=== PATIENT | female | born 1930 | race Caucasian/White ===

== ENCOUNTER 2016-05-26 11:34 | Inpatient (IN) | payer MEDICARE, BC ==
--- NOTE | 2016-05-26 12:34 | ED PDOC ---
HPI: Headache Time Seen by Provider: 05/26/16 12:11 Chief Complaint (Nursing): Palpitations Chief Complaint (Provider): Palpitations History Per: Patient History/Exam Limitations: no limitations Onset/Duration Of Symptoms: Days Current Symptoms Are (Timing): Still Present Severity: Mild Quality: "Pain" Preceeding Symptoms: None Associated Symptoms: Blurred Vision Additional Complaint(s): Patient is a 86 year old female who presents to ED for evaluation of dizziness with blurred vision and headache worsening for 2 days. Patient denies nausea, vomiting, chest pain, palpations, loss of appetite, diarrhea or head injury . Past Medical History Reviewed: Historical Data, Nursing Documentation, Vital Signs Vital Signs: Last Vital Signs Temp 97.2 F L 05/26/16 12:06 Pulse 70 05/26/16 12:06 Resp 18 05/26/16 12:06 BP 120/75 05/26/16 12:06 Pulse Ox 98 05/26/16 12:06 - Medical History PMH: Anxiety, Arthritis, Atrial Fibrillation, Cardia Arrhythmia, Depression, Diabetes, Diverticulitis, HTN, Hypercholesterolemia Denies: Chronic Kidney Disease - Surgical History Surgical History: Hernia Repair - Family History Family History: States: No Known Family Hx - Living Arrangements Living Arrangements: With Family - Home Medications Home Medications: Ambulatory Orders Medication Instructions Recorded Dabigatran [Pradaxa] 150 mg PO 05/03/14 Escitalopram Oxalate 10 mg PO DAILY 05/03/14 Famotidine [Pepcid] 20 mg PO BID #0 tab 05/03/14 Metformin Hydrochloride [Metformin] 500 mg PO BID 05/03/14 Ondansetron [Zofran] 4 mg PO Q8H #0 tab 05/03/14 Zolpidem Tartrate [Ambien] 5 mg PO HS 05/03/14 Aspirin [Aspirin Chewable] 81 mg PO DAILY 05/09/14 Atorvastatin [Lipitor] 40 mg PO DAILY 05/09/14 Dabigatran [Pradaxa] 150 mg PO BID 05/09/14 Escitalopram [Lexapro] 10 mg PO DAILY 05/09/14 Metformin Hydrochloride [Metformin] 500 mg PO DAILY 05/09/14 Metoprolol Succinate 100 mg PO DAILY 05/09/14 Pantoprazole [Protonix EC Tab] 40 mg PO DAILY 05/09/14 aMILoride [aMILoride 5 mg Tab] 5 mg PO DAILY 05/09/14 Ciprofloxacin HCl [Cipro] 250 mg PO BID #8 tab 05/15/14 - Allergies Allergies/Adverse Reactions: Allergies Allergy/AdvReac Type Severity Reaction Status Date / Time No Known Allergies Allergy Verified 05/09/14 14:25 Review of Systems ROS Statement: Except As Marked, All Systems Reviewed And Found Negative Constitutional: Negative for: Fever, Weakness Eyes: Positive for: Vision Change Cardiovascular: Negative for: Chest Pain, Palpitations Respiratory: Negative for: Shortness of Breath Gastrointestinal: Negative for: Nausea, Vomiting, Abdominal Pain Musculoskeletal: Negative for: Neck Pain Skin: Negative for: Rash Neurological: Positive for: Headache, Dizziness. Negative for: Weakness, Numbness, Altered Mental Status Physical Exam - Reviewed Nursing Documentation Reviewed: Yes Vital Signs Reviewed: Yes - Physical Exam Appears: Positive for: Non-toxic, No Acute Distress Head Exam: Positive for: ATRAUMATIC, NORMAL INSPECTION Skin: Positive for: Normal Color, Warm Eye Exam: Positive for: Normal appearance, EOMI, PERRL Neck: Positive for: Normal, Painless ROM Cardiovascular/Chest: Positive for: Regular Rate, Rhythm, Chest Non Tender. Negative for: Murmur Respiratory: Positive for: Normal Breath Sounds. Negative for: Respiratory Distress Extremity: Positive for: Normal ROM. Negative for: Pedal Edema, Calf Tenderness Neurologic/Psych: Positive for: Alert, Oriented. Negative for: Motor/Sensory Deficits - Laboratory Results Result Diagrams: 05/26/16 12:30 05/26/16 12:30 - ECG O2 Sat by Pulse Oximetry: 98 (RA) Pulse Ox Interpretation: Normal Medical Decision Making Medical Decision Making: Time: 1220 Initial impression: Head with dizziness Initial plan: -- CT-head -- EKG -- CMP -- Urine dip -- CBC Medically stable for psychiatric admission Scribe Attestation: Documented by Allie Garcia acting as a scribe for Jose Steve MD MD Scribe Attestation: All medical record entries made by the Scribe were at my direction and personally dictated by me. I have reviewed the chart and agree that the record accurately reflects my personal performance of the history, physical exam, medical decision making, and the department course for this patient. I have also personally directed, reviewed, and agree with the discharge instructions and disposition. Disposition - Clinical Impression Clinical Impression: Depression - Patient ED Disposition Is Patient to be Admitted: Transfer of Care - Disposition Referrals: Mehdi Isidro MD [Primary Care Provider] - Disposition: Transfer of Care Disposition Time: 16:52 Condition: FAIR - Pt Status Changed To: Hospital Disposition Of: Observation - POA Present On Arrival: None
[2016-05-26 13:14] LABS: BASO % 0.5 % (0.0-2.0); EOS # 0.2 K/uL (0.0-0.7); EOS % 2.5 % (0.0-4.0); HEMATOCRIT 38.6 % (34.0-47.0); LYMPH # 1.5 K/uL (1.0-4.3); LYMPH % 20.5 % (20.0-40.0); MEAN CELL VOLUME 94.9 fl (81.0-99.0); MEAN CORPUSCULAR HEMOGLOBIN 31.6 pg (27.0-31.0); MEAN CORPUSCULAR HGB CONC 33.3 g/dL (33.0-37.0); MEAN PLATELET VOLUME 7.9 fl (7.2-11.7); MONO # 0.7 K/uL (0.0-0.8); MONO % 9.1 % (0.0-10.0); NEUT # 4.9 K/uL (1.8-7.0); NEUT % 67.4 % (50.0-75.0); RED CELL DISTRIBUTION WIDTH 13.9 % (11.5-14.5); WHITE BLOOD COUNT 7.3 K/uL (4.8-10.8)
[2016-05-26 13:23] LABS: ALB/GLOB RATIO 1.1 (1.0-2.1); ALKALINE PHOSPHATASE 87 U/L (38-126); ALT/SGPT 14 U/L (9-52); AST/SGOT 34 U/L (14-36); BILIRUBIN,TOTAL 0.7 mg/dl (0.2-1.3); BLOOD UREA NITROGEN 23 mg/dl (7-17); CALCIUM 9.4 mg/dL (8.4-10.2); CARBON DIOXIDE 23 mmol/L (22-30); CHLORIDE 105 mmol/L (98-107); GFR AFRICAN-AMERICAN > 60; GLUCOSE,RANDOM 117 mg/dL (65-105); POTASSIUM 4.4 MMOL/L (3.6-5.0); SODIUM 142 mmol/l (132-148); TOTAL PROTEIN 7.4 G/DL (6.3-8.2)
--- NOTE | 2016-05-26 14:36 | CT ---
PROCEDURE: CT HEAD WITHOUT CONTRAST. HISTORY: Double vision. Rule out intracranial hemorrhage COMPARISON: Comparison made with CT scan of the brain 07/03/2010. TECHNIQUE: Axial computed tomography images were obtained through the head/brain without intravenous contrast. Radiation dose: Total exam DLP = 838.59 mGy-cm. This CT exam was performed using one or more of the following dose reduction techniques: Automated exposure control, adjustment of the mA and/or kV according to patient size, and/or use of iterative reconstruction technique. FINDINGS: HEMORRHAGE: No acute parenchymal, subarachnoid nor extra-axial hemorrhage. BRAIN: Moderate to significant diffuse/confluent chronic white matter ischemic changes seen extending peripherally into the deep and subcortical white matter of both cerebral hemispheres. In addition, there is some extension of these changes into the white matter tracts of both basal nuclei. VENTRICLES: Moderate generalized volume loss CALVARIUM: No acute calvarial fractures. PARANASAL SINUSES: Frontal sinuses remain underpneumatized/hypoplastic. MASTOID AIR CELLS: Unremarkable as visualized. No inflammatory changes. OTHER FINDINGS: None. IMPRESSION: No acute intracranial hemorrhage. Moderate to significant chronic white matter ischemic changes with extension into the white matter tracts of both basal nuclei as described. Moderate generalized volume loss.
--- NOTE | 2016-05-26 17:31 | ED PDOC ---
- Laboratory Results Result Diagrams: 05/26/16 12:30 05/26/16 12:30 - ECG O2 Sat by Pulse Oximetry: 98 (RA) Medical Decision Making Medical Decision Making: Time: 1700 Patient signed out by Dr. Steve pending Crisis Scribe Attestation: Documented by Allie Garcia acting as a scribe for Leroy Redmond MD. Scribe Attestation: All medical record entries made by the Scribe were at my direction and personally dictated by me. I have reviewed the chart and agree that the record accurately reflects my personal performance of the history, physical exam, medical decision making, and the department course for this patient. I have also personally directed, reviewed, and agree with the discharge instructions and disposition. Disposition - Clinical Impression Clinical Impression: Depression - POA Present On Arrival: None - Disposition Disposition: Admitted as In-Patient Disposition Time: 21:30 Condition: FAIR
[2016-05-27] MEDS ORDERED: Alum-Mag Hydrox-Simethicone Susp (30 mL) PO PRN (00:09)
[2016-05-27] MEDS ORDERED: Bismuth Subsalicylate 262 mg/15 ml Sus (240 ml) PO PRN (00:09)
[2016-05-27] MEDS ORDERED: Magnesium Hydroxide Susp 30 ml UD PO PRN (00:09)
[2016-05-27 07:07] LABS: IRON 56 ug/dL (37-170)
--- NOTE | 2016-05-27 07:08 | CP.PCM.HP ---
History of Present Illness - History of Present Illness History of Present Illness: pt admitted to [facility] for feeling depressed. pthad verbalized to er sI but denies to this provider. feels depressed. no f/c, n/v/d. no cp dyspnea. feels overwhelmed after daughter and son in law EMR from office reviewed, bw nad cxr reviewed Present on Admission - Present on Admission Any Indicators Present on Admission: No Review of Systems - Cardiovascular Cardiovascular: As Per HPI, Irregular Heart Rhythm - Psychiatric Psychiatric: As Per HPI, Depression Past Patient History - Infectious Disease Hx of Infectious Diseases: None - Past Medical History & Family History Past Medical History?: Yes - Past Social History Smoking Status: Never Smoked - CARDIAC Hx Cardiac Disorders: Yes Hx Atrial Fibrillation: Yes Hx Hypertension: Yes - PULMONARY Hx Respiratory Disorders: No - NEUROLOGICAL Hx Neurological Disorder: No - HEENT Hx HEENT Problems: No Hx Cataracts: Yes (left eye) - RENAL Hx Chronic Kidney Disease: No - ENDOCRINE/METABOLIC Hx Endocrine Disorders: Yes Hx Diabetes Mellitus Type 2: Yes - HEMATOLOGICAL/ONCOLOGICAL Hx Blood Disorders: No - INTEGUMENTARY Hx Dermatological Problems: No - MUSCULOSKELETAL/RHEUMATOLOGICAL Hx Arthritis: Yes Hx Falls: Yes - GASTROINTESTINAL Other/Comment: Hx 2 hernias - GENITOURINARY/GYNECOLOGICAL Hx Genitourinary Disorders: No - PSYCHIATRIC Hx Substance Use: No - SURGICAL HISTORY Hx Surgeries: Yes Hx Herniorrhaphy: Yes (x 2) - ANESTHESIA Hx Anesthesia: Yes Hx Anesthesia Reactions: No Hx Malignant Hyperthermia: No Meds Allergies/Adverse Reactions: Allergies Allergy/AdvReac Type Severity Reaction Status Date / Time No Known Allergies Allergy Verified 05/09/14 14:25 Physical Exam - Constitutional Appears: Well, Non-toxic - Head Exam Head Exam: ATRAUMATIC, NORMAL INSPECTION, NORMOCEPHALIC - Eye Exam Eye Exam: EOMI, Normal appearance, PERRL Pupil Exam: NORMAL ACCOMODATION, PERRL - ENT Exam ENT Exam: Mucous Membranes Moist, Normal Exam - Neck Exam Neck exam: Positive for: Normal Inspection - Respiratory Exam Respiratory Exam: Clear to Auscultation Bilateral, NORMAL BREATHING PATTERN - Cardiovascular Exam Cardiovascular Exam: Irregular Rhythm, +S1, +S2 - GI/Abdominal Exam GI & Abdominal Exam: Normal Bowel Sounds, Soft. absent: Tenderness - Extremities Exam Extremities exam: Positive for: full ROM, normal capillary refill, normal inspection, pedal pulses present - Back Exam Back exam: FULL ROM, NORMAL INSPECTION - Neurological Exam Neurological exam: Alert, CN II-XII Intact, Normal Gait, Oriented x3, Reflexes Normal - Psychiatric Exam Psychiatric exam: Normal Affect, Normal Mood - Skin Skin Exam: Dry, Intact, Normal Color, Warm Results - Vital Signs Recent Vital Signs: Last Vital Signs Temp 97 F L 05/27/16 05:54 Pulse 86 05/27/16 05:54 Resp 19 05/27/16 05:54 BP 105/58 L 05/27/16 05:54 Pulse Ox 98 05/26/16 17:31 - Labs Result Diagrams: 05/26/16 12:30 05/26/16 12:30 Labs: Laboratory Results - last 24 hr 05/27/16 05:30 POC Glucose (mg/dL) 124 H Assessment & Plan (1) Depression Assessment and Plan: [facility] admission psych meds, interventions, therapies Status: Acute (2) Afib Assessment and Plan: pradaxa Status: Acute (3) DVT prophylaxis Assessment and Plan: scd nad ae hose pradaxa Status: Acute (4) Diabetes type 2, controlled Assessment and Plan: fsbg, dietary home meds Status: Acute Decision To Admit - Pt Status Changed To: Hospital Disposition Of: Inpatient - Admit Certification Admit to Inpatient:: After my assessment, the patient will require hospitalization for at least two midnights. This is because of the severity of symptoms shown, intensity of services needed, and/or the medical risk in this patient being treated as an outpatient. - . Bed Request Type: [facility] Admitting Physician: Liseth Brush
[2016-05-27 07:19] LABS: T4 6.74 ug/dl (5.5-11.0)
[2016-05-27 07:33] LABS: THYROID STIMULATING HORMONE 1.49 mIU/ML (0.46-4.68)
[2016-05-27] MEDS: Pantoprazole 40 mg EC Tab PO SCH (08:22)
--- NOTE | 2016-05-27 08:55 | PCM.PSYCH ---
Initial Psychiatric Evaluation - Initial Psychiatric Evaluation Type of Admission: Voluntary Legal Status: Capacity Chief Complaint (in patient's own words): "I have been feeling depressed." Patient's Reaction to Hospitalization: HPI: 86 yr/o female w/ history of depression, self-referred to this ED for worsening depression, feeling shaky and off balance. Pt states that she has been on medication for depression the past three years. The medication was prescribed by her medical doctor Dr. Isidro. About 3 weeks ago she stopped taking it and reports a decline in mood since that time. She reports worsening feelings of depression/anxiety/worthlessness/insomnia/poor appetite and hopelessness. No passive or active suicidal ideation. She has been isolating and not leaving her house often. Pt reports having a loss of energy, not wanting to leave the house because she does not want to get dressed. Also not wanting to receive visitors. ROS: No paranoia, no current AH/VH/quinn/obsessions/compulsions PPHx: H/o treatment with Lexapro. History of one psychiatric admission for depression. No h/o suicide attempts. PMHx: Anxiety, Arthritis, Atrial Fibrillation, Cardia Arrhythmia, Depression, Diabetes, Diverticulitis, HTN, Hypercholesterolemia FHx: No known family hx of mental illness All: NKDA SHx: , unemployed, lives in a 2 family home, daughter lives above her. No drugs/etoh/cig. From [place]. Current Medications: Active Medications Generic Name Dose Route Start Last Admin Trade Name Freq PRN Reason Stop Dose Admin Acetaminophen 650 mg 05/27/16 00:09 Tylenol 325mg Tab PO Q4 PRN Pain, moderate (4-7) Al Hydrox/Mg Hydrox/Simethicone 30 ml 05/27/16 00:09 Maalox Plus 30 Ml PO Q4 PRN Dyspepsia Aspirin 81 mg 05/27/16 09:00 05/27/16 08:22 Aspirin Chewable PO 81 mg DAILY ON LICENSE OF [facility] Administration Atorvastatin Calcium 40 mg 05/27/16 09:00 Lipitor PO DAILY ON LICENSE OF [facility] Bismuth Subsalicylate 524 mg 05/27/16 00:09 Pepto-Bismol PO Q4 PRN Diarrhea Dabigatran 150 mg 05/27/16 09:00 Pradaxa PO BID ON LICENSE OF [facility] Protocol Escitalopram Oxalate 10 mg 05/27/16 09:00 05/27/16 08:22 Lexapro PO 10 mg DAILY [facility] Administration Lorazepam 0.5 mg 05/27/16 00:09 05/27/16 01:39 Ativan PO 06/10/16 00:10 0.5 mg HS PRN Administration Insomnia Lorazepam 0.5 mg 05/27/16 00:09 Ativan PO 06/10/16 00:10 Q6 PRN Anixety/Agitation Magnesium Hydroxide 30 ml 05/27/16 00:09 Milk Of Magnesia PO HS PRN Constipation Metformin HCl 500 mg 05/27/16 09:00 Glucophage PO BID [facility] Metoprolol Succinate 100 mg 05/27/16 09:00 Toprol Xl PO DAILY [facility] Nitrofurantoin Macrocrystals 100 mg 05/27/16 09:00 05/27/16 08:22 Macrobid PO 100 mg Q12 [facility] Administration Pantoprazole Sodium 40 mg 05/27/16 09:00 05/27/16 08:22 Protonix Ec Tab PO 40 mg DAILY [facility] Administration Zolpidem Tartrate 5 mg 05/27/16 22:00 Ambien PO HS [facility] FRANCISCO Past Psychiatric History - Past Psychiatric History Previous Treatment History: Inpatient Pertinent Medical Hx (Current Medical&Sleep Prob, Allergies): Allergies Allergy/AdvReac Type Severity Reaction Status Date / Time No Known Allergies Allergy Verified 05/09/14 14:25 Dabigatran [Pradaxa] 150 mg PO DAILY 05/03/14 Escitalopram Oxalate 10 mg PO DAILY 05/03/14 Famotidine [Pepcid] 20 mg PO BID #0 tab 05/03/14 Metformin Hydrochloride [Metformin] 500 mg PO BID 05/03/14 Zolpidem Tartrate [Ambien] 5 mg PO HS 05/03/14 Aspirin [Aspirin Chewable] 81 mg PO DAILY 05/09/14 Atorvastatin [Lipitor] 40 mg PO DAILY 05/09/14 Escitalopram [Lexapro] 10 mg PO DAILY 05/09/14 Metformin Hydrochloride [Metformin] 500 mg PO DAILY 05/09/14 Metoprolol Succinate 100 mg PO DAILY 05/09/14 Pantoprazole [Protonix EC Tab] 40 mg PO DAILY 05/09/14 Review of Systems - Review of Systems All systems: reviewed and no additional remarkable complaints except - Psychiatric Psychiatric: Abnormal Sleep Pattern, Anhedonia, Anxiety, Auditory Hallucinations , Behavioral Changes, Change in Appetite, Depression, Difficulty Concentrating, Hopelessness, Irritability, Mood Swings Mental Status Examination - Personal Presentation Personal Presentation: Looks stated age - Affect Affect: Depressed - Motor Activity Motor Activity: Calm - Reliability in Providing Information Reliability in Providing Information: Good - Speech Speech: Organized - Mood Mood: Depressed - Formal Thought Process Formal Thought Process: No Impairment - Obsessions/Compulsions Obsessions: No Compulsions: No - Cognitive Functions Orientation: Person, Place, Situation, Time Sensorium: Alert Attention/Concentration: Attentive Judgement: Intact, as evidence by: Good judgement, Intact, as evidence by: Insight regarding need for hospitalization Memory: Recent intact, as evidence by: Ability to recall events of the day, Remote intact, as evidenced by: Abilit to recall sig. life events, Remote intact , as evidenced by: Ability to recall historical events - Risk Risk: Diminished functioning - Strength & Assets Inventory Strength & Assets Inventory: Intelligence, Family support, Cooperative - Limitations Limitations: Living alone DSM 5 DX - DSM 5 DSM 5 Diagnosis: Major Depressive Disorder - Recommended/Plan of Treatment Treatment Recommendations and Plan of Treatment: 86 yo female w/ h/o MDD, presents with worsening depression in the context of non-compliance with medications. -Admit to [facility] -Restart Lexapro 10 mg PO Daily -Lower outpatient Ambien to 5 mg PO HS PRN insomnia -Individual, group and milieu tx -Medicine consult appreciated -PT evaluation -No 1:1 indicated, patient can contract for safety Projected ELOS: 4-7 days Discharge Plan and Discharge Criteria: Discharge patient when she is psychiatrically stable Patient evaluated, chart reviewed, case discussed with team, 70 min - Smoking Cessation Smoking Cessation Initiated: No Reason for not providing: Not indicated
[2016-05-27] MEDS ORDERED: ESCITALOPRAM OXALATE 10 MG PO SCH (09:00)
--- NOTE | 2016-05-27 10:45 | RAD ---
HISTORY: new admit COMPARISON: 05/12/2014 FINDINGS: LUNGS: No active pulmonary disease. PLEURA: No significant pleural effusion identified, no pneumothorax apparent. CARDIOVASCULAR: Normal. OSSEOUS STRUCTURES: Bilateral glenohumeral osteoarthritis. VISUALIZED UPPER ABDOMEN: Normal. OTHER FINDINGS: None. IMPRESSION: No active disease.
[2016-05-27] MEDS: Metoprolol Succinate 100 mg XL Tab PO SCH (13:51)
--- NOTE | 2016-05-27 20:29 | CARD ---
APPROVED REPORT EKG Measurement Heart [id number] <Conclusion> Atrial fibrillation Abnormal ECG
[2016-05-28] MEDS: Metoprolol Succinate 100 mg XL Tab PO SCH (08:31)
[2016-05-28] MEDS: Pantoprazole 40 mg EC Tab PO SCH (08:31)
--- NOTE | 2016-05-28 10:13 | PCM.PYCHPN ---
Psychiatric Progress Note - Psychiatric Progress Note Patient seen today, length of contact: Patient evaluated, case discussed with team, chart reviewed Patient Chief Complaint: "I 'm feeling okay" Problems Identified/Issues Discussed: Patient reports that she is starting to feel slightly better. She is goal oriented and discussed her desire to spend Easter with her family. No AH/VH/ paranoia. She has been eating well. She discussed her family. Medication Change: No Medical Record Reviewed: Yes Mental Status Examination - Cognitive Function Orientation: Person, Place, Situation, Time Memory: Intact Attention: WNL Association: [facility] Fund of Knowledge: [facility] Decription of patient's judgement and insights: Good I/J - Mood Mood: Depressed - Affect Affect: Depressed - Speech Speech: Appropriate - Formal Thought Process Formal Thought Process: No Impairment Psychotic Thoughts and Behaviors: NO AH/VH/paranoia - Suicidal Ideation Suicidal Ideation: No - Homicidal Ideation Homicidal Ideation: No Goal/Treatment Plan - Goal/Treatment Plan Need for Continued Stay: Remain at risks for inpatient hospitalization, Severe depression anxiety Progress Toward Problem(s) and Goals/Treatment Plan: 86 yo female w/ h/o MDD, presents with worsening depression in the context of non-compliance with medications. -Continue Lexapro 10 mg PO Daily -Lower outpatient Ambien to 5 mg PO HS PRN insomnia -Individual, group and milieu tx -Medicine consult appreciated -PT evaluation Estimated Date of D/C: 05/31/16 - Smoking Cessation Smoking Cessation Initiated: No Reason for not providing: Not indicated
[2016-05-28 11:56] LABS: BASO % 0.2 % (0.0-2.0); EOS # 0.1 K/uL (0.0-0.7); EOS % 1.7 % (0.0-4.0); HEMATOCRIT 34.7 % (34.0-47.0); LYMPH # 0.9 K/uL (1.0-4.3); LYMPH % 11.2 % (20.0-40.0); MEAN CELL VOLUME 93.9 fl (81.0-99.0); MEAN CORPUSCULAR HEMOGLOBIN 31.4 pg (27.0-31.0); MEAN CORPUSCULAR HGB CONC 33.5 g/dL (33.0-37.0); MEAN PLATELET VOLUME 7.5 fl (7.2-11.7); MONO # 0.7 K/uL (0.0-0.8); MONO % 8.9 % (0.0-10.0); NEUT # 6.5 K/uL (1.8-7.0); RED CELL DISTRIBUTION WIDTH 13.5 % (11.5-14.5); WHITE BLOOD COUNT 8.3 K/uL (4.8-10.8)
[2016-05-28 12:06] LABS: ALKALINE PHOSPHATASE 77 U/L (38-126); ALT/SGPT 17 U/L (9-52); AST/SGOT 27 U/L (14-36); BILIRUBIN,TOTAL 0.6 mg/dl (0.2-1.3); BLOOD UREA NITROGEN 15 mg/dl (7-17); CARBON DIOXIDE 25 mmol/L (22-30); CHLORIDE 104 mmol/L (98-107); GFR AFRICAN-AMERICAN > 60; GLUCOSE,RANDOM 117 mg/dL (65-105); SODIUM 140 mmol/l (132-148); TOTAL PROTEIN 6.4 G/DL (6.3-8.2)
[2016-05-28 12:19] LABS: ALB/GLOB RATIO 1.1 (1.0-2.1)
[2016-05-28 20:52] LABS: RBC URINE 10 /hpf (0-3); URINE BACTERIA RARE (<OCC); URINE BILIRUBIN NEGATIVE (NEGATIVE); URINE BLOOD MODERATE (NEGATIVE); URINE COLOR YELLOW (YELLOW); URINE GLUCOSE (UA) NEG (Normal); URINE KETONE NEGATIVE (NEGATIVE); URINE LEUKOCYTE ESTERASE TRACE Leu/uL (Negative); URINE PROTEIN NEGATIVE (NEGATIVE); URINE UROBILINOGEN 0.2-1.0 mg/dL (0.2-1.0); WBC URINE 4 /hpf (0-5)
--- NOTE | 2016-05-28 21:21 | CARD ---
APPROVED REPORT EKG Measurement Heart [id number] <Conclusion> Atrial fibrillation Abnormal ECG
--- NOTE | 2016-05-29 07:26 | CP.PCM.PN ---
Subjective - Date & Time of Evaluation Date of Evaluation: 05/29/16 Time of Evaluation: 07:26 - Subjective Subjective: pt had chest discomfort w/ pt yesterday described as 1 lightning bolt in chest then dissipated. no furthe rocmplaitns. had some dizziness as well but none at [employer]. bw and trop negative. ekg afib w/ost changes in 70s. r carissa for cardio. pt offers no other complaints at present apperas in better spirits. Objective - Vital Signs/Intake and Output Vital Signs (last 24 hours): Temp Pulse Resp BP Pulse Ox 97.1 F L 75 18 121/65 98 05/29/16 06:00 05/29/16 06:00 05/29/16 06:00 05/29/16 06:00 05/28/16 07:20 - Medications Medications: Current Medications Acetaminophen (Tylenol 325mg Tab) 650 mg PO Q4 PRN PRN Reason: Pain, moderate (4-7) Al Hydrox/Mg Hydrox/Simethicone (Maalox Plus 30 Ml) 30 ml PO Q4 PRN PRN Reason: Dyspepsia Aspirin (Aspirin Chewable) 81 mg PO DAILY [facility] Last Admin: 05/28/16 08:30 Dose: 81 mg Atorvastatin Calcium (Lipitor) 40 mg PO DAILY [facility] Last Admin: 05/28/16 08:31 Dose: 40 mg Bismuth Subsalicylate (Pepto-Bismol) 524 mg PO Q4 PRN PRN Reason: Diarrhea Cyanocobalamin (Vitamin B12 1000 Mcg/Ml Inj) 1,000 mcg IM DAILY [facility] Last Admin: 05/28/16 08:32 Dose: 1,000 mcg Dabigatran (Pradaxa) 150 mg PO BID [facility] PRN Reason: Protocol Last Admin: 05/28/16 17:42 Dose: 150 mg Escitalopram Oxalate (Lexapro) 10 mg PO DAILY [facility] Last Admin: 05/28/16 08:31 Dose: 10 mg Lorazepam (Ativan) 0.5 mg PO HS PRN PRN Reason: Insomnia Stop: 06/10/16 00:10 Last Admin: 05/27/16 01:39 Dose: 0.5 mg Lorazepam (Ativan) 0.5 mg PO Q6 PRN PRN Reason: Anixety/Agitation Stop: 06/10/16 00:10 Magnesium Hydroxide (Milk Of Magnesia) 30 ml PO HS PRN PRN Reason: Constipation Metformin HCl (Glucophage) 500 mg PO BID [facility] Last Admin: 05/28/16 17:53 Dose: 500 mg Metoprolol Succinate (Toprol Xl) 100 mg PO DAILY [facility] Last Admin: 05/28/16 08:31 Dose: 100 mg Nitrofurantoin Macrocrystals (Macrobid) 100 mg PO Q12 [facility] Last Admin: 05/28/16 21:20 Dose: 100 mg Pantoprazole Sodium (Protonix Ec Tab) 40 mg PO DAILY [facility] Last Admin: 05/28/16 08:31 Dose: 40 mg Zolpidem Tartrate (Ambien) 5 mg PO HS PRN PRN Reason: Insomnia Last Admin: 05/28/16 21:20 Dose: 5 mg - Labs Labs: 05/28/16 11:42 05/28/16 11:42 PT 11.8 SECONDS (9.6-11.2) H 05/27/16 06:39 INR 1.13 (0.92-1.08) H 05/27/16 06:39 - Constitutional Appears: Well, Non-toxic, No Acute Distress - Head Exam Head Exam: ATRAUMATIC, NORMAL INSPECTION, NORMOCEPHALIC - Eye Exam Eye Exam: EOMI, Normal appearance, PERRL Pupil Exam: NORMAL ACCOMODATION, PERRL - ENT Exam ENT Exam: Mucous Membranes Moist, Normal Exam - Neck Exam Neck Exam: Full ROM, Normal Inspection. absent: Lymphadenopathy - Respiratory Exam Respiratory Exam: Clear to Ausculation Bilateral, NORMAL BREATHING PATTERN - Cardiovascular Exam Cardiovascular Exam: Irregular Rhythm, +S1, +S2. absent: Murmur - GI/Abdominal Exam GI & Abdominal Exam: Soft, Normal Bowel Sounds. absent: Tenderness - Extremities Exam Extremities Exam: Full ROM, Normal Capillary Refill, Normal Inspection. absent : Joint Swelling, Pedal Edema - Back Exam Back Exam: NORMAL INSPECTION - Neurological Exam Neurological Exam: Alert, Awake, CN II-XII Intact, Normal Gait, Oriented x3 - Psychiatric Exam Psychiatric exam: Normal Affect, Normal Mood - Skin Skin Exam: Dry, Intact, Normal Color, Warm Assessment and Plan (1) Depression Assessment & Plan: cont psych med interventions, therpies Status: Acute (2) Afib Assessment & Plan: pradaxa, rate control, cardio Status: Acute (3) DVT prophylaxis Assessment & Plan: scd w[facility] ehose pradaxa Status: Acute (4) Diabetes type 2, controlled Assessment & Plan: hoem meds, fsbg, diet Status: Acute (5) Chest discomfort Assessment & Plan: likely noncardiac, trop negative, ekg wnl,c ardio Status: Acute
[2016-05-29] MEDS: Pantoprazole 40 mg EC Tab PO SCH (08:54)
[2016-05-29] MEDS: Metoprolol Succinate 100 mg XL Tab PO SCH (08:55)
--- NOTE | 2016-05-29 09:43 | PCM.PYCHPN ---
Psychiatric Progress Note - Psychiatric Progress Note Patient seen today, length of contact: Patient evaluated, case discussed with team, chart reviewed Patient Chief Complaint: "I 'm feeling okay" Problems Identified/Issues Discussed: Patient reports that she is feeling better. She had an episode of chest pain now resolved and was evaluated by medicine. Patient in no acute distress and no acute medical complaints today. She reports that her depression is improving and is looking forward to being discharged. She is goal oriented and discussed her desire to spend Easter with her family. No AH/VH/paranoia. She has been eating well. Medication Change: No Medical Record Reviewed: Yes Mental Status Examination - Cognitive Function Orientation: Person, Place, Situation, Time Memory: Intact Attention: WNL Association: WNL Fund of Knowledge: [facility] Decription of patient's judgement and insights: Good I/J - Mood Mood: Depressed - Affect Affect: Broad - Speech Speech: Appropriate - Formal Thought Process Formal Thought Process: No Impairment Psychotic Thoughts and Behaviors: NO AH/VH/paranoia - Suicidal Ideation Suicidal Ideation: No - Homicidal Ideation Homicidal Ideation: No Goal/Treatment Plan - Goal/Treatment Plan Need for Continued Stay: Severe depression anxiety Progress Toward Problem(s) and Goals/Treatment Plan: 86 yo female w/ h/o MDD, presented with worsening depression in the context of non-compliance with medications, now improving. -Continue Lexapro 10 mg PO Daily -Individual, group and milieu tx -Medicine consult appreciated -Discharge to home tomorrow with outpatient follow-up Estimated Date of D/C: 05/30/16 - Smoking Cessation Smoking Cessation Initiated: No Reason for not providing: Not indicated
--- NOTE | 2016-05-29 17:34 | CP.PCM.CON ---
History of Present Illness - History of Present Illness History of Present Illness: I was asked to see patient by Suresh Boone APN. Patient is a 86 year old female with PMH HTN, atrial fibrillation admitted for depression. She complained of a sensation of palpitaitons. The patient has a history of atrial fibrillation. She is maintained on Pradaxa. She denies chest pain. Review of Systems - Constitutional Constitutional: absent: As Per HPI, Anorexia, Chills, Daytime Sleepiness, Excessive Sweating, Fatigue, Fever, Frequent Falls, Headache, Increased Appetite , Lethargy, Malaise, Night Sweats, Snoring, Sleep Apnea, Weight Gain, Weight Loss, Weakness, Other - EENT Eyes: absent: As Per HPI, Blind Spots, Blurred Vision, Change in Vision, Decreased Night Vision, Diplopia, Discharge, Dry Eye, Exophthalmos, Floaters, Irritation, Itchy Eyes, Loss of Peripheral Vision, Pain, Photophobia, Requires Corrective Lenses, Sees Flashes, Spots in Vision, Tunnel Vision, Other Visual Disturbances, Loss of Vision, Other Ears: absent: As Per HPI, Decreased Hearing, Ear Discharge, Ear Pain, Tinnitus, Abnormal Hearing, Disequilibrium, Dizziness, Other Nose/Mouth/Throat: absent: As Per HPI, Epistaxis, Nasal Congestion, Nasal Discharge, Nasal Obstruction, Nasal Trauma, Nose Pain, Post Nasal Drip, Sinus Pain, Sinus Pressure, Bleeding Gums, Change in Voice, Dental Pain, Dry Mouth, Dysphagia, Halitosis, Hoarsness, Lip Swelling, Mouth Lesions, Mouth Pain, Odynophagia, Sore Throat, Throat Swelling, Tongue Swelling, Facial Pain, Neck Pain, Neck Mass, Other - Cardiovascular Cardiovascular: Palpitations - Respiratory Respiratory: absent: As Per HPI, Cough, Dyspnea, Hemoptysis, Dyspnea on Exertion , Wheezing, Snoring, Stridor, Pain on Inspiration, Chest Congestion, Excessive Mucous Production, Change in Mucous Color, Pain with Coughing, Other - Gastrointestinal Gastrointestinal: absent: As Per HPI, Abdominal Pain, Belching, Bloating, Change in Bowel Habits, Change in Stool Character, Coffee Ground Emesis, Constipation, Cramping, Diarrhea, Dyspepsia, Dysphagia, Early Satiety, Excessive Flatus, Fecal Incontinence, Heartburn, Hematemesis, Hematochezia, Loose Stools, Melena, Nausea, Odynophagia, Temesmus, Vomiting, Other - Genitourinary Genitourinary: absent: As Per HPI, Change in Urinary Stream, Difficulty Urinating, Dysuria, Flank Pain, Hematuria, Pyuria, Nocturia, Urinary Incontinence, Urinary Frequency, Urinary Hesitance, Urinary Urgency, Voiding Freq/Small Amts, Freq UTI, Hx Renal/Bladder Calculi, Hx /Renal Surgery, Bladder Distension, Other - Musculoskeletal Musculoskeletal: absent: As Per HPI, Abnormal Gait, Arthralgias, Atrophy, Back Pain, Deformity, Joint Swelling, Limited Range of Motion, Loss of Height, Muscle Cramps, Muscle Weakness, Myalgias, Neck Pain, Numbness, Radiating Pain into Limb, Stiffness, Tingling, Other - Integumentary Integumentary: absent: As Per HPI, Acne, Alopecia, Bleeding Lesions, Change in Hair, Change in Nails, Change in Pigmentation, Changing Lesions, Dry Skin, Erythema, Furuncle, Hirsutism, Lesions, New Lesions, Non-Healing Lesions, Photosensitivity, Pruritus, Rash, Skin Pain, Skin Ulcer, Sores, Striae, Swelling , Unusual Bruising, Wounds, Jaundice, Other - Neurological Neurological: absent: As Per HPI, Abnormal Gait, Abnormal Hearing, Abnormal Movements, Abnormal Speech, Behavioral Changes, Burning Sensations, Confusion, Convulsions, Disequilibrium, Dizziness, Numbness, Focal Weakness, Frequent Falls , Headaches, Lack of Coordination, Loss of Vision, Memory Loss, Paresthesias, Radicular Pain, Restless Legs, Sensory Deficit, Syncope, Tingling, Tremor, Vertigo, Weakness, Other Visual Disturbances, Other - Psychiatric Psychiatric: Depression - Endocrine Endocrine: absent: As Per HPI, Change in Body Appearance, Change in Libido, Cold Intolorance, Deepening of Voice, Excessive Sweating, Fatigue, Flushing, Heat Intolorance, Increase in Ring/Shoe/Hat Size, Palpitations, Polydipsia, Polyphagia, Polyuria, Other - Hematologic/Lymphatic Hematologic: absent: As Per HPI, Easy Bleeding, Easy Bruising, Lymphadenopathy, Other Past Patient History - Infectious Disease Hx of Infectious Diseases: None - Past Medical History & Family History Past Medical History?: Yes - Past Social History Smoking Status: Never Smoked - CARDIAC Hx Cardiac Disorders: Yes Hx Atrial Fibrillation: Yes Hx Hypertension: Yes - PULMONARY Hx Respiratory Disorders: No - NEUROLOGICAL Hx Neurological Disorder: No - HEENT Hx HEENT Problems: No Hx Cataracts: Yes (left eye) - RENAL Hx Chronic Kidney Disease: No - ENDOCRINE/METABOLIC Hx Endocrine Disorders: Yes Hx Diabetes Mellitus Type 2: Yes - HEMATOLOGICAL/ONCOLOGICAL Hx Blood Disorders: No - INTEGUMENTARY Hx Dermatological Problems: No - MUSCULOSKELETAL/RHEUMATOLOGICAL Hx Arthritis: Yes Hx Falls: Yes - GASTROINTESTINAL Other/Comment: Hx 2 hernias - GENITOURINARY/GYNECOLOGICAL Hx Genitourinary Disorders: No - PSYCHIATRIC Hx Substance Use: No - SURGICAL HISTORY Hx Surgeries: Yes Hx Herniorrhaphy: Yes (x 2) - ANESTHESIA Hx Anesthesia: Yes Hx Anesthesia Reactions: No Hx Malignant Hyperthermia: No Meds Allergies/Adverse Reactions: Allergies Allergy/AdvReac Type Severity Reaction Status Date / Time No Known Allergies Allergy Verified 05/09/14 14:25 - Medications Medications: Current Medications Acetaminophen (Tylenol 325mg Tab) 650 mg PO Q4 PRN PRN Reason: Pain, moderate (4-7) Al Hydrox/Mg Hydrox/Simethicone (Maalox Plus 30 Ml) 30 ml PO Q4 PRN PRN Reason: Dyspepsia Aspirin (Aspirin Chewable) 81 mg PO DAILY [facility] Last Admin: 05/29/16 08:55 Dose: 81 mg Atorvastatin Calcium (Lipitor) 40 mg PO DAILY [facility] Last Admin: 05/29/16 08:54 Dose: 40 mg Bismuth Subsalicylate (Pepto-Bismol) 524 mg PO Q4 PRN PRN Reason: Diarrhea Cyanocobalamin (Vitamin B12 1000 Mcg/Ml Inj) 1,000 mcg IM DAILY [facility] Last Admin: 05/29/16 08:58 Dose: 1,000 mcg Dabigatran (Pradaxa) 150 mg PO BID [facility] PRN Reason: Protocol Last Admin: 05/29/16 17:13 Dose: 150 mg Escitalopram Oxalate (Lexapro) 10 mg PO DAILY [facility] Last Admin: 05/29/16 08:54 Dose: 10 mg Ibuprofen (Motrin Tab) 600 mg PO Q8 PRN PRN Reason: pain Lorazepam (Ativan) 0.5 mg PO HS PRN PRN Reason: Insomnia Stop: 06/10/16 00:10 Last Admin: 05/27/16 01:39 Dose: 0.5 mg Lorazepam (Ativan) 0.5 mg PO Q6 PRN PRN Reason: Anixety/Agitation Stop: 06/10/16 00:10 Magnesium Hydroxide (Milk Of Magnesia) 30 ml PO HS PRN PRN Reason: Constipation Metformin HCl (Glucophage) 500 mg PO BID [facility] Last Admin: 05/29/16 17:13 Dose: 500 mg Metoprolol Succinate (Toprol Xl) 100 mg PO DAILY [facility] Last Admin: 05/29/16 08:55 Dose: 100 mg Nitrofurantoin Macrocrystals (Macrobid) 100 mg PO Q12 [facility] Last Admin: 05/29/16 08:55 Dose: 100 mg Pantoprazole Sodium (Protonix Ec Tab) 40 mg PO DAILY [facility] Last Admin: 05/29/16 08:54 Dose: 40 mg Zolpidem Tartrate (Ambien) 5 mg PO HS PRN PRN Reason: Insomnia Last Admin: 05/28/16 21:20 Dose: 5 mg Physical Exam - Constitutional Appears: Non-toxic - Head Exam Head Exam: NORMAL INSPECTION - Eye Exam Eye Exam: Normal appearance - ENT Exam ENT Exam: Mucous Membranes Moist - Neck Exam Neck exam: Positive for: Full Rom - Respiratory Exam Respiratory Exam: Decreased Breath Sounds - Cardiovascular Exam Cardiovascular Exam: Irregular Rhythm - GI/Abdominal Exam GI & Abdominal Exam: Normal Bowel Sounds - Rectal Exam Rectal Exam: Deferred - Extremities Exam Extremities exam: Negative for: pedal edema - Back Exam Back exam: NORMAL INSPECTION - Neurological Exam Neurological exam: Alert, Oriented x3 - Psychiatric Exam Psychiatric exam: Normal Affect - Skin Skin Exam: Normal Color Results - Vital Signs Recent Vital Signs: Last Vital Signs Temp 97.7 F 05/29/16 16:17 Pulse 88 05/29/16 16:17 Resp 18 05/29/16 16:17 BP 127/87 05/29/16 16:17 Pulse Ox 98 05/28/16 07:20 - Labs Result Diagrams: 05/28/16 11:42 05/28/16 11:42 Labs: Laboratory Results - last 24 hr 05/28/16 05/28/16 05/29/16 19:27 20:28 06:15 POC Glucose (mg/dL) 120 H 110 Urine Color Yellow Urine Clarity Clear Urine pH 6.0 Ur Specific [place] 1.008 Urine Protein Negative Urine Glucose (UA) Neg Urine Ketones Negative Urine Blood Moderate Urine Nitrate Negative Urine Bilirubin Negative Urine Urobilinogen 0.2-1.0 Ur Leukocyte Esterase Trace Urine RBC (Auto) 10 H Urine Microscopic WBC 4 Ur Squamous Epith Cells 2 Urine Bacteria Rare 05/29/16 05/29/16 11:13 15:52 POC Glucose (mg/dL) 106 98 Urine Color Urine Clarity Urine pH Ur Specific [place] Urine Protein Urine Glucose (UA) Urine Ketones Urine Blood Urine Nitrate Urine Bilirubin Urine Urobilinogen Ur Leukocyte Esterase Urine RBC (Auto) Urine Microscopic WBC Ur Squamous Epith Cells Urine Bacteria - EKG Data EKG Interpreted by: Myself Assessment & Plan (1) Chronic atrial fibrillation Assessment and Plan: patient has known atrial fibrillation. she is currenty rate controlled. will continue current medications Status: Acute (2) Diabetes type 2, controlled Assessment and Plan: continue medical therapy Status: Acute
[2016-05-30 07:06] VITALS: RESP 20
[2016-05-30] MEDS ORDERED: Alum-Mag Hydrox-Simethicone Susp (30 mL) PO PRN (08:09)
[2016-05-30] MEDS ORDERED: Magnesium Hydroxide Susp 30 ml UD PO PRN (08:09)
[2016-05-30] MEDS: Pantoprazole 40 mg EC Tab PO SCH (08:53)
[2016-05-30] MEDS: Metoprolol Succinate 100 mg XL Tab PO SCH (08:53)
[2016-05-30 10:44] LABS: CHOLESTEROL 186 mg/dL (0-199)
--- NOTE | 2016-05-30 11:45 | PCM.PYCHPN ---
Psychiatric Progress Note - Psychiatric Progress Note Patient seen today, length of contact: Patient evaluated, case discussed with team, chart reviewed Patient Chief Complaint: "I 'm feeling worse Problems Identified/Issues Discussed: Patient reports that she is feeling more depressed and anxious today and does not feel she is emotionally ready for discharge. She denies ideation to harm herself. She reports that she feels nauseous at this time. She denies recent episodes of chest pain. Staff reports that she has not been eating well. She became more confused after taking Ambien last night as per staff, although the patient does to believe this is true. Will d/c Ambien at this time. No AH/VH/ paranoia. Medication Change: Yes (Discontinue Ambien) Medical Record Reviewed: Yes Mental Status Examination - Cognitive Function Orientation: Person, Place, Situation, Time Memory: Intact Attention: WNL Association: WNL Fund of Knowledge: [facility] Decription of patient's judgement and insights: Fair I/J - Mood Mood: Depressed - Affect Affect: Constricted, Depressed - Speech Speech: Appropriate - Formal Thought Process Formal Thought Process: No Impairment Psychotic Thoughts and Behaviors: NO AH/VH/paranoia - Suicidal Ideation Suicidal Ideation: No - Homicidal Ideation Homicidal Ideation: No Goal/Treatment Plan - Goal/Treatment Plan Need for Continued Stay: Severe depression anxiety Progress Toward Problem(s) and Goals/Treatment Plan: 86 yo female w/ h/o MDD, presented with worsening depression in the context of non-compliance with medications, continues to report significant depression and has not been eating well despite staff encouragement. Patient needs continued admission for treatment and stabilization. -Continue Lexapro 10 mg PO Daily -Stop Ambien due to period of confusion -Individual, group and milieu tx -Medicine consult appreciated Estimated Date of D/C: 06/02/16 - Smoking Cessation Smoking Cessation Initiated: No Reason for not providing: Not indicated
[2016-05-31 06:14] VITALS: BP 131/58; PULSE 92; TEMP 96.8; O2SAT 18
--- NOTE | 2016-05-31 08:06 | CP.PCM.PN ---
Subjective - Date & Time of Evaluation Date of Evaluation: 05/31/16 Time of Evaluation: 08:06 - Subjective Subjective: see dictated note [id number] no complaints/distress medically cleared for dc Objective - Vital Signs/Intake and Output Vital Signs (last 24 hours): Temp Pulse Resp BP Pulse Ox 96.8 F L 92 H 20 131/58 L 18 L 05/31/16 06:00 05/31/16 06:00 05/30/16 18:00 05/31/16 06:00 05/31/16 06:00 - Medications Medications: Current Medications Acetaminophen (Tylenol 325mg Tab) 650 mg PO Q4 PRN PRN Reason: Pain, moderate (4-7) Al Hydrox/Mg Hydrox/Simethicone (Maalox Plus 30 Ml) 30 ml PO Q4 PRN PRN Reason: Dyspepsia Aspirin (Aspirin Chewable) 81 mg PO DAILY [facility] Last Admin: 05/30/16 08:53 Dose: 81 mg Atorvastatin Calcium (Lipitor) 40 mg PO DAILY [facility] Last Admin: 05/30/16 08:53 Dose: 40 mg Cyanocobalamin (Vitamin B12 1000 Mcg/Ml Inj) 1,000 mcg IM DAILY [facility] Last Admin: 05/30/16 08:54 Dose: 1,000 mcg Dabigatran (Pradaxa) 150 mg PO BID [facility] PRN Reason: Protocol Last Admin: 05/30/16 17:28 Dose: 150 mg Diphenhydramine HCl (Benadryl) 50 mg PO HS PRN PRN Reason: Sleep Escitalopram Oxalate (Lexapro) 10 mg PO DAILY [facility] Last Admin: 05/30/16 08:54 Dose: 10 mg Ibuprofen (Motrin Tab) 600 mg PO Q8 PRN PRN Reason: pain Last Admin: 05/30/16 17:28 Dose: 600 mg Lorazepam (Ativan) 0.5 mg PO BID PRN PRN Reason: Anxiety Lorazepam (Ativan) 0.5 mg IM Q12 PRN PRN Reason: Agitation Magnesium Hydroxide (Milk Of Magnesia) 30 ml PO HS PRN PRN Reason: Constipation Metformin HCl (Glucophage) 500 mg PO BID [facility] Last Admin: 05/30/16 17:29 Dose: 500 mg Metoprolol Succinate (Toprol Xl) 100 mg PO DAILY [facility] Last Admin: 05/30/16 08:53 Dose: 100 mg Nitrofurantoin Macrocrystals (Macrobid) 100 mg PO Q12 [facility] Last Admin: 05/30/16 21:11 Dose: 100 mg Pantoprazole Sodium (Protonix Ec Tab) 40 mg PO DAILY [facility] Last Admin: 05/30/16 08:53 Dose: 40 mg - Labs Labs: 05/28/16 11:42 05/28/16 11:42 PT 11.8 SECONDS (9.6-11.2) H 05/27/16 06:39 INR 1.13 (0.92-1.08) H 05/27/16 06:39 Assessment and Plan (1) Depression Status: Acute (2) Afib Status: Acute (3) DVT prophylaxis Status: Acute (4) Diabetes type 2, controlled Status: Acute (5) Chest discomfort Status: Acute
--- NOTE | 2016-05-31 08:13 | PN ---
DATE: 05/31/2016 pt offers no complaints, states that she is ready to go home. pt was to be discharged yesterday and stated that she was not ready to go home. Now discharge date has been tentatively held until Thursday. Yesterday, the patient felt weak and did not have an appetite. This is possibly related to receiving Ambien the night before; however, patient has been on Ambien at home without any reported side effects. No complaints of chest pain, shortness of breath, weakness, dizziness or anything else noted at this time. REVIEW OF SYSTEMS: Negative. PHYSICAL EXAMINATION: GENERAL: Alert and oriented to her baseline. HEART: Irregular rate. Has a history of A-fib. No murmurs, rubs, or gallops. LUNGS: Clear in all gibbs bilaterally. ABDOMEN: Soft, nontender. Bowel sounds x 4. EXTREMITIES: Distal pulses, motor sensation intact. Cap refill is brisk. DIAGNOSES AND PLAN: 1. Depression. Continue psychiatric medications, intervention, therapies. Discharge as per psychiatrist. 2. Dizziness with history of atrial fibrillation. Cardiology consult is appreciated. No current side effects of condition at this time. Continue Pradaxa for anticoagulation, metoprolol for rate control. Continue to monitor vital signs. 3. Deep venous thrombosis prophylaxis, sequential compression devices and anti- embolism hose. The patient is medically cleared for discharge by psychiatry. We will continue to follow up the patient in house. Suresh SALAZAR cc: [id number] TT: 05/31/2016 08:13:05 Confirmation # [id number] Dictation # [id number] tn MTDD
[2016-05-31] MEDS: Pantoprazole 40 mg EC Tab PO SCH (09:03)
[2016-05-31] MEDS: Metoprolol Succinate 100 mg XL Tab PO SCH (09:03)
--- NOTE | 2016-05-31 12:22 | PCM.PYCHDC ---
Mental Status Examination - Mental Status Examination Orientation: Person, Place, Situation, Time Memory: Intact Mood: Neutral Affect: Broad Speech: Appropriate Attention: WNL Concentration: WNL Association: WNL Fund of Knowledge: WNL Formal Thought Process: No Impairment Description of patient's judgement and insight: Fair I/J Psychotic Thoughts and Behaviors: NO AH/VH/paranoia Suicidal Ideation: No Current Homicidal Ideation?: No Discharge Summary - Discharge Note Reason for Hospitalization: HPI: 86 yr/o female w/ history of depression, self-referred to this ED for worsening depression, feeling shaky and off balance. Pt states that she has been on medication for depression the past three years. The medication was prescribed by her medical doctor Dr. Isidro. About 3 weeks ago she stopped taking it and reports a decline in mood since that time. She reports worsening feelings of depression/anxiety/worthlessness/insomnia/poor appetite and hopelessness. No passive or active suicidal ideation. She has been isolating and not leaving her house often. Pt reports having a loss of energy, not wanting to leave the house because she does not want to get dressed. Also not wanting to receive visitors. ROS: No paranoia, no current AH/VH/quinn/obsessions/compulsions PPHx: H/o treatment with Lexapro. History of one psychiatric admission for depression. No h/o suicide attempts. PMHx: Anxiety, Arthritis, Atrial Fibrillation, Cardia Arrhythmia, Depression, Diabetes, Diverticulitis, HTN, Hypercholesterolemia FHx: No known family hx of mental illness All: NKDA SHx: , unemployed, lives in a 2 family home, daughter lives above her. No drugs/etoh/cig. From [place]. Laboratory Data: Abnormal Lab Results 05/30/16 05/30/16 05/30/16 10:27 16:00 20:55 POC Glucose (mg/dL) 104 113 H Hemoglobin A1c 6.0 05/31/16 05/31/16 05:49 12:08 POC Glucose (mg/dL) 110 96 Hemoglobin A1c Consultations:: List each consultation separately and include: 1. Reason for request. 2. Findings. 3. Follow-up Consultations: Medicine consult- treated for a UTI Summary of Hospital Course include:: 1. Description of specific treatment plan utilized for patients during their course of treatmen. 2. Summarize the time- course for resolution of acute symptoms and/or regressed behaviors. 3. Describe issues identified and worked on during hospitalization. 4. Describe medication utilized. 5. Describe medical problems identified and treated. 6. Reassessment of suicide risk Summary of Hospital Course: Patient admitted to the hospital and restabilized on Lexapro 10 mg PO Daily. She participated in individual and group therapy. She denies current adverse effects to medication. She reports that she is feeling stable, no longer depressed and is requesting to be discharged today. Patient is psychiatrically stable for discharge and would benefit from continued outpatient follow-up. - Final Diagnosis (DSM 5) Condition upon Discharge: FAIR DSM 5: Major Depressive Disorder Disposition: HOME/ ROUTINE Follow-up Treatment Plan: 86 yo female w/ h/o MDD, presented with worsening depression in the context of non-compliance with medications, continues to report significant depression and has not been eating well despite staff encouragement. Patient needs continued admission for treatment and stabilization. -Continue Lexapro 10 mg PO Daily -Stop Ambien due to period of confusion -Individual, group and milieu tx -Medicine consult appreciated Prescriptions/Medication Reconciliation: Escitalopram [Lexapro] 10 mg PO DAILY #30 tab - Smoking Cessation Smoking Cessation Medication prescribed: No Reason for not providing: Not indicated - Antipsychotic Medications Pt discharged on 2 or more routine antipsychotic medications: No
== END 2016-05-31 14:35 | disposition home or self-care (01) | DRG 881 ==
LOC: SUPCPDRO 11:34 → H.ER 11:34 → H.ERHOLD 21:47 → H.STEP 05-27 00:05
PROVIDERS: ADMIT Psychiatry & Neurology Psychiatry; ATTEND Psychiatry & Neurology Psychiatry
PROC: GZ51ZZZ Individual Psychotherapy, Behavioral (ICD-10-PCS; 2016-05-26)
PROC: GZHZZZZ Group Psychotherapy (ICD-10-PCS; principal; 2016-05-30)
DX: F32.9 Major depressive disorder, single episode, unspecified (principal); I48.2 Chronic atrial fibrillation; N39.0 Urinary tract infection, site not specified; E11.9 Type 2 diabetes mellitus without complications; I10 Essential (primary) hypertension; F41.9 Anxiety disorder, unspecified; E78.00 Pure hypercholesterolemia, unspecified; G47.00 Insomnia, unspecified; Z79.01 Long term (current) use of anticoagulants; Z91.14 Patient's other noncompliance with medication regimen

== ENCOUNTER 2017-04-05 17:18 | Inpatient (IN) | payer MEDICARE, BC ==
--- NOTE | 2017-04-05 18:17 | ED PDOC ---
HPI: General Adult Chief Complaint (Provider): "not feeling well" <Molly Duron - Last Filed: 04/05/17 19:40> <Elena Francisco - Last Filed: 04/06/17 15:45> Time Seen by Provider: 04/05/17 17:43 Chief Complaint (Nursing): Lower Extremity Problem/Injury Additional Complaint(s): 87 yo female with history of HTN, AFib, high cholesterol and DM brought in by daughter for evaluation of recent fall. PT fell this monring and states she does not know what happened. Pt states she is just not feeling well. Pt reports nausea and intermittent generalized discomfort. Pt has right knee pain from fall earlier today. PT denies headache. (Molly Duron) Past Medical History Reviewed: Historical Data, Nursing Documentation, Vital Signs - Medical History PMH: Anxiety, Arthritis, Atrial Fibrillation, Cardia Arrhythmia, Depression, Diabetes, Diverticulitis, HTN, Hypercholesterolemia Denies: Chronic Kidney Disease - Surgical History Surgical History: Hernia Repair - Family History Family History: States: Other - Social History Current smoker - smoking cessation education provided: No <Molly Durno - Last Filed: 04/05/17 19:40> <Elena Francisco - Last Filed: 04/06/17 15:45> Vital Signs: Last Vital Signs Temp 97.8 F 04/06/17 12:00 Pulse 108 H 04/06/17 14:00 Resp 22 04/06/17 14:00 BP 109/71 04/06/17 14:00 Pulse Ox 98 04/06/17 14:00 - Home Medications Home Medications: Ambulatory Orders Medication Instructions Recorded Metformin Hydrochloride [Metformin] 500 mg PO BID 05/03/14 Aspirin [Aspirin Chewable] 81 mg PO DAILY 05/09/14 Escitalopram [Lexapro] 10 mg PO DAILY #30 tab 05/31/16 Nitrofurantoin Macrocrystals 100 mg PO Q12 cap 05/31/16 [Macrobid] Esomeprazole Magnesium [Nexium 20 mg PO DAILY 04/06/17 24Hr] Pregabalin [Lyrica] 50 mg PO DAILY 04/06/17 aMILoride [aMILoride 5 mg Tab] 5 mg PO DAILY 04/06/17 - Allergies Allergies/Adverse Reactions: Allergies Allergy/AdvReac Type Severity Reaction Status Date / Time No Known Allergies Allergy Verified 05/09/14 14:25 Review of Systems ROS Statement: Except As Marked, All Systems Reviewed And Found Negative Constitutional: Positive for: Weakness, Malaise. Negative for: Fever, Chills Cardiovascular: Positive for: Palpitations. Negative for: Chest Pain, Light Headedness Gastrointestinal: Positive for: Nausea. Negative for: Vomiting, Abdominal Pain Musculoskeletal: Positive for: Other (Right knee pain ) <Molly Duron - Last Filed: 04/05/17 19:40> Physical Exam - Reviewed Nursing Documentation Reviewed: Yes Vital Signs Reviewed: Yes - Physical Exam Appears: Positive for: Well, Non-toxic, Uncomfortable Head Exam: Positive for: ATRAUMATIC, NORMAL INSPECTION, NORMOCEPHALIC Skin: Positive for: Normal Color, Warm, DRY Eye Exam: Positive for: EOMI, Normal appearance, PERRL ENT: Positive for: Normal ENT Inspection Neck: Positive for: Normal, Painless ROM Cardiovascular/Chest: Positive for: Irregularly Irregular. Negative for: Regular Rate, Rhythm Respiratory: Positive for: CNT, Normal Breath Sounds Gastrointestinal/Abdominal: Positive for: Normal Exam, Bowel Sounds, Soft. Negative for: Tenderness Back: Positive for: Normal Inspection Extremity: Positive for: Normal ROM Neurologic/Psych: Positive for: Alert, Oriented <Molly Duron - Last Filed: 04/05/17 19:40> - Physical Exam Skin: Positive for: Pallor Cardiovascular/Chest: Positive for: Tachycardia, Irregularly Irregular Extremity: Positive for: Pedal Edema (doughy bilateral lower leg edema), Swelling, Other (RIGHT knee: diffuse swelling and tenderness to palpation and exquisite pain illicited with PROM) Lymphatic: Negative for: Adenopathy <Elena Francisco J - Last Filed: 04/06/17 15:45> - Laboratory Results Result Diagrams: 04/05/17 18:30 04/05/17 18:30 - ECG O2 Sat by Pulse Oximetry: 97 <Molly Duron - Last Filed: 04/05/17 19:40> - Laboratory Results Result Diagrams: 04/06/17 14:00 04/06/17 14:00 - Critical Care Total Time (In Min): 45 Documented Critical Care: Time excludes all time spent performint seperately billable procedures <Elena Francisco - Last Filed: 04/06/17 15:45> Medical Decision Making <Molly Duron - Last Filed: 04/05/17 19:40> <Elena Francisco - Last Filed: 04/06/17 15:45> Medical Decision Making: Rapid A.Fib on EKG. (Molly Duron) Diltiazem initially considered for rapid atrial fibrillation. However pt with marked anemia. Tachycardia most likely due to anemia, so diltiazem held. Pt is on pradaxa for atrial fibrillation. On questioning, pt denies any black or bloody stools or epigastric or any abdominal pain. But on rectal exam, pt had pete melena. In addition, pt has femur fracture. Pt's severe anemia with GI bleeding and now acute long bone fracture, pt needs blood transfusion and emergent reversal of pradaxa. ZOILA Boone [employer]ICE for PMD, Dr Franco for ICU placement, Dr Krause for GI bleed, and Dr Jasso Hem/onc. (Elena Francisco) Disposition - Disposition Disposition Time: 19:42 <Molly Duron - Last Filed: 04/05/17 19:40> Counseled Patient/Family Regarding: Studies Performed, Diagnosis - Pt Status Changed To: Hospital Disposition Of: Inpatient - Admit Certification Admit to Inpatient:: After my assessment, the patient will require hospitalization for at least two midnights. This is because of the severity of symptoms shown, intensity of services needed, and/or the medical risk in this patient being treated as an outpatient. - POA Present On Arrival: Falls Or Trauma <Elena Francisco - Last Filed: 04/06/17 15:45> - Clinical Impression Clinical Impression: Anemia, Rapid atrial fibrillation, GI bleed, Femur fracture, right - Disposition Condition: CRITICAL
[2017-04-05 18:40] LABS: BASO # 0.1 K/uL (0.0-0.2); BASO % 0.4 % (0.0-2.0); EOS % 0.1 % (0.0-4.0); HEMOGLOBIN 7.7 g/dL (12.0-16.0); LYMPH % 6.6 % (20.0-40.0); MEAN CELL VOLUME 89.5 fl (81.0-99.0); MEAN CORPUSCULAR HEMOGLOBIN 27.7 pg (27.0-31.0); MEAN CORPUSCULAR HGB CONC 30.9 g/dL (33.0-37.0); MEAN PLATELET VOLUME 7.6 fl (7.2-11.7); MONO # 1.2 K/uL (0.0-0.8); MONO % 7.5 % (0.0-10.0); NEUT # 13.3 K/uL (1.8-7.0); NEUT % 85.4 % (50.0-75.0); PLATELET COUNT 219 K/uL (130-400); RBC 2.79 Mil/uL (3.80-5.20); WHITE BLOOD COUNT 15.5 K/uL (4.8-10.8)
[2017-04-05] MEDS ORDERED: Sodium Chloride 0.9% 250 ML IV SCH (18:45)
[2017-04-05 18:51] LABS: ALB/GLOB RATIO 1.3 (1.0-2.1); ALT/SGPT 27 U/L (9-52); AST/SGOT 30 U/L (14-36); BLOOD UREA NITROGEN 35 mg/dl (7-17); CALCIUM 9.3 mg/dL (8.4-10.2); GFR AFRICAN-AMERICAN 57; GFR NON-AFRICAN AMERICAN 47; MAGNESIUM 2.2 MG/DL (1.6-2.3)
[2017-04-05 19:01] LABS: INR 1.3 (0.9-1.2); PARTIAL THROMBOPLASTIN TIME 40.8 Seconds (25.6-37.1)
[2017-04-05 19:02] LABS: B-TYPE NATRIURETIC PEPTIDE 1220 pg/ml (0-900)
--- NOTE | 2017-04-05 19:41 | CT ---
EXAM: CT Head Without Intravenous Contrast CLINICAL HISTORY: 87 years old, female; Injury or trauma; Fall; Additional info: Recent fall, nausea TECHNIQUE: Axial computed tomography images of the head/brain without intravenous contrast. All CT scans at this facility use one or more dose reduction techniques, viz.: automated exposure control; ma/kV adjustment per patient size (including targeted exams where dose is matched to indication; i.e. head); or iterative reconstruction technique. Coronal and sagittal reformatted images were created and reviewed. COMPARISON: CT - HEAD W/O CONTRAST 2016-05-26 13:46 FINDINGS: Brain: Moderate atrophy. No intracranial hemorrhage. 1.1 x 0.6 x 0.8 cm partially calcified mass along left frontal convexity, stable. Several scattered foci of decreased attenuation within periventricular/subcortical white matter. No edema. Ventricles: No hydrocephalus. Bones/joints: No acute fracture. Soft tissues: Unremarkable. Vasculature: Mild atherosclerotic disease of intracranial arteries. Sinuses: No acute sinusitis. Mastoid air cells: No mastoid effusion. Orbits: Unremarkable as visualized. IMPRESSION: 1. No intracranial hemorrhage. 2. Nonspecific white matter changes. 3. Probable meningioma. Consider nonemergent MRI for confirmation. 4. Incidental/non-acute findings are described above.
[2017-04-05 20:02] LABS: BANDS 2 % (0-2); LYMPHOCYTE 8 % (20-50); MONOCYTE 1 % (0-10); NEUTROPHIL 89 % (42-75); PLATELET ESTIMATE NORMAL (NORMAL); TOTAL CELLS COUNTED 100
[2017-04-05 20:03] LABS: ANISOCYTOSIS SLIGHT
[2017-04-05 20:04] LABS: ACANTHOCYTES SLIGHT; HYPOCHROMIC MODERATE
--- NOTE | 2017-04-05 20:58 | RAD ---
EXAM: XR Right Knee, 3 views CLINICAL HISTORY: 87 years old, female; Injury or trauma; Fall; Initial encounter; Blunt trauma; Knee; Right; Additional info: Pain S/P fall TECHNIQUE: Three views of the right knee. COMPARISON: No relevant prior studies available. FINDINGS: Limitations: Osteopenia, limiting evaluation for fracture. Bones/joints: Nondisplaced longitudinal oblique fracture femoral diaphysis/metaphysis, incompletely imaged. Severe osteoarthrosis of lateral compartment. Mild osteoarthrosis of medial compartment. Mild osteoarthrosis of patellofemoral compartment. No dislocation. No significant joint effusion. Soft tissues: Vascular calcifications. IMPRESSION: 1. Right femur fracture. Suggest dedicated femur radiographs. 2. Incidental/non-acute findings are described above.
[2017-04-05] MEDS ORDERED: Lactated Ringer's 500 ML IV STA (21:19)
--- NOTE | 2017-04-05 21:49 | CP.PCM.CON ---
History of Present Illness - History of Present Illness History of Present Illness: Attending: Mehdi Isidro MD Reason for consult: Critical care Management Chief Complaint: Dizziness/Falls/pain at right knee The patient was seen and examined in the ED HPI: This sis an 87 years old female who lives alone on her flat, has Hx of A Fib, C Diff, HTN and DM II, is brought to the ED referring falling on getting off the Bed in the morning, No LOC. She complains of severe right knee pain. For one month she has been having severe dizziness when she get off the bed to attempt to walk. She refers no appetite and nausea when she attempts to eat. On and off palpitation giving her SOB. She was constipated but now has diarrhea. No headache, dysuria nor urinary frequency. PMH: Anxiety, Arthritis, Atrial Fibrillation, Depression, Diabetes, Diverticulitis, HTN, Hypercholesterolemia; C Diff; DM II; left eye cataract; Back pains PSH: Hernia repair X2; Left Cataract Surgery SH; Never smoked; No Alcohol use; No Illegal drug use; Live alone in a flat while the other family live on another floor Allergies: NKDA Medication: Reviewed Review of Systems - Constitutional Constitutional: Anorexia, Chills, Headache, Lethargy. absent: Fever - EENT Eyes: Requires Corrective Lenses. absent: Diplopia, Floaters, Sees Flashes Ears: absent: Decreased Hearing, Ear Discharge, Ear Pain, Tinnitus Nose/Mouth/Throat: absent: Epistaxis, Nasal Congestion, Nasal Discharge, Sinus Pain, Sinus Pressure - Cardiovascular Cardiovascular: Dyspnea, Palpitations, Rapid Heart Rate. absent: Edema - Respiratory Respiratory: Cough, Dyspnea. absent: Wheezing, Stridor - Gastrointestinal Gastrointestinal: Diarrhea, Nausea. absent: Abdominal Pain, Vomiting - Genitourinary Genitourinary: absent: Dysuria, Flank Pain, Hematuria, Urinary Frequency - Musculoskeletal Musculoskeletal: Arthralgias, Back Pain - Integumentary Integumentary: absent: Pruritus, Rash, Sores, Striae, Swelling - Neurological Neurological: Dizziness, Headaches. absent: Confusion, Focal Weakness - Psychiatric Psychiatric: Anxiety, Depression. absent: Panic Attacks - Endocrine Endocrine: absent: Palpitations, Polydipsia, Polyphagia, Polyuria - Hematologic/Lymphatic Hematologic: Easy Bleeding, Easy Bruising Past Patient History - Infectious Disease Hx of Infectious Diseases: None - Past Medical History & Family History Past Medical History?: Yes - Past Social History Smoking Status: Never Smoked Chewing Tobacco Use: No Cigar Use: No Alcohol: None Drugs: Denies Home Situation {Lives}: Alone - CARDIAC Hx Atrial Fibrillation: Yes Hx Cardia Arrhythmia: Yes Hx Hypercholesterolemia: Yes Hx Hypertension: Yes - PULMONARY Hx Respiratory Disorders: No - NEUROLOGICAL Hx Neurological Disorder: No - HEENT Hx HEENT Problems: No Hx Cataracts: Yes (left eye) - RENAL Hx Chronic Kidney Disease: No - ENDOCRINE/METABOLIC Hx Endocrine Disorders: Yes Hx Diabetes Mellitus Type 2: Yes - HEMATOLOGICAL/ONCOLOGICAL Hx Blood Disorders: No - INTEGUMENTARY Hx Dermatological Problems: No - MUSCULOSKELETAL/RHEUMATOLOGICAL Hx Arthritis: Yes Hx Back Pain: Yes - GASTROINTESTINAL Hx Diverticulitis: Yes - GENITOURINARY/GYNECOLOGICAL Hx Genitourinary Disorders: No - PSYCHIATRIC Hx Anxiety: Yes Hx Depression: Yes Hx Substance Use: No - SURGICAL HISTORY Hx Surgeries: Yes Hx Herniorrhaphy: Yes (x 2) - ANESTHESIA Hx Anesthesia: Yes Hx Anesthesia Reactions: No Hx Malignant Hyperthermia: No Meds Allergies/Adverse Reactions: Allergies Allergy/AdvReac Type Severity Reaction Status Date / Time No Known Allergies Allergy Verified 05/09/14 14:25 - Medications Medications: Current Medications Escitalopram Oxalate (Lexapro) 10 mg PO DAILY [facility] Sodium Chloride (Sodium Chloride 0.9%) 250 mls @ 500 mls/hr IV .Q30M JUAN FRANCISCO Stop: 04/06/17 18:39 Diltiazem HCl 125 mg/ Sodium (Chloride) 125 mls @ 5 mls/hr IV .Q24H ONE; 5 MG/ HR PRN Reason: Protocol Stop: 04/06/17 19:23 Lactated Ringer's (Lactated Ringer's) 500 mls @ 500 mls/hr IV .Q1H STA Stop: 04/05/17 22:18 Last Admin: 04/05/17 21:26 Dose: 500 mls/hr Idarucizumab (Praxbind) 5 gm IV BOLUS [facility] Stop: 04/06/17 20:46 Metformin HCl (Glucophage) 500 mg PO BID [facility] Pantoprazole Sodium (Protonix Inj) 40 mg IVP DAILY [facility] Physical Exam - Constitutional Appears: No Acute Distress - Head Exam Head Exam: ATRAUMATIC, NORMAL INSPECTION, NORMOCEPHALIC - Eye Exam Eye Exam: EOMI, Normal appearance Pupil Exam: NORMAL ACCOMODATION, PERRL - ENT Exam ENT Exam: Mucous Membranes Moist, Normal Exam, Normal External Ear Exam - Neck Exam Neck exam: Positive for: Full Rom, Normal Inspection. Negative for: Lymphadenopathy, Tenderness - Respiratory Exam Respiratory Exam: Clear to Auscultation Bilateral. absent: Rales, Rhonchi, Wheezes - Cardiovascular Exam Cardiovascular Exam: Irregular Rhythm, +S1, +S2 - GI/Abdominal Exam GI & Abdominal Exam: Normal Bowel Sounds, Soft. absent: Mass, Organomegaly, Tenderness - Rectal Exam Rectal Exam: Deferred - Extremities Exam Extremities exam: Negative for: pedal edema Additional comments: Right lower extremity in Knee stabilizer - Back Exam Back exam: NORMAL INSPECTION. absent: CVA tenderness (L), CVA tenderness (R) - Neurological Exam Neurological exam: CN II-XII Intact, Oriented x3, Reflexes Normal - Psychiatric Exam Psychiatric exam: Normal Affect, Normal Mood - Skin Skin Exam: Dry, Normal Color, Petechiae, Rash, Warm Results - Vital Signs Recent Vital Signs: Last Vital Signs Temp 98.9 F 04/05/17 17:21 Pulse 110 H 04/05/17 19:59 Resp 21 04/05/17 19:59 BP 138/56 L 04/05/17 19:59 Pulse Ox 96 04/05/17 19:59 - Labs Result Diagrams: 04/05/17 18:30 04/05/17 18:30 Labs: Laboratory Results - last 24 hr 04/05/17 04/05/17 04/05/17 18:30 18:30 18:30 WBC 15.5 H D RBC 2.79 L Hgb 7.7 L D Hct 25.0 L MCV 89.5 D MCH 27.7 MCHC 30.9 L RDW 15.0 H Plt Count 219 MPV 7.6 Neut % (Auto) 85.4 H Lymph % (Auto) 6.6 L Riley % (Auto) 7.5 Eos % (Auto) 0.1 Baso % (Auto) 0.4 Neut # (Auto) 13.3 H Lymph # (Auto) 1.0 Riley # (Auto) 1.2 H Eos # (Auto) 0.0 Baso # (Auto) 0.1 Neutrophils % (Manual) 89 H Band Neutrophils % 2 Lymphocytes % (Manual) 8 L Monocytes % (Manual) 1 Platelet Estimate Normal Hypochromasia (manual) Moderate Anisocytosis (manual) Slight Acanthocytes (Spur) Slight PT 14.0 H INR 1.3 H APTT 40.8 H Sodium 139 Potassium 4.3 Chloride 103 Carbon Dioxide 15 L Anion Gap 25 H BUN 35 H Creatinine 1.1 Est GFR ( Amer) 57 Est GFR (Non-Af Amer) 47 Random Glucose 142 H Calcium 9.3 Phosphorus 4.4 Magnesium 2.2 Total Bilirubin 0.8 AST 30 ALT 27 Alkaline Phosphatase 74 Troponin I < 0.0120 NT-Pro-B Natriuret Pep 1220 H Total Protein 7.0 Albumin 4.0 Globulin 3.0 Albumin/Globulin Ratio 1.3 TSH 3rd Generation 2.73 Stool Occult Blood Influenza Typ A,B (EIA) 04/05/17 04/05/17 18:34 20:30 WBC RBC Hgb Hct MCV MCH MCHC RDW Plt Count MPV Neut % (Auto) Lymph % (Auto) Riley % (Auto) Eos % (Auto) Baso % (Auto) Neut # (Auto) Lymph # (Auto) Riley # (Auto) Eos # (Auto) Baso # (Auto) Neutrophils % (Manual) Band Neutrophils % Lymphocytes % (Manual) Monocytes % (Manual) Platelet Estimate Hypochromasia (manual) Anisocytosis (manual) Acanthocytes (Spur) PT INR APTT Sodium Potassium Chloride Carbon Dioxide Anion Gap BUN Creatinine Est GFR ( Amer) Est GFR (Non-Af Amer) Random Glucose Calcium Phosphorus Magnesium Total Bilirubin AST ALT Alkaline Phosphatase Troponin I NT-Pro-B Natriuret Pep Total Protein Albumin Globulin Albumin/Globulin Ratio TSH 3rd Generation Stool Occult Blood Positive H Influenza Typ A,B (EIA) Negative for flu a/b - Impressions Impression: A Fib with rapid response - Imaging and Cardiology Right Knee Status: Image reviewed by me, Report reviewed by me Additional comment: EXAM: XR Right Knee, 3 views FINDINGS: Limitations: Osteopenia, limiting evaluation for fracture. Bones/joints: Nondisplaced longitudinal oblique fracture femoral diaphysis/ metaphysis, incompletely imaged. Severe osteoarthrosis of lateral compartment. Mild osteoarthrosis of medial compartment. Mild osteoarthrosis of patellofemoral compartment. No dislocation. No significant joint effusion. Soft tissues: Vascular calcifications. IMPRESSION: 1. Right femur fracture. Suggest dedicated femur radiographs. 2. Incidental/non-acute findings are described above. CT scan - head Status: Image reviewed by me, Report reviewed by me Additional comment: EXAM: CT Head Without Intravenous Contrast FINDINGS: Brain: Moderate atrophy. No intracranial hemorrhage. 1.1 x 0.6 x 0.8 cm partially calcified mass along left frontal convexity, stable. Several scattered foci of decreased attenuation within periventricular/subcortical white matter. No edema. Ventricles: No hydrocephalus. Bones/joints: No acute fracture. Soft tissues: Unremarkable. Vasculature: Mild atherosclerotic disease of intracranial arteries. Sinuses: No acute sinusitis. Mastoid air cells: No mastoid effusion. Orbits: Unremarkable as visualized. IMPRESSION: 1. No intracranial hemorrhage. 2. Nonspecific white matter changes. 3. Probable meningioma. Consider nonemergent MRI for confirmation. 4. Incidental/non-acute findings are described above. Chest x-ray Status: Image reviewed by me Additional comment: No Infiltrate Assessment & Plan - Assessment and Plan (Free Text) Assessment: #. Right Femur Fracture #. A Fib With rapid response #. Symptomatic Anemia #. GI Bleed #. DM II with Hyperglycemia #. Diarrhea #. Dehydration #. Anxiety/depressi Plan: 87 years old female who lives alone on her flat, has Hx of A Fib, C Diff, HTN and DM II, is brought to the ED referring falling on getting off the Bed in the morning, No LOC. She complains of severe right knee pain. For one month she has been having severe dizziness when she get off the bed to attempt to walk. #. Right Femur Fracture - Consult Dr Fady Tadeo Orthopedic - Pain management #. A Fib With rapid response - consult Dr Maxwell Cardiology - Cardiac monitoring - Cardizem IV Drip #. Symptomatic Anemia - Iron Panel - Vitamin B12 - folate - transfuse one unit of PRBC #. GI Bleed with melena per rectum -consult Dr Quiroz GI - Pantoprazole - Follow Hb #. DM II with Hyperglycemia - Regular Insulin sliding scale according to Accucheck #. Diarrhea - C Diff - IV fluids #. Dehydration - IV fluids - Follow Renal labs #. Anxiety/depression - Continue medication for Anxiety snd depression #. leukocytosis - Follow WBC #. DVT prophylaxis with SCD #. Code Status: Full - Date & Time Date: 04/05/17 Time: 21:49
[2017-04-05] MEDS ORDERED: Sodium Chloride 0.9% 1,000 ML IV SCH (23:00)
[2017-04-05] MEDS: Pantoprazole 40 MG in Sodium Chloride 0.9% 100 ML IVPB SCH (23:43)
[2017-04-06] MEDS: Pantoprazole 40 MG in Sodium Chloride 0.9% 100 ML IVPB SCH ×3 (05:00→20:17)
--- NOTE | 2017-04-06 07:34 | CP.CCUPN ---
CCU Subjective - Physician Review Events Since Last Encounter (Free Text): 04/06/17 12:21 The patient was Seen and examined by me at the bedside during ICU round, Medical records reviewed and Management issues were discussed and formulated with the house staff. Events reviewed 87 Years old Female with PMHx of Atrial Fibrillation, HTN, Hypercholesterolemia ; C Diff; DM II, left eye cataract; Back pain, Anxiety, Arthritis, Depression and Diverticulitis Who was brought to the Emergency department with complaint of severe right knee pain, and referring falling on getting off the bed. Pt denies headache, LOC Pt reports nausea, and intermittent generalized discomfort. Lab significant for Admitted to the ICU for Right Femur Fracture, A Fib with rapid response and Symptomatic Anemia R/O GI Bleed 04/06/17 16:18 - Imaging and Cardiology Right Knee EXAM: XR Right Knee, 3 views FINDINGS: Limitations: Osteopenia, limiting evaluation for fracture. Bones/joints: Nondisplaced longitudinal oblique fracture femoral diaphysis/ metaphysis, incompletely imaged. Severe osteoarthrosis of lateral compartment. Mild osteoarthrosis of medial compartment. Mild osteoarthrosis of patellofemoral compartment. No dislocation. No significant joint effusion. Soft tissues: Vascular calcifications. IMPRESSION: 1. Right femur fracture. Suggest dedicated femur radiographs. 2. Incidental/non-acute findings are described above. CT scan - head Status: Image reviewed by me, Report reviewed by me Additional comment: EXAM: CT Head Without Intravenous Contrast FINDINGS: Brain: Moderate atrophy. No intracranial hemorrhage. 1.1 x 0.6 x 0.8 cm partially calcified mass along left frontal convexity, stable. Several scattered foci of decreased attenuation within periventricular/subcortical white matter. No edema. Ventricles: No hydrocephalus. Bones/joints: No acute fracture. Soft tissues: Unremarkable. Vasculature: Mild atherosclerotic disease of intracranial arteries. Sinuses: No acute sinusitis. Mastoid air cells: No mastoid effusion. Orbits: Unremarkable as visualized. IMPRESSION: 1. No intracranial hemorrhage. 2. Nonspecific white matter changes. 3. Probable meningioma. Consider nonemergent MRI for confirmation. 4. Incidental/non-acute findings are described above. CCU Objective - Vital Signs / Intake & Output Intake and Output (Last 8hrs): Intake & Output 04/05/17 04/06/17 04/06/17 22:59 06:59 14:59 Intake Total 20 Balance 20 Weight 132 lb Intake: Intake, Piggyback 20 - Physical Exam Physical Exam Limitations: Positive for: Clinical Condition Head: Positive for: Atraumatic, Normocephalic. Negative for: Tenderness, Contusion Pupils: Positive for: PERRL. Negative for: Sluggish, Non-Reactive Extroacular Muscles: Positive for: EOMI Conjunctiva: Positive for: Normal. Negative for: Injected, Icteric Ears: Positive for: Normal Mouth: Positive for: Moist Mucous Membranes. Negative for: Dry Pharnyx: Positive for: Normal. Negative for: ERYTHEMA Neck: Positive for: Normal Range of Motion, Trachea Midline. Negative for: Meningeal Signs, MIDLINE TENDERNESS, Paraspinal Tenderness, JVD, Lymphadenopathy , Bruit, Other Respiratory/Chest: Positive for: Clear to Auscultation, Good Air Exchange. Negative for: Decreased Breath Sounds, Rales, Retracting Cardiovascular: Positive for: Regular Rate and Rhythm, Normal S1, S2, Peripheal Pulses Present. Negative for: Irregular Rhythm Abdomen: Positive for: Normal Bowel Sounds. Negative for: Tenderness, Distention, Peritoneal Signs - Medications Active Medications: Active Medications Generic Name Dose Route Start Last Admin Trade Name Freq PRN Reason Stop Dose Admin Escitalopram Oxalate 10 mg 04/06/17 09:00 Lexapro PO DAILY [facility] Diltiazem HCl 125 mg/ Sodium 125 mls @ 5 mls/hr 04/05/17 19:24 Chloride IV 04/06/17 19:23 .Q24H ONE Protocol 5 MG/HR Pantoprazole Sodium 40 mg/ 100 mls @ 20 mls/hr 04/05/17 22:15 04/06/17 05:00 Sodium Chloride IVPB 20 mls/hr Q5H JUAN FRANCISCO Administration 8 MG/HR Sodium Chloride 1,000 mls @ 100 mls/hr 04/05/17 23:00 Sodium Chloride 0.9% IV 04/06/17 08:59 .Q10H [facility] Idarucizumab 5 gm 04/05/17 20:45 Praxbind IV 04/06/17 20:46 BOLUS [facility] Insulin Human Regular 0 units 04/06/17 07:30 Humulin R SC ACHS JUAN FRANCISCO Protocol Metformin HCl 500 mg 04/06/17 09:00 Glucophage PO BID [facility] Morphine Sulfate 2 mg 04/05/17 22:31 04/05/17 22:57 Morphine IVP 2 mg Q4 PRN Administration Pain, severe (8-10) Morphine Sulfate 1 mg 04/05/17 22:32 Morphine IVP Q4 PRN Pain, moderate (4-7) - Patient Studies Lab Studies: Lab Studies 04/06/17 04/06/17 04/06/17 Range/Units 06:15 02:22 00:16 WBC (4.8-10.8) K/uL RBC (3.80-5.20) Mil/uL Hgb (12.0-16.0) g/dL Hct (34.0-47.0) % MCV (81.0-99.0) fl MCH (27.0-31.0) pg MCHC (33.0-37.0) g/dL RDW (11.5-14.5) % Plt Count (130-400) K/uL MPV (7.2-11.7) fl Neut % (Auto) (50.0-75.0) % Lymph % (Auto) (20.0-40.0) % [place] % (Auto) (0.0-10.0) % Eos % (Auto) (0.0-4.0) % Baso % (Auto) (0.0-2.0) % Neut # (Auto) (1.8-7.0) K/uL Lymph # (Auto) (1.0-4.3) K/uL [place] # (Auto) (0.0-0.8) K/uL Eos # (Auto) (0.0-0.7) K/uL Baso # (Auto) (0.0-0.2) K/uL Neutrophils % (Manual) (42-75) % Band Neutrophils % (0-2) % Lymphocytes % (Manual) (20-50) % Monocytes % (Manual) (0-10) % Platelet Estimate (NORMAL) Hypochromasia (manual) Anisocytosis (manual) Acanthocytes (Spur) PT (9.8-13.1) Seconds INR (0.9-1.2) APTT (25.6-37.1) Seconds Sodium (132-148) mmol/l Potassium (3.6-5.0) MMOL/L Chloride (98-107) mmol/L Carbon Dioxide (22-30) mmol/L Anion Gap (10-20) BUN (7-17) mg/dl Creatinine (0.7-1.2) mg/dl Est GFR ( Amer) Est GFR (Non-Af Amer) POC Glucose (mg/dL) 149 H (65-110) mg/dL Random Glucose (65-105) mg/dL Calcium (8.4-10.2) mg/dL Phosphorus (2.5-4.5) mg/dl Magnesium (1.6-2.3) MG/DL Total Bilirubin (0.2-1.3) mg/dl AST (14-36) U/L ALT (9-52) U/L Alkaline Phosphatase (38-126) U/L Troponin I (0.00-0.120) ng/mL NT-Pro-B Natriuret Pep (0-900) pg/ml Total Protein (6.3-8.2) G/DL Albumin (3.5-5.0) g/dL Globulin (2.2-3.9) gm/dL Albumin/Globulin Ratio (1.0-2.1) TSH 3rd Generation (0.46-4.68) mIU/ML Stool Occult Blood (NEGATIVE) Influenza Typ A,B (EIA) (NEGATIVE) Blood Type O POSITIVE Blood Type Confirm O POSITIVE Antibody Screen Negative Crossmatch IS Only See Detail BBK History Checked No verified bt 04/05/17 04/05/17 04/05/17 Range/Units 20:30 18:34 18:30 WBC (4.8-10.8) K/uL RBC (3.80-5.20) Mil/uL Hgb (12.0-16.0) g/dL Hct (34.0-47.0) % MCV (81.0-99.0) fl MCH (27.0-31.0) pg MCHC (33.0-37.0) g/dL RDW (11.5-14.5) % Plt Count (130-400) K/uL MPV (7.2-11.7) fl Neut % (Auto) (50.0-75.0) % Lymph % (Auto) (20.0-40.0) % [place] % (Auto) (0.0-10.0) % Eos % (Auto) (0.0-4.0) % Baso % (Auto) (0.0-2.0) % Neut # (Auto) (1.8-7.0) K/uL Lymph # (Auto) (1.0-4.3) K/uL [place] # (Auto) (0.0-0.8) K/uL Eos # (Auto) (0.0-0.7) K/uL Baso # (Auto) (0.0-0.2) K/uL Neutrophils % (Manual) (42-75) % Band Neutrophils % (0-2) % Lymphocytes % (Manual) (20-50) % Monocytes % (Manual) (0-10) % Platelet Estimate (NORMAL) Hypochromasia (manual) Anisocytosis (manual) Acanthocytes (Spur) PT 14.0 H (9.8-13.1) Seconds INR 1.3 H (0.9-1.2) APTT 40.8 H (25.6-37.1) Seconds Sodium (132-148) mmol/l Potassium (3.6-5.0) MMOL/L Chloride (98-107) mmol/L Carbon Dioxide (22-30) mmol/L Anion Gap (10-20) BUN (7-17) mg/dl Creatinine (0.7-1.2) mg/dl Est GFR ( Amer) Est GFR (Non-Af Amer) POC Glucose (mg/dL) (65-110) mg/dL Random Glucose (65-105) mg/dL Calcium (8.4-10.2) mg/dL Phosphorus (2.5-4.5) mg/dl Magnesium (1.6-2.3) MG/DL Total Bilirubin (0.2-1.3) mg/dl AST (14-36) U/L ALT (9-52) U/L Alkaline Phosphatase (38-126) U/L Troponin I (0.00-0.120) ng/mL NT-Pro-B Natriuret Pep (0-900) pg/ml Total Protein (6.3-8.2) G/DL Albumin (3.5-5.0) g/dL Globulin (2.2-3.9) gm/dL Albumin/Globulin Ratio (1.0-2.1) TSH 3rd Generation (0.46-4.68) mIU/ML Stool Occult Blood Positive H (NEGATIVE) Influenza Typ A,B (EIA) Negative for flu a/b (NEGATIVE) Blood Type Blood Type Confirm Antibody Screen Crossmatch IS Only BBK History Checked 04/05/17 04/05/17 Range/Units 18:30 18:30 WBC 15.5 H D (4.8-10.8) K/uL RBC 2.79 L (3.80-5.20) Mil/uL Hgb 7.7 L D (12.0-16.0) g/dL Hct 25.0 L (34.0-47.0) % MCV 89.5 D (81.0-99.0) fl MCH 27.7 (27.0-31.0) pg MCHC 30.9 L (33.0-37.0) g/dL RDW 15.0 H (11.5-14.5) % Plt Count 219 (130-400) K/uL MPV 7.6 (7.2-11.7) fl Neut % (Auto) 85.4 H (50.0-75.0) % Lymph % (Auto) 6.6 L (20.0-40.0) % [place] % (Auto) 7.5 (0.0-10.0) % Eos % (Auto) 0.1 (0.0-4.0) % Baso % (Auto) 0.4 (0.0-2.0) % Neut # (Auto) 13.3 H (1.8-7.0) K/uL Lymph # (Auto) 1.0 (1.0-4.3) K/uL [place] # (Auto) 1.2 H (0.0-0.8) K/uL Eos # (Auto) 0.0 (0.0-0.7) K/uL Baso # (Auto) 0.1 (0.0-0.2) K/uL Neutrophils % (Manual) 89 H (42-75) % Band Neutrophils % 2 (0-2) % Lymphocytes % (Manual) 8 L (20-50) % Monocytes % (Manual) 1 (0-10) % Platelet Estimate Normal (NORMAL) Hypochromasia (manual) Moderate Anisocytosis (manual) Slight Acanthocytes (Spur) Slight PT (9.8-13.1) Seconds INR (0.9-1.2) APTT (25.6-37.1) Seconds Sodium 139 (132-148) mmol/l Potassium 4.3 (3.6-5.0) MMOL/L Chloride 103 (98-107) mmol/L Carbon Dioxide 15 L (22-30) mmol/L Anion Gap 25 H (10-20) BUN 35 H (7-17) mg/dl Creatinine 1.1 (0.7-1.2) mg/dl Est GFR ( Amer) 57 Est GFR (Non-Af Amer) 47 POC Glucose (mg/dL) (65-110) mg/dL Random Glucose 142 H (65-105) mg/dL Calcium 9.3 (8.4-10.2) mg/dL Phosphorus 4.4 (2.5-4.5) mg/dl Magnesium 2.2 (1.6-2.3) MG/DL Total Bilirubin 0.8 (0.2-1.3) mg/dl AST 30 (14-36) U/L ALT 27 (9-52) U/L Alkaline Phosphatase 74 (38-126) U/L Troponin I < 0.0120 (0.00-0.120) ng/mL NT-Pro-B Natriuret Pep 1220 H (0-900) pg/ml Total Protein 7.0 (6.3-8.2) G/DL Albumin 4.0 (3.5-5.0) g/dL Globulin 3.0 (2.2-3.9) gm/dL Albumin/Globulin Ratio 1.3 (1.0-2.1) TSH 3rd Generation 2.73 (0.46-4.68) mIU/ML Stool Occult Blood (NEGATIVE) Influenza Typ A,B (EIA) (NEGATIVE) Blood Type Blood Type Confirm Antibody Screen Crossmatch IS Only BBK History Checked Laboratory Results - last 24 hr 04/05/17 04/05/17 04/05/17 18:30 18:30 18:30 WBC 15.5 H D RBC 2.79 L Hgb 7.7 L D Hct 25.0 L MCV 89.5 D MCH 27.7 MCHC 30.9 L RDW 15.0 H Plt Count 219 MPV 7.6 Neut % (Auto) 85.4 H Lymph % (Auto) 6.6 L [place] % (Auto) 7.5 Eos % (Auto) 0.1 Baso % (Auto) 0.4 Neut # (Auto) 13.3 H Lymph # (Auto) 1.0 [place] # (Auto) 1.2 H Eos # (Auto) 0.0 Baso # (Auto) 0.1 Neutrophils % (Manual) 89 H Band Neutrophils % 2 Lymphocytes % (Manual) 8 L Monocytes % (Manual) 1 Platelet Estimate Normal Hypochromasia (manual) Moderate Anisocytosis (manual) Slight Acanthocytes (Spur) Slight PT 14.0 H INR 1.3 H APTT 40.8 H Sodium 139 Potassium 4.3 Chloride 103 Carbon Dioxide 15 L Anion Gap 25 H BUN 35 H Creatinine 1.1 Est GFR ( Amer) 57 Est GFR (Non-Af Amer) 47 POC Glucose (mg/dL) Random Glucose 142 H Calcium 9.3 Phosphorus 4.4 Magnesium 2.2 Total Bilirubin 0.8 AST 30 ALT 27 Alkaline Phosphatase 74 Troponin I < 0.0120 NT-Pro-B Natriuret Pep 1220 H Total Protein 7.0 Albumin 4.0 Globulin 3.0 Albumin/Globulin Ratio 1.3 TSH 3rd Generation 2.73 Stool Occult Blood Influenza Typ A,B (EIA) Blood Type Blood Type Confirm Antibody Screen Crossmatch IS Only BBK History Checked 04/05/17 04/05/17 04/06/17 18:34 20:30 00:16 WBC RBC Hgb Hct MCV MCH MCHC RDW Plt Count MPV Neut % (Auto) Lymph % (Auto) [place] % (Auto) Eos % (Auto) Baso % (Auto) Neut # (Auto) Lymph # (Auto) [place] # (Auto) Eos # (Auto) Baso # (Auto) Neutrophils % (Manual) Band Neutrophils % Lymphocytes % (Manual) Monocytes % (Manual) Platelet Estimate Hypochromasia (manual) Anisocytosis (manual) Acanthocytes (Spur) PT INR APTT Sodium Potassium Chloride Carbon Dioxide Anion Gap BUN Creatinine Est GFR ( Amer) Est GFR (Non-Af Amer) POC Glucose (mg/dL) Random Glucose Calcium Phosphorus Magnesium Total Bilirubin AST ALT Alkaline Phosphatase Troponin I NT-Pro-B Natriuret Pep Total Protein Albumin Globulin Albumin/Globulin Ratio TSH 3rd Generation Stool Occult Blood Positive H Influenza Typ A,B (EIA) Negative for flu a/b Blood Type O POSITIVE Blood Type Confirm Antibody Screen Negative Crossmatch IS Only See Detail BBK History Checked No verified bt 04/06/17 04/06/17 02:22 06:15 WBC RBC Hgb Hct MCV MCH MCHC RDW Plt Count MPV Neut % (Auto) Lymph % (Auto) [place] % (Auto) Eos % (Auto) Baso % (Auto) Neut # (Auto) Lymph # (Auto) [place] # (Auto) Eos # (Auto) Baso # (Auto) Neutrophils % (Manual) Band Neutrophils % Lymphocytes % (Manual) Monocytes % (Manual) Platelet Estimate Hypochromasia (manual) Anisocytosis (manual) Acanthocytes (Spur) PT INR APTT Sodium Potassium Chloride Carbon Dioxide Anion Gap BUN Creatinine Est GFR ( Amer) Est GFR (Non-Af Amer) POC Glucose (mg/dL) 149 H Random Glucose Calcium Phosphorus Magnesium Total Bilirubin AST ALT Alkaline Phosphatase Troponin I NT-Pro-B Natriuret Pep Total Protein Albumin Globulin Albumin/Globulin Ratio TSH 3rd Generation Stool Occult Blood Influenza Typ A,B (EIA) Blood Type Blood Type Confirm O POSITIVE Antibody Screen Crossmatch IS Only BBK History Checked EKG/Cardiology Studies: Cardiology / EKG Studies 04/05/17 18:04 EKG [ELECTROCARDIOGRAM] Stat Comment: Mode Of Transportation: Reason For Exam: A.Fib, not feeling well Review of Systems - Constitutional Constitutional: absent: Fever, Chills, Sweats - Cardiovascular Cardiovascular: absent: Chest Pain, Chest Pain at Rest, Chest Pain with Activity - Respiratory Respiratory: absent: Cough, Dyspnea, Hemoptysis, Dyspnea on Exertion - Gastrointestinal Gastrointestinal: Abdominal Pain, Hematemesis, Melena, Nausea, Vomiting Critical Care Progress Note - Extremities/Vascular Does the Patient have a Central Venous Catheter?: No Does the Patient need a Central Venous Catheter?: No Does the Patient have a Do Catheter?: No Does the Patient need a Do Catheter?: No - Nutrition Nutrition: Nutrition Category Date Time Status Liquid Diet [DIET] Diets 04/06/17 Breakfast Active Assessment/Plan (1) GI bleed Current Visit: Yes Status: Acute Comment: Will transfuse two units of PRBC NPO Pantoprazole drip GI and heme/onc consulted (2) Anemia Current Visit: Yes Status: Acute (3) Femur fracture, right Current Visit: Yes Status: Acute Comment: Ortho Consult Dr Fady Tadeo called Pain controlled (4) Rapid atrial fibrillation Current Visit: Yes Status: Acute Comment: HR controlled now, Off Cardizem IV Drip Cardiology consult (5) Diarrhea Current Visit: Yes Status: Acute Comment: Continue IV fluids R/O C Diff (6) DVT prophylaxis Current Visit: No Status: Acute
[2017-04-06] MEDS: Insulin Regular 100 units/ml SC SCH ×4 (07:41→22:00)
--- NOTE | 2017-04-06 08:11 | CP.PCM.HP ---
History of Present Illness - History of Present Illness History of Present Illness: pt admitted after having frequent falls and diarrhea at home. found to have elev wbc, anemia (7.7), r distal femur fx. no f/c, n/v/d. pt on contact precautions for diarrhea r/o c diff. all labs and imaging noted. Present on Admission - Present on Admission Any Indicators Present on Admission: Yes History of Uncontrolled Diabetes: Yes Past Patient History - Infectious Disease Hx of Infectious Diseases: None - Past Medical History & Family History Past Medical History?: Yes - Past Social History Smoking Status: Never Smoked Chewing Tobacco Use: No Cigar Use: No Alcohol: None Drugs: Denies Home Situation {Lives}: Alone - CARDIAC Hx Atrial Fibrillation: Yes Hx Cardia Arrhythmia: Yes Hx Hypercholesterolemia: Yes Hx Hypertension: Yes - PULMONARY Hx Respiratory Disorders: No - NEUROLOGICAL Hx Neurological Disorder: No - HEENT Hx HEENT Problems: No Hx Cataracts: Yes (left eye) - RENAL Hx Chronic Kidney Disease: No - ENDOCRINE/METABOLIC Hx Endocrine Disorders: Yes Hx Diabetes Mellitus Type 2: Yes - HEMATOLOGICAL/ONCOLOGICAL Hx Blood Disorders: No - INTEGUMENTARY Hx Dermatological Problems: No - MUSCULOSKELETAL/RHEUMATOLOGICAL Hx Arthritis: Yes Hx Back Pain: Yes - GASTROINTESTINAL Hx Diverticulitis: Yes - GENITOURINARY/GYNECOLOGICAL Hx Genitourinary Disorders: No - PSYCHIATRIC Hx Anxiety: Yes Hx Depression: Yes Hx Substance Use: No - SURGICAL HISTORY Hx Surgeries: Yes Hx Herniorrhaphy: Yes (x 2) - ANESTHESIA Hx Anesthesia: Yes Hx Anesthesia Reactions: No Hx Malignant Hyperthermia: No Meds Allergies/Adverse Reactions: Allergies Allergy/AdvReac Type Severity Reaction Status Date / Time No Known Allergies Allergy Verified 05/09/14 14:25 Physical Exam - Constitutional Appears: Well, Non-toxic, No Acute Distress, Chronically Ill - Head Exam Head Exam: ATRAUMATIC, NORMAL INSPECTION, NORMOCEPHALIC - Eye Exam Eye Exam: EOMI, Normal appearance, PERRL Pupil Exam: NORMAL ACCOMODATION, PERRL - ENT Exam ENT Exam: Mucous Membranes Moist, Normal Exam - Neck Exam Neck exam: Positive for: Normal Inspection - Respiratory Exam Respiratory Exam: Clear to Auscultation Bilateral, NORMAL BREATHING PATTERN - Cardiovascular Exam Cardiovascular Exam: Irregular Rhythm, +S1, +S2 - GI/Abdominal Exam GI & Abdominal Exam: Normal Bowel Sounds, Soft. absent: Tenderness - Extremities Exam Extremities exam: Positive for: normal capillary refill, normal inspection, tenderness, pedal pulses present Additional comments: rle in knee immobilizer - Back Exam Back exam: NORMAL INSPECTION - Neurological Exam Neurological exam: Abnormal Gait, Alert, CN II-XII Intact, Oriented x3, Reflexes Normal - Psychiatric Exam Psychiatric exam: Normal Affect, Normal Mood - Skin Skin Exam: Dry, Intact, Normal Color, Warm Results - Vital Signs Recent Vital Signs: Last Vital Signs Temp 98.9 F 04/05/17 17:21 Pulse 104 H 04/06/17 06:00 Resp 21 04/06/17 06:00 BP 123/80 04/06/17 06:00 Pulse Ox 100 04/06/17 06:00 - Labs Result Diagrams: 04/05/17 18:30 04/05/17 18:30 Labs: Laboratory Results - last 24 hr 04/05/17 04/05/17 04/05/17 18:30 18:30 18:30 WBC 15.5 H D RBC 2.79 L Hgb 7.7 L D Hct 25.0 L MCV 89.5 D MCH 27.7 MCHC 30.9 L RDW 15.0 H Plt Count 219 MPV 7.6 Neut % (Auto) 85.4 H Lymph % (Auto) 6.6 L [place] % (Auto) 7.5 Eos % (Auto) 0.1 Baso % (Auto) 0.4 Neut # (Auto) 13.3 H Lymph # (Auto) 1.0 [place] # (Auto) 1.2 H Eos # (Auto) 0.0 Baso # (Auto) 0.1 Neutrophils % (Manual) 89 H Band Neutrophils % 2 Lymphocytes % (Manual) 8 L Monocytes % (Manual) 1 Platelet Estimate Normal Hypochromasia (manual) Moderate Anisocytosis (manual) Slight Acanthocytes (Spur) Slight PT 14.0 H INR 1.3 H APTT 40.8 H Sodium 139 Potassium 4.3 Chloride 103 Carbon Dioxide 15 L Anion Gap 25 H BUN 35 H Creatinine 1.1 Est GFR ( Amer) 57 Est GFR (Non-Af Amer) 47 POC Glucose (mg/dL) Random Glucose 142 H Calcium 9.3 Phosphorus 4.4 Magnesium 2.2 Total Bilirubin 0.8 AST 30 ALT 27 Alkaline Phosphatase 74 Troponin I < 0.0120 NT-Pro-B Natriuret Pep 1220 H Total Protein 7.0 Albumin 4.0 Globulin 3.0 Albumin/Globulin Ratio 1.3 TSH 3rd Generation 2.73 Stool Occult Blood Influenza Typ A,B (EIA) Blood Type Blood Type Confirm Antibody Screen Crossmatch IS Only BBK History Checked 04/05/17 04/05/17 04/06/17 18:34 20:30 00:16 WBC RBC Hgb Hct MCV MCH MCHC RDW Plt Count MPV Neut % (Auto) Lymph % (Auto) [place] % (Auto) Eos % (Auto) Baso % (Auto) Neut # (Auto) Lymph # (Auto) [place] # (Auto) Eos # (Auto) Baso # (Auto) Neutrophils % (Manual) Band Neutrophils % Lymphocytes % (Manual) Monocytes % (Manual) Platelet Estimate Hypochromasia (manual) Anisocytosis (manual) Acanthocytes (Spur) PT INR APTT Sodium Potassium Chloride Carbon Dioxide Anion Gap BUN Creatinine Est GFR ( Amer) Est GFR (Non-Af Amer) POC Glucose (mg/dL) Random Glucose Calcium Phosphorus Magnesium Total Bilirubin AST ALT Alkaline Phosphatase Troponin I NT-Pro-B Natriuret Pep Total Protein Albumin Globulin Albumin/Globulin Ratio TSH 3rd Generation Stool Occult Blood Positive H Influenza Typ A,B (EIA) Negative for flu a/b Blood Type O POSITIVE Blood Type Confirm Antibody Screen Negative Crossmatch IS Only See Detail BBK History Checked No verified bt 04/06/17 04/06/17 02:22 06:15 WBC RBC Hgb Hct MCV MCH MCHC RDW Plt Count MPV Neut % (Auto) Lymph % (Auto) [place] % (Auto) Eos % (Auto) Baso % (Auto) Neut # (Auto) Lymph # (Auto) [place] # (Auto) Eos # (Auto) Baso # (Auto) Neutrophils % (Manual) Band Neutrophils % Lymphocytes % (Manual) Monocytes % (Manual) Platelet Estimate Hypochromasia (manual) Anisocytosis (manual) Acanthocytes (Spur) PT INR APTT Sodium Potassium Chloride Carbon Dioxide Anion Gap BUN Creatinine Est GFR ( Amer) Est GFR (Non-Af Amer) POC Glucose (mg/dL) 149 H Random Glucose Calcium Phosphorus Magnesium Total Bilirubin AST ALT Alkaline Phosphatase Troponin I NT-Pro-B Natriuret Pep Total Protein Albumin Globulin Albumin/Globulin Ratio TSH 3rd Generation Stool Occult Blood Influenza Typ A,B (EIA) Blood Type Blood Type Confirm O POSITIVE Antibody Screen Crossmatch IS Only BBK History Checked Assessment & Plan (1) Femur fracture, right Assessment and Plan: ortho, knee immobilizer pain control souleymane Status: Acute (2) GI bleed Assessment and Plan: protonix gtt icu 2 units prbc gi egd/colonoscopy when stable Status: Acute (3) Anemia Assessment and Plan: 2 units prbc r/t gi bleed heme/onc Status: Acute (4) Rapid atrial fibrillation Assessment and Plan: more controlled now likely r/t gib cardio cardizem given hold pradaxa Status: Acute (5) DVT prophylaxis Assessment and Plan: scd and aehose no anticoag r/t od of pradaxa/gib Status: Acute (6) Diabetes type 2, uncontrolled Assessment and Plan: riss, home meds, fsbg diet control Status: Acute Decision To Admit - Pt Status Changed To: Hospital Disposition Of: Inpatient - Admit Certification Admit to Inpatient:: After my assessment, the patient will require hospitalization for at least two midnights. This is because of the severity of symptoms shown, intensity of services needed, and/or the medical risk in this patient being treated as an outpatient. - . Bed Request Type: Intensive Care Admitting Physician: Mehdi Isidro
--- NOTE | 2017-04-06 09:01 | RAD ---
HISTORY: COMPARISON: 05/27/2016. TECHNIQUE: Chest PA and lateral FINDINGS: LINES AND TUBES: None. LUNG AND PLEURA: The lungs are hyperinflated and there is peribronchial thickening with chronic changes in both lungs. There is linear scarring in both mid lungs. HEART AND MEDIASTINUM: The heart is not enlarged. The hilar and mediastinal contours are within normal limits. SKELETAL STRUCTURES: The bony structures are within normal limits for the patient's age. VISUALIZED UPPER ABDOMEN: Normal. OTHER FINDINGS: None. IMPRESSION: No active pulmonary disease. COPD.
--- NOTE | 2017-04-06 12:47 | RAD ---
PROCEDURE: Radiographs of the right femur HISTORY: right femur fx visable on rt Knee X ray COMPARISON: None TECHNIQUE: AP and lateral radiographs of the right femur were obtained. FINDINGS: There is an acute longitudinal nondisplaced fracture in the medial distal diaphysis and metaphysis of the femur. There is diffuse bone demineralization. Bone alignment is normal. There is moderate degenerative osteoarthrosis in the medial compartment with reduced joint space. Also noted is severe tricompartmental degenerative osteoarthrosis in the knee joint. The periarticular soft tissues are normal. Atherosclerotic vascular calcifications are present. IMPRESSION: Acute longitudinal nondisplaced fracture in the medial distal diaphysis and metaphysis of the femur.
[2017-04-06 14:14] LABS: BASO % 0.1 % (0.0-2.0); HEMOGLOBIN 8.9 g/dL (12.0-16.0); LYMPH # 0.8 K/uL (1.0-4.3); LYMPH % 6.3 % (20.0-40.0); MEAN CORPUSCULAR HEMOGLOBIN 29.3 pg (27.0-31.0); MEAN CORPUSCULAR HGB CONC 32.6 g/dL (33.0-37.0); MEAN PLATELET VOLUME 7.3 fl (7.2-11.7); MONO # 2.2 K/uL (0.0-0.8); MONO % 16.1 % (0.0-10.0); NEUT # 10.3 K/uL (1.8-7.0); NEUT % 77.5 % (50.0-75.0); NRBC % 0.1 % (0.0-0.0); RBC 3.02 Mil/uL (3.80-5.20); WHITE BLOOD COUNT 13.4 K/uL (4.8-10.8)
[2017-04-06 14:30] LABS: ALB/GLOB RATIO 1.2 (1.0-2.1); ALBUMIN 3.4 g/dL (3.5-5.0); ALT/SGPT 29 U/L (9-52); AST/SGOT 32 U/L (14-36); BLOOD UREA NITROGEN 40 mg/dl (7-17); CALCIUM 8.6 mg/dL (8.4-10.2); GFR AFRICAN-AMERICAN > 60; GFR NON-AFRICAN AMERICAN 53
[2017-04-06 15:01] LABS: FERRITIN 26.5 ng/Ml (11.1-264.0)
[2017-04-06 15:06] LABS: IRON 58 ug/dL (37-170)
[2017-04-06 15:16] LABS: % IRON SATURATION 21 % (20-55); TOTAL IRON BINDING CAPACITY 281 ug/dL (250-450)
[2017-04-06] MEDS ORDERED: Digoxin 500 mcg/2ml (0.5 mg/2ml) Inj IVP ONE (17:43)
--- NOTE | 2017-04-06 17:45 | CP.PCM.CON ---
Past Patient History - Infectious Disease Hx of Infectious Diseases: None - Past Medical History & Family History Past Medical History?: Yes - Past Social History Smoking Status: Never Smoked Chewing Tobacco Use: No Cigar Use: No Alcohol: None Drugs: Denies Home Situation {Lives}: Alone - CARDIAC Hx Atrial Fibrillation: Yes Hx Cardia Arrhythmia: Yes Hx Hypercholesterolemia: Yes Hx Hypertension: Yes - PULMONARY Hx Respiratory Disorders: No - NEUROLOGICAL Hx Neurological Disorder: No - HEENT Hx HEENT Problems: No Hx Cataracts: Yes (left eye) - RENAL Hx Chronic Kidney Disease: No - ENDOCRINE/METABOLIC Hx Endocrine Disorders: Yes Hx Diabetes Mellitus Type 2: Yes - HEMATOLOGICAL/ONCOLOGICAL Hx Blood Disorders: No - INTEGUMENTARY Hx Dermatological Problems: No - MUSCULOSKELETAL/RHEUMATOLOGICAL Hx Arthritis: Yes Hx Back Pain: Yes - GASTROINTESTINAL Hx Diverticulitis: Yes - GENITOURINARY/GYNECOLOGICAL Hx Genitourinary Disorders: No - PSYCHIATRIC Hx Anxiety: Yes Hx Depression: Yes Hx Substance Use: No - SURGICAL HISTORY Hx Surgeries: Yes Hx Herniorrhaphy: Yes (x 2) - ANESTHESIA Hx Anesthesia: Yes Hx Anesthesia Reactions: No Hx Malignant Hyperthermia: No Meds Allergies/Adverse Reactions: Allergies Allergy/AdvReac Type Severity Reaction Status Date / Time No Known Allergies Allergy Verified 05/09/14 14:25 - Medications Medications: Current Medications Digoxin (Lanoxin) 0.5 mg IVP ONCE ONE Stop: 04/06/17 17:44 Escitalopram Oxalate (Lexapro) 10 mg PO DAILY [facility] Last Admin: 04/06/17 08:41 Dose: 10 mg Diltiazem HCl 125 mg/ Sodium (Chloride) 125 mls @ 5 mls/hr IV .Q24H ONE; 5 MG/ HR PRN Reason: Protocol Stop: 04/06/17 19:23 Pantoprazole Sodium 40 mg/ (Sodium Chloride) 100 mls @ 20 mls/hr IVPB Q5H [facility] PRN Reason: 8 MG/HR Last Admin: 04/06/17 11:14 Dose: 20 mls/hr Idarucizumab (Praxbind) 5 gm IV BOLUS [facility] Insulin Human Regular (Humulin R) 0 units SC ACHS [facility] PRN Reason: Protocol Last Admin: 04/06/17 12:14 Dose: Not Given Metformin HCl (Glucophage) 500 mg PO BID [facility] Last Admin: 04/06/17 17:40 Dose: 500 mg Morphine Sulfate (Morphine) 2 mg IVP Q4 PRN PRN Reason: Pain, severe (8-10) Last Admin: 04/06/17 15:09 Dose: 2 mg Morphine Sulfate (Morphine) 1 mg IVP Q4 PRN PRN Reason: Pain, moderate (4-7) Results - Vital Signs Recent Vital Signs: Last Vital Signs Temp 98.2 F 04/06/17 16:00 Pulse 93 H 04/06/17 16:00 Resp 20 04/06/17 16:00 BP 102/70 04/06/17 16:00 Pulse Ox 95 04/06/17 16:00 - Labs Result Diagrams: 04/06/17 14:00 04/06/17 14:00 Labs: Laboratory Results - last 24 hr 04/05/17 04/05/17 04/05/17 05:16 18:30 18:30 WBC 15.5 H D RBC 2.79 L Hgb 7.7 L D Hct 25.0 L MCV 89.5 D MCH 27.7 MCHC 30.9 L RDW 15.0 H Plt Count 219 MPV 7.6 Neut % (Auto) 85.4 H Lymph % (Auto) 6.6 L [place] % (Auto) 7.5 Eos % (Auto) 0.1 Baso % (Auto) 0.4 Neut # (Auto) 13.3 H Lymph # (Auto) 1.0 [place] # (Auto) 1.2 H Eos # (Auto) 0.0 Baso # (Auto) 0.1 Neutrophils % (Manual) 89 H Band Neutrophils % 2 Lymphocytes % (Manual) 8 L Monocytes % (Manual) 1 Platelet Estimate Normal Hypochromasia (manual) Moderate Anisocytosis (manual) Slight Acanthocytes (Spur) Slight PT INR APTT Sodium 139 Potassium 4.3 Chloride 103 Carbon Dioxide 15 L Anion Gap 25 H BUN 35 H Creatinine 1.1 Est GFR ( Amer) 57 Est GFR (Non-Af Amer) 47 POC Glucose (mg/dL) Random Glucose 142 H Hemoglobin A1c Calcium 9.3 Phosphorus 4.4 Magnesium 2.2 Iron TIBC % Saturation Ferritin Total Bilirubin 0.8 AST 30 ALT 27 Alkaline Phosphatase 74 Troponin I < 0.0120 NT-Pro-B Natriuret Pep 1220 H Total Protein 7.0 Albumin 4.0 Globulin 3.0 Albumin/Globulin Ratio 1.3 Vitamin B12 TSH 3rd Generation 2.73 Stool Occult Blood C. difficile Ag & Toxin Negative Influenza Typ A,B (EIA) Blood Type Blood Type Confirm Antibody Screen Crossmatch IS Only BBK History Checked 04/05/17 04/05/17 04/05/17 18:30 18:34 20:30 WBC RBC Hgb Hct MCV MCH MCHC RDW Plt Count MPV Neut % (Auto) Lymph % (Auto) [place] % (Auto) Eos % (Auto) Baso % (Auto) Neut # (Auto) Lymph # (Auto) [place] # (Auto) Eos # (Auto) Baso # (Auto) Neutrophils % (Manual) Band Neutrophils % Lymphocytes % (Manual) Monocytes % (Manual) Platelet Estimate Hypochromasia (manual) Anisocytosis (manual) Acanthocytes (Spur) PT 14.0 H INR 1.3 H APTT 40.8 H Sodium Potassium Chloride Carbon Dioxide Anion Gap BUN Creatinine Est GFR ( Amer) Est GFR (Non-Af Amer) POC Glucose (mg/dL) Random Glucose Hemoglobin A1c Calcium Phosphorus Magnesium Iron TIBC % Saturation Ferritin Total Bilirubin AST ALT Alkaline Phosphatase Troponin I NT-Pro-B Natriuret Pep Total Protein Albumin Globulin Albumin/Globulin Ratio Vitamin B12 TSH 3rd Generation Stool Occult Blood Positive H C. difficile Ag & Toxin Influenza Typ A,B (EIA) Negative for flu a/b Blood Type Blood Type Confirm Antibody Screen Crossmatch IS Only BBK History Checked 04/06/17 04/06/17 04/06/17 00:16 02:22 06:15 WBC RBC Hgb Hct MCV MCH MCHC RDW Plt Count MPV Neut % (Auto) Lymph % (Auto) [place] % (Auto) Eos % (Auto) Baso % (Auto) Neut # (Auto) Lymph # (Auto) [place] # (Auto) Eos # (Auto) Baso # (Auto) Neutrophils % (Manual) Band Neutrophils % Lymphocytes % (Manual) Monocytes % (Manual) Platelet Estimate Hypochromasia (manual) Anisocytosis (manual) Acanthocytes (Spur) PT INR APTT Sodium Potassium Chloride Carbon Dioxide Anion Gap BUN Creatinine Est GFR ( Amer) Est GFR (Non-Af Amer) POC Glucose (mg/dL) 149 H Random Glucose Hemoglobin A1c Calcium Phosphorus Magnesium Iron TIBC % Saturation Ferritin Total Bilirubin AST ALT Alkaline Phosphatase Troponin I NT-Pro-B Natriuret Pep Total Protein Albumin Globulin Albumin/Globulin Ratio Vitamin B12 TSH 3rd Generation Stool Occult Blood C. difficile Ag & Toxin Influenza Typ A,B (EIA) Blood Type O POSITIVE Blood Type Confirm O POSITIVE Antibody Screen Negative Crossmatch IS Only See Detail BBK History Checked No verified bt 04/06/17 04/06/17 04/06/17 11:17 14:00 14:00 WBC 13.4 H RBC 3.02 L Hgb 8.9 L Hct 27.2 L MCV 90.0 MCH 29.3 MCHC 32.6 L RDW 15.0 H Plt Count 154 MPV 7.3 Neut % (Auto) 77.5 H Lymph % (Auto) 6.3 L [place] % (Auto) 16.1 H Eos % (Auto) 0.0 Baso % (Auto) 0.1 Neut # (Auto) 10.3 H Lymph # (Auto) 0.8 L [place] # (Auto) 2.2 H Eos # (Auto) 0.0 Baso # (Auto) 0.0 Neutrophils % (Manual) Band Neutrophils % Lymphocytes % (Manual) Monocytes % (Manual) Platelet Estimate Hypochromasia (manual) Anisocytosis (manual) Acanthocytes (Spur) PT INR APTT Sodium 135 Potassium 3.9 Chloride 102 Carbon Dioxide 19 L Anion Gap 18 BUN 40 H Creatinine 1.0 Est GFR ( Amer) > 60 Est GFR (Non-Af Amer) 53 POC Glucose (mg/dL) 120 H Random Glucose 127 H Hemoglobin A1c Calcium 8.6 Phosphorus Magnesium Iron TIBC % Saturation Ferritin 26.5 Total Bilirubin 1.3 AST 32 ALT 29 Alkaline Phosphatase 59 Troponin I NT-Pro-B Natriuret Pep Total Protein 6.2 L Albumin 3.4 L Globulin 2.8 Albumin/Globulin Ratio 1.2 Vitamin B12 206 L TSH 3rd Generation Stool Occult Blood C. difficile Ag & Toxin Influenza Typ A,B (EIA) Blood Type Blood Type Confirm Antibody Screen Crossmatch IS Only BBK History Checked 04/06/17 04/06/17 14:00 14:00 WBC RBC Hgb Hct MCV MCH MCHC RDW Plt Count MPV Neut % (Auto) Lymph % (Auto) [place] % (Auto) Eos % (Auto) Baso % (Auto) Neut # (Auto) Lymph # (Auto) [place] # (Auto) Eos # (Auto) Baso # (Auto) Neutrophils % (Manual) Band Neutrophils % Lymphocytes % (Manual) Monocytes % (Manual) Platelet Estimate Hypochromasia (manual) Anisocytosis (manual) Acanthocytes (Spur) PT INR APTT Sodium Potassium Chloride Carbon Dioxide Anion Gap BUN Creatinine Est GFR ( Amer) Est GFR (Non-Af Amer) POC Glucose (mg/dL) Random Glucose Hemoglobin A1c 5.5 Calcium Phosphorus Magnesium Iron 58 TIBC 281 % Saturation 21 Ferritin Total Bilirubin AST ALT Alkaline Phosphatase Troponin I NT-Pro-B Natriuret Pep Total Protein Albumin Globulin Albumin/Globulin Ratio Vitamin B12 TSH 3rd Generation Stool Occult Blood C. difficile Ag & Toxin Influenza Typ A,B (EIA) Blood Type Blood Type Confirm Antibody Screen Crossmatch IS Only BBK History Checked
--- NOTE | 2017-04-06 17:45 | CP.PCM.CON ---
History of Present Illness - History of Present Illness History of Present Illness: patient seen/examined. consult to follow. previous history of atrial fibrillation on Pradaxa, presents with fall. Patient was found to be anemic and in atrial fibrillation with rapid ventricular response. currently in ICU. s/p transfusion. will hold anticoagulation. Will give a dose of digoxin. Past Patient History - Infectious Disease Hx of Infectious Diseases: None - Past Medical History & Family History Past Medical History?: Yes - Past Social History Smoking Status: Never Smoked Chewing Tobacco Use: No Cigar Use: No Alcohol: None Drugs: Denies Home Situation {Lives}: Alone - CARDIAC Hx Atrial Fibrillation: Yes Hx Cardia Arrhythmia: Yes Hx Hypercholesterolemia: Yes Hx Hypertension: Yes - PULMONARY Hx Respiratory Disorders: No - NEUROLOGICAL Hx Neurological Disorder: No - HEENT Hx HEENT Problems: No Hx Cataracts: Yes (left eye) - RENAL Hx Chronic Kidney Disease: No - ENDOCRINE/METABOLIC Hx Endocrine Disorders: Yes Hx Diabetes Mellitus Type 2: Yes - HEMATOLOGICAL/ONCOLOGICAL Hx Blood Disorders: No - INTEGUMENTARY Hx Dermatological Problems: No - MUSCULOSKELETAL/RHEUMATOLOGICAL Hx Arthritis: Yes Hx Back Pain: Yes - GASTROINTESTINAL Hx Diverticulitis: Yes - GENITOURINARY/GYNECOLOGICAL Hx Genitourinary Disorders: No - PSYCHIATRIC Hx Anxiety: Yes Hx Depression: Yes Hx Substance Use: No - SURGICAL HISTORY Hx Surgeries: Yes Hx Herniorrhaphy: Yes (x 2) - ANESTHESIA Hx Anesthesia: Yes Hx Anesthesia Reactions: No Hx Malignant Hyperthermia: No Meds Allergies/Adverse Reactions: Allergies Allergy/AdvReac Type Severity Reaction Status Date / Time No Known Allergies Allergy Verified 05/09/14 14:25 - Medications Medications: Current Medications Escitalopram Oxalate (Lexapro) 10 mg PO DAILY [facility] Last Admin: 04/06/17 08:41 Dose: 10 mg Diltiazem HCl 125 mg/ Sodium (Chloride) 125 mls @ 5 mls/hr IV .Q24H ONE; 5 MG/ HR PRN Reason: Protocol Stop: 04/06/17 19:23 Pantoprazole Sodium 40 mg/ (Sodium Chloride) 100 mls @ 20 mls/hr IVPB Q5H [facility] PRN Reason: 8 MG/HR Last Admin: 04/06/17 11:14 Dose: 20 mls/hr Idarucizumab (Praxbind) 5 gm IV BOLUS [facility] Insulin Human Regular (Humulin R) 0 units SC ACHS [facility] PRN Reason: Protocol Last Admin: 04/06/17 12:14 Dose: Not Given Metformin HCl (Glucophage) 500 mg PO BID [facility] Last Admin: 04/06/17 17:40 Dose: 500 mg Morphine Sulfate (Morphine) 2 mg IVP Q4 PRN PRN Reason: Pain, severe (8-10) Last Admin: 04/06/17 15:09 Dose: 2 mg Morphine Sulfate (Morphine) 1 mg IVP Q4 PRN PRN Reason: Pain, moderate (4-7) Results - Vital Signs Recent Vital Signs: Last Vital Signs Temp 98.2 F 04/06/17 16:00 Pulse 93 H 04/06/17 16:00 Resp 20 04/06/17 16:00 BP 102/70 04/06/17 16:00 Pulse Ox 95 04/06/17 16:00 - Labs Result Diagrams: 04/06/17 14:00 04/06/17 14:00 Labs: Laboratory Results - last 24 hr 04/05/17 04/05/17 04/05/17 05:16 18:30 18:30 WBC 15.5 H D RBC 2.79 L Hgb 7.7 L D Hct 25.0 L MCV 89.5 D MCH 27.7 MCHC 30.9 L RDW 15.0 H Plt Count 219 MPV 7.6 Neut % (Auto) 85.4 H Lymph % (Auto) 6.6 L [place] % (Auto) 7.5 Eos % (Auto) 0.1 Baso % (Auto) 0.4 Neut # (Auto) 13.3 H Lymph # (Auto) 1.0 [place] # (Auto) 1.2 H Eos # (Auto) 0.0 Baso # (Auto) 0.1 Neutrophils % (Manual) 89 H Band Neutrophils % 2 Lymphocytes % (Manual) 8 L Monocytes % (Manual) 1 Platelet Estimate Normal Hypochromasia (manual) Moderate Anisocytosis (manual) Slight Acanthocytes (Spur) Slight PT INR APTT Sodium 139 Potassium 4.3 Chloride 103 Carbon Dioxide 15 L Anion Gap 25 H BUN 35 H Creatinine 1.1 Est GFR ( Amer) 57 Est GFR (Non-Af Amer) 47 POC Glucose (mg/dL) Random Glucose 142 H Hemoglobin A1c Calcium 9.3 Phosphorus 4.4 Magnesium 2.2 Iron TIBC % Saturation Ferritin Total Bilirubin 0.8 AST 30 ALT 27 Alkaline Phosphatase 74 Troponin I < 0.0120 NT-Pro-B Natriuret Pep 1220 H Total Protein 7.0 Albumin 4.0 Globulin 3.0 Albumin/Globulin Ratio 1.3 Vitamin B12 TSH 3rd Generation 2.73 Stool Occult Blood C. difficile Ag & Toxin Negative Influenza Typ A,B (EIA) Blood Type Blood Type Confirm Antibody Screen Crossmatch IS Only BBK History Checked 04/05/17 04/05/17 04/05/17 18:30 18:34 20:30 WBC RBC Hgb Hct MCV MCH MCHC RDW Plt Count MPV Neut % (Auto) Lymph % (Auto) [place] % (Auto) Eos % (Auto) Baso % (Auto) Neut # (Auto) Lymph # (Auto) [place] # (Auto) Eos # (Auto) Baso # (Auto) Neutrophils % (Manual) Band Neutrophils % Lymphocytes % (Manual) Monocytes % (Manual) Platelet Estimate Hypochromasia (manual) Anisocytosis (manual) Acanthocytes (Spur) PT 14.0 H INR 1.3 H APTT 40.8 H Sodium Potassium Chloride Carbon Dioxide Anion Gap BUN Creatinine Est GFR ( Amer) Est GFR (Non-Af Amer) POC Glucose (mg/dL) Random Glucose Hemoglobin A1c Calcium Phosphorus Magnesium Iron TIBC % Saturation Ferritin Total Bilirubin AST ALT Alkaline Phosphatase Troponin I NT-Pro-B Natriuret Pep Total Protein Albumin Globulin Albumin/Globulin Ratio Vitamin B12 TSH 3rd Generation Stool Occult Blood Positive H C. difficile Ag & Toxin Influenza Typ A,B (EIA) Negative for flu a/b Blood Type Blood Type Confirm Antibody Screen Crossmatch IS Only BBK History Checked 04/06/17 04/06/17 04/06/17 00:16 02:22 06:15 WBC RBC Hgb Hct MCV MCH MCHC RDW Plt Count MPV Neut % (Auto) Lymph % (Auto) [place] % (Auto) Eos % (Auto) Baso % (Auto) Neut # (Auto) Lymph # (Auto) [place] # (Auto) Eos # (Auto) Baso # (Auto) Neutrophils % (Manual) Band Neutrophils % Lymphocytes % (Manual) Monocytes % (Manual) Platelet Estimate Hypochromasia (manual) Anisocytosis (manual) Acanthocytes (Spur) PT INR APTT Sodium Potassium Chloride Carbon Dioxide Anion Gap BUN Creatinine Est GFR ( Amer) Est GFR (Non-Af Amer) POC Glucose (mg/dL) 149 H Random Glucose Hemoglobin A1c Calcium Phosphorus Magnesium Iron TIBC % Saturation Ferritin Total Bilirubin AST ALT Alkaline Phosphatase Troponin I NT-Pro-B Natriuret Pep Total Protein Albumin Globulin Albumin/Globulin Ratio Vitamin B12 TSH 3rd Generation Stool Occult Blood C. difficile Ag & Toxin Influenza Typ A,B (EIA) Blood Type O POSITIVE Blood Type Confirm O POSITIVE Antibody Screen Negative Crossmatch IS Only See Detail BBK History Checked No verified bt 04/06/17 04/06/17 04/06/17 11:17 14:00 14:00 WBC 13.4 H RBC 3.02 L Hgb 8.9 L Hct 27.2 L MCV 90.0 MCH 29.3 MCHC 32.6 L RDW 15.0 H Plt Count 154 MPV 7.3 Neut % (Auto) 77.5 H Lymph % (Auto) 6.3 L [place] % (Auto) 16.1 H Eos % (Auto) 0.0 Baso % (Auto) 0.1 Neut # (Auto) 10.3 H Lymph # (Auto) 0.8 L [place] # (Auto) 2.2 H Eos # (Auto) 0.0 Baso # (Auto) 0.0 Neutrophils % (Manual) Band Neutrophils % Lymphocytes % (Manual) Monocytes % (Manual) Platelet Estimate Hypochromasia (manual) Anisocytosis (manual) Acanthocytes (Spur) PT INR APTT Sodium 135 Potassium 3.9 Chloride 102 Carbon Dioxide 19 L Anion Gap 18 BUN 40 H Creatinine 1.0 Est GFR ( Amer) > 60 Est GFR (Non-Af Amer) 53 POC Glucose (mg/dL) 120 H Random Glucose 127 H Hemoglobin A1c Calcium 8.6 Phosphorus Magnesium Iron TIBC % Saturation Ferritin 26.5 Total Bilirubin 1.3 AST 32 ALT 29 Alkaline Phosphatase 59 Troponin I NT-Pro-B Natriuret Pep Total Protein 6.2 L Albumin 3.4 L Globulin 2.8 Albumin/Globulin Ratio 1.2 Vitamin B12 206 L TSH 3rd Generation Stool Occult Blood C. difficile Ag & Toxin Influenza Typ A,B (EIA) Blood Type Blood Type Confirm Antibody Screen Crossmatch IS Only BBK History Checked 04/06/17 04/06/17 14:00 14:00 WBC RBC Hgb Hct MCV MCH MCHC RDW Plt Count MPV Neut % (Auto) Lymph % (Auto) [place] % (Auto) Eos % (Auto) Baso % (Auto) Neut # (Auto) Lymph # (Auto) [place] # (Auto) Eos # (Auto) Baso # (Auto) Neutrophils % (Manual) Band Neutrophils % Lymphocytes % (Manual) Monocytes % (Manual) Platelet Estimate Hypochromasia (manual) Anisocytosis (manual) Acanthocytes (Spur) PT INR APTT Sodium Potassium Chloride Carbon Dioxide Anion Gap BUN Creatinine Est GFR ( Amer) Est GFR (Non-Af Amer) POC Glucose (mg/dL) Random Glucose Hemoglobin A1c 5.5 Calcium Phosphorus Magnesium Iron 58 TIBC 281 % Saturation 21 Ferritin Total Bilirubin AST ALT Alkaline Phosphatase Troponin I NT-Pro-B Natriuret Pep Total Protein Albumin Globulin Albumin/Globulin Ratio Vitamin B12 TSH 3rd Generation Stool Occult Blood C. difficile Ag & Toxin Influenza Typ A,B (EIA) Blood Type Blood Type Confirm Antibody Screen Crossmatch IS Only BBK History Checked
[2017-04-06 17:50] LABS: FOLATE 10.1 ng/mL
[2017-04-06 18:29] VITALS: PULSE 104
[2017-04-06 20:33] LABS: HEMOGLOBIN 8.6 g/dL (12.0-16.0); MEAN CELL VOLUME 89.2 fl (81.0-99.0); MEAN CORPUSCULAR HEMOGLOBIN 29.2 pg (27.0-31.0); MEAN CORPUSCULAR HGB CONC 32.7 g/dL (33.0-37.0); RBC 2.93 Mil/uL (3.80-5.20); RED CELL DISTRIBUTION WIDTH 15.4 % (11.5-14.5); WHITE BLOOD COUNT 13.4 K/uL (4.8-10.8)
--- NOTE | 2017-04-06 21:48 | CARD ---
APPROVED REPORT EKG Measurement Heart [id number] <Conclusion> Atrial fibrillation with rapid ventricular response Nonspecific T wave abnormality Abnormal ECG
--- NOTE | 2017-04-06 22:58 | CP.PCM.CON ---
History of Present Illness - History of Present Illness History of Present Illness: 87 year old female with a history of HTN, DM, afib on Pradaxa, recent recurrent falls, admitted s/p fall with right femur fracture. Patient reports to diminished appetite with weightloss. She reports to feeling nauseated by the site of food. Due to her diminished appetite, she has been more weak which led to her falls. She does note to increased bruising with Pradaxa, which she last took 04/04 PM. She did have melanotic stool in the ER. Past medical history: HTN, DM, afib on Pradaxa Past surgical history: Hernia repair x 2 Family history: Daughter had cancer Social history: Denies tobacco, alcohol, and illicit drug use. Allergies: NKA Review of systems: All remaining review of systems including HEENT, cardiovacular, respiratory, gastrointestinal, genitourinary, musculoskeletal, dermatologic, neurologic, and psychiartic are negative unless mentioned in the HPI. Past Patient History - Infectious Disease Hx of Infectious Diseases: None - Past Medical History & Family History Past Medical History?: Yes - Past Social History Smoking Status: Never Smoked Chewing Tobacco Use: No Cigar Use: No Alcohol: None Drugs: Denies Home Situation {Lives}: Alone - CARDIAC Hx Atrial Fibrillation: Yes Hx Cardia Arrhythmia: Yes Hx Hypercholesterolemia: Yes Hx Hypertension: Yes - PULMONARY Hx Respiratory Disorders: No - NEUROLOGICAL Hx Neurological Disorder: No - HEENT Hx HEENT Problems: No Hx Cataracts: Yes (left eye) - RENAL Hx Chronic Kidney Disease: No - ENDOCRINE/METABOLIC Hx Endocrine Disorders: Yes Hx Diabetes Mellitus Type 2: Yes - HEMATOLOGICAL/ONCOLOGICAL Hx Blood Disorders: No - INTEGUMENTARY Hx Dermatological Problems: No - MUSCULOSKELETAL/RHEUMATOLOGICAL Hx Arthritis: Yes Hx Back Pain: Yes - GASTROINTESTINAL Hx Diverticulitis: Yes - GENITOURINARY/GYNECOLOGICAL Hx Genitourinary Disorders: No - PSYCHIATRIC Hx Anxiety: Yes Hx Depression: Yes Hx Substance Use: No - SURGICAL HISTORY Hx Surgeries: Yes Hx Herniorrhaphy: Yes (x 2) - ANESTHESIA Hx Anesthesia: Yes Hx Anesthesia Reactions: No Hx Malignant Hyperthermia: No Meds Allergies/Adverse Reactions: Allergies Allergy/AdvReac Type Severity Reaction Status Date / Time No Known Allergies Allergy Verified 05/09/14 14:25 - Medications Medications: Current Medications Escitalopram Oxalate (Lexapro) 10 mg PO DAILY [facility] Last Admin: 04/06/17 08:41 Dose: 10 mg Pantoprazole Sodium 40 mg/ (Sodium Chloride) 100 mls @ 20 mls/hr IVPB Q5H [facility] PRN Reason: 8 MG/HR Last Admin: 04/06/17 20:17 Dose: 20 mls/hr Idarucizumab (Praxbind) 5 gm IV BOLUS [facility] Insulin Human Regular (Humulin R) 0 units SC ACHS [facility] PRN Reason: Protocol Last Admin: 04/06/17 17:13 Dose: 1 units Metformin HCl (Glucophage) 500 mg PO BID [facility] Last Admin: 04/06/17 17:40 Dose: 500 mg Morphine Sulfate (Morphine) 2 mg IVP Q4 PRN PRN Reason: Pain, severe (8-10) Last Admin: 04/06/17 20:14 Dose: 2 mg Morphine Sulfate (Morphine) 1 mg IVP Q4 PRN PRN Reason: Pain, moderate (4-7) Physical Exam - Head Exam Head Exam: ATRAUMATIC - Eye Exam Eye Exam: Normal appearance - ENT Exam ENT Exam: Mucous Membranes Dry - Respiratory Exam Respiratory Exam: NORMAL BREATHING PATTERN - Cardiovascular Exam Cardiovascular Exam: +S1, +S2 - GI/Abdominal Exam GI & Abdominal Exam: Normal Bowel Sounds - Extremities Exam Extremities exam: Positive for: pedal edema - Neurological Exam Neurological exam: Oriented x3 - Psychiatric Exam Psychiatric exam: Normal Affect, Normal Mood - Skin Skin Exam: Warm Results - Vital Signs Recent Vital Signs: Last Vital Signs Temp 97.7 F 04/06/17 20:00 Pulse 84 04/06/17 20:00 Resp 18 04/06/17 20:00 BP 104/55 L 04/06/17 20:00 Pulse Ox 96 04/06/17 20:00 - Labs Result Diagrams: 04/06/17 20:08 04/06/17 14:00 Labs: Laboratory Results - last 24 hr 04/05/17 04/06/17 04/06/17 05:16 00:16 02:22 WBC RBC Hgb Hct MCV MCH MCHC RDW Plt Count MPV Neut % (Auto) Lymph % (Auto) [place] % (Auto) Eos % (Auto) Baso % (Auto) Neut # (Auto) Lymph # (Auto) [place] # (Auto) Eos # (Auto) Baso # (Auto) Sodium Potassium Chloride Carbon Dioxide Anion Gap BUN Creatinine Est GFR ( Amer) Est GFR (Non-Af Amer) POC Glucose (mg/dL) Random Glucose Hemoglobin A1c Calcium Iron TIBC % Saturation Ferritin Total Bilirubin AST ALT Alkaline Phosphatase Total Protein Albumin Globulin Albumin/Globulin Ratio Vitamin B12 Folate C. difficile Ag & Toxin Negative Blood Type O POSITIVE Blood Type Confirm O POSITIVE Antibody Screen Negative Crossmatch IS Only See Detail BBK History Checked No verified bt 04/06/17 04/06/17 04/06/17 06:15 11:17 14:00 WBC 13.4 H RBC 3.02 L Hgb 8.9 L Hct 27.2 L MCV 90.0 MCH 29.3 MCHC 32.6 L RDW 15.0 H Plt Count 154 MPV 7.3 Neut % (Auto) 77.5 H Lymph % (Auto) 6.3 L [place] % (Auto) 16.1 H Eos % (Auto) 0.0 Baso % (Auto) 0.1 Neut # (Auto) 10.3 H Lymph # (Auto) 0.8 L [place] # (Auto) 2.2 H Eos # (Auto) 0.0 Baso # (Auto) 0.0 Sodium Potassium Chloride Carbon Dioxide Anion Gap BUN Creatinine Est GFR ( Amer) Est GFR (Non-Af Amer) POC Glucose (mg/dL) 149 H 120 H Random Glucose Hemoglobin A1c Calcium Iron TIBC % Saturation Ferritin Total Bilirubin AST ALT Alkaline Phosphatase Total Protein Albumin Globulin Albumin/Globulin Ratio Vitamin B12 Folate C. difficile Ag & Toxin Blood Type Blood Type Confirm Antibody Screen Crossmatch IS Only BBK History Checked 04/06/17 04/06/17 04/06/17 14:00 14:00 14:00 WBC RBC Hgb Hct MCV MCH MCHC RDW Plt Count MPV Neut % (Auto) Lymph % (Auto) [place] % (Auto) Eos % (Auto) Baso % (Auto) Neut # (Auto) Lymph # (Auto) [place] # (Auto) Eos # (Auto) Baso # (Auto) Sodium 135 Potassium 3.9 Chloride 102 Carbon Dioxide 19 L Anion Gap 18 BUN 40 H Creatinine 1.0 Est GFR ( Amer) > 60 Est GFR (Non-Af Amer) 53 POC Glucose (mg/dL) Random Glucose 127 H Hemoglobin A1c 5.5 Calcium 8.6 Iron 58 TIBC 281 % Saturation 21 Ferritin 26.5 Total Bilirubin 1.3 AST 32 ALT 29 Alkaline Phosphatase 59 Total Protein 6.2 L Albumin 3.4 L Globulin 2.8 Albumin/Globulin Ratio 1.2 Vitamin B12 206 L Folate 10.1 C. difficile Ag & Toxin Blood Type Blood Type Confirm Antibody Screen Crossmatch IS Only BBK History Checked 04/06/17 04/06/17 04/06/17 18:16 20:08 21:11 WBC 13.4 H RBC 2.93 L Hgb 8.6 L Hct 26.2 L MCV 89.2 MCH 29.2 MCHC 32.7 L RDW 15.4 H Plt Count 151 MPV Neut % (Auto) Lymph % (Auto) [place] % (Auto) Eos % (Auto) Baso % (Auto) Neut # (Auto) Lymph # (Auto) [place] # (Auto) Eos # (Auto) Baso # (Auto) Sodium Potassium Chloride Carbon Dioxide Anion Gap BUN Creatinine Est GFR ( Amer) Est GFR (Non-Af Amer) POC Glucose (mg/dL) 189 H 137 H Random Glucose Hemoglobin A1c Calcium Iron TIBC % Saturation Ferritin Total Bilirubin AST ALT Alkaline Phosphatase Total Protein Albumin Globulin Albumin/Globulin Ratio Vitamin B12 Folate C. difficile Ag & Toxin Blood Type Blood Type Confirm Antibody Screen Crossmatch IS Only BBK History Checked Assessment & Plan (1) Anemia Assessment and Plan: GI bleeding; low iron stores, will start IV iron B12 deficiency noted; will start IM B12 daily s/p 2U PRBC Pradaxa on hold Status: Acute (2) Leukocytosis Assessment and Plan: mild given diarrhea, ruling out C.diff Status: Acute (3) Coagulopathy Assessment and Plan: secondary to Pradaxa; now on hold likely nutritional component as not eating well; will give a dose of vit k Thank you for this interesting consult. Status: Acute
[2017-04-06] MEDS ORDERED: HYDROmorphone 0.5 mg/0.5 ml ISec IVP PRN (23:17)
[2017-04-07] MEDS: Pantoprazole 40 MG in Sodium Chloride 0.9% 100 ML IVPB SCH ×2 (00:43→05:25)
[2017-04-07 05:18] LABS: BASO % 0.2 % (0.0-2.0); HEMOGLOBIN 8.5 g/dL (12.0-16.0); LYMPH # 0.9 K/uL (1.0-4.3); LYMPH % 7.1 % (20.0-40.0); MEAN CELL VOLUME 90.1 fl (81.0-99.0); MEAN CORPUSCULAR HEMOGLOBIN 29.2 pg (27.0-31.0); MEAN CORPUSCULAR HGB CONC 32.4 g/dL (33.0-37.0); MEAN PLATELET VOLUME 7.3 fl (7.2-11.7); MONO # 2.2 K/uL (0.0-0.8); MONO % 17.2 % (0.0-10.0); NEUT # 9.5 K/uL (1.8-7.0); NEUT % 75.5 % (50.0-75.0); NRBC % 0.1 % (0.0-0.0); RBC 2.91 Mil/uL (3.80-5.20); RED CELL DISTRIBUTION WIDTH 15.6 % (11.5-14.5); WHITE BLOOD COUNT 12.6 K/uL (4.8-10.8)
[2017-04-07 05:27] LABS: BLOOD UREA NITROGEN 36 mg/dl (7-17); CALCIUM 8.4 mg/dL (8.4-10.2); GFR AFRICAN-AMERICAN > 60; GFR NON-AFRICAN AMERICAN 53
[2017-04-07] MEDS: Insulin Regular 100 units/ml SC SCH ×3 (06:31→16:39)
--- NOTE | 2017-04-07 07:43 | CP.PCM.PN ---
Subjective - Date & Time of Evaluation Date of Evaluation: 04/07/17 Time of Evaluation: 07:43 - Subjective Subjective: pt states is doing well. still in afib on monitor but more regular. no f/c, n/v/ d. reported some decr sensation to rle. pt is able to descern left/right on palpation. no pain on palp of fx site. full rom of lle, rle in immobilizer. no headache/cp/sob. all consults appriciated. pt pending [facility]fer [facility] Objective - Vital Signs/Intake and Output Vital Signs (last 24 hours): Temp Pulse Resp BP Pulse Ox 98.5 F 86 16 102/49 L 94 L 04/07/17 04:00 04/07/17 06:00 04/07/17 06:00 04/07/17 06:00 04/07/17 06:00 Intake and Output: 04/07/17 04/07/17 06:59 18:59 Intake Total 440 Output Total 700 Balance -260 - Medications Medications: Current Medications Cyanocobalamin (Vitamin B12 1000 Mcg/Ml Inj) 1,000 mcg IM DAILY [facility] Escitalopram Oxalate (Lexapro) 10 mg PO DAILY [facility] Last Admin: 04/06/17 08:41 Dose: 10 mg Hydromorphone HCl (Dilaudid) 0.5 mg IVP Q4H PRN PRN Reason: Pain, severe (8-10) Stop: 04/08/17 23:18 Last Admin: 04/07/17 04:47 Dose: 0.5 mg Pantoprazole Sodium 40 mg/ (Sodium Chloride) 100 mls @ 20 mls/hr IVPB Q5H [facility] PRN Reason: 8 MG/HR Last Admin: 04/07/17 05:25 Dose: 20 mls/hr Iron Sucrose 200 mg/ Sodium (Chloride) 110 mls @ 110 mls/hr IVPB DAILY [facility] Stop: 04/12/17 09:01 Idarucizumab (Praxbind) 5 gm IV BOLUS [facility] Insulin Human Regular (Humulin R) 0 units SC ACHS [facility] PRN Reason: Protocol Last Admin: 04/07/17 06:31 Dose: Not Given Metformin HCl (Glucophage) 500 mg PO BID [facility] Last Admin: 04/06/17 17:40 Dose: 500 mg Morphine Sulfate (Morphine) 2 mg IVP Q4 PRN PRN Reason: Pain, moderate (4-7) Phytonadione (Vitamin K Inj) 10 mg PO ONCE ONE Stop: 04/07/17 10:01 - Labs Labs: 04/07/17 04:20 04/07/17 04:20 PT 14.0 Seconds (9.8-13.1) H 04/05/17 18:30 INR 1.3 (0.9-1.2) H 04/05/17 18:30 APTT 40.8 Seconds (25.6-37.1) H 04/05/17 18:30 - Constitutional Appears: Well, Non-toxic, No Acute Distress - Head Exam Head Exam: ATRAUMATIC, NORMAL INSPECTION, NORMOCEPHALIC - Eye Exam Eye Exam: EOMI, Normal appearance, PERRL Pupil Exam: NORMAL ACCOMODATION, PERRL - ENT Exam ENT Exam: Mucous Membranes Moist, Normal Exam - Neck Exam Neck Exam: Full ROM, Normal Inspection. absent: Lymphadenopathy - Respiratory Exam Respiratory Exam: Clear to Ausculation Bilateral, NORMAL BREATHING PATTERN - Cardiovascular Exam Cardiovascular Exam: Irregular Rhythm, +S1, +S2. absent: Murmur - GI/Abdominal Exam GI & Abdominal Exam: Soft, Normal Bowel Sounds. absent: Tenderness - Extremities Exam Extremities Exam: Full ROM, Normal Capillary Refill, Normal Inspection. absent : Joint Swelling, Pedal Edema - Back Exam Back Exam: NORMAL INSPECTION - Neurological Exam Neurological Exam: Alert, Awake, CN II-XII Intact, Normal Gait, Oriented x3 - Psychiatric Exam Psychiatric exam: Normal Affect, Normal Mood - Skin Skin Exam: Dry, Intact, Normal Color, Warm Assessment and Plan (1) Femur fracture, right Status: Acute (2) GI bleed Status: Acute (3) Anemia Status: Acute (4) Rapid atrial fibrillation Status: Acute (5) DVT prophylaxis Status: Acute (6) Diabetes type 2, uncontrolled Status: Acute - Assessment and Plan (Free Text) Assessment: (1) Femur fracture, right Assessment and Plan: ortho, knee immobilizer pain control souleymane Status: Acute (2) GI bleed Assessment and Plan: protonix gtt icu 2 units prbc gi egd/colonoscopy when stable Status: Acute (3) Anemia Assessment and Plan: 2 units prbc r/t gi bleed heme/onc hgb 8 today pending xfrer to Status: Acute (4) Rapid atrial fibrillation Assessment and Plan: more controlled now likely r/t gib cardio cardizem given hold pradaxa dig given by dr ferrer Status: Acute (5) DVT prophylaxis Assessment and Plan: scd and aehose no anticoag r/t od of pradaxa/gib Status: Acute (6) Diabetes type 2, uncontrolled Assessment and Plan: riss, home meds, fsbg diet control Status: Acute 7-paresthesoa-?? r/t fx. ortho. neuro prn pending xfer to [facility]
--- NOTE | 2017-04-07 08:04 | CON ---
REFERRED BY: MARIE Hill with [facility] HISTORY OF PRESENT ILLNESS: This is a very pleasant 87-year-old woman who was admitted last night after having several episodes of dizziness, lightheadedness, and apparent syncope who was referred for GI evaluation as she was found to have dark black stools that are heme positive and hemoglobin 7.7. At the time of my evaluation this morning, she is lying comfortably in bed. Overnight, she does not have any bowel movements or any evidence of active bleeding. The patient denies any nausea, vomiting, odynophagia, or dysphagia. There has been no fever or chills. No abdominal pain, but she has had for some several days now what she said was bloody stools, but she had not been paying attention to them. She has no known history of any GI disease and had colonoscopy many years ago, she cannot recall the results. At home, she is on multiple medications, which are also been started here including Pradaxa, which has been held, but she is here in the hospital and also received some Cardizem stat and Cardizem drip, metformin, and insulin. She is getting Lexapro, p.r.n. morphine for any pain or discomfort, and she is on pantoprazole drip. ALLERGIES: SHE HAS NO KNOWN DRUG ALLERGIES. PAST MEDICAL HISTORY: Cardiac arrhythmia, coronary artery disease, and hypertension. PAST SURGICAL HISTORY: She has had ventral hernia repair and umbilical hernia repair. FAMILY HISTORY: Noncontributory. SOCIAL HISTORY: She denies any alcohol, tobacco, or drug use. PHYSICAL EXAMINATION: GENERAL: A well-nourished and well-developed elderly woman who is awake, alert and oriented x3 in no acute distress. VITAL SIGNS: Stable. She is afebrile. ABDOMEN: Soft. Positive bowel sounds, nontender, and nondistended. No hepatosplenomegaly. No palpable masses or lesions. LABORATORY DATA: Reviewed from last night and initially white count 15.5 with an H and H of 7.7 and 25 and platelet count 219. Her INR was 1.3. SMA-7 remarkable for BUN of 35 with a creatinine of 1.1. LFTs were normal. IMPRESSION AND PLAN: An 87-year-old woman with anemia, syncopal episodes, and heme-positive stools who was referred for evaluation. She received one unit of blood overnight. She has received second unit now and would repeat labs after that to see what her white count is doing. Of note, she also has a fracture of right femur as well, which is being evaluated for. I discussed whether performing both upper and lower endoscopy, the risks and benefits of both and she is agreeable to these procedures; however, I need cardiac clearance before we can schedule those procedures. We will keep her on drip for now, clear liquid diet only. We will await the Cardiology evaluation as well as Heme/Onc. She did take her Pradaxa Thursday night, so we could probably perform both procedures safely by tomorrow or Thursday at the latest. We would like to have cardiac and medical clearance first and then we will schedule her for further procedures and make further recommendations pending those findings. Cuong Krause MD
--- NOTE | 2017-04-07 08:16 | CP.PCM.CON ---
History of Present Illness - History of Present Illness History of Present Illness: Patient is an 87 y/o female complaining of right knee pain after falling off her bed on 04/05/17. She was brought to the [facility] ER for emergent evaluation. It was determined that she had sustained a right femur fracture prompting an orthopedic consult. She is being monitored in the ICU for her medical issues. Currently she complains of right knee pain which is controlled with pain medications. The pain is dull and aching in quality and located diffusely about her distal thigh and knee. The pain is intermittent and is worsened with movement. The pain is alleviated by inactivity. She admits to dizziness prior to her fall which occurs frequently. She denies CP/SOB/nausea/vomit/diarrhea/ headache/dysuria/melena. Review of Systems - Review of Systems All systems: reviewed and no additional remarkable complaints except Review of Systems: right knee pain Past Patient History - Infectious Disease Hx of Infectious Diseases: None - Past Medical History & Family History Past Medical History?: Yes Past Family History: Reviewed and not pertinent - Past Social History Smoking Status: Smoker Currrent Status Unknown Chewing Tobacco Use: No Cigar Use: No Alcohol: None Drugs: Denies Home Situation {Lives}: Alone - CARDIAC Hx Atrial Fibrillation: Yes Hx Cardia Arrhythmia: Yes Hx Hypercholesterolemia: Yes Hx Hypertension: Yes - PULMONARY Hx Respiratory Disorders: No - NEUROLOGICAL Hx Neurological Disorder: No - HEENT Hx HEENT Problems: No Hx Cataracts: Yes (left eye) - RENAL Hx Chronic Kidney Disease: No - ENDOCRINE/METABOLIC Hx Endocrine Disorders: Yes Hx Diabetes Mellitus Type 2: Yes - HEMATOLOGICAL/ONCOLOGICAL Hx Blood Disorders: No - INTEGUMENTARY Hx Dermatological Problems: No - MUSCULOSKELETAL/RHEUMATOLOGICAL Hx Arthritis: Yes Hx Back Pain: Yes - GASTROINTESTINAL Hx Diverticulitis: Yes - GENITOURINARY/GYNECOLOGICAL Hx Genitourinary Disorders: No - PSYCHIATRIC Hx Anxiety: Yes Hx Depression: Yes Hx Substance Use: No - SURGICAL HISTORY Hx Surgeries: Yes Hx Herniorrhaphy: Yes (x 2) - ANESTHESIA Hx Anesthesia: Yes Hx Anesthesia Reactions: No Hx Malignant Hyperthermia: No Meds Allergies/Adverse Reactions: Allergies Allergy/AdvReac Type Severity Reaction Status Date / Time No Known Allergies Allergy Verified 05/09/14 14:25 - Medications Medications: Current Medications Cyanocobalamin (Vitamin B12 1000 Mcg/Ml Inj) 1,000 mcg IM DAILY [facility] Escitalopram Oxalate (Lexapro) 10 mg PO DAILY [facility] Last Admin: 04/06/17 08:41 Dose: 10 mg Hydromorphone HCl (Dilaudid) 0.5 mg IVP Q4H PRN PRN Reason: Pain, severe (8-10) Stop: 04/08/17 23:18 Last Admin: 04/07/17 04:47 Dose: 0.5 mg Pantoprazole Sodium 40 mg/ (Sodium Chloride) 100 mls @ 20 mls/hr IVPB Q5H [facility] PRN Reason: 8 MG/HR Last Admin: 04/07/17 05:25 Dose: 20 mls/hr Iron Sucrose 200 mg/ Sodium (Chloride) 110 mls @ 110 mls/hr IVPB DAILY [facility] Stop: 04/12/17 09:01 Idarucizumab (Praxbind) 5 gm IV BOLUS [facility] Insulin Human Regular (Humulin R) 0 units SC ACHS [facility] PRN Reason: Protocol Last Admin: 04/07/17 06:31 Dose: Not Given Metformin HCl (Glucophage) 500 mg PO BID [facility] Last Admin: 04/06/17 17:40 Dose: 500 mg Morphine Sulfate (Morphine) 2 mg IVP Q4 PRN PRN Reason: Pain, moderate (4-7) Phytonadione (Vitamin K Inj) 10 mg PO ONCE ONE Stop: 04/07/17 10:01 Physical Exam - Constitutional Appears: No Acute Distress - Head Exam Head Exam: ATRAUMATIC, NORMAL INSPECTION, NORMOCEPHALIC - Eye Exam Eye Exam: EOMI - ENT Exam ENT Exam: Mucous Membranes Moist - Neck Exam Neck exam: Positive for: Normal Inspection - Respiratory Exam Respiratory Exam: Clear to Auscultation Bilateral, NORMAL BREATHING PATTERN - Cardiovascular Exam Cardiovascular Exam: Irregular Rhythm - GI/Abdominal Exam GI & Abdominal Exam: Normal Bowel Sounds, Soft - Extremities Exam Additional comments: Right knee: Knee in immobilizer. Moderate swelling. Moderate tenderness to generally to knee and distal thigh. No erythema. No drainage. ROM untested due to fx. Sensation intact SP/DP/TN/ Motor intact EHL/FHL/gastroc/TA. pedal pulses intact. Calves soft and NT b/l. - Expanded Lower Extremities Exam Right Hip exam: absent: swelling, tenderness Knee exam: full knee extension. absent: ecchymosis, swelling, tenderness Lower Leg Exam: full ROM, normal inspection. absent: tenderness - Neurological Exam Neurological exam: Alert, Oriented x3 - Psychiatric Exam Psychiatric exam: Normal Affect, Normal Mood - Skin Skin Exam: Normal Color Results - Vital Signs Recent Vital Signs: Last Vital Signs Temp 98.5 F 04/07/17 04:00 Pulse 86 04/07/17 06:00 Resp 16 04/07/17 06:00 BP 102/49 L 04/07/17 06:00 Pulse Ox 94 L 04/07/17 06:00 - Labs Result Diagrams: 04/07/17 04:20 04/07/17 04:20 Labs: Laboratory Results - last 24 hr 04/05/17 04/06/17 04/06/17 05:16 00:16 11:17 WBC RBC Hgb Hct MCV MCH MCHC RDW Plt Count MPV Neut % (Auto) Lymph % (Auto) Twiggs % (Auto) Eos % (Auto) Baso % (Auto) Neut # (Auto) Lymph # (Auto) Twiggs # (Auto) Eos # (Auto) Baso # (Auto) Sodium Potassium Chloride Carbon Dioxide Anion Gap BUN Creatinine Est GFR ( Amer) Est GFR (Non-Af Amer) POC Glucose (mg/dL) 120 H Random Glucose Hemoglobin A1c Calcium Iron TIBC % Saturation Ferritin Total Bilirubin AST ALT Alkaline Phosphatase Total Protein Albumin Globulin Albumin/Globulin Ratio Vitamin B12 Folate C. difficile Ag & Toxin Negative Blood Type O POSITIVE Antibody Screen Negative Crossmatch IS Only See Detail BBK History Checked No verified bt 04/06/17 04/06/17 04/06/17 14:00 14:00 14:00 WBC 13.4 H RBC 3.02 L Hgb 8.9 L Hct 27.2 L MCV 90.0 MCH 29.3 MCHC 32.6 L RDW 15.0 H Plt Count 154 MPV 7.3 Neut % (Auto) 77.5 H Lymph % (Auto) 6.3 L Twiggs % (Auto) 16.1 H Eos % (Auto) 0.0 Baso % (Auto) 0.1 Neut # (Auto) 10.3 H Lymph # (Auto) 0.8 L Twiggs # (Auto) 2.2 H Eos # (Auto) 0.0 Baso # (Auto) 0.0 Sodium 135 Potassium 3.9 Chloride 102 Carbon Dioxide 19 L Anion Gap 18 BUN 40 H Creatinine 1.0 Est GFR ( Amer) > 60 Est GFR (Non-Af Amer) 53 POC Glucose (mg/dL) Random Glucose 127 H Hemoglobin A1c Calcium 8.6 Iron 58 TIBC 281 % Saturation 21 Ferritin 26.5 Total Bilirubin 1.3 AST 32 ALT 29 Alkaline Phosphatase 59 Total Protein 6.2 L Albumin 3.4 L Globulin 2.8 Albumin/Globulin Ratio 1.2 Vitamin B12 206 L Folate 10.1 C. difficile Ag & Toxin Blood Type Antibody Screen Crossmatch IS Only BBK History Checked 04/06/17 04/06/17 04/06/17 14:00 18:16 20:08 WBC 13.4 H RBC 2.93 L Hgb 8.6 L Hct 26.2 L MCV 89.2 MCH 29.2 MCHC 32.7 L RDW 15.4 H Plt Count 151 MPV Neut % (Auto) Lymph % (Auto) Twiggs % (Auto) Eos % (Auto) Baso % (Auto) Neut # (Auto) Lymph # (Auto) Twiggs # (Auto) Eos # (Auto) Baso # (Auto) Sodium Potassium Chloride Carbon Dioxide Anion Gap BUN Creatinine Est GFR ( Amer) Est GFR (Non-Af Amer) POC Glucose (mg/dL) 189 H Random Glucose Hemoglobin A1c 5.5 Calcium Iron TIBC % Saturation Ferritin Total Bilirubin AST ALT Alkaline Phosphatase Total Protein Albumin Globulin Albumin/Globulin Ratio Vitamin B12 Folate C. difficile Ag & Toxin Blood Type Antibody Screen Crossmatch IS Only BBK History Checked 04/06/17 04/07/17 04/07/17 21:11 04:20 04:20 WBC 12.6 H RBC 2.91 L Hgb 8.5 L Hct 26.3 L MCV 90.1 MCH 29.2 MCHC 32.4 L RDW 15.6 H Plt Count 142 MPV 7.3 Neut % (Auto) 75.5 H Lymph % (Auto) 7.1 L Twiggs % (Auto) 17.2 H Eos % (Auto) 0.0 Baso % (Auto) 0.2 Neut # (Auto) 9.5 H Lymph # (Auto) 0.9 L Twiggs # (Auto) 2.2 H Eos # (Auto) 0.0 Baso # (Auto) 0.0 Sodium 137 Potassium 3.9 Chloride 103 Carbon Dioxide 19 L Anion Gap 19 BUN 36 H Creatinine 1.0 Est GFR ( Amer) > 60 Est GFR (Non-Af Amer) 53 POC Glucose (mg/dL) 137 H Random Glucose 149 H Hemoglobin A1c Calcium 8.4 Iron TIBC % Saturation Ferritin Total Bilirubin AST ALT Alkaline Phosphatase Total Protein Albumin Globulin Albumin/Globulin Ratio Vitamin B12 Folate C. difficile Ag & Toxin Blood Type Antibody Screen Crossmatch IS Only BBK History Checked 04/07/17 06:00 WBC RBC Hgb Hct MCV MCH MCHC RDW Plt Count MPV Neut % (Auto) Lymph % (Auto) Twiggs % (Auto) Eos % (Auto) Baso % (Auto) Neut # (Auto) Lymph # (Auto) Twiggs # (Auto) Eos # (Auto) Baso # (Auto) Sodium Potassium Chloride Carbon Dioxide Anion Gap BUN Creatinine Est GFR ( Amer) Est GFR (Non-Af Amer) POC Glucose (mg/dL) 147 H Random Glucose Hemoglobin A1c Calcium Iron TIBC % Saturation Ferritin Total Bilirubin AST ALT Alkaline Phosphatase Total Protein Albumin Globulin Albumin/Globulin Ratio Vitamin B12 Folate C. difficile Ag & Toxin Blood Type Antibody Screen Crossmatch IS Only BBK History Checked - Imaging and Cardiology Right Knee Status: Image reviewed by me Additional comment: AP and lateral radiographs of the right femur were obtained. FINDINGS: There is an acute longitudinal nondisplaced fracture in the medial distal diaphysis and metaphysis of the femur. There is diffuse bone demineralization. Bone alignment is normal. There is moderate degenerative osteoarthrosis in the medial compartment with reduced joint space. Also noted is severe tricompartmental degenerative osteoarthrosis in the knee joint. The periarticular soft tissues are normal. Atherosclerotic vascular calcifications are present. IMPRESSION: Acute longitudinal nondisplaced fracture in the medial distal diaphysis and metaphysis of the femur. Assessment & Plan (1) Femur fracture, right Assessment and Plan: Patient is an 87 y/o female with a non-displaced distal femur fx. -NWB RLE -keep knee in knee immobilizer -pain control -do not recommend surgical intervention at this time, treat conservative -will continue to monitor -PT/OT -Patient's case and plan was discussed in agreement with Dr. Shrestha Status: Acute
[2017-04-07] MEDS ORDERED: Phytonadione 10 mg/ml Inj (Adult) PO ONE (10:00)
[2017-04-07] MEDS ORDERED: Phytonadione 10 mg/ml Inj (Adult) IV ONE (10:00)
--- NOTE | 2017-04-07 13:13 | CP.PCM.PN ---
Subjective - Date & Time of Evaluation Date of Evaluation: 04/07/17 Time of Evaluation: 13:11 - Subjective Subjective: stable, improved little appetite but denies n/v or abd pain no overt evidence of GI bleeding PE: vss abd - soft with +BS imp/plan: Hgb stable without active bleeding did not schedule endoscopic procedures as she is waiting transfer to [facility] where it will be done d/c IV PPI PPI po BID advance diet Objective - Vital Signs/Intake and Output Vital Signs (last 24 hours): Temp Pulse Resp BP Pulse Ox 98.2 F 89 17 108/57 L 95 04/07/17 12:00 04/07/17 12:00 04/07/17 12:00 04/07/17 12:00 04/07/17 12:00 Intake and Output: 04/07/17 04/07/17 06:59 18:59 Intake Total 440 240 Output Total 700 300 Balance -260 -60 - Medications Medications: Current Medications Cyanocobalamin (Vitamin B12 1000 Mcg/Ml Inj) 1,000 mcg IM DAILY [facility] Last Admin: 04/07/17 08:43 Dose: 1,000 mcg Escitalopram Oxalate (Lexapro) 10 mg PO DAILY [facility] Last Admin: 04/07/17 08:42 Dose: 10 mg Hydromorphone HCl (Dilaudid) 0.5 mg IVP Q4H PRN PRN Reason: Pain, severe (8-10) Stop: 04/08/17 23:18 Last Admin: 04/07/17 12:45 Dose: 0.5 mg Iron Sucrose 200 mg/ Sodium (Chloride) 110 mls @ 110 mls/hr IVPB DAILY [facility] Stop: 04/12/17 09:01 Last Admin: 04/07/17 09:54 Dose: 110 mls/hr Idarucizumab (Praxbind) 5 gm IV BOLUS [facility] Insulin Human Regular (Humulin R) 0 units SC ACHS [facility] PRN Reason: Protocol Last Admin: 04/07/17 12:16 Dose: Not Given Metformin HCl (Glucophage) 500 mg PO BID [facility] Last Admin: 04/07/17 08:42 Dose: 500 mg Morphine Sulfate (Morphine) 2 mg IVP Q4 PRN PRN Reason: Pain, moderate (4-7) Pantoprazole Sodium (Protonix Ec Tab) 40 mg PO BID [facility] - Labs Labs: 04/07/17 04:20 04/07/17 04:20 PT 14.0 Seconds (9.8-13.1) H 04/05/17 18:30 INR 1.3 (0.9-1.2) H 04/05/17 18:30 APTT 40.8 Seconds (25.6-37.1) H 04/05/17 18:30
[2017-04-07 13:40] VITALS: BMI 23.3
--- NOTE | 2017-04-07 14:40 | CP.CCUPN ---
CCU Subjective - Physician Review Events Since Last Encounter (Free Text): 04/07/17 14:40 The patient was Seen and examined by me at the bedside during ICU round, Medical records reviewed and Management issues were discussed and formulated with the house staff. Events reviewed 87 Years old Female with PMHx of Atrial Fibrillation, HTN, Hypercholesterolemia ; C Diff; DM II, left eye cataract; Back pain, Anxiety, Arthritis, Depression and Diverticulitis Who was brought to the Emergency department with complaint of severe right knee pain, and referring falling on getting off the bed. Pt denies headache, LOC Pt reports nausea, and intermittent generalized discomfort. Lab significant for Admitted to the ICU for Right Femur Fracture, A Fib with rapid response and Symptomatic Anemia R/O GI Bleed She was transfused 2U of packed RBC, This morning labs revealed stable H/H, No active evidence of GI bleeding Appetite is fair and planning to advance diet as tolerated CCU Objective - Vital Signs / Intake & Output Vital Signs (Last 4 hours): Vital Signs Temp Pulse Resp BP Pulse Ox 04/07/17 12:00 98.2 F 89 17 108/57 L 95 Intake and Output (Last 8hrs): Intake & Output 04/06/17 04/07/17 04/07/17 22:59 06:59 14:59 Intake Total 380 260 240 Output Total 200 500 300 Balance 180 -240 -60 Intake: Intake, Piggyback 80 160 140 Oral 300 100 100 Output: Urine 200 500 300 Urine, Voided 200 500 300 Other: # Voids Urine, Voided 1 1 # Bowel Movements 1 - Physical Exam Head: Positive for: Atraumatic, Normocephalic. Negative for: Tenderness, Contusion Pupils: Positive for: PERRL. Negative for: Sluggish, Non-Reactive Extroacular Muscles: Positive for: EOMI Conjunctiva: Positive for: Normal. Negative for: Injected, Icteric Ears: Positive for: Normal Mouth: Positive for: Moist Mucous Membranes. Negative for: Dry Pharnyx: Positive for: Normal. Negative for: ERYTHEMA Neck: Positive for: Normal Range of Motion, Trachea Midline. Negative for: Meningeal Signs, MIDLINE TENDERNESS, Paraspinal Tenderness, JVD, Lymphadenopathy , Bruit, Other Respiratory/Chest: Positive for: Clear to Auscultation, Good Air Exchange. Negative for: Decreased Breath Sounds, Rales, Retracting Cardiovascular: Positive for: Regular Rate and Rhythm, Normal S1, S2, Peripheal Pulses Present. Negative for: Irregular Rhythm Abdomen: Positive for: Normal Bowel Sounds. Negative for: Tenderness, Distention, Peritoneal Signs Neurological: Positive for: Other (Patient sedated and orally intubated ) - Medications Active Medications: Active Medications Generic Name Dose Route Start Last Admin Trade Name Freq PRN Reason Stop Dose Admin Cyanocobalamin 1,000 mcg 04/07/17 09:00 04/07/17 08:43 Vitamin B12 1000 Mcg/Ml Inj IM 1,000 mcg DAILY JUAN FRANCISCO Administration Escitalopram Oxalate 10 mg 04/06/17 09:00 04/07/17 08:42 Lexapro PO 10 mg DAILY JUAN FRANCISCO Administration Hydromorphone HCl 0.5 mg 04/06/17 23:30 04/07/17 12:45 Dilaudid IVP 04/08/17 23:18 0.5 mg Q4H PRN Administration Pain, severe (8-10) Iron Sucrose 200 mg/ Sodium 110 mls @ 110 mls/hr 04/07/17 09:00 04/07/17 09: 54 Chloride IVPB 04/12/17 09:01 110 mls/hr DAILY JUAN FRANCISCO Administration Idarucizumab 5 gm 04/05/17 20:45 Praxbind IV BOLUS [facility] Insulin Human Regular 0 units 04/06/17 07:30 04/07/17 12:16 Humulin R SC Not Given ACHS [facility] Protocol Metformin HCl 500 mg 04/06/17 09:00 04/07/17 08:42 Glucophage PO 500 mg BID JUAN FRANCISCO Administration Morphine Sulfate 2 mg 04/06/17 23:20 Morphine IVP Q4 PRN Pain, moderate (4-7) Pantoprazole Sodium 40 mg 04/07/17 17:00 Protonix Ec Tab PO BID [facility] - Patient Studies Lab Studies: Microbiology Studies 04/06/17 14:00 Blood Culture - Preliminary Blood NO GROWTH AFTER 24 HOURS Lab Studies 04/07/17 04/07/17 04/07/17 Range/Units 11:08 06:00 04:20 WBC (4.8-10.8) K/uL RBC (3.80-5.20) Mil/uL Hgb (12.0-16.0) g/dL Hct (34.0-47.0) % MCV (81.0-99.0) fl MCH (27.0-31.0) pg MCHC (33.0-37.0) g/dL RDW (11.5-14.5) % Plt Count (130-400) K/uL MPV (7.2-11.7) fl Neut % (Auto) (50.0-75.0) % Lymph % (Auto) (20.0-40.0) % [place] % (Auto) (0.0-10.0) % Eos % (Auto) (0.0-4.0) % Baso % (Auto) (0.0-2.0) % Neut # (Auto) (1.8-7.0) K/uL Lymph # (Auto) (1.0-4.3) K/uL [place] # (Auto) (0.0-0.8) K/uL Eos # (Auto) (0.0-0.7) K/uL Baso # (Auto) (0.0-0.2) K/uL Sodium 137 (132-148) mmol/l Potassium 3.9 (3.6-5.0) MMOL/L Chloride 103 (98-107) mmol/L Carbon Dioxide 19 L (22-30) mmol/L Anion Gap 19 (10-20) BUN 36 H (7-17) mg/dl Creatinine 1.0 (0.7-1.2) mg/dl Est GFR ( Amer) > 60 Est GFR (Non-Af Amer) 53 POC Glucose (mg/dL) 135 H 147 H (65-110) mg/dL Random Glucose 149 H (65-105) mg/dL Hemoglobin A1c (4.2-6.5) % Calcium 8.4 (8.4-10.2) mg/dL Iron (37-170) ug/dL TIBC (250-450) ug/dL % Saturation (20-55) % Ferritin (11.1-264.0) ng/Ml Vitamin B12 (239-931) pg/mL Folate ng/mL 04/07/17 04/06/17 04/06/17 Range/Units 04:20 21:11 20:08 WBC 12.6 H 13.4 H (4.8-10.8) K/uL RBC 2.91 L 2.93 L (3.80-5.20) Mil/uL Hgb 8.5 L 8.6 L (12.0-16.0) g/dL Hct 26.3 L 26.2 L (34.0-47.0) % MCV 90.1 89.2 (81.0-99.0) fl MCH 29.2 29.2 (27.0-31.0) pg MCHC 32.4 L 32.7 L (33.0-37.0) g/dL RDW 15.6 H 15.4 H (11.5-14.5) % Plt Count 142 151 (130-400) K/uL MPV 7.3 (7.2-11.7) fl Neut % (Auto) 75.5 H (50.0-75.0) % Lymph % (Auto) 7.1 L (20.0-40.0) % [place] % (Auto) 17.2 H (0.0-10.0) % Eos % (Auto) 0.0 (0.0-4.0) % Baso % (Auto) 0.2 (0.0-2.0) % Neut # (Auto) 9.5 H (1.8-7.0) K/uL Lymph # (Auto) 0.9 L (1.0-4.3) K/uL [place] # (Auto) 2.2 H (0.0-0.8) K/uL Eos # (Auto) 0.0 (0.0-0.7) K/uL Baso # (Auto) 0.0 (0.0-0.2) K/uL Sodium (132-148) mmol/l Potassium (3.6-5.0) MMOL/L Chloride (98-107) mmol/L Carbon Dioxide (22-30) mmol/L Anion Gap (10-20) BUN (7-17) mg/dl Creatinine (0.7-1.2) mg/dl Est GFR ( Amer) Est GFR (Non-Af Amer) POC Glucose (mg/dL) 137 H (65-110) mg/dL Random Glucose (65-105) mg/dL Hemoglobin A1c (4.2-6.5) % Calcium (8.4-10.2) mg/dL Iron (37-170) ug/dL TIBC (250-450) ug/dL % Saturation (20-55) % Ferritin (11.1-264.0) ng/Ml Vitamin B12 (239-931) pg/mL Folate ng/mL 04/06/17 04/06/17 04/06/17 Range/Units 18:16 14:00 14:00 WBC (4.8-10.8) K/uL RBC (3.80-5.20) Mil/uL Hgb (12.0-16.0) g/dL Hct (34.0-47.0) % MCV (81.0-99.0) fl MCH (27.0-31.0) pg MCHC (33.0-37.0) g/dL RDW (11.5-14.5) % Plt Count (130-400) K/uL MPV (7.2-11.7) fl Neut % (Auto) (50.0-75.0) % Lymph % (Auto) (20.0-40.0) % [place] % (Auto) (0.0-10.0) % Eos % (Auto) (0.0-4.0) % Baso % (Auto) (0.0-2.0) % Neut # (Auto) (1.8-7.0) K/uL Lymph # (Auto) (1.0-4.3) K/uL [place] # (Auto) (0.0-0.8) K/uL Eos # (Auto) (0.0-0.7) K/uL Baso # (Auto) (0.0-0.2) K/uL Sodium (132-148) mmol/l Potassium (3.6-5.0) MMOL/L Chloride (98-107) mmol/L Carbon Dioxide (22-30) mmol/L Anion Gap (10-20) BUN (7-17) mg/dl Creatinine (0.7-1.2) mg/dl Est GFR ( Amer) Est GFR (Non-Af Amer) POC Glucose (mg/dL) 189 H (65-110) mg/dL Random Glucose (65-105) mg/dL Hemoglobin A1c 5.5 (4.2-6.5) % Calcium (8.4-10.2) mg/dL Iron 58 (37-170) ug/dL TIBC 281 (250-450) ug/dL % Saturation 21 (20-55) % Ferritin (11.1-264.0) ng/Ml Vitamin B12 (239-931) pg/mL Folate ng/mL 04/06/17 Range/Units 14:00 WBC (4.8-10.8) K/uL RBC (3.80-5.20) Mil/uL Hgb (12.0-16.0) g/dL Hct (34.0-47.0) % MCV (81.0-99.0) fl MCH (27.0-31.0) pg MCHC (33.0-37.0) g/dL RDW (11.5-14.5) % Plt Count (130-400) K/uL MPV (7.2-11.7) fl Neut % (Auto) (50.0-75.0) % Lymph % (Auto) (20.0-40.0) % [place] % (Auto) (0.0-10.0) % Eos % (Auto) (0.0-4.0) % Baso % (Auto) (0.0-2.0) % Neut # (Auto) (1.8-7.0) K/uL Lymph # (Auto) (1.0-4.3) K/uL [place] # (Auto) (0.0-0.8) K/uL Eos # (Auto) (0.0-0.7) K/uL Baso # (Auto) (0.0-0.2) K/uL Sodium (132-148) mmol/l Potassium (3.6-5.0) MMOL/L Chloride (98-107) mmol/L Carbon Dioxide (22-30) mmol/L Anion Gap (10-20) BUN (7-17) mg/dl Creatinine (0.7-1.2) mg/dl Est GFR ( Amer) Est GFR (Non-Af Amer) POC Glucose (mg/dL) (65-110) mg/dL Random Glucose (65-105) mg/dL Hemoglobin A1c (4.2-6.5) % Calcium (8.4-10.2) mg/dL Iron (37-170) ug/dL TIBC (250-450) ug/dL % Saturation (20-55) % Ferritin 26.5 (11.1-264.0) ng/Ml Vitamin B12 206 L (239-931) pg/mL Folate 10.1 ng/mL Laboratory Results - last 24 hr 04/06/17 04/06/17 04/06/17 14:00 14:00 14:00 WBC RBC Hgb Hct MCV MCH MCHC RDW Plt Count MPV Neut % (Auto) Lymph % (Auto) [place] % (Auto) Eos % (Auto) Baso % (Auto) Neut # (Auto) Lymph # (Auto) [place] # (Auto) Eos # (Auto) Baso # (Auto) Sodium Potassium Chloride Carbon Dioxide Anion Gap BUN Creatinine Est GFR ( Amer) Est GFR (Non-Af Amer) POC Glucose (mg/dL) Random Glucose Hemoglobin A1c 5.5 Calcium Iron 58 TIBC 281 % Saturation 21 Ferritin 26.5 Vitamin B12 206 L Folate 10.1 04/06/17 04/06/17 04/06/17 18:16 20:08 21:11 WBC 13.4 H RBC 2.93 L Hgb 8.6 L Hct 26.2 L MCV 89.2 MCH 29.2 MCHC 32.7 L RDW 15.4 H Plt Count 151 MPV Neut % (Auto) Lymph % (Auto) [place] % (Auto) Eos % (Auto) Baso % (Auto) Neut # (Auto) Lymph # (Auto) [place] # (Auto) Eos # (Auto) Baso # (Auto) Sodium Potassium Chloride Carbon Dioxide Anion Gap BUN Creatinine Est GFR ( Amer) Est GFR (Non-Af Amer) POC Glucose (mg/dL) 189 H 137 H Random Glucose Hemoglobin A1c Calcium Iron TIBC % Saturation Ferritin Vitamin B12 Folate 04/07/17 04/07/17 04/07/17 04:20 04:20 06:00 WBC 12.6 H RBC 2.91 L Hgb 8.5 L Hct 26.3 L MCV 90.1 MCH 29.2 MCHC 32.4 L RDW 15.6 H Plt Count 142 MPV 7.3 Neut % (Auto) 75.5 H Lymph % (Auto) 7.1 L [place] % (Auto) 17.2 H Eos % (Auto) 0.0 Baso % (Auto) 0.2 Neut # (Auto) 9.5 H Lymph # (Auto) 0.9 L [place] # (Auto) 2.2 H Eos # (Auto) 0.0 Baso # (Auto) 0.0 Sodium 137 Potassium 3.9 Chloride 103 Carbon Dioxide 19 L Anion Gap 19 BUN 36 H Creatinine 1.0 Est GFR ( Amer) > 60 Est GFR (Non-Af Amer) 53 POC Glucose (mg/dL) 147 H Random Glucose 149 H Hemoglobin A1c Calcium 8.4 Iron TIBC % Saturation Ferritin Vitamin B12 Folate 04/07/17 11:08 WBC RBC Hgb Hct MCV MCH MCHC RDW Plt Count MPV Neut % (Auto) Lymph % (Auto) [place] % (Auto) Eos % (Auto) Baso % (Auto) Neut # (Auto) Lymph # (Auto) [place] # (Auto) Eos # (Auto) Baso # (Auto) Sodium Potassium Chloride Carbon Dioxide Anion Gap BUN Creatinine Est GFR ( Amer) Est GFR (Non-Af Amer) POC Glucose (mg/dL) 135 H Random Glucose Hemoglobin A1c Calcium Iron TIBC % Saturation Ferritin Vitamin B12 Folate Fingerstick Blood Sugar Results: 135 Critical Care Progress Note - Nutrition Nutrition: Nutrition Category Date Time Status Heart Healthy Diet [DIET] Diets 04/07/17 Lunch Active Assessment/Plan (1) GI bleed Current Visit: Yes Status: Acute Comment: Post transfusion two units of PRBC Advance diet as tolerate Switch Pantoprazole drip ro PO BID GI and heme/onc consulted appretiated (2) Anemia Current Visit: Yes Status: Acute (3) Femur fracture, right Current Visit: Yes Status: Acute Comment: Ortho Consult appreted Pain controlled (4) Rapid atrial fibrillation Current Visit: Yes Status: Acute Comment: HR controlled now, Off Cardizem IV Drip Cardiology consult appretiated receive one dose of Digoxin yesterday (5) Diarrhea Current Visit: Yes Status: Acute Comment: Continue IV fluids R/O C Diff (6) DVT prophylaxis Current Visit: No Status: Acute
[2017-04-07 16:09] VITALS: BP 97/63; PULSE 96; RESP 18; TEMP 97.5; O2SAT 84
[2017-04-07] MEDS ORDERED: Pantoprazole 40 mg EC Tab PO SCH (17:00)
--- NOTE | 2017-04-08 09:12 | CP.PCM.DIS ---
Provider - Provider Date of Admission: 04/05/17 20:41 Attending physician: Mehdi Isidro MD Time Spent in preparation of Discharge (in minutes): 60 Diagnosis - Discharge Diagnosis (1) Femur fracture, right Status: Acute (2) GI bleed Status: Acute (3) Anemia Status: Acute (4) Rapid atrial fibrillation Status: Acute (5) DVT prophylaxis Status: Acute (6) Diabetes type 2, uncontrolled Status: Acute Hospital Course - Lab Results Lab Results: Micro Results 04/06/17 14:00 Blood Blood Culture - Preliminary NO GROWTH AFTER 24 HOURS Most Recent Lab Values WBC 12.6 K/uL (4.8-10.8) H 04/07/17 04:20 RBC 2.91 Mil/uL (3.80-5.20) L 04/07/17 04:20 Hgb 8.5 g/dL (12.0-16.0) L 04/07/17 04:20 Hct 26.3 % (34.0-47.0) L 04/07/17 04:20 MCV 90.1 fl (81.0-99.0) 04/07/17 04:20 MCH 29.2 pg (27.0-31.0) 04/07/17 04:20 MCHC 32.4 g/dL (33.0-37.0) L 04/07/17 04:20 RDW 15.6 % (11.5-14.5) H 04/07/17 04:20 Plt Count 142 K/uL (130-400) 04/07/17 04:20 MPV 7.3 fl (7.2-11.7) 04/07/17 04:20 Neut % (Auto) 75.5 % (50.0-75.0) H 04/07/17 04:20 Lymph % (Auto) 7.1 % (20.0-40.0) L 04/07/17 04:20 [place] % (Auto) 17.2 % (0.0-10.0) H 04/07/17 04:20 Eos % (Auto) 0.0 % (0.0-4.0) 04/07/17 04:20 Baso % (Auto) 0.2 % (0.0-2.0) 04/07/17 04:20 Neut # (Auto) 9.5 K/uL (1.8-7.0) H 04/07/17 04:20 Lymph # (Auto) 0.9 K/uL (1.0-4.3) L 04/07/17 04:20 [place] # (Auto) 2.2 K/uL (0.0-0.8) H 04/07/17 04:20 Eos # (Auto) 0.0 K/uL (0.0-0.7) 04/07/17 04:20 Baso # (Auto) 0.0 K/uL (0.0-0.2) 04/07/17 04:20 Neutrophils % (Manual) 89 % (42-75) H 04/05/17 18:30 Band Neutrophils % 2 % (0-2) 04/05/17 18:30 Lymphocytes % (Manual) 8 % (20-50) L 04/05/17 18:30 Monocytes % (Manual) 1 % (0-10) 04/05/17 18:30 Platelet Estimate Normal (NORMAL) 04/05/17 18:30 Hypochromasia (manual) Moderate 04/05/17 18:30 Anisocytosis (manual) Slight 04/05/17 18:30 Acanthocytes (Spur) Slight 04/05/17 18:30 PT 14.0 Seconds (9.8-13.1) H 04/05/17 18:30 INR 1.3 (0.9-1.2) H 04/05/17 18:30 APTT 40.8 Seconds (25.6-37.1) H 04/05/17 18:30 Sodium 137 mmol/l (132-148) 04/07/17 04:20 Potassium 3.9 MMOL/L (3.6-5.0) 04/07/17 04:20 Chloride 103 mmol/L (98-107) 04/07/17 04:20 Carbon Dioxide 19 mmol/L (22-30) L 04/07/17 04:20 Anion Gap 19 (10-20) 04/07/17 04:20 BUN 36 mg/dl (7-17) H 04/07/17 04:20 Creatinine 1.0 mg/dl (0.7-1.2) 04/07/17 04:20 Est GFR ( Amer) > 60 04/07/17 04:20 Est GFR (Non-Af Amer) 53 04/07/17 04:20 POC Glucose (mg/dL) 135 mg/dL (65-110) H 04/07/17 16:36 Random Glucose 149 mg/dL (65-105) H 04/07/17 04:20 Hemoglobin A1c 5.5 % (4.2-6.5) 04/06/17 14:00 Calcium 8.4 mg/dL (8.4-10.2) 04/07/17 04:20 Phosphorus 4.4 mg/dl (2.5-4.5) 04/05/17 18:30 Magnesium 2.2 MG/DL (1.6-2.3) 04/05/17 18:30 Iron 58 ug/dL (37-170) 04/06/17 14:00 TIBC 281 ug/dL (250-450) 04/06/17 14:00 % Saturation 21 % (20-55) 04/06/17 14:00 Ferritin 26.5 ng/Ml (11.1-264.0) 04/06/17 14:00 Total Bilirubin 1.3 mg/dl (0.2-1.3) 04/06/17 14:00 AST 32 U/L (14-36) 04/06/17 14:00 ALT 29 U/L (9-52) 04/06/17 14:00 Alkaline Phosphatase 59 U/L (38-126) 04/06/17 14:00 Troponin I < 0.0120 ng/mL (0.00-0.120) 04/05/17 18:30 NT-Pro-B Natriuret Pep 1220 pg/ml (0-900) H 04/05/17 18:30 Total Protein 6.2 G/DL (6.3-8.2) L 04/06/17 14:00 Albumin 3.4 g/dL (3.5-5.0) L 04/06/17 14:00 Globulin 2.8 gm/dL (2.2-3.9) 04/06/17 14:00 Albumin/Globulin Ratio 1.2 (1.0-2.1) 04/06/17 14:00 Vitamin B12 206 pg/mL (239-931) L 04/06/17 14:00 Folate 10.1 ng/mL 04/06/17 14:00 TSH 3rd Generation 2.73 mIU/ML (0.46-4.68) 04/05/17 18:30 Stool Occult Blood Positive (NEGATIVE) H 04/05/17 20:30 C. difficile Ag & Toxin Negative (NEGATIVE) 04/05/17 05:16 Influenza Typ A,B (EIA) Negative for flu a/b (NEGATIVE) 04/05/17 18:34 Blood Type O POSITIVE 04/06/17 00:16 Blood Type Confirm O POSITIVE 04/06/17 02:22 Antibody Screen Negative 04/06/17 00:16 Crossmatch IS Only See Detail 04/06/17 00:16 BBK History Checked No verified bt 04/06/17 00:16 - Hospital Course Hospital Course: 2 unit prbc, heme/onc, ortho, cardio, gi consult fmaily request for xfer to [facility] icu attending ivf cardizem/digoxin Discharge Exam - Head Exam Head Exam: ATRAUMATIC, NORMAL INSPECTION, NORMOCEPHALIC Discharge Plan - Follow Up Plan Condition: CRITICAL Disposition: Trans to Other Acute Care Hosp Additional Instructions: final dx-anemia, gi bleed, pradaxa od, rapid afib xfer to [facility] w/ acls meds per med rec over 1h spent on phone calls and indirect/direct care of pt
--- NOTE | 2017-04-08 11:27 | RAD ---
PROCEDURE: Left Knee Radiographs. HISTORY: Pain. COMPARISON: None. FINDINGS: BONES: No acute fracture or destructive bony lesion identified. JOINTS: There is advanced osteoarthritis in all 3 joint compartments comprise of gross joint space narrowing, articular cortical sclerosis and prominent osteophyte development. The pattern appears worse at the medial femorotibial compartment. No subluxation or dislocation grossly evident. JOINT EFFUSION: Minimal suprapatellar bursa effusion is suggested. OTHER FINDINGS: Vascular calcifications seen posterior to the distal and mid left femur. IMPRESSION: Advanced tricompartmental osteoarthritis left knee.
== END 2017-04-07 19:05 | disposition short-term general hospital (02) | DRG 378 ==
LOC: H.ER 17:18 → H.ERHOLD 20:41 → H.ICU/CCU 04-06 02:16
PROVIDERS: ADMIT Family Medicine; ATTEND Family Medicine
PROC: 30233N1 Transfusion of Nonautologous Red Blood Cells into Peripheral Vein, Percutaneous Approach (ICD-10-PCS; principal; 2017-04-06)
DX: K92.1 Melena (principal); S72.401A Unspecified fracture of lower end of right femur, initial encounter for closed fracture; D68.9 Coagulation defect, unspecified; E11.65 Type 2 diabetes mellitus with hyperglycemia; E86.0 Dehydration; I48.91 Unspecified atrial fibrillation; D50.0 Iron deficiency anemia secondary to blood loss (chronic); D32.9 Benign neoplasm of meninges, unspecified; D72.829 Elevated white blood cell count, unspecified; E53.8 Deficiency of other specified B group vitamins; E78.00 Pure hypercholesterolemia, unspecified; F41.9 Anxiety disorder, unspecified; I10 Essential (primary) hypertension; I25.10 Atherosclerotic heart disease of native coronary artery without angina pectoris; K59.00 Constipation, unspecified; W19.XXXA Unspecified fall, initial encounter; Z79.01 Long term (current) use of anticoagulants; Z98.42 Cataract extraction status, left eye; F32.9 Major depressive disorder, single episode, unspecified; I49.9 Cardiac arrhythmia, unspecified; M19.90 Unspecified osteoarthritis, unspecified site; W06.XXXA Fall from bed, initial encounter; Y92.003 Bedroom of unspecified non-institutional (private) residence as the place of occurrence of the external cause; Z79.84 Long term (current) use of oral hypoglycemic drugs; Z79.899 Other long term (current) drug therapy; M25.561 Pain in right knee; M54.9 Dorsalgia, unspecified; R00.0 Tachycardia, unspecified

== ENCOUNTER 2017-07-18 07:12 | Inpatient (IN) | payer MEDICARE, BC ==
[2017-07-18 07:13] VITALS: BMI 23.3
--- NOTE | 2017-07-18 08:01 | ED PDOC ---
HPI: General Adult Time Seen by Provider: 07/18/17 07:24 Chief Complaint (Nursing): Rib Injury Chief Complaint (Provider): Rib Pain History Per: Patient History/Exam Limitations: no limitations Onset/Duration Of Symptoms: Days (1x) Current Symptoms Are (Timing): Still Present Additional Complaint(s): 87 year old female with a history of HTN and hypercholesterolemia presents to the ED with right side rib pain since yesterday. Patient reports there was no fall. She states that pain is exacerbated by movement and by deep breaths. She is nonambulatory and has a wheelchair. Patient denies chest pain, shortness of breath or any other medical complaints. PMD: Dr. Huang (? Does not know first name) Past Medical History Reviewed: Historical Data, Nursing Documentation, Vital Signs Vital Signs: Last Vital Signs Temp 98.5 F 07/18/17 07:39 Pulse 104 H 07/18/17 10:30 Resp 22 07/18/17 10:30 BP 130/68 07/18/17 10:30 Pulse Ox 100 07/18/17 12:05 - Medical History PMH: Anxiety, Arthritis, Atrial Fibrillation, Cardia Arrhythmia, Depression, Diabetes, Diverticulitis, HTN, Hypercholesterolemia Denies: Chronic Kidney Disease - Surgical History Surgical History: Hernia Repair - Family History Family History: States: Unknown Family Hx - Home Medications Home Medications: Ambulatory Orders Medication Instructions Recorded Metformin Hydrochloride [Metformin] 500 mg PO BID 05/03/14 Escitalopram [Lexapro] 10 mg PO DAILY #30 tab 05/31/16 Pantoprazole [Protonix EC Tab] 40 mg PO BID ect 04/07/17 Diltiazem HCl [Diltiazem ER] 120 mg PO DAILY 07/18/17 Furosemide [Lasix] 20 mg PO DAILY 07/18/17 - Allergies Allergies/Adverse Reactions: Allergies Allergy/AdvReac Type Severity Reaction Status Date / Time No Known Allergies Allergy Verified 07/18/17 07:33 Review of Systems Cardiovascular: Negative for: Chest Pain Respiratory: Negative for: Shortness of Breath Musculoskeletal: Positive for: Other (Rib Pain) Physical Exam - Reviewed Nursing Documentation Reviewed: Yes Vital Signs Reviewed: Yes - Physical Exam Appears: Positive for: Non-toxic, No Acute Distress Head Exam: Positive for: ATRAUMATIC, NORMOCEPHALIC Skin: Positive for: Normal Color, Warm, Dry Eye Exam: Positive for: EOMI, Normal appearance, PERRL Neck: Positive for: Normal, Painless ROM Cardiovascular/Chest: Positive for: Regular Rate, Rhythm, Irregularly Irregular , Other (tenderness to right anterior rib area, no ecchymosis, no deformity, no lesion, no rash ) Respiratory: Positive for: Crackles (bilateral) Pulses-Dorsalis Pedis (L): 1+ Pulses-Dorsalis Pedis (R): 1+ Extremity: Positive for: Pedal Edema (pitting). Negative for: Tenderness, Deformity Neurologic/Psych: Positive for: Alert (x3), Oriented - Laboratory Results Result Diagrams: 07/18/17 07:50 07/18/17 07:50 - ECG O2 Sat by Pulse Oximetry: 100 (RA) Pulse Ox Interpretation: Normal Medical Decision Making Medical Decision Making: Time: 7:45 Inital Impression: Rib pain and leg swelling Initial Plan: --EKG --CMP --CBC with differentials --D Dimer --PTT --Prothrombin --CXR --Morphine 2 mg IV --Urinalysis --Duplex lower extremities US Time: 8:40 --CT Angio Chest Time: 9:28 --Duplex lower extremities US showed positive DVT. Time: 9:29 --Lovenox 60 mg SC Time: 10:07 --Dilaudid 0.5 mg IVP Time: 11:50 --Lasix 40 mg IVP --ASA 325mg Time: 10:[address]: FINDINGS: PULMONARY ARTERIES: No evidence of filling defect in the pulmonary arteries to suggest pulmonary embolus. AORTA: The thoracic aorta is ectatic and tortuous. LUNGS: Patchy ground-glass opacities in the lungs likely due to pulmonary congestion. PLEURAL SPACES: Small to moderate bilateral pleural effusions are noted. HEART: Unremarkable. No cardiomegaly. No significant pericardial effusionThe heart is moderately enlarged. . LYMPH NODES: No significant mediastinal lymphadenopathy. BONES, CHEST WALL: Unremarkable. No fracture or destructive lesion OTHER FINDINGS: The scans through the upper abdomen demonstrate again large cystic lesion in the right liver lobe IMPRESSION: No evidence of pulmonary embolus. Moderate cardiomegaly. [id number] bilateral pleural effusions. Patchy ground-glass opacities in the lungs likely due to pulmonary vascular congestion. Time: 10:49 --ProBNP --Troponin Scribe Attestation: Documented by Dulce Bonilla, acting as a scribe for Krystal Meyer MD Provider Scribe Attestation: All medical record entries made by the Scribe were at my direction and personally dictated by me. I have reviewed the chart and agree that the record accurately reflects my personal performance of the history, physical exam, medical decision making, and the department course for this patient. I have also personally directed, reviewed, and agree with the discharge instructions and disposition. Disposition - Clinical Impression Clinical Impression: DVT of lower extremity, bilateral, CHF (congestive heart failure), Chronic back pain - Patient ED Disposition Is Patient to be Admitted: Yes - Disposition Disposition Time: 12:00 Condition: STABLE - Pt Status Changed To: Hospital Disposition Of: Inpatient - Admit Certification Admit to Inpatient:: After my assessment, the patient will require hospitalization for at least two midnights. This is because of the severity of symptoms shown, intensity of services needed, and/or the medical risk in this patient being treated as an outpatient. - POA Present On Arrival: Deep Vein Thrombosis / PE
[2017-07-18 08:20] LABS: ALBUMIN 3.3 g/dL (3.5-5.0); ALT/SGPT 33 U/L (9-52); AST/SGOT 63 U/L (14-36); BLOOD UREA NITROGEN 15 mg/dl (7-17); CALCIUM 9.1 mg/dL (8.4-10.2); GFR AFRICAN-AMERICAN > 60; GFR NON-AFRICAN AMERICAN > 60
[2017-07-18 08:38] LABS: INR 1.2 (0.9-1.2); PARTIAL THROMBOPLASTIN TIME 28.6 Seconds (25.6-37.1); PROTHROMBIN TIME 13.1 Seconds (9.8-13.1)
[2017-07-18] MEDS ORDERED: Iodixanol 320 MG/ML 100 ML BOTTLE IV ONE (08:47)
[2017-07-18] MEDS ORDERED: Sodium Chloride 0.9% 50 ML IV ONE (08:48)
[2017-07-18 09:06] LABS: BASO # 0.2 K/uL (0.0-0.2); BASO % 1.3 % (0.0-2.0); EOS % 0.1 % (0.0-4.0); HEMOGLOBIN 9.6 g/dL (12.0-16.0); LYMPH # 0.9 K/uL (1.0-4.3); LYMPH % 7.7 % (20.0-40.0); MEAN CELL VOLUME 93.9 fl (81.0-99.0); MEAN CORPUSCULAR HGB CONC 34.1 g/dL (33.0-37.0); MEAN PLATELET VOLUME 7.7 fl (7.2-11.7); MONO # 2.4 K/uL (0.0-0.8); MONO % 19.9 % (0.0-10.0); NEUT # 8.5 K/uL (1.8-7.0); PLATELET COUNT 207 K/uL (130-400); RBC 3.01 Mil/uL (3.80-5.20)
[2017-07-18] MEDS ORDERED: HYDROmorphone 0.5 mg/0.5 ml ISec IVP STA ×2 (10:07→14:46)
--- NOTE | 2017-07-18 10:19 | US ---
PROCEDURE: Bilateral lower extremity venous duplex Doppler. HISTORY: BLE swelling COMPARISON: None available. TECHNIQUE: Bilateral common femoral, superficial femoral, popliteal and posterior tibial veins were evaluated. Flow was assessed with color Doppler, compressibility, assessment of phasic flow and augmentation response. FINDINGS: COMMON FEMORAL VEIN: Right CFV: Filling defect and incomplete compressibility suggestive of DVT. Left CFV: Filling defect and incomplete compressibility suggestive of DVT SUPERFICIAL FEMORAL VEIN: Right SFV:Filling defect and incomplete compressibility suggestive of DVT Left SFV: Filling defect and incomplete compressibility suggestive of DVT POPLITEAL VEIN: Right Popliteal: Filling defect and incomplete compressibility suggestive of DVT Left Popliteal: Filling defect and incomplete compressibility suggestive of DVT POSTERIOR TIBIAL VEIN: Right PTV: Incomplete compressibility Left PTV: Incomplete compressibility OTHER FINDINGS: None. IMPRESSION: Findings suggestive of bilateral deep vein thrombosis. The above findings were reported to the emergency room physician Dr. Mitch Rice at 10:15 a.m. on 07/18/2017.
[2017-07-18] MEDS ORDERED: HYDROmorphone 0.5 mg/0.5 ml ISec ONE (10:21)
[2017-07-18 10:39] LABS: BANDS 3 % (0-2); BASOPHIL 1 % (0-2); LYMPHOCYTE 8 % (20-50); MONOCYTE 16 % (0-10); NEUTROPHIL 72 % (42-75); PLATELET ESTIMATE NORMAL (NORMAL); TOTAL CELLS COUNTED 100
[2017-07-18 10:40] LABS: ANISOCYTOSIS SLIGHT; HYPOCHROMIC SLIGHT; OVALOCYTES SLIGHT
--- NOTE | 2017-07-18 10:49 | CT ---
PROCEDURE: CT Chest with contrast (Pulmonary Angiogram) HISTORY: R anterior chest pain COMPARISON: None available. TECHNIQUE: Axial computed tomography images were obtained of the chest in the pulmonary arterial phase of enhancement. Coronal and sagittal reformatted images were created and reviewed. Intravenous contrast dose: 80 cc of Visipaque Radiation dose: Total exam DLP = 298.66 mGy-cm. This CT exam was performed using one or more of the following dose reduction techniques: Automated exposure control, adjustment of the mA and/or kV according to patient size, and/or use of iterative reconstruction technique. FINDINGS: PULMONARY ARTERIES: No evidence of filling defect in the pulmonary arteries to suggest pulmonary embolus. AORTA: The thoracic aorta is ectatic and tortuous. LUNGS: Patchy ground-glass opacities in the lungs likely due to pulmonary congestion. PLEURAL SPACES: Small to moderate bilateral pleural effusions are noted. HEART: Unremarkable. No cardiomegaly. No significant pericardial effusionThe heart is moderately enlarged. . LYMPH NODES: No significant mediastinal lymphadenopathy. BONES, CHEST WALL: Unremarkable. No fracture or destructive lesion OTHER FINDINGS: The scans through the upper abdomen demonstrate again large cystic lesion in the right liver lobe IMPRESSION: No evidence of pulmonary embolus. Moderate cardiomegaly. Kveq-vs-yqrvxagi bilateral pleural effusions. Patchy ground-glass opacities in the lungs likely due to pulmonary vascular congestion.
[2017-07-18] MEDS: Enoxaparin 60 mg Syringe SC STA (10:53)
[2017-07-18 11:38] LABS: TROPONIN I 0.013 ng/mL (0.00-0.120)
--- NOTE | 2017-07-18 13:50 | RAD ---
HISTORY: R rib pain COMPARISON: Comparison is made with 04/05/2017 FINDINGS: LUNGS: Reticular opacities noted at the right lung likely scar tissue or atelectasis. Otherwise no significant interval change. Mild elevation of the right hemidiaphragm is noted. PLEURA: No significant pleural effusion identified, no pneumothorax apparent. CARDIOVASCULAR: Normal. OSSEOUS STRUCTURES: No significant abnormalities. VISUALIZED UPPER ABDOMEN: Normal. OTHER FINDINGS: None. IMPRESSION: Possible atelectasis at the right lower lung associated with elevation of the right hemidiaphragm. Otherwise no interval change.
--- NOTE | 2017-07-18 16:37 | CARD ---
APPROVED REPORT EKG Measurement Heart [id number] <Conclusion> Atrial fibrillation Nonspecific T wave abnormality Abnormal ECG
[2017-07-18] MEDS ORDERED: HYDROmorphone 0.5 mg/0.5 ml ISec IVP PRN (16:46)
--- NOTE | 2017-07-18 17:42 | RAD ---
PROCEDURE: Radiographs of the Chest and Right Ribs. HISTORY: pain COMPARISON: Comparison is made with the previousstudy TECHNIQUE: Frontal radiograph of the chest and multiple oblique radiographs of the right ribs were obtained. FINDINGS: RIGHT RIBS: No fracture or focal lesion visualized. LUNGS: No evidence of focal infiltrate or consolidation in the lungs PLEURA: No pneumothorax or pleural fluid. CARDIOVASCULAR: The cardiac silhouette is enlarged OTHER FINDINGS: None. IMPRESSION: No evidence of acute fracture pleural effusion or pneumothorax.
[2017-07-18 18:04] LABS: SQUAMOUS EPITHIAL 35 /hpf (0-5); URINE BACTERIA OCC (<OCC); URINE BILIRUBIN NEGATIVE (NEGATIVE); URINE BLOOD SMALL (NEGATIVE); URINE CLARITY CLOUDY (Clear); URINE COLOR AMBER (YELLOW); URINE GLUCOSE (UA) NEG (Normal); URINE LEUKOCYTE ESTERASE LARGE Leu/uL (Negative); URINE PROTEIN 100 mg/dL (NEGATIVE)
[2017-07-18] MEDS: Oxycodone/Acetaminophen 5/325 mg Tab PO PRN (18:26)
[2017-07-18] MEDS: Lidocaine 5% Patch TD SCH (18:43)
[2017-07-18] MEDS: Pantoprazole 40 mg EC Tab PO SCH (18:46)
[2017-07-18] MEDS: HYDROmorphone 0.5 mg/0.5 ml ISec IVP PRN (21:10)
[2017-07-18] MEDS: Enoxaparin 60 mg Syringe SC SCH (23:56)
[2017-07-19] MEDS: Oxycodone/Acetaminophen 5/325 mg Tab PO PRN ×2 (02:35→11:33)
[2017-07-19] MEDS ORDERED: HYDROmorphone 0.5 mg/0.5 ml ISec IVP ONE (03:15)
[2017-07-19] MEDS: HYDROmorphone 0.5 mg/0.5 ml ISec IVP PRN ×2 (07:11→21:08)
[2017-07-19] MEDS: Lidocaine 5% Patch TD SCH (08:05)
[2017-07-19] MEDS: diltiaZEM 120 mg/24 Hours CD Cap PO SCH (08:06)
[2017-07-19] MEDS: Potassium Chloride 20 mEq ER Tab PO SCH (08:09)
[2017-07-19] MEDS: Pantoprazole 40 mg EC Tab PO SCH ×2 (08:10→16:58)
[2017-07-19] MEDS: Enoxaparin 60 mg Syringe SC SCH ×2 (08:10→21:09)
[2017-07-19] MEDS ORDERED: Lidocaine 5% Patch TD SCH (09:00)
[2017-07-19] MEDS ORDERED: DILTIAZEM HCL 120 MG PO SCH (09:00)
[2017-07-19] MEDS: Sodium Chloride 0.9% 1,000 ML IV SCH ×2 (11:34→23:49)
--- NOTE | 2017-07-19 13:20 | CP.PCM.CON ---
History of Present Illness - History of Present Illness History of Present Illness: I was asked to see patient by Dr galvez Patient is a 87 year old female with PMH HTN, atrial fibrillation who presents with dyspnea. Patient stateds shymptoms occurred while at rest. She had recurrent palpitiatons. The patient has not been on anticoagulation for afib due to frequent falls. Review of Systems - Review of Systems Systems not reviewed;Unavailable: Dementia Past Patient History - Infectious Disease Hx of Infectious Diseases: None - Past Medical History & Family History Past Medical History?: Yes - Past Social History Smoking Status: Never Smoked - CARDIAC Hx Cardiac Disorders: Yes Hx Atrial Fibrillation: Yes Hx Hypercholesterolemia: Yes Hx Hypertension: Yes Hx Peripheral Edema: Yes - PULMONARY Hx Respiratory Disorders: No - NEUROLOGICAL Hx Neurological Disorder: No - HEENT Hx HEENT Problems: Yes Hx Cataracts: Yes - RENAL Hx Chronic Kidney Disease: No - ENDOCRINE/METABOLIC Hx Endocrine Disorders: Yes Hx Diabetes Mellitus Type 2: Yes - HEMATOLOGICAL/ONCOLOGICAL Hx Blood Disorders: Yes Hx Anemia: Yes - INTEGUMENTARY Hx Dermatological Problems: No - MUSCULOSKELETAL/RHEUMATOLOGICAL Hx Musculoskeletal Disorders: Yes Hx Arthritis: Yes Hx Back Pain: Yes Hx Falls: Yes Hx Fractures: Yes - GASTROINTESTINAL Hx Gastrointestinal Disorders: Yes Hx Diverticulitis: Yes Other/Comment: GI Bleed - GENITOURINARY/GYNECOLOGICAL Hx Genitourinary Disorders: No - PSYCHIATRIC Hx Psychophysiologic Disorder: Yes Hx Anxiety: Yes Hx Depression: Yes Hx Substance Use: No - SURGICAL HISTORY Hx Surgeries: Yes Hx Herniorrhaphy: Yes (x 2) - ANESTHESIA Hx Anesthesia: Yes Hx Anesthesia Reactions: No Hx Malignant Hyperthermia: No Meds Allergies/Adverse Reactions: Allergies Allergy/AdvReac Type Severity Reaction Status Date / Time No Known Allergies Allergy Verified 07/18/17 07:33 - Medications Medications: Current Medications Diltiazem HCl (Cardizem Cd) 120 mg PO DAILY [facility] Last Admin: 07/19/17 08:06 Dose: 120 mg Enoxaparin Sodium (Lovenox) 60 mg SC Q12 [facility] PRN Reason: Protocol Last Admin: 07/19/17 08:10 Dose: 60 mg Escitalopram Oxalate (Lexapro) 10 mg PO DAILY [facility] Last Admin: 07/19/17 08:10 Dose: 10 mg Furosemide (Lasix) 40 mg IV DAILY [facility] Last Admin: 07/19/17 08:09 Dose: 40 mg Hydromorphone HCl (Dilaudid) 1 mg IVP Q4 PRN PRN Reason: Pain, severe (8-10) Last Admin: 07/19/17 07:11 Dose: 1 mg Sodium Chloride (Sodium Chloride 0.9%) 1,000 mls @ 60 mls/hr IV .[id number] [facility] Stop: 07/20/17 09:46 Last Admin: 07/19/17 11:34 Dose: 60 mls/hr Lidocaine (Lidoderm) 1 ea TD DAILY [facility] Last Admin: 07/19/17 08:05 Dose: 1 ea Lorazepam (Ativan) 0.5 mg PO BID PRN PRN Reason: Anxiety Metformin HCl (Glucophage) 500 mg PO BID [facility] Last Admin: 07/19/17 08:09 Dose: 500 mg Oxycodone/Acetaminophen (Percocet 5/325 Mg Tab) 1 tab PO Q4 PRN PRN Reason: Pain, moderate (4-7) Stop: 07/21/17 17:50 Last Admin: 07/19/17 11:33 Dose: 1 tab Pantoprazole Sodium (Protonix Ec Tab) 40 mg PO BID [facility] Last Admin: 07/19/17 08:10 Dose: 40 mg Potassium Chloride (K-Dur 20 Meq Er Tab) 20 meq PO DAILY [facility] Last Admin: 07/19/17 08:09 Dose: 20 meq Physical Exam - Constitutional Appears: Non-toxic - Head Exam Head Exam: NORMAL INSPECTION - Eye Exam Eye Exam: Normal appearance - ENT Exam ENT Exam: Mucous Membranes Moist - Neck Exam Neck exam: Positive for: Normal Inspection - Respiratory Exam Respiratory Exam: Decreased Breath Sounds - Cardiovascular Exam Cardiovascular Exam: Irregular Rhythm - GI/Abdominal Exam GI & Abdominal Exam: Normal Bowel Sounds - Rectal Exam Rectal Exam: Deferred - Extremities Exam Extremities exam: Negative for: pedal edema - Back Exam Back exam: NORMAL INSPECTION - Neurological Exam Neurological exam: Alert - Psychiatric Exam Psychiatric exam: Normal Affect - Skin Skin Exam: Normal Color Results - Vital Signs Recent Vital Signs: Last Vital Signs Temp 97.6 F 07/19/17 12:31 Pulse 120 H 07/19/17 12:31 Resp 20 07/19/17 12:31 BP 114/68 07/19/17 12:31 Pulse Ox 95 07/19/17 12:31 - Labs Result Diagrams: 07/18/17 07:50 07/18/17 07:50 Labs: Laboratory Results - last 24 hr 07/18/17 07/18/17 07/18/17 07:42 16:15 17:20 POC Glucose (mg/dL) 136 H 139 H NT-Pro-B Natriuret Pep Triglycerides Cholesterol LDL Cholesterol Direct HDL Cholesterol TSH 3rd Generation Urine Color Jamila Urine Clarity Cloudy Urine pH 6.0 Ur Specific [place] > 1.060 H Urine Protein 100 Urine Glucose (UA) Neg Urine Ketones Negative Urine Blood Small Urine Nitrate Negative Urine Bilirubin Negative Urine Urobilinogen 2.0 H Ur Leukocyte Esterase Large Urine RBC (Auto) 14 H Urine Microscopic WBC 191 H Ur Squamous Epith Cells 35 H Urine Bacteria Occ H Urine Yeast (Budding) Occ H 07/18/17 07/19/17 07/19/17 22:15 04:36 05:45 POC Glucose (mg/dL) 163 H 138 H NT-Pro-B Natriuret Pep 1580 H Triglycerides 91 D Cholesterol 174 LDL Cholesterol Direct 91 HDL Cholesterol 54 TSH 3rd Generation 2.32 Urine Color Urine Clarity Urine pH Ur Specific [place] Urine Protein Urine Glucose (UA) Urine Ketones Urine Blood Urine Nitrate Urine Bilirubin Urine Urobilinogen Ur Leukocyte Esterase Urine RBC (Auto) Urine Microscopic WBC Ur Squamous Epith Cells Urine Bacteria Urine Yeast (Budding) 07/19/17 11:25 POC Glucose (mg/dL) 131 H NT-Pro-B Natriuret Pep Triglycerides Cholesterol LDL Cholesterol Direct HDL Cholesterol TSH 3rd Generation Urine Color Urine Clarity Urine pH Ur Specific [place] Urine Protein Urine Glucose (UA) Urine Ketones Urine Blood Urine Nitrate Urine Bilirubin Urine Urobilinogen Ur Leukocyte Esterase Urine RBC (Auto) Urine Microscopic WBC Ur Squamous Epith Cells Urine Bacteria Urine Yeast (Budding) - EKG Data EKG Interpreted by: Myself Assessment & Plan (1) Chronic atrial fibrillation Assessment and Plan: can add digoxin for rate control. Will not give anticaogulation Status: Acute
--- NOTE | 2017-07-19 13:40 | CP.PCM.HP ---
History of Present Illness - History of Present Illness History of Present Illness: This is an 87 y/o F with hx of bilateral DVT and chronic atrial fibrillation and on G filter was admitted for worsening of right rib pain( right costochondral). Denies any recent fall. Past Patient History - Infectious Disease Hx of Infectious Diseases: None - Past Medical History & Family History Past Medical History?: Yes - Past Social History Smoking Status: Never Smoked - CARDIAC Hx Cardiac Disorders: Yes Hx Atrial Fibrillation: Yes Hx Hypercholesterolemia: Yes Hx Hypertension: Yes Hx Peripheral Edema: Yes - PULMONARY Hx Respiratory Disorders: No - NEUROLOGICAL Hx Neurological Disorder: No - HEENT Hx HEENT Problems: Yes Hx Cataracts: Yes - RENAL Hx Chronic Kidney Disease: No - ENDOCRINE/METABOLIC Hx Endocrine Disorders: Yes Hx Diabetes Mellitus Type 2: Yes - HEMATOLOGICAL/ONCOLOGICAL Hx Blood Disorders: Yes Hx Anemia: Yes - INTEGUMENTARY Hx Dermatological Problems: No - MUSCULOSKELETAL/RHEUMATOLOGICAL Hx Musculoskeletal Disorders: Yes Hx Arthritis: Yes Hx Back Pain: Yes Hx Falls: Yes Hx Fractures: Yes - GASTROINTESTINAL Hx Gastrointestinal Disorders: Yes Hx Diverticulitis: Yes Other/Comment: GI Bleed - GENITOURINARY/GYNECOLOGICAL Hx Genitourinary Disorders: No - PSYCHIATRIC Hx Psychophysiologic Disorder: Yes Hx Anxiety: Yes Hx Depression: Yes Hx Substance Use: No - SURGICAL HISTORY Hx Surgeries: Yes Hx Herniorrhaphy: Yes (x 2) - ANESTHESIA Hx Anesthesia: Yes Hx Anesthesia Reactions: No Hx Malignant Hyperthermia: No Meds Allergies/Adverse Reactions: Allergies Allergy/AdvReac Type Severity Reaction Status Date / Time No Known Allergies Allergy Verified 07/18/17 07:33 Results - Vital Signs Recent Vital Signs: Last Vital Signs Temp 97.6 F 07/19/17 12:31 Pulse 120 H 07/19/17 12:31 Resp 20 07/19/17 12:31 BP 114/68 07/19/17 12:31 Pulse Ox 95 07/19/17 12:31 - Labs Result Diagrams: 07/18/17 07:50 07/18/17 07:50 Labs: Laboratory Results - last 24 hr 07/18/17 07/18/17 07/18/17 07:42 16:15 17:20 POC Glucose (mg/dL) 136 H 139 H NT-Pro-B Natriuret Pep Triglycerides Cholesterol LDL Cholesterol Direct HDL Cholesterol TSH 3rd Generation Urine Color [place] Urine Clarity Cloudy Urine pH 6.0 Ur Specific [place] > 1.060 H Urine Protein 100 Urine Glucose (UA) Neg Urine Ketones Negative Urine Blood Small Urine Nitrate Negative Urine Bilirubin Negative Urine Urobilinogen 2.0 H Ur Leukocyte Esterase Large Urine RBC (Auto) 14 H Urine Microscopic WBC 191 H Ur Squamous Epith Cells 35 H Urine Bacteria Occ H Urine Yeast (Budding) Occ H 07/18/17 07/19/17 07/19/17 22:15 04:36 05:45 POC Glucose (mg/dL) 163 H 138 H NT-Pro-B Natriuret Pep 1580 H Triglycerides 91 D Cholesterol 174 LDL Cholesterol Direct 91 HDL Cholesterol 54 TSH 3rd Generation 2.32 Urine Color Urine Clarity Urine pH Ur Specific [place] Urine Protein Urine Glucose (UA) Urine Ketones Urine Blood Urine Nitrate Urine Bilirubin Urine Urobilinogen Ur Leukocyte Esterase Urine RBC (Auto) Urine Microscopic WBC Ur Squamous Epith Cells Urine Bacteria Urine Yeast (Budding) 07/19/17 11:25 POC Glucose (mg/dL) 131 H NT-Pro-B Natriuret Pep Triglycerides Cholesterol LDL Cholesterol Direct HDL Cholesterol TSH 3rd Generation Urine Color Urine Clarity Urine pH Ur Specific [place] Urine Protein Urine Glucose (UA) Urine Ketones Urine Blood Urine Nitrate Urine Bilirubin Urine Urobilinogen Ur Leukocyte Esterase Urine RBC (Auto) Urine Microscopic WBC Ur Squamous Epith Cells Urine Bacteria Urine Yeast (Budding)
--- NOTE | 2017-07-19 13:41 | CP.PCM.PN ---
Subjective - Date & Time of Evaluation Date of Evaluation: 07/19/17 Time of Evaluation: 13:41 - Subjective Subjective: Patient continues to have pain on the right rib edge. Has no fever Also with c/o of back pain. Objective - Vital Signs/Intake and Output Vital Signs (last 24 hours): Temp Pulse Resp BP Pulse Ox 97.6 F 120 H 20 114/68 95 07/19/17 12:31 07/19/17 12:31 07/19/17 12:31 07/19/17 12:31 07/19/17 12:31 - Medications Medications: Current Medications Diltiazem HCl (Cardizem Cd) 120 mg PO DAILY [facility] Last Admin: 07/19/17 08:06 Dose: 120 mg Enoxaparin Sodium (Lovenox) 60 mg SC Q12 [facility] PRN Reason: Protocol Last Admin: 07/19/17 08:10 Dose: 60 mg Escitalopram Oxalate (Lexapro) 10 mg PO DAILY [facility] Last Admin: 07/19/17 08:10 Dose: 10 mg Furosemide (Lasix) 40 mg IV DAILY [facility] Last Admin: 07/19/17 08:09 Dose: 40 mg Hydromorphone HCl (Dilaudid) 1 mg IVP Q4 PRN PRN Reason: Pain, severe (8-10) Last Admin: 07/19/17 07:11 Dose: 1 mg Sodium Chloride (Sodium Chloride 0.9%) 1,000 mls @ 60 mls/hr IV .[id number] [facility] Stop: 07/20/17 09:46 Last Admin: 07/19/17 11:34 Dose: 60 mls/hr Lidocaine (Lidoderm) 1 ea TD DAILY [facility] Last Admin: 07/19/17 08:05 Dose: 1 ea Lorazepam (Ativan) 0.5 mg PO BID PRN PRN Reason: Anxiety Metformin HCl (Glucophage) 500 mg PO BID [facility] Last Admin: 07/19/17 08:09 Dose: 500 mg Oxycodone/Acetaminophen (Percocet 5/325 Mg Tab) 1 tab PO Q4 PRN PRN Reason: Pain, moderate (4-7) Stop: 07/21/17 17:50 Last Admin: 07/19/17 11:33 Dose: 1 tab Pantoprazole Sodium (Protonix Ec Tab) 40 mg PO BID [facility] Last Admin: 07/19/17 08:10 Dose: 40 mg Potassium Chloride (K-Dur 20 Meq Er Tab) 20 meq PO DAILY [facility] Last Admin: 07/19/17 08:09 Dose: 20 meq - Labs Labs: 07/18/17 07:50 07/18/17 07:50 PT 13.1 Seconds (9.8-13.1) 07/18/17 07:50 INR 1.2 (0.9-1.2) 07/18/17 07:50 APTT 28.6 Seconds (25.6-37.1) 07/18/17 07:50
[2017-07-20] MEDS ORDERED: Sodium Chloride 0.9% 1,000 ML IV SCH (00:45)
[2017-07-20] MEDS: Enoxaparin 60 mg Syringe SC STA (09:00)
[2017-07-20] MEDS: diltiaZEM 120 mg/24 Hours CD Cap PO SCH (09:59)
[2017-07-20] MEDS: Potassium Chloride 20 mEq ER Tab PO SCH (10:00)
[2017-07-20] MEDS: Pantoprazole 40 mg EC Tab PO SCH ×2 (10:01→17:37)
--- NOTE | 2017-07-20 10:44 | PQF GENQUE ---
Dr. Cloud, Management Internship documented the following information with no mention of this diagnosis in your documentation. Please indicate in your next progress note and /or discharge summary your agreement with [employer] product consultant or provide clarification that this diagnosis is not a current condition. Diagnosis: Clinical Impression: DVT of lower extremity, bilateral, CHF ( congestive heart failure)Documented by: ER Respirations: 23->24->26-> 22 ProBNP: 1920->1580 07/18: Duplex: Impression: Findings suggestive of bilateral deep vein thrombosis. 07/18 Angio Chest: Impression: No evidence of pulmonary embolus. Moderate cardiomegaly. [id number] bilateral pleural effusions. Patchy ground-glass opacities in the lungs likely due to pulmonary vascular congestion. 07/18 CXR: Impression : Possible atelectasis at the right lower lung associated with elevation of the right hemidiaphragm. Otherwise no interval change. ER MD : Respiratory: Positive for: Crackles (bilateral) Extremity: Positive for: Pedal Edema (pitting) Clinical Impresssion : DVT of lower extremity, bilateral, CHF (congestive heart failure Lasix IV This form is a permanent part of the medical record Clarification of your documentation is requested to better reflect the severity of illness and intensity of treatment of your patient. Indicators present [] Specify: [] [] Specify: [] [] Specify: [] [] Specify: [] Location in the medical record that reflects the above clinical findings: [] Treatment Provided: [] PHYSICIAN'S RESPONSE Based on your medical judgment of the clinical indicators outlined above please clarify the following: [] Practitioner response [] If unable to determine, please check the box, sign and date. Present On Admission (POA) Indicator: [] Present at the time of admission [] Not present at the time of admission [] Clinically Undetermined In responding to this query, please exercise your independent professional judgment. The fact that a question is asked does not imply that any particular answer is desired or expected. Thank you for your clarification on this documentation. If you have any questions please call. * Thank you, Ruth Donis RN ext. #[phone] MTDD
[2017-07-20] MEDS: Lidocaine 5% Patch TD SCH (11:08)
[2017-07-20] MEDS ORDERED: Digoxin 500 mcg/2ml (0.5 mg/2ml) Inj IVP ONE (11:24)
[2017-07-20 11:31] VITALS: PULSE 135
--- NOTE | 2017-07-20 13:51 | CARD ---
APPROVED REPORT EXAM: Two-dimensional and M-mode echocardiogram with Doppler and color Doppler. Other Information Quality : GoodRhythm : Atrial Fibrillation INDICATION Atrial Fibrillation Congestive Heart Failure 2D DIMENSIONS IVSd1.04 (0.7-1.1cm)LVDd3.57 (3.9-5.9cm) LVOT Diameter1.94 (1.8-2.4cm)PWd1.00 (0.7-1.1cm) IVSs1.24 (0.8-1.2cm)LVDs3.24 (2.5-4.0cm) FS (%) 9.3 %PWs1.28 (0.8-1.2cm) LVEF (%)55.0 (>50%) M-Mode DIMENSIONS Left Atrium (MM)6.47 (2.5-4.0cm)IVSd0.94 (0.7-1.1cm) Aortic Root3.24 (2.2-3.7cm)LVDd4.62 (4.0-5.6cm) Aortic Cusp Exc.1.62 (1.5-2.0cm)PWd1.03 (0.7-1.1cm) IVSs1.47 cmFS (%) 45 % LVDs2.56 (2.0-3.8cm)PWs1.32 cm Mitral Valve E/A ratio0.0 TDI E/Lateral E'0.0E/Medial E'0.0 Pulmonary Valve PV Peak Zapkoxpg753.6cm/s Tricuspid Valve TR Peak [id number] [id number] Peak Gr.32mmHg [id number] LEFT VENTRICLE The left ventricle is normal size. There is normal left ventricular wall thickness. The left ventricular function is normal. The left ventricular ejection fraction is within the normal range. There is normal LV segmental wall motion. A Fib RIGHT VENTRICLE The right ventricle is mildly dilated. There is normal right ventricular wall thickness. The right ventricular systolic function is normal. ATRIA The left atrium is severely dilated. Spontaneous contrast in left atrium consistent with low flow state. The right atrium is mildly dilated. AORTIC VALVE The aortic valve is normal in structure. There is trace aortic regurgitation. There is no aortic valvular stenosis. MITRAL VALVE The mitral valve is mildly thickened. A mild mitral valve prolapse is present. There is no mitral valve stenosis. Mitral regurgitation is moderate. TRICUSPID VALVE The tricuspid valve is normal in structure. There is moderate tricuspid regurgitation. There is mild to moderate pulmonary hypertension. PULMONIC VALVE The pulmonary valve is normal in structure. There is mild pulmonic valvular regurgitation. GREAT VESSELS The aortic root is normal in size. The IVC is dilated. PERICARDIAL EFFUSION There is a trace loculated posterior pericardial effusion. <Conclusion> The left ventricle is normal size. There is normal left ventricular wall thickness. The left ventricular function is normal. The left ventricular ejection fraction is within the normal range. There is normal LV segmental wall motion. The left atrium is severely dilated., Spontaneous contrast in left atrium consistent with low flow state. Mitral regurgitation is moderate. There is moderate tricuspid regurgitation. There is mild to moderate pulmonary hypertension.
--- NOTE | 2017-07-20 17:47 | CP.PCM.PN ---
Subjective - Date & Time of Evaluation Date of Evaluation: 07/20/17 Time of Evaluation: 17:45 - Subjective Subjective: patient has no new complaints. Objective - Vital Signs/Intake and Output Vital Signs (last 24 hours): Temp Pulse Resp BP Pulse Ox 99.4 F 114 H 16 97/41 L 93 L 07/20/17 16:19 07/20/17 16:19 07/20/17 16:19 07/20/17 16:19 07/20/17 16:19 - Medications Medications: Current Medications Diltiazem HCl (Cardizem Cd) 120 mg PO DAILY [facility] Last Admin: 07/20/17 09:59 Dose: Not Given Enoxaparin Sodium (Lovenox) 40 mg SC DAILY [facility] PRN Reason: Protocol Escitalopram Oxalate (Lexapro) 10 mg PO DAILY [facility] Last Admin: 07/20/17 10:00 Dose: Not Given Furosemide (Lasix) 40 mg IV DAILY [facility] Last Admin: 07/20/17 10:00 Dose: Not Given Hydromorphone HCl (Dilaudid) 1 mg IVP Q4 PRN PRN Reason: Pain, severe (8-10) Last Admin: 07/19/17 21:08 Dose: 1 mg Lidocaine (Lidoderm) 1 ea TD DAILY [facility] Last Admin: 07/20/17 11:08 Dose: 1 ea Lorazepam (Ativan) 0.5 mg PO BID PRN PRN Reason: Anxiety Metformin HCl (Glucophage) 500 mg PO BID [facility] Last Admin: 07/20/17 17:37 Dose: Not Given Oxycodone/Acetaminophen (Percocet 5/325 Mg Tab) 1 tab PO Q4 PRN PRN Reason: Pain, moderate (4-7) Stop: 07/21/17 17:50 Last Admin: 07/19/17 11:33 Dose: 1 tab Pantoprazole Sodium (Protonix Ec Tab) 40 mg PO BID [facility] Last Admin: 07/20/17 17:37 Dose: Not Given Potassium Chloride (K-Dur 20 Meq Er Tab) 20 meq PO DAILY [facility] Last Admin: 07/20/17 10:00 Dose: Not Given - Labs Labs: 07/18/17 07:50 07/18/17 07:50 PT 13.1 Seconds (9.8-13.1) 07/18/17 07:50 INR 1.2 (0.9-1.2) 07/18/17 07:50 APTT 28.6 Seconds (25.6-37.1) 07/18/17 07:50 - Constitutional Appears: Non-toxic - Head Exam Head Exam: NORMAL INSPECTION - Eye Exam Eye Exam: Normal appearance - ENT Exam ENT Exam: Mucous Membranes Dry - Respiratory Exam Respiratory Exam: NORMAL BREATHING PATTERN - Cardiovascular Exam Cardiovascular Exam: Irregular Rhythm - GI/Abdominal Exam GI & Abdominal Exam: Normal Bowel Sounds - Rectal Exam Rectal Exam: Deferred - Extremities Exam Extremities Exam: absent: Pedal Edema - Back Exam Back Exam: NORMAL INSPECTION - Neurological Exam Neurological Exam: Alert - Psychiatric Exam Psychiatric exam: Normal Affect - Skin Skin Exam: Normal Color Assessment and Plan (1) Chronic atrial fibrillation Assessment & Plan: will need rate control. digoxin given today. not on oral anticoagulation due to falls Status: Acute
[2017-07-20] MEDS: HYDROmorphone 0.5 mg/0.5 ml ISec IVP PRN (23:41)
[2017-07-21] MEDS: HYDROmorphone 0.5 mg/0.5 ml ISec IVP PRN (06:10)
--- NOTE | 2017-07-21 07:03 | CP.PCM.PN ---
Subjective - Date & Time of Evaluation Date of Evaluation: 07/20/17 Time of Evaluation: 18:00 - Subjective Subjective: Patient had an episode of rapid atrial fib in the afternoon. Doing much better Still with persistent pain on the right costochondral area Afebrile. Objective - Vital Signs/Intake and Output Vital Signs (last 24 hours): Temp Pulse Resp BP Pulse Ox 98.2 F 90 18 106/61 100 07/21/17 05:00 07/21/17 05:00 07/21/17 05:00 07/21/17 05:00 07/21/17 05:00 - Medications Medications: Current Medications Diltiazem HCl (Cardizem Cd) 120 mg PO DAILY [facility] Last Admin: 07/20/17 09:59 Dose: Not Given Enoxaparin Sodium (Lovenox) 40 mg SC DAILY [facility] PRN Reason: Protocol Escitalopram Oxalate (Lexapro) 10 mg PO DAILY [facility] Last Admin: 07/20/17 10:00 Dose: Not Given Furosemide (Lasix) 40 mg IV DAILY [facility] Last Admin: 07/20/17 10:00 Dose: Not Given Hydromorphone HCl (Dilaudid) 1 mg IVP Q4 PRN PRN Reason: Pain, severe (8-10) Last Admin: 07/21/17 06:10 Dose: 1 mg Lidocaine (Lidoderm) 1 ea TD DAILY [facility] Last Admin: 07/20/17 11:08 Dose: 1 ea Lorazepam (Ativan) 0.5 mg PO BID PRN PRN Reason: Anxiety Metformin HCl (Glucophage) 500 mg PO BID [facility] Last Admin: 07/20/17 17:37 Dose: Not Given Oxycodone/Acetaminophen (Percocet 5/325 Mg Tab) 1 tab PO Q4 PRN PRN Reason: Pain, moderate (4-7) Stop: 07/21/17 17:50 Last Admin: 07/19/17 11:33 Dose: 1 tab Pantoprazole Sodium (Protonix Ec Tab) 40 mg PO BID [facility] Last Admin: 07/20/17 17:37 Dose: Not Given Potassium Chloride (K-Dur 20 Meq Er Tab) 20 meq PO DAILY [facility] Last Admin: 07/20/17 10:00 Dose: Not Given - Labs Labs: 07/18/17 07:50 07/18/17 07:50 PT 13.1 Seconds (9.8-13.1) 07/18/17 07:50 INR 1.2 (0.9-1.2) 07/18/17 07:50 APTT 28.6 Seconds (25.6-37.1) 07/18/17 07:50 - Head Exam Head Exam: NORMAL INSPECTION - Eye Exam Eye Exam: Normal appearance - Respiratory Exam Respiratory Exam: Chest Wall Tenderness, Clear to Ausculation Bilateral - Cardiovascular Exam Cardiovascular Exam: Tachycardia, Irregular Rhythm - GI/Abdominal Exam GI & Abdominal Exam: Normal Bowel Sounds Assessment and Plan (1) CHF (congestive heart failure) Status: Acute (2) Afib Status: Acute (3) Costochondritis Status: Acute (4) Hepatic cyst Status: Acute (5) Diabetes type 2, uncontrolled Status: Acute - Assessment and Plan (Free Text) Plan: Cont meds Cont tx pain meds Cardiology follow up
[2017-07-21] MEDS: Pantoprazole 40 mg EC Tab PO SCH (08:34)
[2017-07-21] MEDS: diltiaZEM 120 mg/24 Hours CD Cap PO SCH (08:34)
[2017-07-21] MEDS: Potassium Chloride 20 mEq ER Tab PO SCH (08:35)
[2017-07-21] MEDS ORDERED: Enoxaparin 40 mg Syringe SC SCH (09:00)
[2017-07-21] MEDS: Oxycodone/Acetaminophen 5/325 mg Tab PO PRN (10:11)
[2017-07-21] MEDS: Lidocaine 5% Patch TD SCH (10:13)
--- NOTE | 2017-07-21 11:09 | CP.PCM.PN ---
Subjective - Date & Time of Evaluation Date of Evaluation: 07/21/17 Time of Evaluation: 10:00 - Subjective Subjective: Patient seen and examined this morning at bedside w/ Dr. Cloud. There are no acute events overnight, NAD. Patient continues to complain of chronic upper abdomen/rib pain. Patient denies headaches, chest pain, SOB, nausea, vomiting, diarrhea, dysuria, or fever. Objective - Vital Signs/Intake and Output Vital Signs (last 24 hours): Temp Pulse Resp BP Pulse Ox 97.6 F 90 18 101/58 L 99 07/21/17 07:48 07/21/17 08:34 07/21/17 07:48 07/21/17 08:35 07/21/17 07:48 - Medications Medications: Current Medications Diltiazem HCl (Cardizem Cd) 120 mg PO DAILY [facility] Last Admin: 07/21/17 08:34 Dose: 120 mg Enoxaparin Sodium (Lovenox) 40 mg SC DAILY [facility] PRN Reason: Protocol Last Admin: 07/21/17 08:41 Dose: 40 mg Escitalopram Oxalate (Lexapro) 10 mg PO DAILY [facility] Last Admin: 07/21/17 08:35 Dose: 10 mg Furosemide (Lasix) 40 mg IV DAILY [facility] Last Admin: 07/21/17 08:35 Dose: 40 mg Hydromorphone HCl (Dilaudid) 1 mg IVP Q4 PRN PRN Reason: Pain, severe (8-10) Last Admin: 07/21/17 06:10 Dose: 1 mg Lidocaine (Lidoderm) 1 ea TD DAILY [facility] Last Admin: 07/21/17 10:13 Dose: 1 ea Lorazepam (Ativan) 0.5 mg PO BID PRN PRN Reason: Anxiety Metformin HCl (Glucophage) 500 mg PO DAILY [facility] Last Admin: 07/21/17 08:34 Dose: 500 mg Oxycodone/Acetaminophen (Percocet 5/325 Mg Tab) 1 tab PO Q4 PRN PRN Reason: Pain, moderate (4-7) Stop: 07/21/17 17:50 Last Admin: 07/21/17 10:11 Dose: 1 tab Pantoprazole Sodium (Protonix Ec Tab) 40 mg PO BID [facility] Last Admin: 07/21/17 08:34 Dose: 40 mg Potassium Chloride (K-Dur 20 Meq Er Tab) 20 meq PO DAILY [facility] Last Admin: 07/21/17 08:35 Dose: 20 meq Sitagliptin Phosphate (Januvia) 100 mg PO DAILY [facility] - Labs Labs: 07/18/17 07:50 07/18/17 07:50 PT 13.1 Seconds (9.8-13.1) 07/18/17 07:50 INR 1.2 (0.9-1.2) 07/18/17 07:50 APTT 28.6 Seconds (25.6-37.1) 07/18/17 07:50 - Constitutional Appears: Non-toxic, No Acute Distress - Head Exam Head Exam: ATRAUMATIC, NORMAL INSPECTION, NORMOCEPHALIC - Eye Exam Eye Exam: Normal appearance - ENT Exam ENT Exam: Mucous Membranes Moist - Neck Exam Neck Exam: Full ROM. absent: Tenderness - Respiratory Exam Respiratory Exam: Clear to Ausculation Bilateral. absent: Accessory Muscle Use , Decreased Breath Sounds, Rales, Rhonchi, Wheezes, Respiratory Distress - Cardiovascular Exam Cardiovascular Exam: REGULAR RHYTHM. absent: Tachycardia, Murmur - GI/Abdominal Exam GI & Abdominal Exam: Soft, Normal Bowel Sounds. absent: Distended, Tenderness - Extremities Exam Extremities Exam: absent: Calf Tenderness - Neurological Exam Neurological Exam: Alert, Awake, Oriented x3 - Skin Skin Exam: Dry, Intact, Normal Color, Warm Assessment and Plan (1) Afib Status: Acute (2) Costochondritis Status: Chronic (3) Hepatic cyst Status: Chronic (4) Diabetes type 2, controlled Status: Chronic - Assessment and Plan (Free Text) Plan: c/w present management afebrile, non-tachycardic, normotensive cardiology recommendations appreciated c/w percoet 1 tab Q4h prn for pain monitor for acute changes
[2017-07-21 12:09] VITALS: BP 96/59; PULSE 94; RESP 20; TEMP 97.8; O2SAT 96
--- NOTE | 2017-07-21 12:29 | PQF GENQUE ---
Dr. Cloud, Is/Are there an associated dx, to go along with the following lab results: U/A: Cloudy, Blood, Urobilinogen: 2.0, Leuk Esterase:large, RBC, WBC,Bacteria, Yeast Hematology: WBC: 12.0H/H:9.6/28.2 Chemistry:Total Bili:2.3 AST:63 Cardiology consult: Hx Anemia:Yes Urine C&S:cancelled This form is a permanent part of the medical record Clarification of your documentation is requested to better reflect the severity of illness and intensity of treatment of your patient. Indicators present [] Specify: [] [] Specify: [] [] Specify: [] [] Specify: [] Location in the medical record that reflects the above clinical findings: [] Treatment Provided: [] PHYSICIAN'S RESPONSE Based on your medical judgment of the clinical indicators outlined above please clarify the following: [] Practitioner response [] If unable to determine, please check the box, sign and date. Present On Admission (POA) Indicator: [] Present at the time of admission [] Not present at the time of admission [] Clinically Undetermined In responding to this query, please exercise your independent professional judgment. The fact that a question is asked does not imply that any particular answer is desired or expected. Thank you for your clarification on this documentation. If you have any questions please call. * Thank you, Ruth Donis RN ext. #[phone] MTDD
--- NOTE | 2017-07-21 13:23 | CP.PCM.DIS ---
Provider - Provider Date of Admission: 07/18/17 11:55 Attending physician: Ulises Cloud MD Time Spent in preparation of Discharge (in minutes): 15 Diagnosis - Discharge Diagnosis (1) Afib Status: Acute (2) Costochondritis Status: Chronic (3) Hepatic cyst Status: Chronic (4) Diabetes type 2, controlled Status: Chronic (5) CHF (congestive heart failure) Status: Chronic (6) DVT of lower extremity, bilateral Status: Chronic Hospital Course - Lab Results Lab Results: Micro Results 07/20/17 08:20 Blood Blood Culture - Preliminary NO GROWTH AFTER 24 HOURS Most Recent Lab Values WBC 12.0 K/uL (4.8-10.8) H 07/18/17 07:50 RBC 3.01 Mil/uL (3.80-5.20) L 07/18/17 07:50 Hgb 9.6 g/dL (12.0-16.0) L 07/18/17 07:50 Hct 28.2 % (34.0-47.0) L 07/18/17 07:50 MCV 93.9 fl (81.0-99.0) D 07/18/17 07:50 MCH 32.0 pg (27.0-31.0) H 07/18/17 07:50 MCHC 34.1 g/dL (33.0-37.0) 07/18/17 07:50 RDW 16.0 % (11.5-14.5) H 07/18/17 07:50 Plt Count 207 K/uL (130-400) 07/18/17 07:50 MPV 7.7 fl (7.2-11.7) 07/18/17 07:50 Neut % (Auto) 71.0 % (50.0-75.0) 07/18/17 07:50 Lymph % (Auto) 7.7 % (20.0-40.0) L 07/18/17 07:50 Heard % (Auto) 19.9 % (0.0-10.0) H 07/18/17 07:50 Eos % (Auto) 0.1 % (0.0-4.0) 07/18/17 07:50 Baso % (Auto) 1.3 % (0.0-2.0) 07/18/17 07:50 Neut # (Auto) 8.5 K/uL (1.8-7.0) H 07/18/17 07:50 Lymph # (Auto) 0.9 K/uL (1.0-4.3) L 07/18/17 07:50 Heard # (Auto) 2.4 K/uL (0.0-0.8) H 07/18/17 07:50 Eos # (Auto) 0.0 K/uL (0.0-0.7) 07/18/17 07:50 Baso # (Auto) 0.2 K/uL (0.0-0.2) 07/18/17 07:50 Neutrophils % (Manual) 72 % (42-75) 07/18/17 07:50 Band Neutrophils % 3 % (0-2) H 07/18/17 07:50 Lymphocytes % (Manual) 8 % (20-50) L 07/18/17 07:50 Monocytes % (Manual) 16 % (0-10) H 07/18/17 07:50 Basophils % (Manual) 1 % (0-2) 07/18/17 07:50 Platelet Estimate Normal (NORMAL) 07/18/17 07:50 Hypochromasia (manual) Slight 07/18/17 07:50 Anisocytosis (manual) Slight 07/18/17 07:50 Ovalocytes Slight 07/18/17 07:50 PT 13.1 Seconds (9.8-13.1) 07/18/17 07:50 INR 1.2 (0.9-1.2) 07/18/17 07:50 APTT 28.6 Seconds (25.6-37.1) 07/18/17 07:50 D-Dimer, Quantitative 6314 ng/mlDDU (0-230) H 07/18/17 07:50 Sodium 135 mmol/l (132-148) 07/18/17 07:50 Potassium 4.0 MMOL/L (3.6-5.0) 07/18/17 07:50 Chloride 98 mmol/L (98-107) 07/18/17 07:50 Carbon Dioxide 24 mmol/L (22-30) 07/18/17 07:50 Anion Gap 17 (10-20) 07/18/17 07:50 BUN 15 mg/dl (7-17) 07/18/17 07:50 Creatinine 0.6 mg/dl (0.7-1.2) L 07/18/17 07:50 Est GFR ( Amer) > 60 07/18/17 07:50 Est GFR (Non-Af Amer) > 60 07/18/17 07:50 POC Glucose (mg/dL) 111 mg/dL (65-110) H 07/21/17 10:43 Random Glucose 144 mg/dL (65-105) H 07/18/17 07:50 Hemoglobin A1c 5.0 % (4.2-6.5) 07/19/17 04:36 Calcium 9.1 mg/dL (8.4-10.2) 07/18/17 07:50 Total Bilirubin 2.3 mg/dl (0.2-1.3) H 07/18/17 07:50 AST 63 U/L (14-36) H D 07/18/17 07:50 ALT 33 U/L (9-52) 07/18/17 07:50 Alkaline Phosphatase 85 U/L (38-126) 07/18/17 07:50 Troponin I 0.0130 ng/mL (0.00-0.120) 07/18/17 10:53 NT-Pro-B Natriuret Pep 1580 pg/ml (0-900) H 07/19/17 04:36 Total Protein 6.7 G/DL (6.3-8.2) 07/18/17 07:50 Albumin 3.3 g/dL (3.5-5.0) L 07/18/17 07:50 Globulin 3.4 gm/dL (2.2-3.9) 07/18/17 07:50 Albumin/Globulin Ratio 1.0 (1.0-2.1) 07/18/17 07:50 Triglycerides 91 mg/DL (0-149) D 07/19/17 04:36 Cholesterol 174 mg/dL (0-199) 07/19/17 04:36 LDL Cholesterol Direct 91 mg/dL (0-129) 07/19/17 04:36 HDL Cholesterol 54 MG/DL (30-70) 07/19/17 04:36 TSH 3rd Generation 2.32 mIU/ML (0.46-4.68) 07/19/17 04:36 Urine Color Jamila (YELLOW) 07/18/17 17:20 Urine Clarity Cloudy (Clear) 07/18/17 17:20 Urine pH 6.0 (5.0-8.0) 07/18/17 17:20 Ur Specific [place] > 1.060 (1.003-1.030) H 07/18/17 17:20 Urine Protein 100 mg/dL (NEGATIVE) 07/18/17 17:20 Urine Glucose (UA) Neg mg/dL (Normal) 07/18/17 17:20 Urine Ketones Negative mg/dL (NEGATIVE) 07/18/17 17:20 Urine Blood Small (NEGATIVE) 07/18/17 17:20 Urine Nitrate Negative (NEGATIVE) 07/18/17 17:20 Urine Bilirubin Negative (NEGATIVE) 07/18/17 17:20 Urine Urobilinogen 2.0 mg/dL (0.2-1.0) H 07/18/17 17:20 Ur Leukocyte Esterase Large [place]/uL (Negative) 07/18/17 17:20 Urine RBC (Auto) 14 /hpf (0-3) H 07/18/17 17:20 Urine Microscopic WBC 191 /hpf (0-5) H 07/18/17 17:20 Ur Squamous Epith Cells 35 /hpf (0-5) H 07/18/17 17:20 Urine Bacteria Occ (<OCC) H 07/18/17 17:20 Urine Yeast (Budding) Occ /hpf (NEGATIVE) H 07/18/17 17:20 - Hospital Course Hospital Course: 87 y/o woman w/ pmh of chronic preserved EF (diastolic) CHF, chronic bilateral DVT, afib, HTN, hepatic cyst was admitted for acute on chronic diastolic CHF and bilateral DVT. Patient had EKG which showed atrial fibrillation; echo showed normal EF, LV normal size, thickness, function, motion, mild-moderate pulmonary HTN; lower extremity US showed bilateral DVT; CXR showed possible atelectasis of the right lower lobe; CT chest showed no pulmonary embolism; XR rib showed no pleural effusion or pneumothorax. Labs showed elevated pro-BNP 1920 but negative troponin. Patient was seen by cardiology. The patient reports improvement w/ breathing and pain. The patient has been seen, examined and deemed medically fit for discharge to rehabilitation facility for further physical therapy due to deconditioning. Discharge Exam - Head Exam Head Exam: ATRAUMATIC, NORMAL INSPECTION, NORMOCEPHALIC - Eye Exam Eye Exam: Normal appearance - ENT Exam ENT Exam: Mucous Membranes Moist - Neck Exam Neck exam: Full Rom - Respiratory Exam Respiratory Exam: Clear to PA & Lateral. absent: Accessory Muscle Use, Decreased Breath Sounds, Rales, Rhonchi, Wheezes, Respiratory Distress - Cardiovascular Exam Cardiovascular Exam: Irregular Rhythm, REGULAR RHYTHM. absent: Tachycardia - GI/Abdominal Exam GI & Abdominal Exam: Normal Bowel Sounds, Soft. absent: Distended, Tenderness - Extremities Exam Extremities exam: normal inspection, pedal pulses present - Neurological Exam Neurological exam: Alert, Oriented x3 - Skin Skin Exam: Dry, Intact, Normal Color, Warm Discharge Plan - Follow Up Plan Condition: STABLE Disposition: REHAB FACILITY/REHAB UNIT Instructions: Heart Failure, Adult (DC), Deep Vein Thrombosis (Blood Clots in the Legs) (DC) Referrals: Arjun Maxwell MD [Staff Provider] -
== END 2017-07-21 15:10 | DRG 292 ==
LOC: H.ER 07:12 → H.ERHOLD 11:55 → H.TEL 15:29
PROVIDERS: ADMIT Family Medicine; ATTEND Family Medicine
DX: I11.0 Hypertensive heart disease with heart failure (principal); I82.503 Chronic embolism and thrombosis of unspecified deep veins of lower extremity, bilateral; M94.0 Chondrocostal junction syndrome [Tietze]; G89.29 Other chronic pain; I48.2 Chronic atrial fibrillation; E78.00 Pure hypercholesterolemia, unspecified; F41.9 Anxiety disorder, unspecified; M19.90 Unspecified osteoarthritis, unspecified site; F32.9 Major depressive disorder, single episode, unspecified; E11.65 Type 2 diabetes mellitus with hyperglycemia; K76.89 Other specified diseases of liver; I27.20 Pulmonary hypertension, unspecified; R53.81 Other malaise; I50.33 Acute on chronic diastolic (congestive) heart failure

== ENCOUNTER 2017-07-21 14:03 | Inpatient (IN) | payer OTHER, BC ==
[2017-07-20 11:31] VITALS: PULSE 135
[2017-07-21 15:38] VITALS: BMI 27.1
[2017-07-21] MEDS ORDERED: Tuberculin 5 Units/0.1 ml Inj ID ONE (16:01)
[2017-07-21] MEDS: Pantoprazole 40 mg EC Tab PO SCH (17:16)
[2017-07-21] MEDS: Oxycodone/Acetaminophen 5/325 mg Tab PO PRN ×2 (17:20→23:53)
[2017-07-21 22:04] VITALS: RESP 20
[2017-07-22] MEDS: Oxycodone/Acetaminophen 5/325 mg Tab PO PRN ×2 (08:55→18:42)
[2017-07-22] MEDS: Pantoprazole 40 mg EC Tab PO SCH ×2 (08:56→16:48)
[2017-07-22] MEDS: Potassium Chloride 20 mEq ER Tab PO SCH (08:56)
[2017-07-22] MEDS: Enoxaparin 40 mg Syringe SC SCH (08:57)
[2017-07-22] MEDS: Lidocaine 5% Patch TD SCH (08:58)
[2017-07-22] MEDS: diltiaZEM 120 mg/24 Hours CD Cap PO SCH (08:58)
--- NOTE | 2017-07-22 11:40 | CP.PCM.HP ---
History of Present Illness - History of Present Illness History of Present Illness: 87 y/o woman w/ pmh of chronic preserved EF (diastolic) CHF, chronic bilateral DVT, afib, HTN, hepatic cyst admitted to TCU for further physical therapy. Patient was discharged from [facility] for acute on chronic diastolic CHF and bilateral DVT which are currently stable. Patient complains of chronic RUQ pain associated w/ hepatic cyst. The patient has no complaints and denies headaches, chest pain, SOB, nausea, vomiting, diarrhea, dysuria, or fever. Present on Admission - Present on Admission Any Indicators Present on Admission: Yes History of DVT/PE: Yes History of Uncontrolled Diabetes: No Urinary Catheter: No Decubitus Ulcer Present: No Review of Systems - Review of Systems All systems: reviewed and no additional remarkable complaints except - Constitutional Constitutional: absent: Chills, Fever - EENT Eyes: absent: Change in Vision - Cardiovascular Cardiovascular: absent: Chest Pain - Respiratory Respiratory: absent: Dyspnea - Gastrointestinal Gastrointestinal: As Per HPI, Abdominal Pain. absent: Nausea, Vomiting - Genitourinary Genitourinary: absent: Dysuria - Integumentary Integumentary: absent: Rash - Neurological Neurological: absent: Dizziness, Headaches Past Patient History - Infectious Disease Hx of Infectious Diseases: None - Past Medical History & Family History Past Medical History?: Yes - Past Social History Smoking Status: Never Smoked - CARDIAC Hx Cardiac Disorders: Yes Hx Atrial Fibrillation: Yes Hx Hypercholesterolemia: Yes Hx Hypertension: Yes Hx Peripheral Edema: Yes - PULMONARY Hx Respiratory Disorders: No - NEUROLOGICAL Hx Neurological Disorder: No - HEENT Hx HEENT Problems: Yes Hx Cataracts: Yes - RENAL Hx Chronic Kidney Disease: No - ENDOCRINE/METABOLIC Hx Endocrine Disorders: Yes Hx Diabetes Mellitus Type 2: Yes - HEMATOLOGICAL/ONCOLOGICAL Hx Blood Disorders: Yes Hx AIDS: No Hx Anemia: Yes Hx Human Immunodeficiency Virus (HIV): No - INTEGUMENTARY Hx Dermatological Problems: No - MUSCULOSKELETAL/RHEUMATOLOGICAL Hx Falls: Yes - GASTROINTESTINAL Hx Gastrointestinal Disorders: Yes Hx Diverticulitis: Yes Other/Comment: GI Bleed - GENITOURINARY/GYNECOLOGICAL Hx Genitourinary Disorders: No - PSYCHIATRIC Hx Substance Use: No - SURGICAL HISTORY Hx Surgeries: Yes Hx Herniorrhaphy: Yes (x 2) - ANESTHESIA Hx Anesthesia: Yes Hx Anesthesia Reactions: No Hx Malignant Hyperthermia: No Meds Allergies/Adverse Reactions: Allergies Allergy/AdvReac Type Severity Reaction Status Date / Time No Known Allergies Allergy Verified 07/21/17 14:50 Physical Exam - Constitutional Appears: Non-toxic, No Acute Distress - Head Exam Head Exam: ATRAUMATIC, NORMAL INSPECTION - Eye Exam Eye Exam: Normal appearance - ENT Exam ENT Exam: Mucous Membranes Moist - Neck Exam Neck exam: Positive for: Full Rom. Negative for: Tenderness - Respiratory Exam Respiratory Exam: Clear to Auscultation Bilateral. absent: Accessory Muscle Use , Decreased Breath Sounds, Rales, Rhonchi, Wheezes, Respiratory Distress - Cardiovascular Exam Cardiovascular Exam: REGULAR RHYTHM, RRR. absent: Tachycardia - GI/Abdominal Exam GI & Abdominal Exam: Normal Bowel Sounds, Soft. absent: Distended, Tenderness - Extremities Exam Extremities exam: Negative for: calf tenderness - Neurological Exam Neurological exam: Alert - Skin Skin Exam: Dry, Intact, Normal Color, Warm Results - Vital Signs Recent Vital Signs: Last Vital Signs Temp 97.4 F L 07/22/17 07:56 Pulse 82 07/22/17 08:58 Resp 20 07/22/17 07:56 BP 105/56 L 07/22/17 08:58 Pulse Ox 100 07/22/17 07:56 - Labs Labs: Laboratory Results - last 24 hr 07/21/17 07/21/17 07/22/17 16:21 21:02 06:30 POC Glucose (mg/dL) 106 128 H 108 07/22/17 10:35 POC Glucose (mg/dL) 130 H Assessment & Plan (1) Physical deconditioning Status: Acute (2) Chronic atrial fibrillation Status: Chronic (3) CHF (congestive heart failure) Status: Chronic (4) DVT of lower extremity, bilateral Status: Chronic (5) Hepatic cyst Status: Chronic - Assessment and Plan (Free Text) Plan: c/w present management afebrile, non-tachycardic, normotensive cardiology recommendations appreciated c/w physical therapy prophylactic measures: DVT lovenox 40 mg SC daily monitor for acute changes
--- NOTE | 2017-07-22 18:07 | CP.PCM.CON ---
History of Present Illness - History of Present Illness History of Present Illness: Dr Bolanos PMR consultation on Silva Barrios, born 1930, who has been admitted to [facility] after an unwitnessed fall with rib injury and back pain but no fractures noted. She does not take pain medication prior to admission. 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 She is on prn medication now and I would not want to increase the dosage. Medication is appropriate at this time and hopefully can wean off in the near future Review of Systems - Constitutional Constitutional: absent: Anorexia - EENT Nose/Mouth/Throat: absent: Nasal Congestion - Cardiovascular Cardiovascular: Chest Pain (but right lower rib area not cardiac) - Respiratory Respiratory: absent: Cough, Dyspnea, Hemoptysis - Gastrointestinal Gastrointestinal: absent: Belching - Musculoskeletal Musculoskeletal: Joint Swelling, Stiffness Past Patient History - Infectious Disease Hx of Infectious Diseases: None - Past Medical History & Family History Past Medical History?: Yes - Past Social History Smoking Status: Never Smoked Alcohol: None Drugs: Denies Home Situation {Lives}: Alone (but family in building and very supportive) - CARDIAC Hx Cardiac Disorders: Yes Hx Atrial Fibrillation: Yes Hx Hypercholesterolemia: Yes Hx Hypertension: Yes Hx Peripheral Edema: Yes - PULMONARY Hx Respiratory Disorders: No - NEUROLOGICAL Hx Neurological Disorder: No - HEENT Hx HEENT Problems: Yes Hx Cataracts: Yes - RENAL Hx Chronic Kidney Disease: No - ENDOCRINE/METABOLIC Hx Endocrine Disorders: Yes Hx Diabetes Mellitus Type 2: Yes - HEMATOLOGICAL/ONCOLOGICAL Hx Blood Disorders: Yes Hx AIDS: No Hx Anemia: Yes Hx Human Immunodeficiency Virus (HIV): No - INTEGUMENTARY Hx Dermatological Problems: No - MUSCULOSKELETAL/RHEUMATOLOGICAL Hx Falls: Yes - GASTROINTESTINAL Hx Gastrointestinal Disorders: Yes Hx Diverticulitis: Yes Other/Comment: GI Bleed - GENITOURINARY/GYNECOLOGICAL Hx Genitourinary Disorders: No - PSYCHIATRIC Hx Substance Use: No - SURGICAL HISTORY Hx Surgeries: Yes Hx Herniorrhaphy: Yes (x 2) - ANESTHESIA Hx Anesthesia: Yes Hx Anesthesia Reactions: No Hx Malignant Hyperthermia: No Meds Allergies/Adverse Reactions: Allergies Allergy/AdvReac Type Severity Reaction Status Date / Time No Known Allergies Allergy Verified 07/21/17 14:50 - Medications Medications: Current Medications Diltiazem HCl (Cardizem Cd) 120 mg PO DAILY [facility] Last Admin: 07/22/17 08:58 Dose: 120 mg Enoxaparin Sodium (Lovenox) 40 mg SC DAILY [facility] PRN Reason: Protocol Last Admin: 07/22/17 08:57 Dose: 40 mg Escitalopram Oxalate (Lexapro) 10 mg PO DAILY [facility] Last Admin: 07/22/17 08:57 Dose: 10 mg Furosemide (Lasix) 40 mg PO DAILY [facility] Last Admin: 07/22/17 08:57 Dose: 40 mg Lidocaine (Lidoderm) 1 ea TD DAILY [facility] Last Admin: 07/22/17 08:58 Dose: 1 ea Lorazepam (Ativan) 0.5 mg PO BID PRN PRN Reason: Anxiety Metformin HCl (Glucophage) 500 mg PO DAILY [facility] Last Admin: 07/22/17 09:51 Dose: Not Given Oxycodone/Acetaminophen (Percocet 5/325 Mg Tab) 1 tab PO Q4 PRN PRN Reason: Pain, moderate (4-7) Stop: 07/24/17 16:25 Last Admin: 07/22/17 08:55 Dose: 1 tab Pantoprazole Sodium (Protonix Ec Tab) 40 mg PO BID [facility] Last Admin: 07/22/17 16:48 Dose: 40 mg Potassium Chloride (K-Dur 20 Meq Er Tab) 20 meq PO DAILY [facility] Last Admin: 07/22/17 08:56 Dose: 20 meq Sitagliptin Phosphate (Januvia) 100 mg PO DAILY [facility] Last Admin: 07/22/17 08:56 Dose: 100 mg Physical Exam - Constitutional Appears: Non-toxic, Other (elderly and not mobile) - Head Exam Head Exam: ATRAUMATIC, NORMAL INSPECTION - ENT Exam ENT Exam: Mucous Membranes Moist Results - Vital Signs Recent Vital Signs: Last Vital Signs Temp 97.5 F L 07/22/17 16:02 Pulse 77 07/22/17 16:02 Resp 20 07/22/17 16:02 BP 105/55 L 07/22/17 16:02 Pulse Ox 99 07/22/17 16:02 - Labs Labs: Laboratory Results - last 24 hr 07/21/17 07/22/17 07/22/17 21:02 06:30 10:35 POC Glucose (mg/dL) 128 H 108 130 H 07/22/17 15:56 POC Glucose (mg/dL) 147 H Assessment & Plan - Assessment and Plan (Free Text) Assessment: Patient with noted synovial changes in the L>R knees good UE ROM non-focal examination PT/OT to help increase functional independence continue with prn medication at this time
--- NOTE | 2017-07-22 18:22 | CP.PCM.CON ---
History of Present Illness - History of Present Illness History of Present Illness: (Note: Patient was originally seen 07/21/17 at 1999) Patient is a 87 year old female with a history of chronic atrial fibrillation DVT COPD admitted for rehab. The patient was originally on 4N due to rapid atrial fibrillation. The patient was managed with AV venancio blockers. She had periods of hypotension but responded to IV fluids. She [id number] no current complaints Review of Systems - Constitutional Constitutional: Fatigue - EENT Eyes: absent: As Per HPI, Blind Spots, Blurred Vision, Change in Vision, Decreased Night Vision, Diplopia, Discharge, Dry Eye, Exophthalmos, Floaters, Irritation, Itchy Eyes, Loss of Peripheral Vision, Pain, Photophobia, Requires Corrective Lenses, Sees Flashes, Spots in Vision, Tunnel Vision, Other Visual Disturbances, Loss of Vision, Other Ears: absent: As Per HPI, Decreased Hearing, Ear Discharge, Ear Pain, Tinnitus, Abnormal Hearing, Disequilibrium, Dizziness, Other Nose/Mouth/Throat: absent: As Per HPI, Epistaxis, Nasal Congestion, Nasal Discharge, Nasal Obstruction, Nasal Trauma, Nose Pain, Post Nasal Drip, Sinus Pain, Sinus Pressure, Bleeding Gums, Change in Voice, Dental Pain, Dry Mouth, Dysphagia, Halitosis, Hoarsness, Lip Swelling, Mouth Lesions, Mouth Pain, Odynophagia, Sore Throat, Throat Swelling, Tongue Swelling, Facial Pain, Neck Pain, Neck Mass, Other - Cardiovascular Cardiovascular: absent: As Per HPI, Acrocyanosis, Chest Pain, Chest Pain at Rest , Chest Pain with Activity, Claudication, Diaphoresis, Dyspnea, Dyspnea on Exertion, Edema, Irregular Heart Rhythm, Pain Radiating to Arm/Neck/Jaw, Leg Edema, Leg Ulcers, Lightheadedness, Orthopnea, Palpitations, Paroxysmal Nocturnal Dyspnea, Pedal Edema, Radiating Pain, Rapid Heart Rate, Slow Heart Rate, Syncope, Other - Respiratory Respiratory: Dyspnea - Gastrointestinal Gastrointestinal: absent: As Per HPI, Abdominal Pain, Belching, Bloating, Change in Bowel Habits, Change in Stool Character, Coffee Ground Emesis, Constipation, Cramping, Diarrhea, Dyspepsia, Dysphagia, Early Satiety, Excessive Flatus, Fecal Incontinence, Heartburn, Hematemesis, Hematochezia, Loose Stools, Melena, Nausea, Odynophagia, Temesmus, Vomiting, Other - Genitourinary Genitourinary: absent: As Per HPI, Change in Urinary Stream, Difficulty Urinating, Dysuria, Flank Pain, Hematuria, Pyuria, Nocturia, Urinary Incontinence, Urinary Frequency, Urinary Hesitance, Urinary Urgency, Voiding Freq/Small Amts, Freq UTI, Hx Renal/Bladder Calculi, Hx /Renal Surgery, Bladder Distension, Other - Musculoskeletal Musculoskeletal: absent: As Per HPI, Abnormal Gait, Arthralgias, Atrophy, Back Pain, Deformity, Joint Swelling, Limited Range of Motion, Loss of Height, Muscle Cramps, Muscle Weakness, Myalgias, Neck Pain, Numbness, Radiating Pain into Limb, Stiffness, Tingling, Other - Integumentary Integumentary: absent: As Per HPI, Acne, Alopecia, Bleeding Lesions, Change in Hair, Change in Nails, Change in Pigmentation, Changing Lesions, Dry Skin, Erythema, Furuncle, Hirsutism, Lesions, New Lesions, Non-Healing Lesions, Photosensitivity, Pruritus, Rash, Skin Pain, Skin Ulcer, Sores, Striae, Swelling , Unusual Bruising, Wounds, Jaundice, Other - Neurological Neurological: absent: As Per HPI, Abnormal Gait, Abnormal Hearing, Abnormal Movements, Abnormal Speech, Behavioral Changes, Burning Sensations, Confusion, Convulsions, Disequilibrium, Dizziness, Numbness, Focal Weakness, Frequent Falls , Headaches, Lack of Coordination, Loss of Vision, Memory Loss, Paresthesias, Radicular Pain, Restless Legs, Sensory Deficit, Syncope, Tingling, Tremor, Vertigo, Weakness, Other Visual Disturbances, Other - Psychiatric Psychiatric: absent: As Per HPI, Abnormal Sleep Pattern, Anhedonia, Anxiety, Auditory Hallucinations, Behavioral Changes, Change in Appetite, Change in Libido, Confusion, Depression, Difficulty Concentrating, Hallucinations, Homicidal Ideation, Hopelessness, Irritability, Memory Loss, Mood Swings, Panic Attacks, Paranoia, Suicidal Ideation, Visual Hallucinations, Tactile Hallucinations, Other - Endocrine Endocrine: absent: As Per HPI, Change in Body Appearance, Change in Libido, Cold Intolorance, Deepening of Voice, Excessive Sweating, Fatigue, Flushing, Heat Intolorance, Increase in Ring/Shoe/Hat Size, Palpitations, Polydipsia, Polyphagia, Polyuria, Other - Hematologic/Lymphatic Hematologic: absent: As Per HPI, Easy Bleeding, Easy Bruising, Lymphadenopathy, Other Past Patient History - Infectious Disease Hx of Infectious Diseases: None - Past Medical History & Family History Past Medical History?: Yes - Past Social History Smoking Status: Never Smoked Alcohol: None Drugs: Denies Home Situation {Lives}: Alone (but family in building and very supportive) - CARDIAC Hx Cardiac Disorders: Yes Hx Atrial Fibrillation: Yes Hx Hypercholesterolemia: Yes Hx Hypertension: Yes Hx Peripheral Edema: Yes - PULMONARY Hx Respiratory Disorders: No - NEUROLOGICAL Hx Neurological Disorder: No - HEENT Hx HEENT Problems: Yes Hx Cataracts: Yes - RENAL Hx Chronic Kidney Disease: No - ENDOCRINE/METABOLIC Hx Endocrine Disorders: Yes Hx Diabetes Mellitus Type 2: Yes - HEMATOLOGICAL/ONCOLOGICAL Hx Blood Disorders: Yes Hx AIDS: No Hx Anemia: Yes Hx Human Immunodeficiency Virus (HIV): No - INTEGUMENTARY Hx Dermatological Problems: No - MUSCULOSKELETAL/RHEUMATOLOGICAL Hx Falls: Yes - GASTROINTESTINAL Hx Gastrointestinal Disorders: Yes Hx Diverticulitis: Yes Other/Comment: GI Bleed - GENITOURINARY/GYNECOLOGICAL Hx Genitourinary Disorders: No - PSYCHIATRIC Hx Substance Use: No - SURGICAL HISTORY Hx Surgeries: Yes Hx Herniorrhaphy: Yes (x 2) - ANESTHESIA Hx Anesthesia: Yes Hx Anesthesia Reactions: No Hx Malignant Hyperthermia: No Meds Allergies/Adverse Reactions: Allergies Allergy/AdvReac Type Severity Reaction Status Date / Time No Known Allergies Allergy Verified 07/21/17 14:50 - Medications Medications: Current Medications Diltiazem HCl (Cardizem Cd) 120 mg PO DAILY [facility] Last Admin: 07/22/17 08:58 Dose: 120 mg Enoxaparin Sodium (Lovenox) 40 mg SC DAILY [facility] PRN Reason: Protocol Last Admin: 07/22/17 08:57 Dose: 40 mg Escitalopram Oxalate (Lexapro) 10 mg PO DAILY [facility] Last Admin: 07/22/17 08:57 Dose: 10 mg Furosemide (Lasix) 40 mg PO DAILY [facility] Last Admin: 07/22/17 08:57 Dose: 40 mg Lidocaine (Lidoderm) 1 ea TD DAILY [facility] Last Admin: 07/22/17 08:58 Dose: 1 ea Lorazepam (Ativan) 0.5 mg PO BID PRN PRN Reason: Anxiety Metformin HCl (Glucophage) 500 mg PO DAILY [facility] Last Admin: 07/22/17 09:51 Dose: Not Given Oxycodone/Acetaminophen (Percocet 5/325 Mg Tab) 1 tab PO Q4 PRN PRN Reason: Pain, moderate (4-7) Stop: 07/24/17 16:25 Last Admin: 07/22/17 08:55 Dose: 1 tab Pantoprazole Sodium (Protonix Ec Tab) 40 mg PO BID [facility] Last Admin: 07/22/17 16:48 Dose: 40 mg Potassium Chloride (K-Dur 20 Meq Er Tab) 20 meq PO DAILY [facility] Last Admin: 07/22/17 08:56 Dose: 20 meq Sitagliptin Phosphate (Januvia) 100 mg PO DAILY [facility] Last Admin: 07/22/17 08:56 Dose: 100 mg Physical Exam - Constitutional Appears: Non-toxic - Head Exam Head Exam: NORMAL INSPECTION - Eye Exam Eye Exam: Normal appearance - ENT Exam ENT Exam: Mucous Membranes Moist - Neck Exam Neck exam: Positive for: Full Rom - Respiratory Exam Respiratory Exam: Decreased Breath Sounds - Cardiovascular Exam Cardiovascular Exam: REGULAR RHYTHM - GI/Abdominal Exam GI & Abdominal Exam: Normal Bowel Sounds - Rectal Exam Rectal Exam: Deferred - Extremities Exam Extremities exam: Positive for: tenderness - Back Exam Back exam: NORMAL INSPECTION - Neurological Exam Neurological exam: Alert, Oriented x3 - Psychiatric Exam Psychiatric exam: Normal Affect - Skin Skin Exam: Dry Results - Vital Signs Recent Vital Signs: Last Vital Signs Temp 97.5 F L 07/22/17 16:02 Pulse 77 07/22/17 16:02 Resp 20 07/22/17 16:02 BP 105/55 L 07/22/17 16:02 Pulse Ox 99 07/22/17 16:02 - Labs Labs: Laboratory Results - last 24 hr 07/21/17 07/22/17 07/22/17 21:02 06:30 10:35 POC Glucose (mg/dL) 128 H 108 130 H 07/22/17 15:56 POC Glucose (mg/dL) 147 H - EKG Data EKG Interpreted by: Myself Assessment & Plan (1) Afib Assessment and Plan: Patient has rate controlled atrial fibrillation. the patient is not an ideal candidate for anticaogulation Status: Acute (2) CHF (congestive heart failure) Assessment and Plan: has peripheral edema but normal LV function. Medical therapy Status: Chronic
[2017-07-23] MEDS: Oxycodone/Acetaminophen 5/325 mg Tab PO PRN ×2 (00:48→09:16)
[2017-07-23] MEDS: diltiaZEM 120 mg/24 Hours CD Cap PO SCH (09:19)
[2017-07-23] MEDS: Pantoprazole 40 mg EC Tab PO SCH (09:21)
[2017-07-23] MEDS: Potassium Chloride 20 mEq ER Tab PO SCH (09:21)
[2017-07-23] MEDS: Enoxaparin 40 mg Syringe SC SCH (09:21)
[2017-07-23] MEDS: Lidocaine 5% Patch TD SCH (09:22)
[2017-07-23 12:31] LABS: BASO # 0.1 K/uL (0.0-0.2); EOS # 0.1 K/uL (0.0-0.7); EOS % 0.4 % (0.0-4.0); LYMPH % 7.9 % (20.0-40.0); MEAN CELL VOLUME 100.7 fl (81.0-99.0); MEAN CORPUSCULAR HEMOGLOBIN 32.7 pg (27.0-31.0); MEAN CORPUSCULAR HGB CONC 32.5 g/dL (33.0-37.0); MEAN PLATELET VOLUME 7.1 fl (7.2-11.7); MONO # 1.3 K/uL (0.0-0.8); MONO % 10.1 % (0.0-10.0); NEUT # 10.2 K/uL (1.8-7.0); NEUT % 80.6 % (50.0-75.0); PLATELET COUNT 226 K/uL (130-400); RBC 1.65 Mil/uL (3.80-5.20); RED CELL DISTRIBUTION WIDTH 17.9 % (11.5-14.5); WHITE BLOOD COUNT 12.6 K/uL (4.8-10.8)
[2017-07-23 12:37] LABS: HEMOGLOBIN 5.4 g/dL (12.0-16.0)
[2017-07-23 12:55] LABS: ALB/GLOB RATIO 0.9 (1.0-2.1); ALBUMIN 2.9 g/dL (3.5-5.0); ALT/SGPT 205 U/L (9-52); AST/SGOT 216 U/L (14-36); BLOOD UREA NITROGEN 35 mg/dl (7-17); CALCIUM 8.2 mg/dL (8.4-10.2); GFR AFRICAN-AMERICAN > 60; GFR NON-AFRICAN AMERICAN 60
[2017-07-23 13:33] LABS: BANDS 2 % (0-2); EOSINOPHIL 1 % (0-7); LYMPHOCYTE 6 % (20-50); METAMYELOCYTE 2 % (0-0); MONOCYTE 9 % (0-10); MYELOCYTE 3 % (0-0); NEUTROPHIL 77 % (42-75); NUCLEATED RED BLOOD CELL 3 % (0-0); TOTAL CELLS COUNTED 100
[2017-07-23 13:34] LABS: ANISOCYTOSIS SLIGHT; HYPOCHROMIC MODERATE; PLATELET ESTIMATE NORMAL (NORMAL); POLYCHROMIC SLIGHT
[2017-07-23 13:37] LABS: SMUDGE CELLS PRESENT
[2017-07-23 14:42] LABS: MEAN CELL VOLUME 100.7 fl (81.0-99.0); MEAN CORPUSCULAR HEMOGLOBIN 32.8 pg (27.0-31.0); MEAN CORPUSCULAR HGB CONC 32.6 g/dL (33.0-37.0); RBC 1.63 Mil/uL (3.80-5.20); WHITE BLOOD COUNT 13.5 K/uL (4.8-10.8)
[2017-07-23 14:50] LABS: ALB/GLOB RATIO 0.9 (1.0-2.1); ALT/SGPT 199 U/L (9-52); AST/SGOT 212 U/L (14-36); BLOOD UREA NITROGEN 35 mg/dl (7-17); CALCIUM 8.2 mg/dL (8.4-10.2); GFR AFRICAN-AMERICAN > 60; GFR NON-AFRICAN AMERICAN 60
[2017-07-23 14:51] LABS: HEMOGLOBIN 5.4 g/dL (12.0-16.0)
[2017-07-23 17:16] VITALS: BP 119/54; PULSE 90; TEMP 97; O2SAT 97
== END 2017-07-23 16:15 | disposition home health service (06) | DRG 300 ==
LOC: H.TCU 15:39
PROVIDERS: ADMIT Family Medicine; ATTEND Family Medicine
PROC: F07Z5FZ Bed Mobility Treatment using Assistive, Adaptive, Supportive or Protective Equipment (ICD-10-PCS; principal; 2017-07-21)
PROC: F07Z8FZ Transfer Training Treatment using Assistive, Adaptive, Supportive or Protective Equipment (ICD-10-PCS; 2017-07-21)
PROC: F08Z3FZ Feeding/Eating Treatment using Assistive, Adaptive, Supportive or Protective Equipment (ICD-10-PCS; 2017-07-21)
PROC: F08Z1FZ Dressing Techniques Treatment using Assistive, Adaptive, Supportive or Protective Equipment (ICD-10-PCS; 2017-07-21)
PROC: F08Z2FZ Grooming/Personal Hygiene Treatment using Assistive, Adaptive, Supportive or Protective Equipment (ICD-10-PCS; 2017-07-21)
DX: I82.503 Chronic embolism and thrombosis of unspecified deep veins of lower extremity, bilateral (principal); I50.32 Chronic diastolic (congestive) heart failure; I48.2 Chronic atrial fibrillation; E11.9 Type 2 diabetes mellitus without complications; I11.0 Hypertensive heart disease with heart failure; K76.89 Other specified diseases of liver; E78.00 Pure hypercholesterolemia, unspecified; M19.042 Primary osteoarthritis, left hand; M19.041 Primary osteoarthritis, right hand; M17.0 Bilateral primary osteoarthritis of knee

== ENCOUNTER 2017-07-23 16:22 | Inpatient (IN) | payer MEDICARE, BC ==
[2017-07-23 16:22] VITALS: PULSE 135
[2017-07-23] MEDS ORDERED: Sodium Chloride 0.9% 1,000 ML IV STA (16:30)
--- NOTE | 2017-07-23 16:34 | ED PDOC ---
HPI: General Adult Time Seen by Provider: 07/23/17 16:23 Chief Complaint (Nursing): Abnormal Labs History Per: Other Onset/Duration Of Symptoms: Unknown Current Symptoms Are (Timing): Still Present Severity: Moderate Additional Complaint(s): Transferred from TCU for Hgb 5.4 drawn today. Pt does not recall if she has bloody or melanotic stool. C/o lower abd pain bilat. Denies fever or chills. Denies chest pain or SOB Past Medical History Vital Signs: Last Vital Signs Temp 97.7 F 07/23/17 16:33 Pulse 73 07/23/17 16:33 Resp 21 07/23/17 16:33 BP 116/47 L 07/23/17 16:33 Pulse Ox 100 07/23/17 16:33 - Medical History PMH: Anemia, Anxiety, Arthritis, Atrial Fibrillation, Cardia Arrhythmia, Depression, Diabetes, Diverticulitis, Deep Vein Thrombosis, Fractures, HTN, Hypercholesterolemia, Peripheral Edema Denies: HIV, Chronic Kidney Disease - Surgical History Surgical History: Hernia Repair - Family History Family History: States: Unknown Family Hx - Home Medications Home Medications: Ambulatory Orders Medication Instructions Recorded Escitalopram [Lexapro] 10 mg PO DAILY #30 tab 05/31/16 Pantoprazole [Protonix EC Tab] 40 mg PO BID ect 04/07/17 LORazepam [Ativan] 0.5 mg PO BID PRN tab 07/21/17 Potassium Chloride [K-Dur 20 mEq 20 meq PO DAILY tab 07/21/17 ER Tab] SITagliptin [Januvia] 100 mg PO DAILY tab 07/21/17 diltiaZEM CD [Cardizem CD] 120 mg PO DAILY cap 07/21/17 oxyCODONE/Acetaminophen [Percocet 1 tab PO Q4 PRN tab 07/21/17 5/325 mg Tab] Ammonium Lactate 12% [Lac-Hydrin 1 appl TOP DAILY 07/23/17 12% Lotion (225 g)] Enoxaparin [Lovenox] 40 mg SC DAILY 07/23/17 Furosemide [Lasix] 40 mg PO DAILY 07/23/17 Hydrocortisone Lotion 2.5% 1 appl TOP BID 07/23/17 [Hydrocortisone Lotion 2.5%] Lidocaine 5% [Lidoderm] 1 patch TD DAILY 07/23/17 metFORMIN [glucOPHAGE] 500 mg PO DAILY 07/23/17 - Allergies Allergies/Adverse Reactions: Allergies Allergy/AdvReac Type Severity Reaction Status Date / Time No Known Allergies Allergy Verified 07/21/17 14:50 Review of Systems ROS Statement: Except As Marked, All Systems Reviewed And Found Negative Constitutional: Negative for: Fever Cardiovascular: Negative for: Chest Pain Respiratory: Negative for: Shortness of Breath Gastrointestinal: Positive for: Abdominal Pain Musculoskeletal: Negative for: Leg Pain Physical Exam - Reviewed Nursing Documentation Reviewed: Yes Vital Signs Reviewed: Yes - Physical Exam Appears: Positive for: Non-toxic, No Acute Distress Head Exam: Positive for: ATRAUMATIC, NORMAL INSPECTION, NORMOCEPHALIC Skin: Positive for: Normal Color, Warm, DRY Eye Exam: Positive for: EOMI, Normal appearance, PERRL ENT: Positive for: Normal ENT Inspection Neck: Positive for: Normal, Painless ROM Cardiovascular/Chest: Positive for: Regular Rate, Rhythm Respiratory: Positive for: CNT, Normal Breath Sounds Gastrointestinal/Abdominal: Positive for: Soft, Tenderness (Lower quads bilat) Back: Positive for: Normal Inspection Rectal: Negative for: Black Stool, Blood Streaked Stool, Mass Extremity: Positive for: Normal ROM. Negative for: Calf Tenderness Neurologic/Psych: Positive for: Alert, Oriented - Laboratory Results Result Diagrams: 07/23/17 17:00 07/23/17 17:00 Disposition - Clinical Impression Clinical Impression: Anemia - Patient ED Disposition Is Patient to be Admitted: Yes - Disposition Disposition Time: 17:48 Condition: FAIR Forms: [employer] (Yoruba) - Pt Status Changed To: Hospital Disposition Of: Inpatient - Admit Certification Admit to Inpatient:: After my assessment, the patient will require hospitalization for at least two midnights. This is because of the severity of symptoms shown, intensity of services needed, and/or the medical risk in this patient being treated as an outpatient. - POA Present On Arrival: None
[2017-07-23 17:26] LABS: BASO # 0.1 K/uL (0.0-0.2); BASO % 0.8 % (0.0-2.0); EOS # 0.1 K/uL (0.0-0.7); EOS % 0.5 % (0.0-4.0); LYMPH # 1.7 K/uL (1.0-4.3); LYMPH % 11.8 % (20.0-40.0); MEAN CELL VOLUME 101.9 fl (81.0-99.0); MEAN CORPUSCULAR HEMOGLOBIN 32.9 pg (27.0-31.0); MEAN CORPUSCULAR HGB CONC 32.3 g/dL (33.0-37.0); MEAN PLATELET VOLUME 7.3 fl (7.2-11.7); MONO # 2.1 K/uL (0.0-0.8); MONO % 14.8 % (0.0-10.0); NEUT # 10.4 K/uL (1.8-7.0); NEUT % 72.1 % (50.0-75.0); NRBC % 2.8 % (0.0-0.0); RBC 1.6 Mil/uL (3.80-5.20); RED CELL DISTRIBUTION WIDTH 17.8 % (11.5-14.5); WHITE BLOOD COUNT 14.4 K/uL (4.8-10.8)
[2017-07-23 17:28] LABS: HEMOGLOBIN 5.3 g/dL (12.0-16.0)
[2017-07-23] MEDS ORDERED: Iohexol 300 100 ML IJ ONE (17:36)
[2017-07-23] MEDS ORDERED: Sodium Chloride 0.9% 50 ML IV ONE (17:36)
[2017-07-23 17:41] LABS: ALB/GLOB RATIO 0.9 (1.0-2.1); ALBUMIN 3.1 g/dL (3.5-5.0); ALT/SGPT 199 U/L (9-52); AST/SGOT 211 U/L (14-36); BLOOD UREA NITROGEN 35 mg/dl (7-17); CALCIUM 8.3 mg/dL (8.4-10.2); GFR AFRICAN-AMERICAN > 60; GFR NON-AFRICAN AMERICAN > 60
[2017-07-23] MEDS: Oxycodone/Acetaminophen 5/325 mg Tab PO PRN (23:31)
[2017-07-24 06:48] LABS: HEMOGLOBIN 7.9 g/dL (12.0-16.0); MEAN CELL VOLUME 95.1 fl (81.0-99.0); MEAN CORPUSCULAR HEMOGLOBIN 32.4 pg (27.0-31.0); MEAN CORPUSCULAR HGB CONC 34.1 g/dL (33.0-37.0); RBC 2.45 Mil/uL (3.80-5.20); RED CELL DISTRIBUTION WIDTH 15.8 % (11.5-14.5); WHITE BLOOD COUNT 9.7 K/uL (4.8-10.8)
[2017-07-24 06:59] LABS: ALB/GLOB RATIO 0.9 (1.0-2.1); ALBUMIN 2.6 g/dL (3.5-5.0); ALT/SGPT 155 U/L (9-52); AST/SGOT 140 U/L (14-36); BLOOD UREA NITROGEN 28 mg/dl (7-17); GFR AFRICAN-AMERICAN > 60; GFR NON-AFRICAN AMERICAN > 60
--- NOTE | 2017-07-24 08:00 | RAD ---
HISTORY: cough COMPARISON: Portable chest 07/18/2017. FINDINGS: LUNGS: Inspiratory volume appears diminished. Linear atelectasis identified at the right base with elevation of the right hemidiaphragm again evident. Underlying airspace disease not excluded the medial right base with none apparent otherwise. PLEURA: No definite pneumothorax or pleural effusion identified bilaterally. CARDIOVASCULAR: Cardiac silhouette appears stable. No definite pulmonary vascular congestion. OSSEOUS STRUCTURES: No significant abnormalities. VISUALIZED UPPER ABDOMEN: IVC filter again noted in the abdomen. OTHER FINDINGS: None. IMPRESSION: Diminished inspiratory volume is noted. Linear atelectasis identified at the right base with potential airspace disease in the right infrahilar space. Examination otherwise appears stable in the interval.
--- NOTE | 2017-07-24 08:50 | CT ---
PROCEDURE: CT Abdomen and Pelvis with contrast HISTORY: GI bleed COMPARISON: Chest CT with contrast 07/18/2017, abdomen and pelvis CT with contrast 05/09/2014. TECHNIQUE: Contrast dose: Omnipaque 300, 85 cc Radiation dose: Total exam DLP = 1046.55 mGy-cm. This CT exam was performed using one or more of the following dose reduction techniques: Automated exposure control, adjustment of the mA and/or kV according to patient size, and/or use of iterative reconstruction technique. FINDINGS: LOWER THORAX: Mild right pleural effusion slightly increased. Minimally diminished loculated left pleural effusion. Compression atelectasis favored over infiltrates bilateral bases with bibasilar linear atelectasis or fibrosis again evident. LIVER: There is interval enlargement of the liver too increase in size of a cystic lesion at the right lobe liver now measuring 14.0 x 14.1 by 19.8 cm (transverse by anteroposterior by superoinferior dimensions) compared to 9.6 x 9.6 x 10.3 cm on 05/09/2014. Is was incompletely captured in the prior chest CT 07/18/2017 due to chest protocol. However, in the prior 2 CTs noted above, the cystic collection was homogeneous in low-density appearance measuring approximately 14.5 Hounsfield units in both examinations. Interval internal heterogeneous hyperdensity is now identified within the cyst appearing similar to muscle density at this time but less than enhanced liver parenchyma. Average density is approximately 41 Hounsfield units at this time in the cyst with the pattern suggests of internal hemorrhage. A sub cm lucency is stable at the medial right lobe liver, propagating anteriorly due to increase in size of the cyst. No definite additional hepatic lesion. GALLBLADDER AND BILE DUCTS: Gallbladder lumen appears somewhat hyperdense reflecting vicarious excretion of iodinated contrast material from prior chest CT 07/18/2017. The distal common hepatic duct and proximal to mid common bile duct are dilated to 10-11 mm caliber with the distal CBD measuring 7.5 mm for tapering to a normal caliber approaching the region of the ampulla. No radiodense choledocholithiasis is appreciable. PANCREAS: Pancreas appears largely fat replaced and moderately atrophic. SPLEEN: Unremarkable. ADRENALS: A stable left adrenal mass enhances heterogeneously measuring 2.1 x 2.1 x 1.8 cm once again but is diminished in size compared to 2.7 cm greatest dimension on 05/09/2014. Right adrenal gland appears grossly nonfocal but is compressed somewhat by the right lobe hepatic cystic lesion. KIDNEYS AND URETERS: The right kidney is also somewhat compressed at the upper pole by the large hepatic cyst with a 2 cm exophytic cyst identified off the upper midpole medially. A 1.7 cm cyst seen at the anterior segment midpole left kidney once again. VASCULATURE: Atherosclerotic but non aneurysmal abdominal aorta identified. A vena cava filter identified placed in the infrarenal IVC. BOWEL: The bowel does not appear obstructed and there is mildly prominent fecal loading throughout the proximal and mid large-bowel segments. Proximal to mid sigmoid diverticular changes are identified without diverticulitis. Small bowel loops appear grossly unremarkable. APPENDIX: Normal appendix. PERITONEUM: Trace perihepatic ascites identified, borderline mesenteric edema. LYMPH NODES: Unremarkable. No enlarged lymph nodes. BLADDER: Distended but thin walled and otherwise unremarkable. REPRODUCTIVE: Fibroid changes are seen partially calcified at the uterus. BONES: Scoliotic visualize thoracolumbar spinal deformity with advanced multilevel degenerative disease appreciated. OTHER FINDINGS: Prominent soft tissue edema in the superficial and deep subcutaneous soft tissues of the lower chest and diffusely throughout the abdomen and pelvis distribution. IMPRESSION: 1. Intracystic hemorrhage is identified within a large right lobe hepatic cyst measuring 14.0 x 14.1 by in 19.8 cm as discussed above, occurring as in no interval finding compared prior chest CT 07/18/2017 incidentally capturing the same hepatic cyst nearly completely. Limited perihepatic ascites. Although sigmoid diverticular changes are identified, no suspicious bowel findings or appreciated this time. Clinically correlate further. 2. Extrahepatic biliary dilatation including CBD measuring up to 10 mm at its proximal mid segment and taper down to 7.5 mm distally without radiodense choledocholithiasis appreciated. No definite pancreatic mass appreciable. No intrahepatic biliary dilatation. (Discordant finding from [facility] interpretation 07/23/2017) 3. Bilateral renal cysts. 4. 2.1 cm left adrenal mass reiterated compared to prior chest CT 07/18/2017 but diminished in size compared to distant abdomen pelvis CT 05/09/2014. 5. Other lesser findings as discussed above. Other than Impression number 2, concordant with [facility] interpretation 07/23/2017. Discussed with Dr. Bui with written down and read back verification 07/24/2017 8:44 a.m..
[2017-07-24] MEDS: diltiaZEM 120 mg/24 Hours CD Cap PO SCH (09:59)
[2017-07-24] MEDS: Potassium Chloride 20 mEq ER Tab PO SCH (10:01)
[2017-07-24] MEDS: Pantoprazole 40 mg EC Tab PO SCH ×2 (10:02→16:52)
[2017-07-24] MEDS: Lidocaine 5% Patch TD SCH (10:03)
[2017-07-24] MEDS: Oxycodone/Acetaminophen 5/325 mg Tab PO PRN (10:12)
--- NOTE | 2017-07-24 12:52 | CP.PCM.HP ---
History of Present Illness - History of Present Illness History of Present Illness: CC: acute anemia HPI: 87 y/o woman w/ pmh of chronic preserved EF (diastolic) CHF, chronic bilateral DVT, afib, HTN, hepatic cyst admitted to [facility] for acute anemia. Patient was in TCU for continuation of physical therapy when CBC showed Hb 5.4. Patient sent to ED for evaluation. Patient denies blood in stool. Patient complains of chronic right sided lower abdominal pain. Patient deneis ehadaches , chest pain, SOB, nausea, vomiting, diarrhea, dysuria, or fever. PMD: Dr. Huang (unsure of first name) PMH: chronic preserved EF (diastolic) CHF, chronic bilateral DVT, afib, HTN, hepatic cyst meds: see med list PSH: herniorrhaphy x2 Fam: non-contributory SOC: denies smoking, alcohol, and drugs ROS: 12 points assessed and negative unless otherwise reported in HPI Present on Admission - Present on Admission Any Indicators Present on Admission: No History of DVT/PE: Yes History of Uncontrolled Diabetes: No Urinary Catheter: No Decubitus Ulcer Present: No Review of Systems - Review of Systems All systems: reviewed and no additional remarkable complaints except - Constitutional Constitutional: absent: Chills, Fever - EENT Eyes: absent: Change in Vision - Cardiovascular Cardiovascular: absent: Chest Pain - Respiratory Respiratory: absent: Dyspnea - Gastrointestinal Gastrointestinal: As Per HPI, Abdominal Pain. absent: Diarrhea, Hematochezia, Melena, Nausea, Vomiting - Genitourinary Genitourinary: absent: Dysuria - Integumentary Integumentary: absent: Rash Past Patient History - Infectious Disease Hx of Infectious Diseases: None - Past Medical History & Family History Past Medical History?: Yes - Past Social History Smoking Status: Never Smoked - CARDIAC Hx Cardiac Disorders: Yes Hx Atrial Fibrillation: Yes Hx Cardia Arrhythmia: Yes Hx Hypercholesterolemia: Yes Hx Hypertension: Yes Hx Peripheral Edema: Yes - PULMONARY Hx Respiratory Disorders: No - NEUROLOGICAL Hx Neurological Disorder: No - HEENT Hx HEENT Problems: Yes - RENAL Hx Chronic Kidney Disease: No - ENDOCRINE/METABOLIC Hx Endocrine Disorders: Yes - HEMATOLOGICAL/ONCOLOGICAL Hx Blood Disorders: Yes Hx AIDS: No Hx Anemia: Yes Hx Human Immunodeficiency Virus (HIV): No - INTEGUMENTARY Hx Dermatological Problems: No - MUSCULOSKELETAL/RHEUMATOLOGICAL Hx Musculoskeletal Disorders: Yes Hx Arthritis: Yes Hx Falls: No Hx Fractures: Yes - GASTROINTESTINAL Hx Gastrointestinal Disorders: Yes Hx Diverticulitis: Yes - GENITOURINARY/GYNECOLOGICAL Hx Genitourinary Disorders: No - PSYCHIATRIC Hx Psychophysiologic Disorder: Yes Hx Anxiety: Yes Hx Depression: Yes Hx Substance Use: No - SURGICAL HISTORY Hx Surgeries: Yes Hx Herniorrhaphy: Yes (x 2) - ANESTHESIA Hx Anesthesia: Yes Hx Anesthesia Reactions: No Hx Malignant Hyperthermia: No Meds Allergies/Adverse Reactions: Allergies Allergy/AdvReac Type Severity Reaction Status Date / Time No Known Allergies Allergy Verified 07/21/17 14:50 Physical Exam - Constitutional Appears: Non-toxic, No Acute Distress - Head Exam Head Exam: ATRAUMATIC, NORMAL INSPECTION, NORMOCEPHALIC - Eye Exam Eye Exam: Normal appearance - ENT Exam ENT Exam: Mucous Membranes Moist - Neck Exam Neck exam: Positive for: Full Rom. Negative for: Tenderness - Respiratory Exam Respiratory Exam: Clear to Auscultation Bilateral. absent: Accessory Muscle Use , Decreased Breath Sounds, Rales, Rhonchi, Wheezes, Respiratory Distress - Cardiovascular Exam Cardiovascular Exam: Irregular Rhythm. absent: Tachycardia - GI/Abdominal Exam GI & Abdominal Exam: Normal Bowel Sounds, Soft, Tenderness (RUQ ). absent: Distended - Extremities Exam Extremities exam: Positive for: normal inspection. Negative for: calf tenderness, tenderness - Neurological Exam Neurological exam: Alert, Oriented x3 - Skin Skin Exam: Dry, Intact, Normal Color, Warm Results - Vital Signs Recent Vital Signs: Last Vital Signs Temp 98.3 F 07/24/17 12:18 Pulse 75 07/24/17 12:18 Resp 18 07/24/17 12:18 BP 125/75 07/24/17 12:18 Pulse Ox 92 L 07/24/17 12:18 - Labs Result Diagrams: 07/24/17 06:00 07/24/17 06:00 Labs: Laboratory Results - last 24 hr 07/23/17 07/23/17 07/23/17 16:30 17:00 17:00 WBC 14.4 H RBC 1.60 L Hgb 5.3 L* Hct 16.3 L MCV 101.9 H MCH 32.9 H MCHC 32.3 L RDW 17.8 H Plt Count 216 MPV 7.3 Neut % (Auto) 72.1 Lymph % (Auto) 11.8 L [place] % (Auto) 14.8 H Eos % (Auto) 0.5 Baso % (Auto) 0.8 Neut # (Auto) 10.4 H Lymph # (Auto) 1.7 [place] # (Auto) 2.1 H Eos # (Auto) 0.1 Baso # (Auto) 0.1 PT INR Sodium 130 L Potassium 5.1 H Chloride 97 L Carbon Dioxide 24 Anion Gap 14 BUN 35 H Creatinine 0.8 Est GFR ( Amer) > 60 Est GFR (Non-Af Amer) > 60 POC Glucose (mg/dL) Random Glucose 98 Calcium 8.3 L Total Bilirubin 1.7 H AST 211 H ALT 199 H Alkaline Phosphatase 94 Total Protein 6.3 Albumin 3.1 L Globulin 3.2 Albumin/Globulin Ratio 0.9 L Stool Occult Blood Negative Blood Type Antibody Screen Crossmatch BBK History Checked 07/23/17 07/23/17 07/24/17 17:00 17:00 05:33 WBC RBC Hgb Hct MCV MCH MCHC RDW Plt Count MPV Neut % (Auto) Lymph % (Auto) [place] % (Auto) Eos % (Auto) Baso % (Auto) Neut # (Auto) Lymph # (Auto) [place] # (Auto) Eos # (Auto) Baso # (Auto) PT 11.0 INR 1.0 Sodium Potassium Chloride Carbon Dioxide Anion Gap BUN Creatinine Est GFR ( Amer) Est GFR (Non-Af Amer) POC Glucose (mg/dL) 98 Random Glucose Calcium Total Bilirubin AST ALT Alkaline Phosphatase Total Protein Albumin Globulin Albumin/Globulin Ratio Stool Occult Blood Blood Type O POSITIVE Antibody Screen Negative Crossmatch See Detail BBK History Checked Patient has bt 07/24/17 07/24/17 07/24/17 06:00 06:00 11:05 WBC 9.7 RBC 2.45 L Hgb 7.9 L D Hct 23.3 L MCV 95.1 D MCH 32.4 H MCHC 34.1 RDW 15.8 H Plt Count 155 MPV Neut % (Auto) Lymph % (Auto) [place] % (Auto) Eos % (Auto) Baso % (Auto) Neut # (Auto) Lymph # (Auto) [place] # (Auto) Eos # (Auto) Baso # (Auto) PT INR Sodium 131 L Potassium 4.0 Chloride 97 L Carbon Dioxide 24 Anion Gap 14 BUN 28 H Creatinine 0.7 Est GFR ( Amer) > 60 Est GFR (Non-Af Amer) > 60 POC Glucose (mg/dL) 98 Random Glucose 88 Calcium 8.0 L Total Bilirubin 1.3 AST 140 H D ALT 155 H D Alkaline Phosphatase 78 Total Protein 5.6 L Albumin 2.6 L Globulin 3.0 Albumin/Globulin Ratio 0.9 L Stool Occult Blood Blood Type Antibody Screen Crossmatch BBK History Checked Assessment & Plan (1) Anemia Status: Acute (2) Afib Status: Chronic (3) Diabetes type 2, uncontrolled Status: Chronic (4) CHF (congestive heart failure) Status: Chronic (5) DVT of lower extremity, bilateral Status: Chronic (6) Hepatic cyst Status: Chronic - Assessment and Plan (Free Text) Plan: afebrile, non-tachycardic, normotensive Infectious Disease consult ordered blood culture: gram+ cocci in clusters start vancomycin 1 gm IV daily day 1 s/p 2 units PRBCs to receive 2 more units of PRBCs prophylactic measures: no anticoagulation due to chronic bilateral DVT monitor for acute changes
--- NOTE | 2017-07-24 14:10 | CP.PCM.CON ---
History of Present Illness - History of Present Illness History of Present Illness: 87 y/o woman admitted to Tele for acute anemia and referred for ID eval for Positive Blood c/s Pt denies fever chills or dysuria no cough or sob C/o leg pain and swelling Patient was in TCU for continuation of physical therapy when CBC showed Hb 5.4. Patient sent to ED for evaluation. Patient denies blood in stool. Patient complains of chronic right sided lower abdominal pain. Patient deneis headaches, chest pain, SOB, nausea, vomiting, diarrhea, dysuria, or fever. PMH: chronic preserved EF (diastolic) CHF, chronic bilateral DVT, afib, HTN, hepatic cyst meds: see med list PSH: herniorrhaphy x2 Fam: non-contributory SOC: denies smoking, alcohol, and drugs ROS: 12 points assessed and negative unless otherwise reported in HPI Review of Systems - Review of Systems All systems: reviewed and no additional remarkable complaints except - Constitutional Constitutional: As Per HPI - EENT Eyes: absent: As Per HPI, Blind Spots, Blurred Vision, Change in Vision, Decreased Night Vision, Diplopia, Discharge, Dry Eye, Exophthalmos, Floaters, Irritation, Itchy Eyes, Loss of Peripheral Vision, Pain, Photophobia, Requires Corrective Lenses, Sees Flashes, Spots in Vision, Tunnel Vision, Other Visual Disturbances, Loss of Vision, Other Ears: absent: As Per HPI, Decreased Hearing, Ear Discharge, Ear Pain, Tinnitus, Abnormal Hearing, Disequilibrium, Dizziness, Other Nose/Mouth/Throat: absent: As Per HPI, Epistaxis, Nasal Congestion, Nasal Discharge, Nasal Obstruction, Nasal Trauma, Nose Pain, Post Nasal Drip, Sinus Pain, Sinus Pressure, Bleeding Gums, Change in Voice, Dental Pain, Dry Mouth, Dysphagia, Halitosis, Hoarsness, Lip Swelling, Mouth Lesions, Mouth Pain, Odynophagia, Sore Throat, Throat Swelling, Tongue Swelling, Facial Pain, Neck Pain, Neck Mass, Other - Breasts Breasts: absent: As Per HPI, Change in Shape, Mass, Pain, Nipple Discharge, Nipple Inversion, Skin Changes, Swelling, Other - Cardiovascular Cardiovascular: As Per HPI - Respiratory Respiratory: absent: As Per HPI, Cough, Dyspnea, Hemoptysis, Dyspnea on Exertion , Wheezing, Snoring, Stridor, Pain on Inspiration, Chest Congestion, Excessive Mucous Production, Change in Mucous Color, Pain with Coughing, Other - Gastrointestinal Gastrointestinal: absent: As Per HPI, Abdominal Pain, Belching, Bloating, Change in Bowel Habits, Change in Stool Character, Coffee Ground Emesis, Constipation, Cramping, Diarrhea, Dyspepsia, Dysphagia, Early Satiety, Excessive Flatus, Fecal Incontinence, Heartburn, Hematemesis, Hematochezia, Loose Stools, Melena, Nausea, Odynophagia, Temesmus, Vomiting, Other - Genitourinary Genitourinary: absent: As Per HPI, Change in Urinary Stream, Difficulty Urinating, Dysuria, Flank Pain, Hematuria, Pyuria, Nocturia, Urinary Incontinence, Urinary Frequency, Urinary Hesitance, Urinary Urgency, Voiding Freq/Small Amts, Freq UTI, Hx Renal/Bladder Calculi, Hx /Renal Surgery, Bladder Distension, Other - Reproductive: Female Reproductive:Female: absent: As Per HPI, Amenorrhea, Amenorrhea/ Control, Currently Menstual, Cycle <21 Days, Cycle >35 Days, Cycle Variable, Menses 1-7 Days, Menses >/= 8 Days, Menses Variable, Cycle > 4 Weeks Between, No Menses for 6 Months, Heavy Menses, Light Menses, Normal Menses, Spotting Between Cycles , S/P Hysterectomy, Menopausal, Post Menopausal, Premenarche, Abnormal Vaginal Bleeding, Dysmenorrhea, Dyspareunia, Genital Lesions, Genital Pruritis, Pelvic Pain, Prolapse Symptoms, Sexual Dysfunction, Vaginal Discharge, Vaginal Dryness , Vaginal Odor, Vaginal Pruritis, Other - Menstruation Menstruation: absent: As Per HPI, Amenorrhea, Amenorrhea/ Control, Currently Menstual, Cycle <21 Days, Cycle >35 Days, Cycle Variable, Menses 1-7 Days, Menses >/= 8 Days, Menses Variable, Cycle > 4 Weeks Between, No Menses for 6 Months, Heavy Menses, Light Menses, Normal Menses, Spotting Between Cycles , S/P Hysterectomy, Menopausal, Post Menopausal, Premenarche, Abnormal Vaginal Bleeding, Dysmenorrhea, Other - Musculoskeletal Musculoskeletal: As Per HPI - Integumentary Integumentary: As Per HPI - Neurological Neurological: absent: As Per HPI, Abnormal Gait, Abnormal Hearing, Abnormal Movements, Abnormal Speech, Behavioral Changes, Burning Sensations, Confusion, Convulsions, Disequilibrium, Dizziness, Numbness, Focal Weakness, Frequent Falls , Headaches, Lack of Coordination, Loss of Vision, Memory Loss, Paresthesias, Radicular Pain, Restless Legs, Sensory Deficit, Syncope, Tingling, Tremor, Vertigo, Weakness, Other Visual Disturbances, Other - Psychiatric Psychiatric: absent: As Per HPI, Abnormal Sleep Pattern, Anhedonia, Anxiety, Auditory Hallucinations, Behavioral Changes, Change in Appetite, Change in Libido, Confusion, Depression, Difficulty Concentrating, Hallucinations, Homicidal Ideation, Hopelessness, Irritability, Memory Loss, Mood Swings, Panic Attacks, Paranoia, Suicidal Ideation, Visual Hallucinations, Tactile Hallucinations, Other - Endocrine Endocrine: absent: As Per HPI, Change in Body Appearance, Change in Libido, Cold Intolorance, Deepening of Voice, Excessive Sweating, Fatigue, Flushing, Heat Intolorance, Increase in Ring/Shoe/Hat Size, Palpitations, Polydipsia, Polyphagia, Polyuria, Other - Hematologic/Lymphatic Hematologic: absent: As Per HPI, Easy Bleeding, Easy Bruising, Lymphadenopathy, Other Past Patient History - Infectious Disease Hx of Infectious Diseases: None - Past Medical History & Family History Past Medical History?: Yes - Past Social History Smoking Status: Never Smoked - CARDIAC Hx Cardiac Disorders: Yes Hx Atrial Fibrillation: Yes Hx Cardia Arrhythmia: Yes Hx Hypercholesterolemia: Yes Hx Hypertension: Yes Hx Peripheral Edema: Yes - PULMONARY Hx Respiratory Disorders: No - NEUROLOGICAL Hx Neurological Disorder: No - HEENT Hx HEENT Problems: Yes - RENAL Hx Chronic Kidney Disease: No - ENDOCRINE/METABOLIC Hx Endocrine Disorders: Yes - HEMATOLOGICAL/ONCOLOGICAL Hx Blood Disorders: Yes Hx AIDS: No Hx Anemia: Yes Hx Human Immunodeficiency Virus (HIV): No - INTEGUMENTARY Hx Dermatological Problems: No - MUSCULOSKELETAL/RHEUMATOLOGICAL Hx Musculoskeletal Disorders: Yes Hx Arthritis: Yes Hx Falls: No Hx Fractures: Yes - GASTROINTESTINAL Hx Gastrointestinal Disorders: Yes Hx Diverticulitis: Yes - GENITOURINARY/GYNECOLOGICAL Hx Genitourinary Disorders: No - PSYCHIATRIC Hx Psychophysiologic Disorder: Yes Hx Anxiety: Yes Hx Depression: Yes Hx Substance Use: No - SURGICAL HISTORY Hx Surgeries: Yes Hx Herniorrhaphy: Yes (x 2) - ANESTHESIA Hx Anesthesia: Yes Hx Anesthesia Reactions: No Hx Malignant Hyperthermia: No Meds Allergies/Adverse Reactions: Allergies Allergy/AdvReac Type Severity Reaction Status Date / Time No Known Allergies Allergy Verified 07/21/17 14:50 - Medications Medications: Current Medications Diltiazem HCl (Cardizem Cd) 120 mg PO DAILY [facility] Last Admin: 07/24/17 09:59 Dose: 120 mg Escitalopram Oxalate (Lexapro) 10 mg PO DAILY [facility] Last Admin: 07/24/17 10:02 Dose: 10 mg Furosemide (Lasix) 40 mg PO DAILY [facility] Last Admin: 07/24/17 10:02 Dose: 40 mg Hydrocortisone (Hydrocortisone Lotion 2.5%) 1 applic TP BID [facility] Vancomycin HCl 1 gm/ Sodium (Chloride) 250 mls @ 166.667 mls/hr IVPB DAILY [facility] PRN Reason: Protocol Lactic Acid (Lac-Hydrin 12% Lotion (225 G)) 1 applic TOP DAILY [facility] Last Admin: 07/24/17 10:00 Dose: 1 applic Lidocaine (Lidoderm) 1 ea TD DAILY [facility] Last Admin: 07/24/17 10:03 Dose: 1 ea Lorazepam (Ativan) 0.5 mg PO BID PRN PRN Reason: Anxiety Metformin HCl (Glucophage) 500 mg PO DAILY [facility] Last Admin: 07/24/17 10:00 Dose: 500 mg Oxycodone/Acetaminophen (Percocet 5/325 Mg Tab) 1 tab PO Q4 PRN PRN Reason: Pain, moderate (4-7) Stop: 07/26/17 22:29 Last Admin: 07/24/17 10:12 Dose: 1 tab Pantoprazole Sodium (Protonix Ec Tab) 40 mg PO BID [facility] Last Admin: 07/24/17 10:02 Dose: 40 mg Potassium Chloride (K-Dur 20 Meq Er Tab) 20 meq PO DAILY [facility] Last Admin: 07/24/17 10:01 Dose: 20 meq Sitagliptin Phosphate (Januvia) 100 mg PO DAILY [facility] Last Admin: 07/24/17 10:01 Dose: 100 mg Physical Exam - Constitutional Appears: Non-toxic, Chronically Ill - Head Exam Head Exam: ATRAUMATIC, NORMOCEPHALIC - Eye Exam Eye Exam: PERRL - ENT Exam ENT Exam: Mucous Membranes Dry - Neck Exam Neck exam: Negative for: Lymphadenopathy - Respiratory Exam Respiratory Exam: Decreased Breath Sounds - Cardiovascular Exam Cardiovascular Exam: REGULAR RHYTHM - GI/Abdominal Exam GI & Abdominal Exam: Diminished Bowel Sounds, Soft - Rectal Exam Rectal Exam: Deferred - Exam Exam: NORMAL INSPECTION - Extremities Exam Extremities exam: Positive for: pedal edema, pedal pulses present. Negative for : calf tenderness - Back Exam Back exam: absent: CVA tenderness (L), CVA tenderness (R) - Neurological Exam Neurological exam: Alert, CN II-XII Intact, Oriented x3, Reflexes Normal - Psychiatric Exam Psychiatric exam: Depressed Results - Vital Signs Recent Vital Signs: Last Vital Signs Temp 98.3 F 07/24/17 12:18 Pulse 75 07/24/17 12:18 Resp 18 07/24/17 12:18 BP 125/75 07/24/17 12:18 Pulse Ox 92 L 07/24/17 12:18 - Labs Result Diagrams: 07/24/17 06:00 07/24/17 06:00 Labs: Laboratory Results - last 24 hr 07/23/17 07/23/17 07/23/17 16:30 17:00 17:00 WBC 14.4 H RBC 1.60 L Hgb 5.3 L* Hct 16.3 L MCV 101.9 H MCH 32.9 H MCHC 32.3 L RDW 17.8 H Plt Count 216 MPV 7.3 Neut % (Auto) 72.1 Lymph % (Auto) 11.8 L [place] % (Auto) 14.8 H Eos % (Auto) 0.5 Baso % (Auto) 0.8 Neut # (Auto) 10.4 H Lymph # (Auto) 1.7 [place] # (Auto) 2.1 H Eos # (Auto) 0.1 Baso # (Auto) 0.1 PT INR Sodium 130 L Potassium 5.1 H Chloride 97 L Carbon Dioxide 24 Anion Gap 14 BUN 35 H Creatinine 0.8 Est GFR ( Amer) > 60 Est GFR (Non-Af Amer) > 60 POC Glucose (mg/dL) Random Glucose 98 Calcium 8.3 L Total Bilirubin 1.7 H AST 211 H ALT 199 H Alkaline Phosphatase 94 Total Protein 6.3 Albumin 3.1 L Globulin 3.2 Albumin/Globulin Ratio 0.9 L Stool Occult Blood Negative Blood Type Antibody Screen Crossmatch BBK History Checked 07/23/17 07/23/17 07/24/17 17:00 17:00 05:33 WBC RBC Hgb Hct MCV MCH MCHC RDW Plt Count MPV Neut % (Auto) Lymph % (Auto) [place] % (Auto) Eos % (Auto) Baso % (Auto) Neut # (Auto) Lymph # (Auto) [place] # (Auto) Eos # (Auto) Baso # (Auto) PT 11.0 INR 1.0 Sodium Potassium Chloride Carbon Dioxide Anion Gap BUN Creatinine Est GFR ( Amer) Est GFR (Non-Af Amer) POC Glucose (mg/dL) 98 Random Glucose Calcium Total Bilirubin AST ALT Alkaline Phosphatase Total Protein Albumin Globulin Albumin/Globulin Ratio Stool Occult Blood Blood Type O POSITIVE Antibody Screen Negative Crossmatch See Detail BBK History Checked Patient has bt 07/24/17 07/24/17 07/24/17 06:00 06:00 11:05 WBC 9.7 RBC 2.45 L Hgb 7.9 L D Hct 23.3 L MCV 95.1 D MCH 32.4 H MCHC 34.1 RDW 15.8 H Plt Count 155 MPV Neut % (Auto) Lymph % (Auto) [place] % (Auto) Eos % (Auto) Baso % (Auto) Neut # (Auto) Lymph # (Auto) [place] # (Auto) Eos # (Auto) Baso # (Auto) PT INR Sodium 131 L Potassium 4.0 Chloride 97 L Carbon Dioxide 24 Anion Gap 14 BUN 28 H Creatinine 0.7 Est GFR ( Amer) > 60 Est GFR (Non-Af Amer) > 60 POC Glucose (mg/dL) 98 Random Glucose 88 Calcium 8.0 L Total Bilirubin 1.3 AST 140 H D ALT 155 H D Alkaline Phosphatase 78 Total Protein 5.6 L Albumin 2.6 L Globulin 3.0 Albumin/Globulin Ratio 0.9 L Stool Occult Blood Blood Type Antibody Screen Crossmatch BBK History Checked Assessment & Plan (1) Anemia Status: Acute (2) Abdominal pain Status: Acute - Assessment and Plan (Free Text) Assessment: bleeding hepatic cyst r/o malignancy vs infection ( echinococcus ? ) consider GI and surgical eval serologies and cultures sent prognosis guarded
--- NOTE | 2017-07-24 16:24 | CARD ---
APPROVED REPORT EKG Measurement Heart [id number] <Conclusion> Atrial fibrillation Nonspecific T wave abnormality Abnormal ECG
--- NOTE | 2017-07-24 18:13 | CP.PCM.CON ---
History of Present Illness - History of Present Illness History of Present Illness: Consult Note- Dr. 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 States some nausea, no vomiting. Denies BRBPR, diarrhea, fevers, chills, dizziness, lightheadedness. During workup patient was found to have Hgb of 5.4 and was transfused 2 units of PRBC with appropriate response to Hgb of 7.9. On CT scan showed previously seen cyst with active bleeding contained within the cyst capsule. PMH: stated above PSH: hernia repair x2 ALL: NKDA SocialHx: denies tobacco, etoh, recreational drug use FH: non-contributory 12 pt ROS conducted, negative otherwise stated above Review of Systems - Review of Systems All systems: reviewed and no additional remarkable complaints except - Constitutional Constitutional: As Per HPI Past Patient History - Infectious Disease Hx of Infectious Diseases: None - Past Medical History & Family History Past Medical History?: Yes - Past Social History Smoking Status: Never Smoked - CARDIAC Hx Cardiac Disorders: Yes Hx Atrial Fibrillation: Yes Hx Cardia Arrhythmia: Yes Hx Hypercholesterolemia: Yes Hx Hypertension: Yes Hx Peripheral Edema: Yes - PULMONARY Hx Respiratory Disorders: No - NEUROLOGICAL Hx Neurological Disorder: No - HEENT Hx HEENT Problems: Yes - RENAL Hx Chronic Kidney Disease: No - ENDOCRINE/METABOLIC Hx Endocrine Disorders: Yes - HEMATOLOGICAL/ONCOLOGICAL Hx Blood Disorders: Yes Hx AIDS: No Hx Anemia: Yes Hx Human Immunodeficiency Virus (HIV): No - INTEGUMENTARY Hx Dermatological Problems: No - MUSCULOSKELETAL/RHEUMATOLOGICAL Hx Musculoskeletal Disorders: Yes Hx Arthritis: Yes Hx Falls: No Hx Fractures: Yes - GASTROINTESTINAL Hx Gastrointestinal Disorders: Yes Hx Diverticulitis: Yes - GENITOURINARY/GYNECOLOGICAL Hx Genitourinary Disorders: No - PSYCHIATRIC Hx Psychophysiologic Disorder: Yes Hx Anxiety: Yes Hx Depression: Yes Hx Substance Use: No - SURGICAL HISTORY Hx Surgeries: Yes Hx Herniorrhaphy: Yes (x 2) - ANESTHESIA Hx Anesthesia: Yes Hx Anesthesia Reactions: No Hx Malignant Hyperthermia: No Meds Allergies/Adverse Reactions: Allergies Allergy/AdvReac Type Severity Reaction Status Date / Time No Known Allergies Allergy Verified 07/21/17 14:50 - Medications Medications: Current Medications Diltiazem HCl (Cardizem Cd) 120 mg PO DAILY [facility] Last Admin: 07/24/17 09:59 Dose: 120 mg Escitalopram Oxalate (Lexapro) 10 mg PO DAILY [facility] Last Admin: 07/24/17 10:02 Dose: 10 mg Furosemide (Lasix) 40 mg PO DAILY [facility] Last Admin: 07/24/17 10:02 Dose: 40 mg Hydrocortisone (Hydrocortisone Lotion 2.5%) 1 applic TP BID [facility] Last Admin: 07/24/17 16:53 Dose: Not Given Vancomycin HCl 1 gm/ Sodium (Chloride) 250 mls @ 166.667 mls/hr IVPB DAILY [facility] PRN Reason: Protocol Last Admin: 07/24/17 15:04 Dose: 166.667 mls/hr Lactic Acid (Lac-Hydrin 12% Lotion (225 G)) 1 applic TOP DAILY [facility] Last Admin: 07/24/17 10:00 Dose: 1 applic Lidocaine (Lidoderm) 1 ea TD DAILY [facility] Last Admin: 07/24/17 10:03 Dose: 1 ea Lorazepam (Ativan) 0.5 mg PO BID PRN PRN Reason: Anxiety Metformin HCl (Glucophage) 500 mg PO DAILY [facility] Last Admin: 07/24/17 10:00 Dose: 500 mg Oxycodone/Acetaminophen (Percocet 5/325 Mg Tab) 1 tab PO Q4 PRN PRN Reason: Pain, moderate (4-7) Stop: 07/26/17 22:29 Last Admin: 07/24/17 10:12 Dose: 1 tab Pantoprazole Sodium (Protonix Ec Tab) 40 mg PO BID [facility] Last Admin: 07/24/17 16:52 Dose: 40 mg Potassium Chloride (K-Dur 20 Meq Er Tab) 20 meq PO DAILY [facility] Last Admin: 07/24/17 10:01 Dose: 20 meq Sitagliptin Phosphate (Januvia) 100 mg PO DAILY [facility] Last Admin: 07/24/17 10:01 Dose: 100 mg Physical Exam - Constitutional Appears: Non-toxic, No Acute Distress - Head Exam Head Exam: ATRAUMATIC - Eye Exam Eye Exam: EOMI. absent: Scleral icterus - ENT Exam ENT Exam: Mucous Membranes Moist - Respiratory Exam Respiratory Exam: NORMAL BREATHING PATTERN. absent: Accessory Muscle Use, Respiratory Distress - Cardiovascular Exam Cardiovascular Exam: Irregular Rhythm, +S1, +S2. absent: Bradycardia, Tachycardia Additional comments: HR 78 - GI/Abdominal Exam GI & Abdominal Exam: Soft, Tenderness Additional comments: Tender to palpation in RUQ Liver palpable below costal margin - Extremities Exam Extremities exam: Negative for: calf tenderness - Neurological Exam Neurological exam: Alert - Skin Skin Exam: Intact, Warm Results - Vital Signs Recent Vital Signs: Last Vital Signs Temp 98 F 07/24/17 16:31 Pulse 78 07/24/17 16:31 Resp 20 07/24/17 16:31 BP 127/72 07/24/17 16:31 Pulse Ox 98 07/24/17 16:31 - Labs Result Diagrams: 07/24/17 06:00 07/24/17 06:00 Labs: Laboratory Results - last 24 hr 07/23/17 07/23/17 07/24/17 16:30 17:00 05:33 WBC RBC Hgb Hct MCV MCH MCHC RDW Plt Count Sodium Potassium Chloride Carbon Dioxide Anion Gap BUN Creatinine Est GFR ( Amer) Est GFR (Non-Af Amer) POC Glucose (mg/dL) 98 Random Glucose Lactic Acid Calcium Total Bilirubin AST ALT Alkaline Phosphatase Total Protein Albumin Globulin Albumin/Globulin Ratio Stool Occult Blood Negative Blood Type O POSITIVE Antibody Screen Negative Crossmatch See Detail BBK History Checked Patient has bt 07/24/17 07/24/17 07/24/17 06:00 06:00 11:05 WBC 9.7 RBC 2.45 L Hgb 7.9 L D Hct 23.3 L MCV 95.1 D MCH 32.4 H MCHC 34.1 RDW 15.8 H Plt Count 155 Sodium 131 L Potassium 4.0 Chloride 97 L Carbon Dioxide 24 Anion Gap 14 BUN 28 H Creatinine 0.7 Est GFR ( Amer) > 60 Est GFR (Non-Af Amer) > 60 POC Glucose (mg/dL) 98 Random Glucose 88 Lactic Acid Calcium 8.0 L Total Bilirubin 1.3 AST 140 H D ALT 155 H D Alkaline Phosphatase 78 Total Protein 5.6 L Albumin 2.6 L Globulin 3.0 Albumin/Globulin Ratio 0.9 L Stool Occult Blood Blood Type Antibody Screen Crossmatch BBK History Checked 07/24/17 07/24/17 15:56 17:15 WBC RBC Hgb Hct MCV MCH MCHC RDW Plt Count Sodium Potassium Chloride Carbon Dioxide Anion Gap BUN Creatinine Est GFR ( Amer) Est GFR (Non-Af Amer) POC Glucose (mg/dL) 118 H Random Glucose Lactic Acid 0.9 Calcium Total Bilirubin AST ALT Alkaline Phosphatase Total Protein Albumin Globulin Albumin/Globulin Ratio Stool Occult Blood Blood Type Antibody Screen Crossmatch BBK History Checked Assessment & Plan - Assessment and Plan (Free Text) Assessment: 87F w/ bleeding Hepatic cyst contained within the capsule s/p 2units of PRBC transfusion. Currently being transfused 2more units during encounter. AAOx3 Patient is hemodyanimcally stable w/ HR in the 70s, and pressure 125/75 Plan: - repeat H/H after transfusion - HD stable, no need for acute surgical intervention - if Hgb drops again, recommend IR consult for embolization - monitor vitals - no indication for surgical intervention - discussed w/ Dr. Junior surgical attending PGY1
[2017-07-25] MEDS: Oxycodone/Acetaminophen 5/325 mg Tab PO PRN ×2 (02:44→20:59)
--- NOTE | 2017-07-25 07:05 | CP.PCM.PN ---
Subjective - Date & Time of Evaluation Date of Evaluation: 07/25/17 Time of Evaluation: 07:03 - Subjective Subjective: Surgery- Dr. Junior Patient seen and examined at bedside. Awake however seems to be weak. No new complaints. 1U prbc ran overnight, finished around 2300. second unit was held overnight. morning H/H pending. Hemodynamically stable. Objective - Vital Signs/Intake and Output Vital Signs (last 24 hours): Temp Pulse Resp BP Pulse Ox 96.9 F L 75 18 145/64 96 07/25/17 04:48 07/25/17 04:48 07/25/17 04:48 07/25/17 04:48 07/25/17 04:48 - Medications Medications: Current Medications Diltiazem HCl (Cardizem Cd) 120 mg PO DAILY [facility] Last Admin: 07/24/17 09:59 Dose: 120 mg Escitalopram Oxalate (Lexapro) 10 mg PO DAILY [facility] Last Admin: 07/24/17 10:02 Dose: 10 mg Furosemide (Lasix) 40 mg PO DAILY [facility] Last Admin: 07/24/17 10:02 Dose: 40 mg Hydrocortisone (Hydrocortisone Lotion 2.5%) 1 applic TP BID [facility] Last Admin: 07/24/17 16:53 Dose: Not Given Vancomycin HCl 1 gm/ Sodium (Chloride) 250 mls @ 166.667 mls/hr IVPB DAILY [facility] PRN Reason: Protocol Last Admin: 07/24/17 15:04 Dose: 166.667 mls/hr Lactic Acid (Lac-Hydrin 12% Lotion (225 G)) 1 applic TOP DAILY [facility] Last Admin: 07/24/17 10:00 Dose: 1 applic Lidocaine (Lidoderm) 1 ea TD DAILY [facility] Last Admin: 07/24/17 10:03 Dose: 1 ea Lorazepam (Ativan) 0.5 mg PO BID PRN PRN Reason: Anxiety Metformin HCl (Glucophage) 500 mg PO DAILY [facility] Last Admin: 07/24/17 10:00 Dose: 500 mg Oxycodone/Acetaminophen (Percocet 5/325 Mg Tab) 1 tab PO Q4 PRN PRN Reason: Pain, moderate (4-7) Stop: 07/26/17 22:29 Last Admin: 07/25/17 02:44 Dose: 1 tab Pantoprazole Sodium (Protonix Ec Tab) 40 mg PO BID [facility] Last Admin: 07/24/17 16:52 Dose: 40 mg Potassium Chloride (K-Dur 20 Meq Er Tab) 20 meq PO DAILY [facility] Last Admin: 07/24/17 10:01 Dose: 20 meq Sitagliptin Phosphate (Januvia) 100 mg PO DAILY [facility] Last Admin: 07/24/17 10:01 Dose: 100 mg - Labs Labs: 07/24/17 06:00 07/24/17 06:00 PT 11.0 Seconds (9.8-13.1) 07/23/17 17:00 INR 1.0 (0.9-1.2) 07/23/17 17:00 - Constitutional Appears: Non-toxic, No Acute Distress, Chronically Ill - Head Exam Head Exam: ATRAUMATIC - Eye Exam Eye Exam: EOMI - ENT Exam ENT Exam: Mucous Membranes Moist - Respiratory Exam Respiratory Exam: NORMAL BREATHING PATTERN. absent: Accessory Muscle Use, Respiratory Distress - Cardiovascular Exam Cardiovascular Exam: Irregular Rhythm, +S1, +S2. absent: Bradycardia, Tachycardia - GI/Abdominal Exam GI & Abdominal Exam: Soft, Tenderness. absent: Firm, Rigid Additional comments: tender to palpation in mid-epigastric region palpable liver below costal margin - Extremities Exam Extremities Exam: absent: Calf Tenderness - Neurological Exam Neurological Exam: Awake - Psychiatric Exam Psychiatric exam: Normal Affect - Skin Skin Exam: Intact, Warm Assessment and Plan - Assessment and Plan (Free Text) Assessment: 87F w/ bleeding hepatic cyst, seems to be contained within capsule. s/p total 3uPRBC responding appropriately, currently hemodynamically stable. Plan: - AM labs pending - monitor H/H - transfuse PRN; no too aggressive - if suspicion of continued active bleeding; consult IR for possible embolization - no surgical intervention indicated - will follow - discussed w/ Dr. Junior surgical attending PGY1
[2017-07-25] MEDS: Potassium Chloride 20 mEq ER Tab PO SCH (08:48)
[2017-07-25] MEDS: diltiaZEM 120 mg/24 Hours CD Cap PO SCH (08:48)
[2017-07-25] MEDS: Lidocaine 5% Patch TD SCH (08:49)
[2017-07-25] MEDS: Pantoprazole 40 mg EC Tab PO SCH ×2 (08:49→16:23)
[2017-07-25 09:53] LABS: HEMOGLOBIN 10.3 g/dL (12.0-16.0); MEAN CELL VOLUME 93.9 fl (81.0-99.0); MEAN CORPUSCULAR HEMOGLOBIN 31.7 pg (27.0-31.0); MEAN CORPUSCULAR HGB CONC 33.8 g/dL (33.0-37.0); RBC 3.23 Mil/uL (3.80-5.20); RED CELL DISTRIBUTION WIDTH 16.1 % (11.5-14.5)
[2017-07-26] MEDS: diltiaZEM 120 mg/24 Hours CD Cap PO SCH (09:13)
[2017-07-26] MEDS: Lidocaine 5% Patch TD SCH (09:14)
[2017-07-26] MEDS: Pantoprazole 40 mg EC Tab PO SCH ×2 (09:15→17:17)
[2017-07-26] MEDS: Potassium Chloride 20 mEq ER Tab PO SCH (09:41)
--- NOTE | 2017-07-26 13:18 | CP.PCM.PN ---
Subjective - Date & Time of Evaluation Date of Evaluation: 07/26/17 Time of Evaluation: 08:00 - Subjective Subjective: CT scan showed previously seen cyst with active bleeding contained within the cyst capsule. surgery on board serologies pending Tumor markers elevated Objective - Vital Signs/Intake and Output Vital Signs (last 24 hours): Temp Pulse Resp BP Pulse Ox 97.6 F 79 18 125/70 97 07/26/17 12:26 07/26/17 12:26 07/26/17 12:26 07/26/17 12:26 07/26/17 12:26 - Medications Medications: Current Medications Diltiazem HCl (Cardizem Cd) 120 mg PO DAILY [facility] Last Admin: 07/26/17 09:13 Dose: 120 mg Escitalopram Oxalate (Lexapro) 10 mg PO DAILY [facility] Last Admin: 07/26/17 09:14 Dose: 10 mg Furosemide (Lasix) 40 mg PO DAILY [facility] Last Admin: 07/26/17 09:14 Dose: 40 mg Hydrocortisone (Hydrocortisone Lotion 2.5%) 1 applic TP BID [facility] Last Admin: 07/26/17 09:46 Dose: 1 applic Vancomycin HCl 1 gm/ Sodium (Chloride) 250 mls @ 166.667 mls/hr IVPB DAILY [facility] PRN Reason: Protocol Last Admin: 07/26/17 09:17 Dose: 166.667 mls/hr Lactic Acid (Lac-Hydrin 12% Lotion (225 G)) 1 applic TOP DAILY [facility] Last Admin: 07/26/17 09:14 Dose: 1 applic Lidocaine (Lidoderm) 1 ea TD DAILY [facility] Last Admin: 07/26/17 09:14 Dose: 1 ea Lorazepam (Ativan) 0.5 mg PO BID PRN PRN Reason: Anxiety Metformin HCl (Glucophage) 500 mg PO DAILY [facility] Last Admin: 07/26/17 09:14 Dose: 500 mg Oxycodone/Acetaminophen (Percocet 5/325 Mg Tab) 1 tab PO Q4 PRN PRN Reason: Pain, moderate (4-7) Stop: 07/26/17 22:29 Last Admin: 07/25/17 20:59 Dose: 1 tab Pantoprazole Sodium (Protonix Ec Tab) 40 mg PO BID [facility] Last Admin: 07/26/17 09:15 Dose: 40 mg Potassium Chloride (K-Dur 20 Meq Er Tab) 20 meq PO DAILY [facility] Last Admin: 07/26/17 09:41 Dose: 20 meq Sitagliptin Phosphate (Januvia) 100 mg PO DAILY [facility] Last Admin: 07/26/17 09:41 Dose: 100 mg - Labs Labs: 07/25/17 08:30 07/24/17 06:00 PT 11.0 Seconds (9.8-13.1) 07/23/17 17:00 INR 1.0 (0.9-1.2) 07/23/17 17:00 - Constitutional Appears: Non-toxic, Chronically Ill - Head Exam Head Exam: NORMOCEPHALIC - Eye Exam Eye Exam: absent: Scleral icterus - ENT Exam ENT Exam: Mucous Membranes Dry - Neck Exam Neck Exam: absent: Lymphadenopathy - Respiratory Exam Respiratory Exam: Decreased Breath Sounds - Cardiovascular Exam Cardiovascular Exam: REGULAR RHYTHM - GI/Abdominal Exam GI & Abdominal Exam: Distended, Soft - Rectal Exam Rectal Exam: Deferred - Exam Exam: NORMAL INSPECTION - Extremities Exam Extremities Exam: absent: Pedal Edema - Back Exam Back Exam: absent: CVA tenderness (L), CVA tenderness (R) - Neurological Exam Neurological Exam: Alert, Awake, Oriented x3 - Psychiatric Exam Psychiatric exam: Depressed - Skin Skin Exam: Dry Assessment and Plan (1) Anemia Status: Acute (2) Abdominal pain Status: Acute - Assessment and Plan (Free Text) Assessment: cont empiric IV rx surgical follow up
[2017-07-26] MEDS: Oxycodone/Acetaminophen 5/325 mg Tab PO PRN ×2 (14:50→21:17)
[2017-07-27 00:05] VITALS: RESP 18
[2017-07-27] MEDS: Oxycodone/Acetaminophen 5/325 mg Tab PO PRN ×2 (02:07→13:11)
[2017-07-27] MEDS: diltiaZEM 120 mg/24 Hours CD Cap PO SCH (08:19)
[2017-07-27] MEDS: Lidocaine 5% Patch TD SCH (08:20)
[2017-07-27] MEDS: Pantoprazole 40 mg EC Tab PO SCH (08:20)
[2017-07-27] MEDS: Potassium Chloride 20 mEq ER Tab PO SCH (08:21)
[2017-07-27 08:35] LABS: HEMOGLOBIN 9.8 g/dL (12.0-16.0); MEAN CELL VOLUME 93.4 fl (81.0-99.0); MEAN CORPUSCULAR HEMOGLOBIN 31.8 pg (27.0-31.0); MEAN CORPUSCULAR HGB CONC 34.1 g/dL (33.0-37.0); RBC 3.09 Mil/uL (3.80-5.20); RED CELL DISTRIBUTION WIDTH 16.4 % (11.5-14.5); WHITE BLOOD COUNT 8.3 K/uL (4.8-10.8)
[2017-07-27 10:20] LABS: HEPATITIS B SURFACE AG Negative (NEGATIVE)
--- NOTE | 2017-07-27 10:25 | CP.PCM.PN ---
Subjective - Date & Time of Evaluation Date of Evaluation: 07/27/17 Time of Evaluation: 08:00 - Subjective Subjective: afeb 1 set blood c/s + for coag neg staph repeat ordered /pending tumor markers elevated consider IR drainage / GI eval Objective - Vital Signs/Intake and Output Vital Signs (last 24 hours): Temp Pulse Resp BP Pulse Ox 98.1 F 68 18 111/67 95 07/27/17 07:54 07/27/17 08:19 07/27/17 07:54 07/27/17 08:19 07/27/17 07:54 - Medications Medications: Current Medications Diltiazem HCl (Cardizem Cd) 120 mg PO DAILY [facility] Last Admin: 07/27/17 08:19 Dose: 120 mg Escitalopram Oxalate (Lexapro) 10 mg PO DAILY [facility] Last Admin: 07/27/17 08:20 Dose: 10 mg Furosemide (Lasix) 40 mg PO DAILY [facility] Last Admin: 07/27/17 08:19 Dose: 40 mg Hydrocortisone (Hydrocortisone Lotion 2.5%) 1 applic TP BID [facility] Last Admin: 07/27/17 08:21 Dose: 1 applic Vancomycin HCl 1 gm/ Sodium (Chloride) 250 mls @ 166.667 mls/hr IVPB DAILY [facility] PRN Reason: Protocol Last Admin: 07/27/17 08:22 Dose: 166.667 mls/hr Lactic Acid (Lac-Hydrin 12% Lotion (225 G)) 1 applic TOP DAILY [facility] Last Admin: 07/27/17 08:19 Dose: 1 applic Lidocaine (Lidoderm) 1 ea TD DAILY [facility] Last Admin: 07/27/17 08:20 Dose: 1 ea Metformin HCl (Glucophage) 500 mg PO DAILY [facility] Last Admin: 07/27/17 08:19 Dose: 500 mg Oxycodone/Acetaminophen (Percocet 5/325 Mg Tab) 1 tab PO Q4 PRN PRN Reason: Pain, moderate (4-7) Stop: 07/30/17 02:04 Last Admin: 07/27/17 02:07 Dose: 1 tab Pantoprazole Sodium (Protonix Ec Tab) 40 mg PO BID [facility] Last Admin: 07/27/17 08:20 Dose: 40 mg Potassium Chloride (K-Dur 20 Meq Er Tab) 20 meq PO DAILY [facility] Last Admin: 07/27/17 08:21 Dose: 20 meq Sitagliptin Phosphate (Januvia) 100 mg PO DAILY [facility] Last Admin: 07/27/17 08:21 Dose: 100 mg - Labs Labs: 07/27/17 08:28 07/24/17 06:00 PT 11.0 Seconds (9.8-13.1) 07/23/17 17:00 INR 1.0 (0.9-1.2) 07/23/17 17:00 - Constitutional Appears: Non-toxic, Chronically Ill - Head Exam Head Exam: NORMOCEPHALIC - Eye Exam Eye Exam: PERRL - ENT Exam ENT Exam: Mucous Membranes Dry - Neck Exam Neck Exam: absent: Lymphadenopathy - Respiratory Exam Respiratory Exam: Decreased Breath Sounds - Cardiovascular Exam Cardiovascular Exam: REGULAR RHYTHM - GI/Abdominal Exam GI & Abdominal Exam: Distended - Rectal Exam Rectal Exam: Deferred - Exam Exam: NORMAL INSPECTION - Extremities Exam Extremities Exam: absent: Pedal Edema - Back Exam Back Exam: absent: CVA tenderness (L), CVA tenderness (R) Assessment and Plan (1) Anemia Status: Acute (2) Abdominal pain Status: Acute - Assessment and Plan (Free Text) Assessment: afeb 1 set blood c/s + for coag neg staph repeat ordered /pending tumor markers elevated consider IR drainage / GI eval
[2017-07-27 10:26] LABS: HEPATITIS A IGM NEGATIVE (NEGATIVE); HEPATITIS B CORE AB NEGATIVE (NEGATIVE)
[2017-07-27 10:38] LABS: HEPATITIS C ANTIBODY NEGATIVE (NEGATIVE)
--- NOTE | 2017-07-27 10:52 | CP.PCM.PN ---
Subjective - Date & Time of Evaluation Date of Evaluation: 07/26/17 Time of Evaluation: 09:40 - Subjective Subjective: Patient remains stable Has no fever. Objective - Vital Signs/Intake and Output Vital Signs (last 24 hours): Temp Pulse Resp BP Pulse Ox 98.1 F 68 18 111/67 95 07/27/17 07:54 07/27/17 08:19 07/27/17 07:54 07/27/17 08:19 07/27/17 07:54 - Medications Medications: Current Medications Diltiazem HCl (Cardizem Cd) 120 mg PO DAILY [facility] Last Admin: 07/27/17 08:19 Dose: 120 mg Escitalopram Oxalate (Lexapro) 10 mg PO DAILY [facility] Last Admin: 07/27/17 08:20 Dose: 10 mg Furosemide (Lasix) 40 mg PO DAILY [facility] Last Admin: 07/27/17 08:19 Dose: 40 mg Hydrocortisone (Hydrocortisone Lotion 2.5%) 1 applic TP BID [facility] Last Admin: 07/27/17 08:21 Dose: 1 applic Vancomycin HCl 1 gm/ Sodium (Chloride) 250 mls @ 166.667 mls/hr IVPB DAILY [facility] PRN Reason: Protocol Last Admin: 07/27/17 08:22 Dose: 166.667 mls/hr Lactic Acid (Lac-Hydrin 12% Lotion (225 G)) 1 applic TOP DAILY [facility] Last Admin: 07/27/17 08:19 Dose: 1 applic Lidocaine (Lidoderm) 1 ea TD DAILY [facility] Last Admin: 07/27/17 08:20 Dose: 1 ea Metformin HCl (Glucophage) 500 mg PO DAILY [facility] Last Admin: 07/27/17 08:19 Dose: 500 mg Oxycodone/Acetaminophen (Percocet 5/325 Mg Tab) 1 tab PO Q4 PRN PRN Reason: Pain, moderate (4-7) Stop: 07/30/17 02:04 Last Admin: 07/27/17 02:07 Dose: 1 tab Pantoprazole Sodium (Protonix Ec Tab) 40 mg PO BID [facility] Last Admin: 07/27/17 08:20 Dose: 40 mg Potassium Chloride (K-Dur 20 Meq Er Tab) 20 meq PO DAILY [facility] Last Admin: 07/27/17 08:21 Dose: 20 meq Sitagliptin Phosphate (Januvia) 100 mg PO DAILY [facility] Last Admin: 07/27/17 08:21 Dose: 100 mg - Labs Labs: 07/27/17 08:28 07/24/17 06:00 PT 11.0 Seconds (9.8-13.1) 07/23/17 17:00 INR 1.0 (0.9-1.2) 07/23/17 17:00
--- NOTE | 2017-07-27 10:53 | CP.PCM.PN ---
Subjective - Date & Time of Evaluation Date of Evaluation: 07/25/17 Time of Evaluation: 10:15 - Subjective Subjective: Patient remains stable Has no fever Has no chest pain or SOB. Objective - Vital Signs/Intake and Output Vital Signs (last 24 hours): Temp Pulse Resp BP Pulse Ox 98.1 F 68 18 111/67 95 07/27/17 07:54 07/27/17 08:19 07/27/17 07:54 07/27/17 08:19 07/27/17 07:54 - Medications Medications: Current Medications Diltiazem HCl (Cardizem Cd) 120 mg PO DAILY [facility] Last Admin: 07/27/17 08:19 Dose: 120 mg Escitalopram Oxalate (Lexapro) 10 mg PO DAILY [facility] Last Admin: 07/27/17 08:20 Dose: 10 mg Furosemide (Lasix) 40 mg PO DAILY [facility] Last Admin: 07/27/17 08:19 Dose: 40 mg Hydrocortisone (Hydrocortisone Lotion 2.5%) 1 applic TP BID [facility] Last Admin: 07/27/17 08:21 Dose: 1 applic Vancomycin HCl 1 gm/ Sodium (Chloride) 250 mls @ 166.667 mls/hr IVPB DAILY [facility] PRN Reason: Protocol Last Admin: 07/27/17 08:22 Dose: 166.667 mls/hr Lactic Acid (Lac-Hydrin 12% Lotion (225 G)) 1 applic TOP DAILY [facility] Last Admin: 07/27/17 08:19 Dose: 1 applic Lidocaine (Lidoderm) 1 ea TD DAILY [facility] Last Admin: 07/27/17 08:20 Dose: 1 ea Metformin HCl (Glucophage) 500 mg PO DAILY [facility] Last Admin: 07/27/17 08:19 Dose: 500 mg Oxycodone/Acetaminophen (Percocet 5/325 Mg Tab) 1 tab PO Q4 PRN PRN Reason: Pain, moderate (4-7) Stop: 07/30/17 02:04 Last Admin: 07/27/17 02:07 Dose: 1 tab Pantoprazole Sodium (Protonix Ec Tab) 40 mg PO BID [facility] Last Admin: 07/27/17 08:20 Dose: 40 mg Potassium Chloride (K-Dur 20 Meq Er Tab) 20 meq PO DAILY [facility] Last Admin: 07/27/17 08:21 Dose: 20 meq Sitagliptin Phosphate (Januvia) 100 mg PO DAILY [facility] Last Admin: 07/27/17 08:21 Dose: 100 mg - Labs Labs: 07/27/17 08:28 07/24/17 06:00 PT 11.0 Seconds (9.8-13.1) 07/23/17 17:00 INR 1.0 (0.9-1.2) 07/23/17 17:00
[2017-07-27 12:04] VITALS: BP 120/70; PULSE 67; TEMP 98.5; O2SAT 97
--- NOTE | 2017-07-28 08:42 | PQF GENQUE ---
Dr. Cloud 07/[address] Verduzco documented "1 set of blood c/s positive for coag neg staph.: Is there a diagnosis to go with this finding? If so was it present or not present on admission? This form is a permanent part of the medical record Clarification of your documentation is requested to better reflect the severity of illness and intensity of treatment of your patient. Indicators present [] Specify: [] [] Specify: [] [] Specify: [] [] Specify: [] Location in the medical record that reflects the above clinical findings: [] Treatment Provided: [] PHYSICIAN'S RESPONSE Based on your medical judgment of the clinical indicators outlined above please clarify the following: [] Practitioner response [] If unable to determine, please check the box, sign and date. Present On Admission (POA) Indicator: [] Present at the time of admission [] Not present at the time of admission [] Clinically Undetermined In responding to this query, please exercise your independent professional judgment. The fact that a question is asked does not imply that any particular answer is desired or expected. Thank you for your clarification on this documentation. If you have any questions please call:[ ] * Thank you, [ ]Mary Costa orthotic finish grinding technician CHRISSY
--- NOTE | 2017-07-29 10:13 | PQF ANEMIA ---
Dr. Cloud acute anemia documented in History and Physical. Please clarify below if known type. This form is a permanent part of the medical record Clarification of your documentation is requested to better reflect the severity of illness and intensity of treatment of your patient. Indicators present [x] Anemia [] Drop in H&H from []___ to []___ [] Hypotension [] GI Bleed [] Transfusion(s) [] Acute bleed other sites [] Tachycardia [] Surgical Procedure Blood Loss (expected not a complication) Other:[] Location in the medical record that reflects the above clinical findings: [] Treatment Provided: [] PHYSICIAN'S RESPONSE Based on your medical judgment of the clinical indicators outlined above, are you treating this patient for a known or suspected: [] Acute blood loss anemia [] Chronic blood loss anemia [] Acute on Chronic blood loss anemia [] Anemia due to malignancy [] Anemia due to chemotherapy or radiation therapy [] Anemia of Chronic Disease, please specify: [] [] Other, please indicate type of anemia []____ [] If Unable to Determine, please check the box, sign and date. Present On Admission (POA) Indicator: [] Present at the time of admission [] Not present at the time of admission [] Clinically Undetermined In responding to this query, please exercise your independent professional judgment. The fact that a question is asked does not imply that any particular answer is desired or expected. Thank you for your clarification on this documentation. If you have any questions please call:[ ] * Thank you, [ ]Mary Costa [employer] CHRISSY
== END 2017-07-27 15:00 | DRG 812 ==
LOC: H.ER 16:22 → H.ERHOLD 17:12 → H.TEL 22:01
PROVIDERS: ADMIT Family Medicine; ATTEND Family Medicine
PROC: 30233N1 Transfusion of Nonautologous Red Blood Cells into Peripheral Vein, Percutaneous Approach (ICD-10-PCS; principal; 2017-07-23)
DX: D62 Acute posthemorrhagic anemia (principal); I50.32 Chronic diastolic (congestive) heart failure; I82.503 Chronic embolism and thrombosis of unspecified deep veins of lower extremity, bilateral; I48.2 Chronic atrial fibrillation; E11.65 Type 2 diabetes mellitus with hyperglycemia; I11.0 Hypertensive heart disease with heart failure; K76.89 Other specified diseases of liver; E78.00 Pure hypercholesterolemia, unspecified; G89.29 Other chronic pain; M19.90 Unspecified osteoarthritis, unspecified site; F32.9 Major depressive disorder, single episode, unspecified

== ENCOUNTER 2017-07-27 14:48 | Inpatient (IN) | payer OTHER, BC ==
[2017-07-27 15:03] VITALS: BMI 21.4
[2017-07-28] MEDS: Oxycodone/Acetaminophen 5/325 mg Tab PO PRN ×2 (00:16→11:06)
[2017-07-28] MEDS ORDERED: Patient's Own Med (Vancomycin 1 Gm [Vancomycin 1gm In Normal Saline Addvantage] 1 GM) IVPB SCH (09:00)
[2017-07-28 09:33] LABS: SQUAMOUS EPITHIAL 4 /hpf (0-5); URINE BACTERIA RARE (<OCC); URINE BILIRUBIN NEGATIVE (NEGATIVE); URINE BLOOD SMALL (NEGATIVE); URINE CLARITY SLIGHTY-CLOUDY (Clear); URINE COLOR YELLOW (YELLOW); URINE GLUCOSE (UA) NEG (Normal); URINE LEUKOCYTE ESTERASE LARGE Leu/uL (Negative); URINE PROTEIN NEGATIVE (NEGATIVE); URINE UROBILINOGEN 0.2-1.0 mg/dL (0.2-1.0)
[2017-07-28] MEDS: diltiaZEM 120 mg/24 Hours CD Cap PO SCH (09:34)
[2017-07-28] MEDS: Pantoprazole 40 mg EC Tab PO SCH (09:35)
[2017-07-28] MEDS: Lidocaine 5% Patch TD SCH (09:37)
--- NOTE | 2017-07-28 10:07 | CP.PCM.HP ---
<Pito Kirkland - Last Filed: 07/28/17 10:03> History of Present Illness - History of Present Illness History of Present Illness: 87 y/o woman w/ pmh of chronic preserved EF (diastolic) CHF, chronic bilateral DVT, afib, HTN, hepatic cyst admitted to TCU for further physical therapy. Patient was discharged from [facility] for acute anemia. Patient received 5 units PRBC and Hb has stabilized. Patient complains of chronic RUQ pain associated w / hepatic cyst. The patient has no other complaints and denies headaches, chest pain, SOB, nausea, vomiting, diarrhea, dysuria, or fever. Present on Admission - Present on Admission Any Indicators Present on Admission: Yes History of DVT/PE: Yes History of Uncontrolled Diabetes: No Urinary Catheter: No Decubitus Ulcer Present: No Review of Systems - Review of Systems All systems: reviewed and no additional remarkable complaints except - Constitutional Constitutional: absent: Chills, Fever - EENT Eyes: absent: Change in Vision - Cardiovascular Cardiovascular: absent: Chest Pain - Respiratory Respiratory: absent: Dyspnea - Gastrointestinal Gastrointestinal: Abdominal Pain. absent: Diarrhea, Hematochezia, Melena, Nausea, Vomiting - Genitourinary Genitourinary: absent: Dysuria - Integumentary Integumentary: absent: Rash - Neurological Neurological: absent: Dizziness, Headaches Past Patient History - Infectious Disease Hx of Infectious Diseases: None - Past Medical History & Family History Past Medical History?: Yes - Past Social History Smoking Status: Never Smoked - CARDIAC Hx Cardiac Disorders: Yes Hx Atrial Fibrillation: Yes Hx Cardia Arrhythmia: Yes Hx Congestive Heart Failure: Yes Hx Hypercholesterolemia: Yes Hx Hypertension: Yes Hx Peripheral Edema: Yes - PULMONARY Hx Respiratory Disorders: No - NEUROLOGICAL Hx Neurological Disorder: No - HEENT Hx HEENT Problems: Yes - RENAL Hx Chronic Kidney Disease: No - ENDOCRINE/METABOLIC Hx Endocrine Disorders: Yes - HEMATOLOGICAL/ONCOLOGICAL Hx Blood Disorders: Yes Hx AIDS: No Hx Anemia: Yes Hx Human Immunodeficiency Virus (HIV): No Other/Comment: DVT - INTEGUMENTARY Hx Dermatological Problems: No - MUSCULOSKELETAL/RHEUMATOLOGICAL Hx Musculoskeletal Disorders: Yes Hx Arthritis: Yes Hx Falls: No Hx Fractures: Yes - GASTROINTESTINAL Hx Gastrointestinal Disorders: Yes Hx Diverticulitis: Yes Other/Comment: hepatic cystic hemmorage - GENITOURINARY/GYNECOLOGICAL Hx Genitourinary Disorders: No - PSYCHIATRIC Hx Psychophysiologic Disorder: Yes Hx Anxiety: Yes Hx Depression: Yes Hx Substance Use: No - SURGICAL HISTORY Hx Surgeries: Yes Hx Herniorrhaphy: Yes (x 2) - ANESTHESIA Hx Anesthesia: Yes Hx Anesthesia Reactions: No Hx Malignant Hyperthermia: No Meds Allergies/Adverse Reactions: Allergies Allergy/AdvReac Type Severity Reaction Status Date / Time No Known Allergies Allergy Verified 07/27/17 15:03 Physical Exam - Constitutional Appears: Non-toxic, No Acute Distress - Head Exam Head Exam: ATRAUMATIC, NORMAL INSPECTION, NORMOCEPHALIC - Eye Exam Eye Exam: Normal appearance - ENT Exam ENT Exam: Mucous Membranes Moist - Neck Exam Neck exam: Positive for: Full Rom. Negative for: Tenderness - Respiratory Exam Respiratory Exam: Clear to Auscultation Bilateral. absent: Accessory Muscle Use , Decreased Breath Sounds, Rales, Rhonchi, Wheezes, Respiratory Distress - Cardiovascular Exam Cardiovascular Exam: REGULAR RHYTHM, RRR. absent: Tachycardia - GI/Abdominal Exam GI & Abdominal Exam: Normal Bowel Sounds, Soft. absent: Distended, Tenderness - Extremities Exam Extremities exam: Negative for: calf tenderness - Neurological Exam Neurological exam: Alert - Skin Skin Exam: Dry, Intact, Normal Color, Warm Results - Vital Signs Recent Vital Signs: Last Vital Signs Temp 97.7 F 07/28/17 08:15 Pulse 72 07/28/17 09:34 Resp 20 07/28/17 08:15 BP 116/67 07/28/17 09:36 Pulse Ox 98 07/28/17 08:15 - Labs Labs: Laboratory Results - last 24 hr 07/27/17 07/27/17 07/28/17 16:00 20:43 05:17 POC Glucose (mg/dL) 100 99 125 H Urine Color Urine Clarity Urine pH Ur Specific [place] Urine Protein Urine Glucose (UA) Urine Ketones Urine Blood Urine Nitrate Urine Bilirubin Urine Urobilinogen Ur Leukocyte Esterase Urine RBC (Auto) Urine Microscopic WBC Ur Squamous Epith Cells Urine Bacteria Vancomycin Trough 07/28/17 07/28/17 06:00 09:16 POC Glucose (mg/dL) Urine Color Yellow Urine Clarity Slighty-cloudy Urine pH 7.0 Ur Specific [place] 1.006 Urine Protein Negative Urine Glucose (UA) Neg Urine Ketones Negative Urine Blood Small Urine Nitrate Negative Urine Bilirubin Negative Urine Urobilinogen 0.2-1.0 Ur Leukocyte Esterase Large Urine RBC (Auto) 2 Urine Microscopic WBC 61 H Ur Squamous Epith Cells 4 Urine Bacteria Rare Vancomycin Trough 9.5 Assessment & Plan (1) Physical deconditioning Status: Acute (2) Anemia Status: Acute Comment: stable (3) CHF (congestive heart failure) Status: Chronic (4) Chronic atrial fibrillation Status: Chronic (5) DVT of lower extremity, bilateral Status: Chronic (6) Hepatic cyst Status: Chronic - Assessment and Plan (Free Text) Plan: c/w present management afebrile, non-tachycardic, normotensive Infectious disease recommendations appreciated Physiatry consult ordered c/w physical therapy prophylactic measures: has chronic bilateral DVT, no anticoagulation at this time monitor for acute changes <Ulises Cloud - Last Filed: 08/04/17 20:25> Results - Vital Signs Recent Vital Signs: Last Vital Signs Temp 98.1 F 08/04/17 17:24 Pulse 73 08/04/17 17:24 Resp 20 08/04/17 17:24 BP 104/60 08/04/17 17:24 Pulse Ox 98 08/04/17 17:24 - Labs Result Diagrams: 08/02/17 15:30 08/04/17 05:50 Labs: Laboratory Results - last 24 hr 08/04/17 08/04/17 08/04/17 05:50 06:23 10:50 Sodium 130 L Potassium 3.7 Chloride 94 L Carbon Dioxide 27 Anion Gap 13 BUN 12 Creatinine 0.6 L Est GFR ( Amer) > 60 Est GFR (Non-Af Amer) > 60 POC Glucose (mg/dL) 98 93 Random Glucose 90 Calcium 8.0 L 08/04/17 16:45 Sodium Potassium Chloride Carbon Dioxide Anion Gap BUN Creatinine Est GFR ( Amer) Est GFR (Non-Af Amer) POC Glucose (mg/dL) 87 Random Glucose Calcium Assessment & Plan (1) Physical debility Status: Acute (2) Chronic atrial fibrillation Status: Chronic (3) Diabetes type 2, controlled Status: Chronic (4) Hepatic cyst Status: Chronic - Assessment and Plan (Free Text) Plan: I was present during evaluation and discussed with Dr Isael mix plans of care and tx. Ulises Cloud M.D.
[2017-07-29] MEDS: Oxycodone/Acetaminophen 5/325 mg Tab PO PRN ×2 (00:05→08:51)
[2017-07-29] MEDS: diltiaZEM 120 mg/24 Hours CD Cap PO SCH (08:47)
[2017-07-29] MEDS: Lidocaine 5% Patch TD SCH (08:48)
[2017-07-29] MEDS: Pantoprazole 40 mg EC Tab PO SCH (08:49)
--- NOTE | 2017-07-29 12:15 | CP.PCM.CON ---
History of Present Illness - History of Present Illness History of Present Illness: 87 y/o woman admitted to TCU again after recent hospitalization for anemia , bacteremia and ruptured hepatic cyst with severe anemia Now on IV antibiotics Surg and GI following Tumor markers elevated but diagnostic work up limited by patients age and frailty Patient was in TCU for continuation of physical therapy when CBC showed Hb 5.4. Patient sent to ED for evaluation. Patient denies blood in stool. Patient complains of chronic right sided lower abdominal pain. Patient deneis headaches, chest pain, SOB, nausea, vomiting, diarrhea, dysuria, or fever. PMH: chronic preserved EF (diastolic) CHF, chronic bilateral DVT, afib, HTN, hepatic cyst meds: see med list PSH: herniorrhaphy x2 Fam: non-contributory SOC: denies smoking, alcohol, and drugs ROS: 12 points assessed and negative unless otherwise reported in HPI Review of Systems - Review of Systems All systems: reviewed and no additional remarkable complaints except - Constitutional Constitutional: As Per HPI - EENT Eyes: absent: As Per HPI, Blind Spots, Blurred Vision, Change in Vision, Decreased Night Vision, Diplopia, Discharge, Dry Eye, Exophthalmos, Floaters, Irritation, Itchy Eyes, Loss of Peripheral Vision, Pain, Photophobia, Requires Corrective Lenses, Sees Flashes, Spots in Vision, Tunnel Vision, Other Visual Disturbances, Loss of Vision, Other Ears: absent: As Per HPI, Decreased Hearing, Ear Discharge, Ear Pain, Tinnitus, Abnormal Hearing, Disequilibrium, Dizziness, Other Nose/Mouth/Throat: absent: As Per HPI, Epistaxis, Nasal Congestion, Nasal Discharge, Nasal Obstruction, Nasal Trauma, Nose Pain, Post Nasal Drip, Sinus Pain, Sinus Pressure, Bleeding Gums, Change in Voice, Dental Pain, Dry Mouth, Dysphagia, Halitosis, Hoarsness, Lip Swelling, Mouth Lesions, Mouth Pain, Odynophagia, Sore Throat, Throat Swelling, Tongue Swelling, Facial Pain, Neck Pain, Neck Mass, Other - Breasts Breasts: absent: As Per HPI, Change in Shape, Mass, Pain, Nipple Discharge, Nipple Inversion, Skin Changes, Swelling, Other - Cardiovascular Cardiovascular: As Per HPI - Respiratory Respiratory: absent: As Per HPI, Cough, Dyspnea, Hemoptysis, Dyspnea on Exertion , Wheezing, Snoring, Stridor, Pain on Inspiration, Chest Congestion, Excessive Mucous Production, Change in Mucous Color, Pain with Coughing, Other - Gastrointestinal Gastrointestinal: absent: As Per HPI, Abdominal Pain, Belching, Bloating, Change in Bowel Habits, Change in Stool Character, Coffee Ground Emesis, Constipation, Cramping, Diarrhea, Dyspepsia, Dysphagia, Early Satiety, Excessive Flatus, Fecal Incontinence, Heartburn, Hematemesis, Hematochezia, Loose Stools, Melena, Nausea, Odynophagia, Temesmus, Vomiting, Other - Genitourinary Genitourinary: absent: As Per HPI, Change in Urinary Stream, Difficulty Urinating, Dysuria, Flank Pain, Hematuria, Pyuria, Nocturia, Urinary Incontinence, Urinary Frequency, Urinary Hesitance, Urinary Urgency, Voiding Freq/Small Amts, Freq UTI, Hx Renal/Bladder Calculi, Hx /Renal Surgery, Bladder Distension, Other - Reproductive: Female Reproductive:Female: absent: As Per HPI, Amenorrhea, Amenorrhea/ Control, Currently Menstual, Cycle <21 Days, Cycle >35 Days, Cycle Variable, Menses 1-7 Days, Menses >/= 8 Days, Menses Variable, Cycle > 4 Weeks Between, No Menses for 6 Months, Heavy Menses, Light Menses, Normal Menses, Spotting Between Cycles , S/P Hysterectomy, Menopausal, Post Menopausal, Premenarche, Abnormal Vaginal Bleeding, Dysmenorrhea, Dyspareunia, Genital Lesions, Genital Pruritis, Pelvic Pain, Prolapse Symptoms, Sexual Dysfunction, Vaginal Discharge, Vaginal Dryness , Vaginal Odor, Vaginal Pruritis, Other - Menstruation Menstruation: absent: As Per HPI, Amenorrhea, Amenorrhea/ Control, Currently Menstual, Cycle <21 Days, Cycle >35 Days, Cycle Variable, Menses 1-7 Days, Menses >/= 8 Days, Menses Variable, Cycle > 4 Weeks Between, No Menses for 6 Months, Heavy Menses, Light Menses, Normal Menses, Spotting Between Cycles , S/P Hysterectomy, Menopausal, Post Menopausal, Premenarche, Abnormal Vaginal Bleeding, Dysmenorrhea, Other - Musculoskeletal Musculoskeletal: As Per HPI - Integumentary Integumentary: As Per HPI - Neurological Neurological: absent: As Per HPI, Abnormal Gait, Abnormal Hearing, Abnormal Movements, Abnormal Speech, Behavioral Changes, Burning Sensations, Confusion, Convulsions, Disequilibrium, Dizziness, Numbness, Focal Weakness, Frequent Falls , Headaches, Lack of Coordination, Loss of Vision, Memory Loss, Paresthesias, Radicular Pain, Restless Legs, Sensory Deficit, Syncope, Tingling, Tremor, Vertigo, Weakness, Other Visual Disturbances, Other - Psychiatric Psychiatric: absent: As Per HPI, Abnormal Sleep Pattern, Anhedonia, Anxiety, Auditory Hallucinations, Behavioral Changes, Change in Appetite, Change in Libido, Confusion, Depression, Difficulty Concentrating, Hallucinations, Homicidal Ideation, Hopelessness, Irritability, Memory Loss, Mood Swings, Panic Attacks, Paranoia, Suicidal Ideation, Visual Hallucinations, Tactile Hallucinations, Other - Endocrine Endocrine: absent: As Per HPI, Change in Body Appearance, Change in Libido, Cold Intolorance, Deepening of Voice, Excessive Sweating, Fatigue, Flushing, Heat Intolorance, Increase in Ring/Shoe/Hat Size, Palpitations, Polydipsia, Polyphagia, Polyuria, Other - Hematologic/Lymphatic Hematologic: absent: As Per HPI, Easy Bleeding, Easy Bruising, Lymphadenopathy, Other Past Patient History - Infectious Disease Hx of Infectious Diseases: None - Past Medical History & Family History Past Medical History?: Yes - Past Social History Smoking Status: Never Smoked - CARDIAC Hx Cardiac Disorders: Yes Hx Atrial Fibrillation: Yes Hx Cardia Arrhythmia: Yes Hx Congestive Heart Failure: Yes Hx Hypercholesterolemia: Yes Hx Hypertension: Yes Hx Peripheral Edema: Yes - PULMONARY Hx Respiratory Disorders: No - NEUROLOGICAL Hx Neurological Disorder: No - HEENT Hx HEENT Problems: Yes - RENAL Hx Chronic Kidney Disease: No - ENDOCRINE/METABOLIC Hx Endocrine Disorders: Yes - HEMATOLOGICAL/ONCOLOGICAL Hx Blood Disorders: Yes Hx AIDS: No Hx Anemia: Yes Hx Human Immunodeficiency Virus (HIV): No Other/Comment: DVT - INTEGUMENTARY Hx Dermatological Problems: No - MUSCULOSKELETAL/RHEUMATOLOGICAL Hx Musculoskeletal Disorders: Yes Hx Arthritis: Yes Hx Falls: No Hx Fractures: Yes - GASTROINTESTINAL Hx Gastrointestinal Disorders: Yes Hx Diverticulitis: Yes Other/Comment: hepatic cystic hemmorage - GENITOURINARY/GYNECOLOGICAL Hx Genitourinary Disorders: No - PSYCHIATRIC Hx Psychophysiologic Disorder: Yes Hx Anxiety: Yes Hx Depression: Yes Hx Substance Use: No - SURGICAL HISTORY Hx Surgeries: Yes Hx Herniorrhaphy: Yes (x 2) - ANESTHESIA Hx Anesthesia: Yes Hx Anesthesia Reactions: No Hx Malignant Hyperthermia: No Meds Allergies/Adverse Reactions: Allergies Allergy/AdvReac Type Severity Reaction Status Date / Time No Known Allergies Allergy Verified 07/27/17 15:03 - Medications Medications: Current Medications Diltiazem HCl (Cardizem Cd) 120 mg PO DAILY [facility] Last Admin: 07/29/17 08:47 Dose: 120 mg Escitalopram Oxalate (Lexapro) 10 mg PO DAILY [facility] Last Admin: 07/29/17 08:48 Dose: 10 mg Furosemide (Lasix) 40 mg PO DAILY [facility] Last Admin: 07/29/17 08:47 Dose: 40 mg Hydrocortisone (Hydrocortisone Lotion 2.5%) 1 applic TP 0900,2100 [facility] Last Admin: 07/29/17 08:53 Dose: 1 applic Vancomycin HCl 1 gm/ Sodium (Chloride) 250 mls @ 166.667 mls/hr IVPB DAILY@ 0500 [facility] Last Admin: 07/29/17 05:06 Dose: 166.667 mls/hr Lactic Acid (Lac-Hydrin 12% Lotion (225 G)) 1 applic TOP DAILY [facility] Last Admin: 07/29/17 08:52 Dose: 1 applic Lidocaine (Lidoderm) 1 ea TD DAILY [facility] Last Admin: 07/29/17 08:48 Dose: 1 ea Lorazepam (Ativan) 0.5 mg PO BID PRN PRN Reason: Anxiety Metformin HCl (Glucophage) 500 mg PO DAILYWM COUNT [facility]CLUDES [facility] Last Admin: 07/29/17 08:45 Dose: 500 mg Oxycodone/Acetaminophen (Percocet 5/325 Mg Tab) 1 tab PO Q4 PRN PRN Reason: Pain, moderate (4-7) Stop: 07/30/17 15:11 Last Admin: 07/29/17 08:51 Dose: 1 tab Pantoprazole Sodium (Protonix Ec Tab) 40 mg PO DAILY [facility] Last Admin: 07/29/17 08:49 Dose: 40 mg Sitagliptin Phosphate (Januvia) 100 mg PO DAILYWM COUNT [facility]CLUDES [facility] Last Admin: 07/29/17 08:45 Dose: 100 mg Results - Vital Signs Recent Vital Signs: Last Vital Signs Temp 97.7 F 07/29/17 09:35 Pulse 75 07/29/17 09:35 Resp 20 07/29/17 09:35 BP 145/73 07/29/17 09:35 Pulse Ox 100 07/29/17 09:35 - Labs Labs: Laboratory Results - last 24 hr 07/28/17 07/28/17 07/29/17 15:26 21:08 06:09 POC Glucose (mg/dL) 94 109 208 H 07/29/17 11:00 POC Glucose (mg/dL) 141 H
--- NOTE | 2017-07-29 14:52 | CP.PCM.PN ---
<Pito Kirkland - Last Filed: 07/29/17 14:34> Subjective - Date & Time of Evaluation Date of Evaluation: 07/29/17 Time of Evaluation: 08:50 - Subjective Subjective: Patient seen and examined this morning at bedside w/ Dr. Cloud. There are no acute events, NAD. Patient participating in PT/OT. Patient continues to report chronic RUQ abdominal discomfort. Patient denies headaches, chest pain, SOB, nausea, vomiting, diarrhea, dysuria, or fever. Objective - Vital Signs/Intake and Output Vital Signs (last 24 hours): Temp Pulse Resp BP Pulse Ox 97.7 F 75 20 145/73 100 07/29/17 09:35 07/29/17 09:35 07/29/17 09:35 07/29/17 09:35 07/29/17 09:35 - Medications Medications: Current Medications Diltiazem HCl (Cardizem Cd) 120 mg PO DAILY [facility] Last Admin: 07/29/17 08:47 Dose: 120 mg Escitalopram Oxalate (Lexapro) 10 mg PO DAILY [facility] Last Admin: 07/29/17 08:48 Dose: 10 mg Furosemide (Lasix) 40 mg PO DAILY [facility] Last Admin: 07/29/17 08:47 Dose: 40 mg Hydrocortisone (Hydrocortisone Lotion 2.5%) 1 applic TP 0900,2100 [facility] Last Admin: 07/29/17 08:53 Dose: 1 applic Vancomycin HCl 1 gm/ Sodium (Chloride) 250 mls @ 166.667 mls/hr IVPB DAILY@ 0500 [facility] Last Admin: 07/29/17 05:06 Dose: 166.667 mls/hr Ceftriaxone Sodium 1 gm/ (Sodium Chloride) 100 mls @ 100 mls/hr IVPB DAILY [facility] PRN Reason: Protocol Last Admin: 07/29/17 13:44 Dose: 100 mls/hr Lactic Acid (Lac-Hydrin 12% Lotion (225 G)) 1 applic TOP DAILY [facility] Last Admin: 07/29/17 08:52 Dose: 1 applic Lidocaine (Lidoderm) 1 ea TD DAILY [facility] Last Admin: 07/29/17 08:48 Dose: 1 ea Lorazepam (Ativan) 0.5 mg PO BID PRN PRN Reason: Anxiety Metformin HCl (Glucophage) 500 mg PO DAILYWM [facility] Last Admin: 07/29/17 08:45 Dose: 500 mg Oxycodone/Acetaminophen (Percocet 5/325 Mg Tab) 1 tab PO Q4 PRN PRN Reason: Pain, moderate (4-7) Stop: 07/30/17 15:11 Last Admin: 07/29/17 08:51 Dose: 1 tab Pantoprazole Sodium (Protonix Ec Tab) 40 mg PO DAILY [facility] Last Admin: 07/29/17 08:49 Dose: 40 mg Sitagliptin Phosphate (Januvia) 100 mg PO DAILYWM [facility] Last Admin: 07/29/17 08:45 Dose: 100 mg - Constitutional Appears: Non-toxic, No Acute Distress - Head Exam Head Exam: ATRAUMATIC, NORMAL INSPECTION, NORMOCEPHALIC - Eye Exam Eye Exam: Normal appearance - ENT Exam ENT Exam: Mucous Membranes Moist - Neck Exam Neck Exam: Full ROM. absent: Tenderness - Respiratory Exam Respiratory Exam: Clear to Ausculation Bilateral. absent: Accessory Muscle Use , Decreased Breath Sounds, Rales, Rhonchi, Wheezes, Respiratory Distress - Cardiovascular Exam Cardiovascular Exam: REGULAR RHYTHM. absent: Tachycardia - GI/Abdominal Exam GI & Abdominal Exam: Soft, Normal Bowel Sounds. absent: Distended, Tenderness - Extremities Exam Extremities Exam: absent: Calf Tenderness - Neurological Exam Neurological Exam: Alert, Awake, Oriented x3 - Skin Skin Exam: Dry, Intact, Normal Color, Warm Assessment and Plan (1) Physical deconditioning Status: Acute (2) Anemia Status: Acute (3) CHF (congestive heart failure) Status: Chronic (4) Chronic atrial fibrillation Status: Chronic (5) DVT of lower extremity, bilateral Status: Chronic (6) Hepatic cyst Status: Chronic - Assessment and Plan (Free Text) Plan: c/w present management afebrile, non-tachycardic, normotensive Infectious disease recommendations appreciated Physiatry consult ordered c/w physical therapy prophylactic measures: SCDs, has chronic bilateral DVT, no anticoagulation at this time monitor for acute changes <Ulises Cloud - Last Filed: 08/04/17 20:26> Objective - Vital Signs/Intake and Output Vital Signs (last 24 hours): Temp Pulse Resp BP Pulse Ox 98.1 F 73 20 104/60 98 08/04/17 17:24 08/04/17 17:24 08/04/17 17:24 08/04/17 17:24 08/04/17 17:24 - Medications Medications: Current Medications Acyclovir (Zovirax) 800 mg PO 5XD [facility] PRN Reason: Protocol Last Admin: 08/04/17 17:15 Dose: 800 mg Diltiazem HCl (Cardizem Cd) 120 mg PO DAILY [facility] Last Admin: 08/04/17 08:34 Dose: 120 mg Escitalopram Oxalate (Lexapro) 10 mg PO DAILY [facility] Last Admin: 08/04/17 08:36 Dose: 10 mg Furosemide (Lasix) 40 mg PO DAILY [facility] Last Admin: 08/04/17 08:35 Dose: 40 mg Hydrocortisone (Hydrocortisone Lotion 2.5%) 1 applic TP 0900,2100 [facility] Last Admin: 08/04/17 08:34 Dose: 1 applic Lactic Acid (Lac-Hydrin 12% Lotion (225 G)) 1 applic TOP DAILY [facility] Last Admin: 08/04/17 08:34 Dose: 1 applic Lidocaine (Lidoderm) 1 ea TD DAILY [facility] Last Admin: 08/04/17 08:36 Dose: 1 ea Lorazepam (Ativan) 0.5 mg PO BID PRN PRN Reason: Anxiety Metformin HCl (Glucophage) 500 mg PO DAILYWM [facility] Last Admin: 08/04/17 08:35 Dose: 500 mg Oxycodone/Acetaminophen (Percocet 5/325 Mg Tab) 1 tab PO Q4 PRN PRN Reason: Pain, severe (8-10) Stop: 08/06/17 17:29 Last Admin: 08/04/17 08:46 Dose: 1 tab Pantoprazole Sodium (Protonix Ec Tab) 40 mg PO DAILY [facility] Last Admin: 08/04/17 08:37 Dose: 40 mg Potassium Chloride (K-Dur 20 Meq Er Tab) 20 meq PO DAILY [facility] Last Admin: 08/04/17 08:35 Dose: 20 meq Sitagliptin Phosphate (Januvia) 100 mg PO DAILYWM [facility] Last Admin: 08/04/17 08:35 Dose: 100 mg - Labs Labs: 08/02/17 15:30 08/04/17 05:50 Assessment and Plan (1) Physical debility Status: Acute (2) Chronic atrial fibrillation Status: Chronic (3) Diabetes type 2, controlled Status: Chronic (4) Hepatic cyst Status: Chronic - Assessment and Plan (Free Text) Plan: I was present during evaluation and discussed with Dr Kirkland re plans of care and tx. Ulises Cloud M.D.
[2017-07-30] MEDS: diltiaZEM 120 mg/24 Hours CD Cap PO SCH (08:37)
[2017-07-30] MEDS: Lidocaine 5% Patch TD SCH (08:39)
[2017-07-30] MEDS: Pantoprazole 40 mg EC Tab PO SCH (08:40)
[2017-07-30] MEDS: Oxycodone/Acetaminophen 5/325 mg Tab PO PRN ×2 (11:27→21:40)
--- NOTE | 2017-07-30 14:51 | CP.PCM.PN ---
<Pito Kirkland - Last Filed: 07/30/17 14:49> Subjective - Date & Time of Evaluation Date of Evaluation: 07/30/17 Time of Evaluation: 11:05 - Subjective Subjective: Patient seen and examined this morning at bedside w/ Dr. Cloud. There are no acute events, NAD. Patient participating in PT/OT. Patient continues to report chronic RUQ abdominal discomfort. Patient denies headaches, chest pain, SOB, nausea, vomiting, diarrhea, dysuria, or fever. Objective - Vital Signs/Intake and Output Vital Signs (last 24 hours): Temp Pulse Resp BP Pulse Ox 98.4 F 78 20 130/69 98 07/30/17 08:28 07/30/17 08:37 07/30/17 08:28 07/30/17 08:38 07/30/17 08:28 - Medications Medications: Current Medications Diltiazem HCl (Cardizem Cd) 120 mg PO DAILY [facility] Last Admin: 07/30/17 08:37 Dose: 120 mg Escitalopram Oxalate (Lexapro) 10 mg PO DAILY [facility] Last Admin: 07/30/17 08:38 Dose: 10 mg Furosemide (Lasix) 40 mg PO DAILY [facility] Last Admin: 07/30/17 08:38 Dose: 40 mg Hydrocortisone (Hydrocortisone Lotion 2.5%) 1 applic TP 0900,2100 [facility] Last Admin: 07/30/17 08:47 Dose: 1 applic Vancomycin HCl 1 gm/ Sodium (Chloride) 250 mls @ 166.667 mls/hr IVPB DAILY@ 0500 [facility] Last Admin: 07/30/17 04:19 Dose: 166.667 mls/hr Ceftriaxone Sodium 1 gm/ (Sodium Chloride) 100 mls @ 100 mls/hr IVPB DAILY [facility] PRN Reason: Protocol Last Admin: 07/30/17 08:46 Dose: 100 mls/hr Lactic Acid (Lac-Hydrin 12% Lotion (225 G)) 1 applic TOP DAILY [facility] Last Admin: 07/30/17 08:46 Dose: 1 applic Lidocaine (Lidoderm) 1 ea TD DAILY [facility] Last Admin: 07/30/17 08:39 Dose: 1 ea Lorazepam (Ativan) 0.5 mg PO BID PRN PRN Reason: Anxiety Metformin HCl (Glucophage) 500 mg PO DAILYWM [facility] Last Admin: 07/30/17 08:37 Dose: 500 mg Oxycodone/Acetaminophen (Percocet 5/325 Mg Tab) 1 tab PO Q4 PRN PRN Reason: Pain, moderate (4-7) Stop: 07/30/17 15:11 Last Admin: 07/30/17 11:27 Dose: 1 tab Pantoprazole Sodium (Protonix Ec Tab) 40 mg PO DAILY [facility] Last Admin: 07/30/17 08:40 Dose: 40 mg Sitagliptin Phosphate (Januvia) 100 mg PO DAILYWM [facility] Last Admin: 07/30/17 08:37 Dose: 100 mg - Constitutional Appears: Non-toxic, No Acute Distress - Head Exam Head Exam: ATRAUMATIC, NORMAL INSPECTION, NORMOCEPHALIC - Eye Exam Eye Exam: Normal appearance - ENT Exam ENT Exam: Mucous Membranes Moist - Neck Exam Neck Exam: Full ROM. absent: Tenderness - Respiratory Exam Respiratory Exam: Clear to Ausculation Bilateral. absent: Accessory Muscle Use , Decreased Breath Sounds, Rales, Rhonchi, Wheezes, Respiratory Distress - Cardiovascular Exam Cardiovascular Exam: REGULAR RHYTHM. absent: Tachycardia - Extremities Exam Extremities Exam: absent: Calf Tenderness - Neurological Exam Neurological Exam: Alert, Awake, Oriented x3 - Skin Skin Exam: Dry, Normal Color, Warm Assessment and Plan (1) Physical deconditioning Status: Acute (2) Anemia Status: Acute (3) CHF (congestive heart failure) Status: Chronic (4) Chronic atrial fibrillation Status: Chronic (5) DVT of lower extremity, bilateral Status: Chronic (6) Hepatic cyst Status: Chronic - Assessment and Plan (Free Text) Plan: c/w present management afebrile, non-tachycardic, normotensive Infectious disease recommendations appreciated Physiatry consult ordered vancomycin 1 gm IV daily day 3 ceftriaxone 1 gm IV daily day 2 c/w physical therapy prophylactic measures: SCDs, has chronic bilateral DVT, no anticoagulation at this time monitor for acute changes <Ulises Cloud - Last Filed: 08/04/17 20:27> Objective - Vital Signs/Intake and Output Vital Signs (last 24 hours): Temp Pulse Resp BP Pulse Ox 98.1 F 73 20 104/60 98 08/04/17 17:24 08/04/17 17:24 08/04/17 17:24 08/04/17 17:24 08/04/17 17:24 - Medications Medications: Current Medications Acyclovir (Zovirax) 800 mg PO 5XD [facility] PRN Reason: Protocol Last Admin: 08/04/17 17:15 Dose: 800 mg Diltiazem HCl (Cardizem Cd) 120 mg PO DAILY [facility] Last Admin: 08/04/17 08:34 Dose: 120 mg Escitalopram Oxalate (Lexapro) 10 mg PO DAILY [facility] Last Admin: 08/04/17 08:36 Dose: 10 mg Furosemide (Lasix) 40 mg PO DAILY [facility] Last Admin: 08/04/17 08:35 Dose: 40 mg Hydrocortisone (Hydrocortisone Lotion 2.5%) 1 applic TP 0900,2100 [facility] Last Admin: 08/04/17 08:34 Dose: 1 applic Lactic Acid (Lac-Hydrin 12% Lotion (225 G)) 1 applic TOP DAILY [facility] Last Admin: 08/04/17 08:34 Dose: 1 applic Lidocaine (Lidoderm) 1 ea TD DAILY [facility] Last Admin: 08/04/17 08:36 Dose: 1 ea Lorazepam (Ativan) 0.5 mg PO BID PRN PRN Reason: Anxiety Metformin HCl (Glucophage) 500 mg PO DAILYWM [facility] Last Admin: 08/04/17 08:35 Dose: 500 mg Oxycodone/Acetaminophen (Percocet 5/325 Mg Tab) 1 tab PO Q4 PRN PRN Reason: Pain, severe (8-10) Stop: 08/06/17 17:29 Last Admin: 08/04/17 08:46 Dose: 1 tab Pantoprazole Sodium (Protonix Ec Tab) 40 mg PO DAILY [facility] Last Admin: 08/04/17 08:37 Dose: 40 mg Potassium Chloride (K-Dur 20 Meq Er Tab) 20 meq PO DAILY [facility] Last Admin: 08/04/17 08:35 Dose: 20 meq Sitagliptin Phosphate (Januvia) 100 mg PO DAILYWM [facility] Last Admin: 08/04/17 08:35 Dose: 100 mg - Labs Labs: 08/02/17 15:30 08/04/17 05:50 Assessment and Plan (1) Physical debility Status: Acute (2) Chronic atrial fibrillation Status: Chronic (3) Diabetes type 2, controlled Status: Chronic (4) Hepatic cyst Status: Chronic - Assessment and Plan (Free Text) Plan: I was p and present during evaluation and discussed with Dr Adwoa mix plans of care and tx. Ulises Cloud M.D.
[2017-07-31] MEDS: diltiaZEM 120 mg/24 Hours CD Cap PO SCH (09:06)
[2017-07-31] MEDS: Lidocaine 5% Patch TD SCH (09:06)
[2017-07-31] MEDS: Pantoprazole 40 mg EC Tab PO SCH (09:07)
[2017-07-31] MEDS: Oxycodone/Acetaminophen 5/325 mg Tab PO PRN (09:17)
--- NOTE | 2017-07-31 13:43 | CP.PCM.PN ---
<Pito Kirkland - Last Filed: 07/31/17 13:40> Subjective - Date & Time of Evaluation Date of Evaluation: 07/31/17 Time of Evaluation: 10:55 - Subjective Subjective: Patient seen and examined this morning at bedside w/ Dr. Cloud. There are no acute events, NAD. Patient participating in PT/OT. Patient continues to report chronic RUQ abdominal discomfort. Patient denies headaches, chest pain, SOB, nausea, vomiting, diarrhea, dysuria, or fever. Objective - Vital Signs/Intake and Output Vital Signs (last 24 hours): Temp Pulse Resp BP Pulse Ox 97.7 F 79 20 121/65 98 07/31/17 08:48 07/31/17 13:29 07/31/17 08:48 07/31/17 13:29 07/31/17 13:29 - Medications Medications: Current Medications Diltiazem HCl (Cardizem Cd) 120 mg PO DAILY [facility] Last Admin: 07/31/17 09:06 Dose: 120 mg Escitalopram Oxalate (Lexapro) 10 mg PO DAILY [facility] Last Admin: 07/31/17 09:07 Dose: 10 mg Furosemide (Lasix) 40 mg PO DAILY [facility] Last Admin: 07/31/17 09:07 Dose: 40 mg Hydrocortisone (Hydrocortisone Lotion 2.5%) 1 applic TP 0900,2100 [facility] Last Admin: 07/31/17 09:07 Dose: 1 applic Vancomycin HCl 1 gm/ Sodium (Chloride) 250 mls @ 166.667 mls/hr IVPB DAILY@ 0500 [facility] Last Admin: 07/31/17 05:10 Dose: 166.667 mls/hr Ceftriaxone Sodium 1 gm/ (Sodium Chloride) 100 mls @ 100 mls/hr IVPB DAILY [facility] PRN Reason: Protocol Last Admin: 07/31/17 09:10 Dose: 100 mls/hr Lactic Acid (Lac-Hydrin 12% Lotion (225 G)) 1 applic TOP DAILY [facility] Last Admin: 07/31/17 09:07 Dose: 1 applic Lidocaine (Lidoderm) 1 ea TD DAILY [facility] Last Admin: 07/31/17 09:06 Dose: 1 ea Lorazepam (Ativan) 0.5 mg PO BID PRN PRN Reason: Anxiety Metformin HCl (Glucophage) 500 mg PO DAILYWM [facility] Last Admin: 07/31/17 09:07 Dose: 500 mg Oxycodone/Acetaminophen (Percocet 5/325 Mg Tab) 1 tab PO Q4 PRN PRN Reason: for pain level 4-7 Stop: 08/02/17 21:28 Last Admin: 07/31/17 09:17 Dose: 1 tab Pantoprazole Sodium (Protonix Ec Tab) 40 mg PO DAILY [facility] Last Admin: 07/31/17 09:07 Dose: 40 mg Sitagliptin Phosphate (Januvia) 100 mg PO DAILYWM [facility] Last Admin: 07/31/17 09:07 Dose: 100 mg - Constitutional Appears: Non-toxic, No Acute Distress - Head Exam Head Exam: ATRAUMATIC, NORMAL INSPECTION, NORMOCEPHALIC - Eye Exam Eye Exam: Normal appearance - ENT Exam ENT Exam: Mucous Membranes Moist - Neck Exam Neck Exam: Full ROM. absent: Tenderness - Respiratory Exam Respiratory Exam: Clear to Ausculation Bilateral. absent: Accessory Muscle Use , Decreased Breath Sounds, Rales, Rhonchi, Wheezes, Respiratory Distress - Cardiovascular Exam Cardiovascular Exam: REGULAR RHYTHM. absent: Tachycardia - GI/Abdominal Exam GI & Abdominal Exam: Soft, Normal Bowel Sounds. absent: Distended, Tenderness - Neurological Exam Neurological Exam: Alert, Awake - Skin Skin Exam: Dry, Normal Color, Warm Assessment and Plan (1) Physical deconditioning Status: Acute (2) Anemia Assessment & Plan: acute anemia most likely from ruptured hemorrhagic hepatic cyst Status: Acute (3) CHF (congestive heart failure) Status: Chronic (4) Chronic atrial fibrillation Status: Chronic (5) DVT of lower extremity, bilateral Status: Chronic (6) Hepatic cyst Status: Chronic - Assessment and Plan (Free Text) Plan: c/w present management afebrile, non-tachycardic, normotensive Infectious disease recommendations appreciated Physiatry consult ordered vancomycin 1 gm IV daily day 4 ceftriaxone 1 gm IV daily day 3 c/w physical therapy prophylactic measures: SCDs, has chronic bilateral DVT, no anticoagulation at this time monitor for acute changes <Ulises Cloud - Last Filed: 08/04/17 20:28> Objective - Vital Signs/Intake and Output Vital Signs (last 24 hours): Temp Pulse Resp BP Pulse Ox 98.1 F 73 20 104/60 98 08/04/17 17:24 08/04/17 17:24 08/04/17 17:24 08/04/17 17:24 08/04/17 17:24 - Medications Medications: Current Medications Acyclovir (Zovirax) 800 mg PO 5XD [facility] PRN Reason: Protocol Last Admin: 08/04/17 17:15 Dose: 800 mg Diltiazem HCl (Cardizem Cd) 120 mg PO DAILY [facility] Last Admin: 08/04/17 08:34 Dose: 120 mg Escitalopram Oxalate (Lexapro) 10 mg PO DAILY [facility] Last Admin: 08/04/17 08:36 Dose: 10 mg Furosemide (Lasix) 40 mg PO DAILY [facility] Last Admin: 08/04/17 08:35 Dose: 40 mg Hydrocortisone (Hydrocortisone Lotion 2.5%) 1 applic TP 0900,2100 [facility] Last Admin: 08/04/17 08:34 Dose: 1 applic Lactic Acid (Lac-Hydrin 12% Lotion (225 G)) 1 applic TOP DAILY [facility] Last Admin: 08/04/17 08:34 Dose: 1 applic Lidocaine (Lidoderm) 1 ea TD DAILY [facility] Last Admin: 08/04/17 08:36 Dose: 1 ea Lorazepam (Ativan) 0.5 mg PO BID PRN PRN Reason: Anxiety Metformin HCl (Glucophage) 500 mg PO DAILYWM [facility] Last Admin: 08/04/17 08:35 Dose: 500 mg Oxycodone/Acetaminophen (Percocet 5/325 Mg Tab) 1 tab PO Q4 PRN PRN Reason: Pain, severe (8-10) Stop: 08/06/17 17:29 Last Admin: 08/04/17 08:46 Dose: 1 tab Pantoprazole Sodium (Protonix Ec Tab) 40 mg PO DAILY [facility] Last Admin: 08/04/17 08:37 Dose: 40 mg Potassium Chloride (K-Dur 20 Meq Er Tab) 20 meq PO DAILY [facility] Last Admin: 08/04/17 08:35 Dose: 20 meq Sitagliptin Phosphate (Januvia) 100 mg PO DAILYWM [facility] Last Admin: 08/04/17 08:35 Dose: 100 mg - Labs Labs: 08/02/17 15:30 08/04/17 05:50 Assessment and Plan (1) Physical debility Status: Acute (2) Chronic atrial fibrillation Status: Chronic (3) Diabetes type 2, controlled Status: Chronic (4) Hepatic cyst Status: Chronic - Assessment and Plan (Free Text) Plan: I was present during evaluation and discussed with Dr Isael mix plans of care and tx. Ulises Cloud M.D.
[2017-08-01] MEDS: Lidocaine 5% Patch TD SCH (08:37)
[2017-08-01] MEDS: diltiaZEM 120 mg/24 Hours CD Cap PO SCH (08:38)
[2017-08-01] MEDS: Pantoprazole 40 mg EC Tab PO SCH (08:43)
[2017-08-01] MEDS: Oxycodone/Acetaminophen 5/325 mg Tab PO PRN (23:36)
[2017-08-02] MEDS: diltiaZEM 120 mg/24 Hours CD Cap PO SCH (09:39)
[2017-08-02] MEDS: Lidocaine 5% Patch TD SCH (09:41)
[2017-08-02] MEDS: Pantoprazole 40 mg EC Tab PO SCH (09:51)
--- NOTE | 2017-08-02 13:45 | CP.PCM.PN ---
Subjective - Date & Time of Evaluation Date of Evaluation: 08/02/17 Time of Evaluation: 08:00 - Subjective Subjective: complains of blisters to buttock and redness / pain right leg Objective - Vital Signs/Intake and Output Vital Signs (last 24 hours): Temp Pulse Resp BP Pulse Ox 97.9 F 80 18 135/57 L 99 08/02/17 10:00 08/02/17 10:00 08/02/17 10:00 08/02/17 10:00 08/02/17 10:00 - Medications Medications: Current Medications Diltiazem HCl (Cardizem Cd) 120 mg PO DAILY [facility] Last Admin: 08/02/17 09:39 Dose: 120 mg Escitalopram Oxalate (Lexapro) 10 mg PO DAILY [facility] Last Admin: 08/02/17 09:40 Dose: 10 mg Furosemide (Lasix) 40 mg PO DAILY [facility] Last Admin: 08/02/17 09:40 Dose: 40 mg Hydrocortisone (Hydrocortisone Lotion 2.5%) 1 applic TP 0900,2100 [facility] Last Admin: 08/02/17 09:40 Dose: 1 applic Ceftriaxone Sodium 1 gm/ (Sodium Chloride) 100 mls @ 100 mls/hr IVPB DAILY [facility] PRN Reason: Protocol Last Admin: 08/02/17 09:51 Dose: 100 mls/hr Vancomycin HCl 1 gm/ Dextrose 250 mls @ 166.667 mls/hr IVPB DAILY@0500 [facility] Lactic Acid (Lac-Hydrin 12% Lotion (225 G)) 1 applic TOP DAILY [facility] Last Admin: 08/02/17 09:42 Dose: 1 applic Lidocaine (Lidoderm) 1 ea TD DAILY [facility] Last Admin: 08/02/17 09:41 Dose: 1 ea Lorazepam (Ativan) 0.5 mg PO BID PRN PRN Reason: Anxiety Metformin HCl (Glucophage) 500 mg PO DAILYWM [facility] Last Admin: 08/02/17 09:28 Dose: 500 mg Oxycodone/Acetaminophen (Percocet 5/325 Mg Tab) 1 tab PO Q4 PRN PRN Reason: for pain level 4-7 Stop: 08/02/17 21:28 Last Admin: 08/01/17 23:36 Dose: 1 tab Pantoprazole Sodium (Protonix Ec Tab) 40 mg PO DAILY [facility] Last Admin: 08/02/17 09:51 Dose: 40 mg Sitagliptin Phosphate (Januvia) 100 mg PO DAILYWM [facility] Last Admin: 08/02/17 09:29 Dose: 100 mg - Constitutional Appears: Non-toxic, Chronically Ill - Head Exam Head Exam: NORMOCEPHALIC - Eye Exam Eye Exam: PERRL - ENT Exam ENT Exam: Mucous Membranes Dry - Neck Exam Neck Exam: absent: Lymphadenopathy - Respiratory Exam Respiratory Exam: Decreased Breath Sounds - Cardiovascular Exam Cardiovascular Exam: REGULAR RHYTHM - GI/Abdominal Exam GI & Abdominal Exam: Distended - Rectal Exam Rectal Exam: Deferred - Exam Exam: NORMAL INSPECTION - Extremities Exam Extremities Exam: Pedal Edema, Tenderness Additional comments: vesicular rash on lower back/buttock area with redness right ant thigh - Back Exam Back Exam: absent: CVA tenderness (L), CVA tenderness (R) - Neurological Exam Neurological Exam: Alert, Awake, Oriented x3 - Psychiatric Exam Psychiatric exam: Depressed Assessment and Plan - Assessment and Plan (Free Text) Assessment: has shingles isolation and antivirals ordered
[2017-08-02 15:46] LABS: BASO # 0.1 K/uL (0.0-0.2); BASO % 0.9 % (0.0-2.0); EOS % 0.3 % (0.0-4.0); HEMOGLOBIN 10.5 g/dL (12.0-16.0); LYMPH # 0.9 K/uL (1.0-4.3); LYMPH % 10.4 % (20.0-40.0); MEAN CELL VOLUME 94.3 fl (81.0-99.0); MEAN CORPUSCULAR HEMOGLOBIN 31.1 pg (27.0-31.0); MEAN PLATELET VOLUME 6.8 fl (7.2-11.7); MONO # 1.3 K/uL (0.0-0.8); MONO % 14.7 % (0.0-10.0); NEUT # 6.5 K/uL (1.8-7.0); NEUT % 73.7 % (50.0-75.0); RBC 3.36 Mil/uL (3.80-5.20); RED CELL DISTRIBUTION WIDTH 16.3 % (11.5-14.5); WHITE BLOOD COUNT 8.8 K/uL (4.8-10.8)
[2017-08-02 16:57] LABS: ALB/GLOB RATIO 0.8 (1.0-2.1); ALBUMIN 2.9 g/dL (3.5-5.0); ALT/SGPT 36 U/L (9-52); AST/SGOT 44 U/L (14-36); BLOOD UREA NITROGEN 12 mg/dl (7-17); CALCIUM 8.3 mg/dL (8.4-10.2); GFR AFRICAN-AMERICAN > 60; GFR NON-AFRICAN AMERICAN > 60
[2017-08-02] MEDS: Oxycodone/Acetaminophen 5/325 mg Tab PO PRN (21:14)
[2017-08-03] MEDS ORDERED: Vancomycin 1 GM in Dextrose 5% In Water 250 ML IVPB SCH (05:00)
[2017-08-03 06:26] LABS: BLOOD UREA NITROGEN 13 mg/dl (7-17)
[2017-08-03 06:27] LABS: ALB/GLOB RATIO 0.9 (1.0-2.1); ALBUMIN 2.7 g/dL (3.5-5.0); ALT/SGPT 38 U/L (9-52); AST/SGOT 36 U/L (14-36); CALCIUM 8.1 mg/dL (8.4-10.2); GFR AFRICAN-AMERICAN > 60; GFR NON-AFRICAN AMERICAN > 60
[2017-08-03] MEDS: diltiaZEM 120 mg/24 Hours CD Cap PO SCH (09:13)
[2017-08-03] MEDS: Lidocaine 5% Patch TD SCH (09:15)
[2017-08-03] MEDS: Pantoprazole 40 mg EC Tab PO SCH (09:20)
[2017-08-03] MEDS ORDERED: Potassium Chloride 20 mEq ER Tab PO ONE (13:17)
[2017-08-03] MEDS: Oxycodone/Acetaminophen 5/325 mg Tab PO PRN (17:34)
--- NOTE | 2017-08-03 18:28 | CP.PCM.PN ---
Subjective - Date & Time of Evaluation Date of Evaluation: 08/03/17 Time of Evaluation: 18:27 - Subjective Subjective: Patient seen in room limited function + pain and did not get oob for PT I offered an intra-articular knee injection again but she did not want to go this route no calf tenderness can move ankles well continue current care needs 24 hour care Objective - Vital Signs/Intake and Output Vital Signs (last 24 hours): Temp Pulse Resp BP Pulse Ox 98.1 F 91 H 20 110/56 L 97 08/03/17 10:00 08/03/17 10:00 08/03/17 10:00 08/03/17 10:00 08/03/17 10:00 - Medications Medications: Current Medications Acyclovir (Zovirax) 800 mg PO 5XD [facility] PRN Reason: Protocol Last Admin: 08/03/17 16:58 Dose: 800 mg Diltiazem HCl (Cardizem Cd) 120 mg PO DAILY [facility] Last Admin: 08/03/17 09:13 Dose: 120 mg Escitalopram Oxalate (Lexapro) 10 mg PO DAILY [facility] Last Admin: 08/03/17 09:14 Dose: 10 mg Furosemide (Lasix) 40 mg PO DAILY [facility] Last Admin: 08/03/17 09:14 Dose: 40 mg Hydrocortisone (Hydrocortisone Lotion 2.5%) 1 applic TP 0900,2100 [facility] Last Admin: 08/03/17 09:14 Dose: 1 applic Lactic Acid (Lac-Hydrin 12% Lotion (225 G)) 1 applic TOP DAILY [facility] Last Admin: 08/03/17 09:14 Dose: 1 applic Lidocaine (Lidoderm) 1 ea TD DAILY [facility] Last Admin: 08/03/17 09:15 Dose: 1 ea Lorazepam (Ativan) 0.5 mg PO BID PRN PRN Reason: Anxiety Metformin HCl (Glucophage) 500 mg PO DAILYWM [facility] Last Admin: 08/03/17 09:13 Dose: 500 mg Oxycodone/Acetaminophen (Percocet 5/325 Mg Tab) 1 tab PO Q4 PRN PRN Reason: Pain, severe (8-10) Stop: 08/06/17 17:29 Last Admin: 08/03/17 17:34 Dose: 1 tab Pantoprazole Sodium (Protonix Ec Tab) 40 mg PO DAILY [facility] Last Admin: 08/03/17 09:20 Dose: 40 mg Potassium Chloride (K-Dur 20 Meq Er Tab) 20 meq PO DAILY [facility] Sitagliptin Phosphate (Januvia) 100 mg PO DAILYWM [facility] Last Admin: 08/03/17 09:14 Dose: 100 mg - Labs Labs: 08/02/17 15:30 08/03/17 05:40
[2017-08-04 06:48] LABS: BLOOD UREA NITROGEN 12 mg/dl (7-17); GFR AFRICAN-AMERICAN > 60; GFR NON-AFRICAN AMERICAN > 60
[2017-08-04] MEDS: diltiaZEM 120 mg/24 Hours CD Cap PO SCH (08:34)
[2017-08-04] MEDS: Potassium Chloride 20 mEq ER Tab PO SCH (08:35)
[2017-08-04] MEDS: Lidocaine 5% Patch TD SCH (08:36)
[2017-08-04] MEDS: Pantoprazole 40 mg EC Tab PO SCH (08:37)
[2017-08-04] MEDS: Oxycodone/Acetaminophen 5/325 mg Tab PO PRN (08:46)
--- NOTE | 2017-08-04 13:49 | CP.PCM.PN ---
Subjective - Date & Time of Evaluation Date of Evaluation: 08/04/17 Time of Evaluation: 13:48 - Subjective Subjective: Patient seen in the room discussed with nursing and she is still reticent to perform with therapies set for d/c home tomorrow and will have 24 hour care and a hospital bed continue current care Objective - Vital Signs/Intake and Output Vital Signs (last 24 hours): Temp Pulse Resp BP Pulse Ox 98.4 F 73 20 113/59 L 100 08/04/17 09:40 08/04/17 09:40 08/04/17 09:40 08/04/17 09:40 08/04/17 09:40 - Medications Medications: Current Medications Acyclovir (Zovirax) 800 mg PO 5XD [facility] PRN Reason: Protocol Last Admin: 08/04/17 13:45 Dose: 800 mg Diltiazem HCl (Cardizem Cd) 120 mg PO DAILY [facility] Last Admin: 08/04/17 08:34 Dose: 120 mg Escitalopram Oxalate (Lexapro) 10 mg PO DAILY [facility] Last Admin: 08/04/17 08:36 Dose: 10 mg Furosemide (Lasix) 40 mg PO DAILY [facility] Last Admin: 08/04/17 08:35 Dose: 40 mg Hydrocortisone (Hydrocortisone Lotion 2.5%) 1 applic TP 0900,2100 [facility] Last Admin: 08/04/17 08:34 Dose: 1 applic Lactic Acid (Lac-Hydrin 12% Lotion (225 G)) 1 applic TOP DAILY [facility] Last Admin: 08/04/17 08:34 Dose: 1 applic Lidocaine (Lidoderm) 1 ea TD DAILY [facility] Last Admin: 08/04/17 08:36 Dose: 1 ea Lorazepam (Ativan) 0.5 mg PO BID PRN PRN Reason: Anxiety Metformin HCl (Glucophage) 500 mg PO DAILYWM [facility] Last Admin: 08/04/17 08:35 Dose: 500 mg Oxycodone/Acetaminophen (Percocet 5/325 Mg Tab) 1 tab PO Q4 PRN PRN Reason: Pain, severe (8-10) Stop: 08/06/17 17:29 Last Admin: 08/04/17 08:46 Dose: 1 tab Pantoprazole Sodium (Protonix Ec Tab) 40 mg PO DAILY [facility] Last Admin: 08/04/17 08:37 Dose: 40 mg Potassium Chloride (K-Dur 20 Meq Er Tab) 20 meq PO DAILY [facility] Last Admin: 08/04/17 08:35 Dose: 20 meq Sitagliptin Phosphate (Januvia) 100 mg PO DAILYWM [facility] Last Admin: 08/04/17 08:35 Dose: 100 mg - Labs Labs: 08/02/17 15:30 08/04/17 05:50
--- NOTE | 2017-08-04 19:55 | CP.PCM.PN ---
Subjective - Date & Time of Evaluation Date of Evaluation: 08/01/17 Time of Evaluation: 11:00 - Subjective Subjective: Patient remains stable CBC is stable Still with difficulty with gait and transfers. Has no fever Noted improved appetite. Objective - Vital Signs/Intake and Output Vital Signs (last 24 hours): Temp Pulse Resp BP Pulse Ox 98.1 F 73 20 104/60 98 08/04/17 17:24 08/04/17 17:24 08/04/17 17:24 08/04/17 17:24 08/04/17 17:24 - Medications Medications: Current Medications Acyclovir (Zovirax) 800 mg PO 5XD [facility] PRN Reason: Protocol Last Admin: 08/04/17 17:15 Dose: 800 mg Diltiazem HCl (Cardizem Cd) 120 mg PO DAILY [facility] Last Admin: 08/04/17 08:34 Dose: 120 mg Escitalopram Oxalate (Lexapro) 10 mg PO DAILY [facility] Last Admin: 08/04/17 08:36 Dose: 10 mg Furosemide (Lasix) 40 mg PO DAILY [facility] Last Admin: 08/04/17 08:35 Dose: 40 mg Hydrocortisone (Hydrocortisone Lotion 2.5%) 1 applic TP 0900,2100 [facility] Last Admin: 08/04/17 08:34 Dose: 1 applic Lactic Acid (Lac-Hydrin 12% Lotion (225 G)) 1 applic TOP DAILY [facility] Last Admin: 08/04/17 08:34 Dose: 1 applic Lidocaine (Lidoderm) 1 ea TD DAILY [facility] Last Admin: 08/04/17 08:36 Dose: 1 ea Lorazepam (Ativan) 0.5 mg PO BID PRN PRN Reason: Anxiety Metformin HCl (Glucophage) 500 mg PO DAILYWM [facility] Last Admin: 08/04/17 08:35 Dose: 500 mg Oxycodone/Acetaminophen (Percocet 5/325 Mg Tab) 1 tab PO Q4 PRN PRN Reason: Pain, severe (8-10) Stop: 08/06/17 17:29 Last Admin: 08/04/17 08:46 Dose: 1 tab Pantoprazole Sodium (Protonix Ec Tab) 40 mg PO DAILY [facility] Last Admin: 08/04/17 08:37 Dose: 40 mg Potassium Chloride (K-Dur 20 Meq Er Tab) 20 meq PO DAILY [facility] Last Admin: 08/04/17 08:35 Dose: 20 meq Sitagliptin Phosphate (Januvia) 100 mg PO DAILYWM [facility] Last Admin: 08/04/17 08:35 Dose: 100 mg - Labs Labs: 08/02/17 15:30 08/04/17 05:50 - Head Exam Head Exam: NORMAL INSPECTION - ENT Exam ENT Exam: Mucous Membranes Moist - Respiratory Exam Respiratory Exam: Clear to Ausculation Bilateral - Cardiovascular Exam Cardiovascular Exam: Irregular Rhythm - GI/Abdominal Exam GI & Abdominal Exam: Normal Bowel Sounds Assessment and Plan (1) Physical debility Status: Acute (2) Chronic atrial fibrillation Status: Chronic (3) Diabetes type 2, controlled Status: Chronic (4) Hepatic cyst Status: Chronic - Assessment and Plan (Free Text) Plan: Cont meds Cont tx Cont PT check cbc cmp
--- NOTE | 2017-08-04 20:23 | CP.PCM.PN ---
Subjective - Date & Time of Evaluation Date of Evaluation: 08/02/17 Time of Evaluation: 11:00 - Subjective Subjective: Patient remains stable Participates in phys therapy Has no chest pain or SOB Has better appetite Objective - Vital Signs/Intake and Output Vital Signs (last 24 hours): Temp Pulse Resp BP Pulse Ox 98.1 F 73 20 104/60 98 08/04/17 17:24 08/04/17 17:24 08/04/17 17:24 08/04/17 17:24 08/04/17 17:24 - Medications Medications: Current Medications Acyclovir (Zovirax) 800 mg PO 5XD [facility] PRN Reason: Protocol Last Admin: 08/04/17 17:15 Dose: 800 mg Diltiazem HCl (Cardizem Cd) 120 mg PO DAILY [facility] Last Admin: 08/04/17 08:34 Dose: 120 mg Escitalopram Oxalate (Lexapro) 10 mg PO DAILY [facility] Last Admin: 08/04/17 08:36 Dose: 10 mg Furosemide (Lasix) 40 mg PO DAILY [facility] Last Admin: 08/04/17 08:35 Dose: 40 mg Hydrocortisone (Hydrocortisone Lotion 2.5%) 1 applic TP 0900,2100 [facility] Last Admin: 08/04/17 08:34 Dose: 1 applic Lactic Acid (Lac-Hydrin 12% Lotion (225 G)) 1 applic TOP DAILY [facility] Last Admin: 08/04/17 08:34 Dose: 1 applic Lidocaine (Lidoderm) 1 ea TD DAILY [facility] Last Admin: 08/04/17 08:36 Dose: 1 ea Lorazepam (Ativan) 0.5 mg PO BID PRN PRN Reason: Anxiety Metformin HCl (Glucophage) 500 mg PO DAILYWM [facility] Last Admin: 08/04/17 08:35 Dose: 500 mg Oxycodone/Acetaminophen (Percocet 5/325 Mg Tab) 1 tab PO Q4 PRN PRN Reason: Pain, severe (8-10) Stop: 08/06/17 17:29 Last Admin: 08/04/17 08:46 Dose: 1 tab Pantoprazole Sodium (Protonix Ec Tab) 40 mg PO DAILY [facility] Last Admin: 08/04/17 08:37 Dose: 40 mg Potassium Chloride (K-Dur 20 Meq Er Tab) 20 meq PO DAILY [facility] Last Admin: 08/04/17 08:35 Dose: 20 meq Sitagliptin Phosphate (Januvia) 100 mg PO DAILYWM [facility] Last Admin: 08/04/17 08:35 Dose: 100 mg - Labs Labs: 08/02/17 15:30 08/04/17 05:50 - Head Exam Head Exam: NORMAL INSPECTION - Eye Exam Eye Exam: Normal appearance - ENT Exam ENT Exam: Mucous Membranes Moist - Respiratory Exam Respiratory Exam: Clear to Ausculation Bilateral - Cardiovascular Exam Cardiovascular Exam: Irregular Rhythm - GI/Abdominal Exam GI & Abdominal Exam: Normal Bowel Sounds - Psychiatric Exam Psychiatric exam: Normal Mood - Skin Skin Exam: Normal Color Assessment and Plan (1) Physical debility Status: Acute (2) Chronic atrial fibrillation Status: Chronic (3) Diabetes type 2, controlled Status: Chronic (4) Hepatic cyst Status: Chronic - Assessment and Plan (Free Text) Plan: Cont meds Cont tx Cont PT check labs
--- NOTE | 2017-08-04 20:24 | CP.PCM.PN ---
Subjective - Date & Time of Evaluation Date of Evaluation: 08/03/17 Time of Evaluation: 10:20 - Subjective Subjective: Patient is doing a lot better Participates in some Phys therapy Has no chest pain or SOB. Objective - Vital Signs/Intake and Output Vital Signs (last 24 hours): Temp Pulse Resp BP Pulse Ox 98.1 F 73 20 104/60 98 08/04/17 17:24 08/04/17 17:24 08/04/17 17:24 08/04/17 17:24 08/04/17 17:24 - Medications Medications: Current Medications Acyclovir (Zovirax) 800 mg PO 5XD [facility] PRN Reason: Protocol Last Admin: 08/04/17 17:15 Dose: 800 mg Diltiazem HCl (Cardizem Cd) 120 mg PO DAILY [facility] Last Admin: 08/04/17 08:34 Dose: 120 mg Escitalopram Oxalate (Lexapro) 10 mg PO DAILY [facility] Last Admin: 08/04/17 08:36 Dose: 10 mg Furosemide (Lasix) 40 mg PO DAILY [facility] Last Admin: 08/04/17 08:35 Dose: 40 mg Hydrocortisone (Hydrocortisone Lotion 2.5%) 1 applic TP 0900,2100 [facility] Last Admin: 08/04/17 08:34 Dose: 1 applic Lactic Acid (Lac-Hydrin 12% Lotion (225 G)) 1 applic TOP DAILY [facility] Last Admin: 08/04/17 08:34 Dose: 1 applic Lidocaine (Lidoderm) 1 ea TD DAILY [facility] Last Admin: 08/04/17 08:36 Dose: 1 ea Lorazepam (Ativan) 0.5 mg PO BID PRN PRN Reason: Anxiety Metformin HCl (Glucophage) 500 mg PO DAILYWM [facility] Last Admin: 08/04/17 08:35 Dose: 500 mg Oxycodone/Acetaminophen (Percocet 5/325 Mg Tab) 1 tab PO Q4 PRN PRN Reason: Pain, severe (8-10) Stop: 08/06/17 17:29 Last Admin: 08/04/17 08:46 Dose: 1 tab Pantoprazole Sodium (Protonix Ec Tab) 40 mg PO DAILY [facility] Last Admin: 08/04/17 08:37 Dose: 40 mg Potassium Chloride (K-Dur 20 Meq Er Tab) 20 meq PO DAILY [facility] Last Admin: 08/04/17 08:35 Dose: 20 meq Sitagliptin Phosphate (Januvia) 100 mg PO DAILYWM [facility] Last Admin: 08/04/17 08:35 Dose: 100 mg - Labs Labs: 08/02/17 15:30 08/04/17 05:50 - Head Exam Head Exam: NORMAL INSPECTION - Eye Exam Eye Exam: Normal appearance - Respiratory Exam Respiratory Exam: Clear to Ausculation Bilateral - Cardiovascular Exam Cardiovascular Exam: REGULAR RHYTHM - Neurological Exam Neurological Exam: Awake, Oriented x3 Assessment and Plan (1) Physical debility Status: Acute (2) Chronic atrial fibrillation Status: Chronic (3) Diabetes type 2, controlled Status: Chronic (4) Hepatic cyst Status: Chronic - Assessment and Plan (Free Text) Plan: Cont meds Cont PT Cont all meds
--- NOTE | 2017-08-04 20:31 | CP.PCM.PN ---
Subjective - Date & Time of Evaluation Date of Evaluation: 08/04/17 Time of Evaluation: 12:00 - Subjective Subjective: patient remains stable Has no chest pain or SOB Remains mostly one bed Has good appetite and sleep. Plans for discharge on discussion. Objective - Vital Signs/Intake and Output Vital Signs (last 24 hours): Temp Pulse Resp BP Pulse Ox 98.1 F 73 20 104/60 98 08/04/17 17:24 08/04/17 17:24 08/04/17 17:24 08/04/17 17:24 08/04/17 17:24 - Medications Medications: Current Medications Acyclovir (Zovirax) 800 mg PO 5XD [facility] PRN Reason: Protocol Last Admin: 08/04/17 17:15 Dose: 800 mg Diltiazem HCl (Cardizem Cd) 120 mg PO DAILY [facility] Last Admin: 08/04/17 08:34 Dose: 120 mg Escitalopram Oxalate (Lexapro) 10 mg PO DAILY [facility] Last Admin: 08/04/17 08:36 Dose: 10 mg Furosemide (Lasix) 40 mg PO DAILY [facility] Last Admin: 08/04/17 08:35 Dose: 40 mg Hydrocortisone (Hydrocortisone Lotion 2.5%) 1 applic TP 0900,2100 [facility] Last Admin: 08/04/17 08:34 Dose: 1 applic Lactic Acid (Lac-Hydrin 12% Lotion (225 G)) 1 applic TOP DAILY [facility] Last Admin: 08/04/17 08:34 Dose: 1 applic Lidocaine (Lidoderm) 1 ea TD DAILY [facility] Last Admin: 08/04/17 08:36 Dose: 1 ea Lorazepam (Ativan) 0.5 mg PO BID PRN PRN Reason: Anxiety Metformin HCl (Glucophage) 500 mg PO DAILYWM [facility] Last Admin: 08/04/17 08:35 Dose: 500 mg Oxycodone/Acetaminophen (Percocet 5/325 Mg Tab) 1 tab PO Q4 PRN PRN Reason: Pain, severe (8-10) Stop: 08/06/17 17:29 Last Admin: 08/04/17 08:46 Dose: 1 tab Pantoprazole Sodium (Protonix Ec Tab) 40 mg PO DAILY [facility] Last Admin: 08/04/17 08:37 Dose: 40 mg Potassium Chloride (K-Dur 20 Meq Er Tab) 20 meq PO DAILY [facility] Last Admin: 08/04/17 08:35 Dose: 20 meq Sitagliptin Phosphate (Januvia) 100 mg PO DAILYWM [facility] Last Admin: 08/04/17 08:35 Dose: 100 mg - Labs Labs: 08/02/17 15:30 08/04/17 05:50 - Head Exam Head Exam: NORMAL INSPECTION - Eye Exam Eye Exam: Normal appearance - ENT Exam ENT Exam: Mucous Membranes Moist - Respiratory Exam Respiratory Exam: Clear to Ausculation Bilateral - Cardiovascular Exam Cardiovascular Exam: REGULAR RHYTHM - GI/Abdominal Exam GI & Abdominal Exam: Normal Bowel Sounds - Neurological Exam Neurological Exam: CN II-XII Intact, Oriented x3 - Psychiatric Exam Psychiatric exam: Normal Mood Assessment and Plan (1) Physical debility Status: Acute (2) Chronic atrial fibrillation Status: Chronic (3) Diabetes type 2, controlled Status: Chronic (4) Hepatic cyst Status: Chronic - Assessment and Plan (Free Text) Plan: Cont meds Cont tx Cont PT Discharge plans for tomorrow. Rx for hospital bed.
[2017-08-05] MEDS: diltiaZEM 120 mg/24 Hours CD Cap PO SCH (08:03)
[2017-08-05] MEDS: Potassium Chloride 20 mEq ER Tab PO SCH (08:04)
[2017-08-05] MEDS: Lidocaine 5% Patch TD SCH (08:05)
[2017-08-05] MEDS: Pantoprazole 40 mg EC Tab PO SCH (08:05)
--- NOTE | 2017-08-05 11:37 | CP.PCM.PN ---
Subjective - Date & Time of Evaluation Date of Evaluation: 08/05/17 Time of Evaluation: 09:00 - Subjective Subjective: afeb alert c/o pain Objective - Vital Signs/Intake and Output Vital Signs (last 24 hours): Temp Pulse Resp BP Pulse Ox 97.6 F 82 18 139/68 99 08/05/17 08:14 08/05/17 08:14 08/05/17 08:14 08/05/17 08:14 08/05/17 08:14 - Medications Medications: Current Medications Acyclovir (Zovirax) 800 mg PO 5XD [facility] PRN Reason: Protocol Last Admin: 08/05/17 08:06 Dose: 800 mg Diltiazem HCl (Cardizem Cd) 120 mg PO DAILY [facility] Last Admin: 08/05/17 08:03 Dose: 120 mg Escitalopram Oxalate (Lexapro) 10 mg PO DAILY [facility] Last Admin: 08/05/17 08:05 Dose: 10 mg Furosemide (Lasix) 40 mg PO DAILY [facility] Last Admin: 08/05/17 08:04 Dose: 40 mg Hydrocortisone (Hydrocortisone Lotion 2.5%) 1 applic TP 0900,2100 [facility] Last Admin: 08/05/17 08:08 Dose: 1 applic Lactic Acid (Lac-Hydrin 12% Lotion (225 G)) 1 applic TOP DAILY [facility] Last Admin: 08/05/17 08:07 Dose: 1 applic Lidocaine (Lidoderm) 1 ea TD DAILY [facility] Last Admin: 08/05/17 08:05 Dose: 1 ea Lorazepam (Ativan) 0.5 mg PO BID PRN PRN Reason: Anxiety Metformin HCl (Glucophage) 500 mg PO DAILYWM [facility] Last Admin: 08/05/17 08:03 Dose: 500 mg Oxycodone/Acetaminophen (Percocet 5/325 Mg Tab) 1 tab PO Q4 PRN PRN Reason: Pain, severe (8-10) Stop: 08/06/17 17:29 Last Admin: 08/04/17 08:46 Dose: 1 tab Pantoprazole Sodium (Protonix Ec Tab) 40 mg PO DAILY [facility] Last Admin: 08/05/17 08:05 Dose: 40 mg Potassium Chloride (K-Dur 20 Meq Er Tab) 20 meq PO DAILY [facility] Last Admin: 08/05/17 08:04 Dose: 20 meq Sitagliptin Phosphate (Januvia) 100 mg PO DAILYWM [facility] Last Admin: 08/05/17 08:03 Dose: 100 mg - Labs Labs: 08/02/17 15:30 08/04/17 05:50 - Constitutional Appears: Non-toxic, Chronically Ill - Head Exam Head Exam: NORMOCEPHALIC - Eye Exam Eye Exam: PERRL - ENT Exam ENT Exam: Mucous Membranes Dry - Neck Exam Neck Exam: absent: Lymphadenopathy - Respiratory Exam Respiratory Exam: Decreased Breath Sounds - Cardiovascular Exam Cardiovascular Exam: REGULAR RHYTHM - GI/Abdominal Exam GI & Abdominal Exam: Distended - Rectal Exam Rectal Exam: Deferred - Exam Exam: NORMAL INSPECTION - Extremities Exam Extremities Exam: absent: Pedal Edema - Back Exam Back Exam: absent: CVA tenderness (L), CVA tenderness (R) - Neurological Exam Neurological Exam: Alert, Awake, Oriented x3 - Psychiatric Exam Psychiatric exam: Normal Mood Assessment and Plan - Assessment and Plan (Free Text) Assessment: cont acyclovir total 10 days
--- NOTE | 2017-08-05 12:29 | CP.PCM.DIS ---
Provider - Provider Date of Admission: 07/27/17 15:07 Attending physician: Ulises Cloud MD Consults: Dr. Verduzco, Dr. Bolanos Time Spent in preparation of Discharge (in minutes): 30 Diagnosis - Discharge Diagnosis (1) Anemia Status: Chronic Priority: Low (2) Herpes zoster infection of lumbar region Status: Acute Priority: Low (3) Physical deconditioning Status: Resolved Priority: Low (4) Hepatic cyst Status: Chronic Priority: Low (5) CHF (congestive heart failure) Status: Chronic Priority: Medium (6) Chronic atrial fibrillation Status: Chronic Priority: Medium (7) DVT of lower extremity, bilateral Status: Chronic Priority: Low Hospital Course - Lab Results Lab Results: Micro Results 07/28/17 09:16 Urine Urine Culture - Final Escherichia Coli Most Recent Lab Values WBC 8.8 K/uL (4.8-10.8) 08/02/17 15:30 RBC 3.36 Mil/uL (3.80-5.20) L 08/02/17 15:30 Hgb 10.5 g/dL (12.0-16.0) L 08/02/17 15:30 Hct 31.6 % (34.0-47.0) L 08/02/17 15:30 MCV 94.3 fl (81.0-99.0) 08/02/17 15:30 MCH 31.1 pg (27.0-31.0) H 08/02/17 15:30 MCHC 33.0 g/dL (33.0-37.0) 08/02/17 15:30 RDW 16.3 % (11.5-14.5) H 08/02/17 15:30 Plt Count 164 K/uL (130-400) 08/02/17 15:30 MPV 6.8 fl (7.2-11.7) L 08/02/17 15:30 Neut % (Auto) 73.7 % (50.0-75.0) 08/02/17 15:30 Lymph % (Auto) 10.4 % (20.0-40.0) L 08/02/17 15:30 [place] % (Auto) 14.7 % (0.0-10.0) H 08/02/17 15:30 Eos % (Auto) 0.3 % (0.0-4.0) 08/02/17 15:30 Baso % (Auto) 0.9 % (0.0-2.0) 08/02/17 15:30 Neut # (Auto) 6.5 K/uL (1.8-7.0) 08/02/17 15:30 Lymph # (Auto) 0.9 K/uL (1.0-4.3) L 08/02/17 15:30 [place] # (Auto) 1.3 K/uL (0.0-0.8) H 08/02/17 15:30 Eos # (Auto) 0.0 K/uL (0.0-0.7) 08/02/17 15:30 Baso # (Auto) 0.1 K/uL (0.0-0.2) 08/02/17 15:30 Sodium 130 mmol/l (132-148) L 08/04/17 05:50 Potassium 3.7 MMOL/L (3.6-5.0) 08/04/17 05:50 Chloride 94 mmol/L (98-107) L 08/04/17 05:50 Carbon Dioxide 27 mmol/L (22-30) 08/04/17 05:50 Anion Gap 13 (10-20) 08/04/17 05:50 BUN 12 mg/dl (7-17) 08/04/17 05:50 Creatinine 0.6 mg/dl (0.7-1.2) L 08/04/17 05:50 Est GFR ( Amer) > 60 08/04/17 05:50 Est GFR (Non-Af Amer) > 60 08/04/17 05:50 POC Glucose (mg/dL) 167 mg/dL (65-110) H 08/05/17 10:56 Random Glucose 90 mg/dL (65-105) 08/04/17 05:50 Calcium 8.0 mg/dL (8.4-10.2) L 08/04/17 05:50 Total Bilirubin 1.5 mg/dl (0.2-1.3) H 08/03/17 05:40 AST 36 U/L (14-36) 08/03/17 05:40 ALT 38 U/L (9-52) 08/03/17 05:40 Alkaline Phosphatase 79 U/L (38-126) 08/03/17 05:40 Total Protein 6.0 G/DL (6.3-8.2) L 08/03/17 05:40 Albumin 2.7 g/dL (3.5-5.0) L 08/03/17 05:40 Globulin 3.2 gm/dL (2.2-3.9) 08/03/17 05:40 Albumin/Globulin Ratio 0.9 (1.0-2.1) L 08/03/17 05:40 Urine Color Yellow (YELLOW) 07/28/17 09:16 Urine Clarity Slighty-cloudy (Clear) 07/28/17 09:16 Urine pH 7.0 (5.0-8.0) 07/28/17 09:16 Ur Specific [place] 1.006 (1.003-1.030) 07/28/17 09:16 Urine Protein Negative mg/dL (NEGATIVE) 07/28/17 09:16 Urine Glucose (UA) Neg mg/dL (Normal) 07/28/17 09:16 Urine Ketones Negative mg/dL (NEGATIVE) 07/28/17 09:16 Urine Blood Small (NEGATIVE) 07/28/17 09:16 Urine Nitrate Negative (NEGATIVE) 07/28/17 09:16 Urine Bilirubin Negative (NEGATIVE) 07/28/17 09:16 Urine Urobilinogen 0.2-1.0 mg/dL (0.2-1.0) 07/28/17 09:16 Ur Leukocyte Esterase Large [place]/uL (Negative) 07/28/17 09:16 Urine RBC (Auto) 2 /hpf (0-3) 07/28/17 09:16 Urine Microscopic WBC 61 /hpf (0-5) H 07/28/17 09:16 Ur Squamous Epith Cells 4 /hpf (0-5) 07/28/17 09:16 Urine Bacteria Rare (<OCC) 07/28/17 09:16 Vancomycin Trough 9.5 ug/mL (5.0-10.0) 07/28/17 06:00 - Hospital Course Hospital Course: 87 yr old F admitted to TCU for physical therapy due to deconditioning. PMHx includes CHF with preserved EF, chronic bilateral DVT, A-fib, HTN and hepatic cyst. Patient tolerated PT well, physical condtion improved. She was found to have Herpes zoster which improved with acyclovir. Patient was discharged with instructions to follow up with PMD within 1 week, resume home medications and Rx given to complete 3 more days of valcyclovir. - Date & Time of H&P Date of H&P: 07/28/17 Time of H&P: 10:03 Discharge Exam - Head Exam Head Exam: NORMOCEPHALIC - ENT Exam ENT Exam: Mucous Membranes Moist - Respiratory Exam Respiratory Exam: NORMAL BREATHING PATTERN - Cardiovascular Exam Cardiovascular Exam: REGULAR RHYTHM, +S1, +S2 - GI/Abdominal Exam GI & Abdominal Exam: Normal Bowel Sounds - Extremities Exam Extremities exam: pedal pulses present - Back Exam Back exam: absent: NORMAL INSPECTION (right lumbar herpes zoster) - Neurological Exam Neurological exam: Alert, Oriented x3 - Psychiatric Exam Psychiatric exam: Normal Affect, Normal Mood - Skin Skin Exam: Dry, Normal Color, Warm Discharge Plan - Follow Up Plan Condition: GOOD Disposition: HOME/ ROUTINE Patient education suggested?: Yes Instructions: Shingles (DC) Additional Instructions: Follow up with your PMD within 1 week, resume home medications as prescribed.
[2017-08-05] MEDS: Oxycodone/Acetaminophen 5/325 mg Tab PO PRN (15:37)
[2017-08-05 17:49] VITALS: BP 118/75; PULSE 70; RESP 20; TEMP 97.5; O2SAT 98
== END 2017-08-05 17:40 | disposition home health service (06) | DRG 884 ==
LOC: H.TCU 15:07
PROVIDERS: ADMIT Family Medicine; ATTEND Family Medicine
PROC: F07M6FZ Therapeutic Exercise Treatment of Musculoskeletal System - Whole Body using Assistive, Adaptive, Supportive or Protective Equipment (ICD-10-PCS; principal; 2017-07-27)
PROC: F08Z4FZ Home Management Treatment using Assistive, Adaptive, Supportive or Protective Equipment (ICD-10-PCS; 2017-07-27)
DX: R54 Age-related physical debility (principal); I50.32 Chronic diastolic (congestive) heart failure; I82.403 Acute embolism and thrombosis of unspecified deep veins of lower extremity, bilateral; D64.9 Anemia, unspecified; B02.9 Zoster without complications; E11.9 Type 2 diabetes mellitus without complications; E78.00 Pure hypercholesterolemia, unspecified; I11.0 Hypertensive heart disease with heart failure; I48.2 Chronic atrial fibrillation; K76.89 Other specified diseases of liver; F32.9 Major depressive disorder, single episode, unspecified; F41.9 Anxiety disorder, unspecified; F45.9 Somatoform disorder, unspecified; M19.90 Unspecified osteoarthritis, unspecified site; R60.0 Localized edema; R10.11 Right upper quadrant pain; R10.31 Right lower quadrant pain